=== PATIENT | female | born 1945 | race Caucasian/White ===

== ENCOUNTER → 2018-03-15 05:05 | Outpatient (REF) | payer MEDICARE, BC, SELFPAY ==
[2018-03-18 14:26] LABS: International Normalized Ratio 2.9; Prothrombin Time (Protime)PT. 30.5 SECONDS (11.7-14.9)
[2018-03-18 14:27] LABS: Cholesterol 104 mg/dL (200); High Density Lipoprotein 42 mg/dL; Thyroid Stim Hormone (TSH) 1.61 uIU/mL (0.358-3.74); Triglycerides 94 mg/dL; Very Low Density Lipoprotein 19 mg/dL (5-40)
== END ==
LOC: OLS.AVEB 05:05
PROVIDERS: Visit Provider Family Medicine
DX: Z86.73 Personal history of transient ischemic attack (TIA), and cerebral infarction without residual deficits (principal); Z79.01 Long term (current) use of anticoagulants; Z79.899 Other long term (current) drug therapy
CPT/HCPCS: 36415; 80061; 82306; 84443; 85610

== ENCOUNTER → 2018-03-19 06:10 | Outpatient (REF) | payer MEDICARE, MEDICAID, SELFPAY ==
[2018-03-19 09:45] LABS: International Normalized Ratio 3.3; Prothrombin Time (Protime)PT. 33.5 SECONDS (11.7-14.9)
== END ==
LOC: OLS.AVEB 06:10
PROVIDERS: Visit Provider Family Medicine
DX: R69 Illness, unspecified (principal)
CPT/HCPCS: 36415; 85610

== ENCOUNTER → 2018-03-22 05:00 | Outpatient (REF) | payer MEDICARE, BC, SELFPAY ==
[2018-03-22 09:49] LABS: International Normalized Ratio 3.2; Prothrombin Time (Protime)PT. 33.1 SECONDS (11.7-14.9)
== END ==
LOC: OLS.AVEB 05:00
PROVIDERS: Visit Provider Family Medicine
DX: Z79.899 Other long term (current) drug therapy (principal)
CPT/HCPCS: 36415; 82306; 85610

== ENCOUNTER → 2018-03-29 05:00 | Outpatient (REF) | payer MEDICARE, BC, SELFPAY ==
[2018-03-29 09:46] LABS: Prothrombin Time Fingerstick 46.2 SEC (11.9-14.4)
[2018-03-29 10:49] LABS: International Normalized Ratio 3.2; Prothrombin Time (Protime)PT. 33.3 SECONDS (11.7-14.9)
== END ==
LOC: OLS.AVEB 05:00
PROVIDERS: Visit Provider Family Medicine
DX: Z79.01 Long term (current) use of anticoagulants (principal)
CPT/HCPCS: 36416; 85610

== ENCOUNTER → 2018-04-01 05:00 | Outpatient (REF) | payer MEDICARE, BC, SELFPAY ==
[2018-04-01 07:41] LABS: Prothrombin Time Fingerstick 31.7 SEC (11.9-14.4)
== END ==
LOC: OLS.AVEB 05:00
PROVIDERS: Visit Provider Family Medicine
DX: Z79.01 Long term (current) use of anticoagulants (principal)
CPT/HCPCS: 36416; 85610

== ENCOUNTER → 2018-04-05 04:00 | Outpatient (REF) | payer MEDICARE, BC, SELFPAY ==
[2018-04-05 07:30] LABS: Prothrombin Time Fingerstick 28.9 SEC (11.9-14.4)
== END ==
LOC: OLS.AVEB 04:00
PROVIDERS: Visit Provider Family Medicine
DX: Z79.01 Long term (current) use of anticoagulants (principal)
CPT/HCPCS: 36416; 85610

== ENCOUNTER → 2018-04-12 05:00 | Outpatient (REF) | payer MEDICARE, BC, SELFPAY ==
[2018-04-12 08:42] LABS: Absolute Neutrophil Count 2.9 X10^3/uL (2.0-7.7); Basophil# 0.03 X10^3/uL; Basophil% 0.5 % (0-1); Eosinophil# 0.31 X10^3/uL; Eosinophils% 5.3 % (0-5); Hemoglobin 11.2 g/dl (12.0-15.0); Lymphocyte % 35.8 % (19-41); Mean Corp Hgb Conc 30.3 g/gl (32-36); Mean Corpuscular Hgb 27.3 pg (27.0-32.0); Mean Platelet Vol. 10.6 fl (6.2-12.0); Monocyte# 0.54 X10^3/uL; Monocyte% 9.2 % (0-10); Neutrophil # 2.88 X10^3/uL (2.7-7.7); Platelet Count 350 K/mm3 (150-450); RBC Distribution Width CV 14.4 % (11.6-14.6); RBC Distribution Width SD 47.3 fl (35.1-43.9); Red Blood Count 4.11 M/mm3 (4.2-5.4); White Blood Count 5.9 K/mm3 (4.4-11.0)
[2018-04-12 08:46] LABS: POSITIVE COUNT NO; POSITIVE DIFFERENTIAL NO; POSITIVE MORPHOLOGY NO
[2018-04-12 08:55] LABS: International Normalized Ratio 2.8; Prothrombin Time (Protime)PT. 29.3 SECONDS (11.7-14.9)
[2018-04-12 09:03] LABS: ALB/GLOB Ratio 0.9 RATIO (0.9-2.4); AST(SGOT) 23 U/L (15-37); Alanine Aminotransfer ALT/SGPT 25 U/L (13-56); Albumin, Serum 3.3 g/dL (3.2-5.0); Alkaline Phosphatase 153 U/L (45-117); Anion Gap 6 (5-15); BUN 21 mg/dL (7-18); BUN/Creat Ratio 28.2 RATIO (10-20); Calcium,Total 8.7 mg/dL (8.5-10.1); Chloride 108 mmol/L (98-107); Creatinine, Serum 0.74 mg/dL (0.55-1.02); EST Glomerular Filtration Rate 82 mL/min (>60); Est Glom Filt Rate - Afr Amer 99 mL/min (>60); Globulin 3.6 g/dL (2.2-4.2); Glucose 66 mg/dL (74-106); Potassium 4.1 mmol/L (3.5-5.1); Protein, Total 6.9 g/dL (6.4-8.2); Sodium Level 142 mmol/L (136-145)
== END ==
LOC: OLS.AVEB 05:00
PROVIDERS: Visit Provider Family Medicine
DX: R53.83 Other fatigue (principal)
CPT/HCPCS: 36415; 80053; 85025; 85610

== ENCOUNTER → 2018-04-19 04:00 | Outpatient (REF) | payer MEDICARE, BC, SELFPAY ==
[2018-04-19 08:59] LABS: International Normalized Ratio 2.2; Prothrombin Time (Protime)PT. 24.4 SECONDS (11.7-14.9)
== END ==
LOC: OLS.AVEB 04:00
PROVIDERS: Visit Provider Family Medicine
DX: Z79.01 Long term (current) use of anticoagulants (principal)
CPT/HCPCS: 36415; 85610

== ENCOUNTER → 2018-04-26 06:30 | Outpatient (REF) | payer MEDICARE, BC, SELFPAY ==
[2018-04-26 10:22] LABS: International Normalized Ratio 2.4; Prothrombin Time (Protime)PT. 26.3 SECONDS (11.7-14.9)
== END ==
LOC: OLS.AVEB 06:30
PROVIDERS: Visit Provider Family Medicine
DX: Z79.01 Long term (current) use of anticoagulants (principal)
CPT/HCPCS: 36415; 85610

== ENCOUNTER → 2018-05-13 05:30 | Outpatient (REF) | payer MEDICARE, BC, SELFPAY ==
[2018-05-14 10:14] LABS: Vitamin D,25 Hydroxy 51.3 ng/mL (29.95-100.01)
== END ==
LOC: OLS.AVEB 05:30
PROVIDERS: Visit Provider Family Medicine
DX: D64.9 Anemia, unspecified (principal); E55.9 Vitamin D deficiency, unspecified
CPT/HCPCS: 36415; 82306

== ENCOUNTER → 2018-05-17 05:00 | Outpatient (REF) | payer MEDICARE, BC, SELFPAY ==
[2018-05-17 11:20] LABS: International Normalized Ratio 2.5; Prothrombin Time (Protime)PT. 27.1 SECONDS (11.7-14.9)
[2018-05-17 11:22] LABS: Hematocrit 35.2 % (37-47); Hemoglobin 10.9 g/dl (12.0-15.0); Mean Corpuscular Hgb 28.2 pg (27.0-32.0); Mean Platelet Vol. 10.8 fl (6.2-12.0); Platelet Count 302 K/mm3 (150-450); RBC Distribution Width CV 13.8 % (11.6-14.6); RBC Distribution Width SD 45.4 fl (35.1-43.9); Red Blood Count 3.87 M/mm3 (4.2-5.4); Scan Indicated on CBC? Y/N NO; White Blood Count 6.2 K/mm3 (4.4-11.0)
[2018-05-17 11:39] LABS: ALB/GLOB Ratio 0.9 RATIO (0.9-2.4); AST(SGOT) 22 U/L (15-37); Alanine Aminotransfer ALT/SGPT 26 U/L (13-56); Alkaline Phosphatase 152 U/L (45-117); Anion Gap 9 (5-15); BUN 29 mg/dL (7-18); BUN/Creat Ratio 28.4 RATIO (10-20); Calcium,Total 8.6 mg/dL (8.5-10.1); Chloride 108 mmol/L (98-107); Creatinine, Serum 1.02 mg/dL (0.55-1.02); EST Glomerular Filtration Rate 57 mL/min (>60); Est Glom Filt Rate - Afr Amer 69 mL/min (>60); Globulin 3.2 g/dL (2.2-4.2); Glucose 74 mg/dL (74-106); Protein, Total 6.2 g/dL (6.4-8.2); Sodium Level 145 mmol/L (136-145); Thyroid Stim Hormone (TSH) 1.19 uIU/mL (0.358-3.74)
== END ==
LOC: OLS.AVEB 05:00
PROVIDERS: Visit Provider Family Medicine
DX: D64.9 Anemia, unspecified (principal); E78.5 Hyperlipidemia, unspecified; Z79.01 Long term (current) use of anticoagulants
CPT/HCPCS: 36415; 80053; 84443; 85027; 85610

== ENCOUNTER → 2018-06-15 04:00 | Outpatient (REF) | payer MEDICARE, BC, SELFPAY ==
[2018-06-15 09:18] LABS: International Normalized Ratio 2.8; Prothrombin Time (Protime)PT. 29.9 SECONDS (11.7-14.9)
== END ==
LOC: OLS.AVEB 04:00
PROVIDERS: Visit Provider Family Medicine
DX: Z79.01 Long term (current) use of anticoagulants (principal)
CPT/HCPCS: 36415; 85610

== ENCOUNTER → 2018-06-21 11:30 | Outpatient (REF) | payer MEDICARE, BC, SELFPAY ==
[2018-06-21 12:20] LABS: Prothrombin Time Fingerstick 35.9 SEC (11.9-14.4)
== END ==
LOC: OLS.AVEB 11:30
PROVIDERS: Visit Provider Family Medicine
DX: Z79.01 Long term (current) use of anticoagulants (principal)
CPT/HCPCS: 36416; 85610

== ENCOUNTER → 2018-07-06 04:00 | Outpatient (REF) | payer MEDICARE, BC, SELFPAY ==
[2018-07-06 09:18] LABS: International Normalized Ratio 2.9; Prothrombin Time (Protime)PT. 30.2 SECONDS (11.7-14.9)
[2018-07-06 09:30] LABS: Prothrombin Time Fingerstick 41.8 SEC (11.9-14.4)
== END ==
LOC: OLS.AVEB 04:00
PROVIDERS: Visit Provider Family Medicine
DX: Z79.01 Long term (current) use of anticoagulants (principal)
CPT/HCPCS: 36416; 85610

== ENCOUNTER → 2018-07-08 05:00 | Outpatient (REF) | payer MEDICARE, BC, SELFPAY ==
[2018-07-08 09:11] LABS: Prothrombin Time Fingerstick 28.4 SEC (11.9-14.4)
== END ==
LOC: OLS.AVEB 05:00
PROVIDERS: Visit Provider Family Medicine
DX: Z79.01 Long term (current) use of anticoagulants (principal)
CPT/HCPCS: 36416; 85610

== ENCOUNTER → 2018-07-19 04:00 | Outpatient (REF) | payer MEDICARE, BC, SELFPAY ==
[2018-07-19 06:34] LABS: Anion Gap 8 (5-15); BUN 25 mg/dL (7-18); BUN/Creat Ratio 25.1 RATIO (10-20); Calcium,Total 8.8 mg/dL (8.5-10.1); Chloride 108 mmol/L (98-107); EST Glomerular Filtration Rate 58 mL/min (>60); Est Glom Filt Rate - Afr Amer 71 mL/min (>60); Glucose 78 mg/dL (74-106); Potassium 3.9 mmol/L (3.5-5.1); Sodium Level 145 mmol/L (136-145)
== END ==
LOC: OLS.AVEB 04:00
PROVIDERS: Visit Provider Family Medicine
DX: R53.83 Other fatigue (principal)
CPT/HCPCS: 36415; 80048

== ENCOUNTER → 2018-07-21 05:00 | Outpatient (REF) | payer MEDICARE, BC, SELFPAY ==
[2018-07-21 08:55] LABS: Prothrombin Time Fingerstick 30.8 SEC (11.9-14.4)
== END ==
LOC: OLS.AVEB 05:00
PROVIDERS: Visit Provider Family Medicine
DX: Z79.01 Long term (current) use of anticoagulants (principal)
CPT/HCPCS: 36416; 85610

== ENCOUNTER → 2018-08-04 05:00 | Outpatient (REF) | payer MEDICARE, BC, SELFPAY ==
[2018-08-04 08:46] LABS: Prothrombin Time Fingerstick 34.5 SEC (11.9-14.4)
== END ==
LOC: OLS.AVEB 05:00
PROVIDERS: Visit Provider Family Medicine
DX: Z79.01 Long term (current) use of anticoagulants (principal)
CPT/HCPCS: 36416; 85610

== ENCOUNTER → 2018-08-16 17:50 | Outpatient (REF) | payer MEDICARE, BC, SELFPAY ==
[2018-08-16 17:29] LABS: International Normalized Ratio 2.4; Prothrombin Time (Protime)PT. 26.1 SECONDS (11.7-14.9)
== END ==
LOC: OLS.AVEB 17:50
PROVIDERS: Visit Provider Family Medicine
DX: Z79.01 Long term (current) use of anticoagulants (principal)
CPT/HCPCS: 36415; 85610

== ENCOUNTER → 2018-08-31 07:10 | Outpatient (REF) | payer MEDICARE, BC, SELFPAY ==
[2018-08-31 09:00] LABS: International Normalized Ratio 2.5; Prothrombin Time (Protime)PT. 26.7 SECONDS (11.7-14.9)
== END ==
LOC: OLS.AVEB 07:10
PROVIDERS: Visit Provider Family Medicine
DX: Z79.01 Long term (current) use of anticoagulants (principal)
CPT/HCPCS: 36415; 85610

== ENCOUNTER → 2018-09-28 05:00 | Outpatient (REF) | payer MEDICARE, BC, SELFPAY ==
[2018-09-28 07:51] LABS: Prothrombin Time Fingerstick 36.1 SEC (11.9-14.4)
--- OUTSIDE RECORDS SUMMARY | 2018-12-30 11:05 | XMS RPT_ITS ---
:1945 Author Organization OHIP Support Name Relationship Address Phone Berlin Deneth Unavailable [address] + [place] [address] R Unavailable Unavailable Unavailable Saadia Wilbert Unavailable [address] + [place] [address] R Unavailable Unavailable Unavailable SaadiaBerlinWilbert Unavailable [address] + [place] [address] R Unavailable Unavailable Unavailable SaadiaBerlinWilbert Unavailable [address] + [place] [address] R Unavailable Unavailable Unavailable Saadia Wilbert Unavailable [address] + [place] [address] R Unavailable Unavailable Unavailable Saadia, Wilbert Unavailable [address] + [place] [address] R Unavailable Unavailable Unavailable Saadia, Wilbert Unavailable [address] + [place] [address] R Unavailable Unavailable Unavailable Saadia, Wilbert Unavailable [address] + [place] [address] R Unavailable Unavailable Unavailable Saadia Wilbert Unavailable [address] + [place] [address] R Unavailable Unavailable Unavailable DAHLIA DE Unavailable SON + BERLIN DENETH Unavailable [address] Unavailable [place], [place] [id number] NOT GIVEN Unavailable Unavailable Unavailable Saadia Wilbert Unavailable [address] + [place] [address] R Unavailable Unavailable Unavailable SaadiaBerlinWilbert Unavailable [address] + [place] [address] R Unavailable Unavailable Unavailable Saadia, Wilbert Unavailable [address] + [place] [address] R Unavailable Unavailable Unavailable Saadia, Wilbert Unavailable [address] + [place] [address] R Unavailable Unavailable Unavailable Saadia, Wilbert Unavailable [address] + [place] [address] R Unavailable Unavailable Unavailable Saadia, Wilbert Unavailable [address] + [place] [address] R Unavailable Unavailable Unavailable Saadia, Wilbert Unavailable [address] + [place] [address] R Unavailable Unavailable Unavailable Saadia, Wilbert Unavailable [address] + [place] [address] R Unavailable Unavailable Unavailable Saadia, Wilbert Unavailable [address] + [place] [address] R Unavailable Unavailable Unavailable Saadia, Wilbert Unavailable [address] + [place] [address] R Unavailable Unavailable Unavailable Saadia, Wilbert Unavailable [address] + [place] [address] R Unavailable Unavailable Unavailable Saadia, Wilbert Unavailable [address] + [place] [address] R Unavailable Unavailable Unavailable Saadia, Wilbert Unavailable [address] + [place] [address] R Unavailable Unavailable Unavailable Saadia, Wilbert Unavailable [address] + [place] [address] R Unavailable Unavailable Unavailable Saadia, Wilbert Unavailable [address] + [place] [address] R Unavailable Unavailable Unavailable Saadia, Wilbert Unavailable [address] + [place] [address] R Unavailable Unavailable Unavailable Saadia, Wilbert Unavailable [address] + [place] [address] R Unavailable Unavailable Unavailable Saadia, Wilbert Unavailable [address] + [place] [address] R Unavailable Unavailable Unavailable Saadia, Wilbert Unavailable [address] + [place] [address] R Unavailable Unavailable Unavailable Saadia, Wilbert Unavailable [address] + [place] [address] R Unavailable Unavailable Unavailable Saadia, Wilbert Unavailable [address] + [place] [address] R Unavailable Unavailable Unavailable Saadia, Wilbert Unavailable [address] + [place] [address] R Unavailable Unavailable Unavailable Saadia, Wiblert Unavailable [address] + [place] [address] R Unavailable Unavailable Unavailable Saadia, Wilbert Unavailable [address] + [place] [address] R Unavailable Unavailable Unavailable Saadia, Wilbert Unavailable [address] + [place] [address] R Unavailable Unavailable Unavailable SAADIA DAHLIA Unavailable SON + SAADIA, WILBERT Unavailable [address] Unavailable [place], [place] [id number] NOT GIVEN Unavailable Unavailable Unavailable SAADIA DAHLIA Unavailable SON + SAADIA, WILBERT Unavailable [address] Unavailable [place], [place] [id number] NOT GIVEN Unavailable Unavailable Unavailable Saadia, Wilbert Unavailable [address] + [place] [address] R Unavailable Unavailable Unavailable SAADIA, WILBERT Unavailable [address] + [place] [address] R Unavailable Unavailable Unavailable SAADIA DAHLIA Unavailable SON + SAADIA, WILBERT Unavailable [address] Unavailable [place], [place] [id number] NOT GIVEN Unavailable Unavailable Unavailable SAADIA DAHLIA Unavailable SON + SAADIA, WILBERT Unavailable [address] Unavailable [place], [place] [id number] NOT GIVEN Unavailable Unavailable Unavailable SAADIA, DAHLIA Unavailable SON + JORDI DEH Unavailable [address] Unavailable [place], [place] [id number] NOT GIVEN Unavailable Unavailable Unavailable DAHLIA DE Unavailable SON + BERLIN DENETH Unavailable [address] Unavailable [place], [place] [id number] NOT GIVEN Unavailable Unavailable Unavailable Care Team Providers Name Role Phone DR MARCOS MORRIS Admitting Unavailable DR MARCOS MORRIS Attending Unavailable MALYS, NESS D.O Referring Unavailable DR MARCOS MORRIS Primary Care Unavailable MALYS, NESS D.O Consulting Unavailable PROVIDER, UNKNOWN Consulting Unavailable GEORGE WADE DO Admitting Unavailable GEORGE WADE DO Attending Unavailable GEORGE WADE DO Primary Care Unavailable MALYS, NESS D.O Consulting Unavailable MALYS, NESS D.O Referring Unavailable PROVIDER, UNKNOWN Consulting Unavailable LEESA GUILLERMO MD Admitting Unavailable LEESA GUILLERMO MD Attending Unavailable LEESA GUILLERMO MD Primary Care Unavailable MALYS, NESS D.O Consulting Unavailable PROVIDER, UNKNOWN Consulting Unavailable MALMADHU NESS D.O Referring Unavailable LEESA GUILLERMO MD Admitting Unavailable LEESA GUILLERMO MD Attending Unavailable LEESA GUILLERMO MD Primary Care Unavailable MALYS NESS D.O Consulting Unavailable PROVIDER, UNKNOWN Consulting Unavailable LEESA GUILLERMO MD Admitting Unavailable LEESA GUILLERMO MD Attending Unavailable LEESA GUILLERMO MD Primary Care Unavailable MALYS NESS D.O Consulting Unavailable PROVIDER, UNKNOWN Consulting Unavailable YANCI ZARATE MD Admitting Unavailable YANCI ZARATE MD Attending Unavailable YANCI ZARATE MD Primary Care Unavailable MALYS NESS D.O Consulting Unavailable PROVIDER, UNKNOWN Consulting Unavailable LEESA GUILLERMO MD Admitting Unavailable LEESA GUILLERMO MD Attending Unavailable LEESA GUILLERMO MD Primary Care Unavailable LEESA GUILLERMO MD Consulting Unavailable PROVIDER, UNKNOWN Consulting Unavailable PROVIDER, UNKNOWN Consulting Unavailable PROVIDER, UNKNOWN Consulting Unavailable Shamar, Kelvin Attending Unavailable Pritesh Blank Attending Unavailable Shamar, Kelvin Primary Care Unavailable Shamar, Kelvin Attending Unavailable Ibanez, Kelvin Attending Unavailable Ibanez, Kelvin Attending Unavailable Ibanez, Kelvin Attending Unavailable Kyra Rutherford Attending Unavailable Ibanez, Kelvin Attending Unavailable Ibanez, Kelvin Attending Unavailable Ibanez, Kelvin Attending Unavailable Ibanez, Kelvin Attending Unavailable Ibanez, Kelvin Attending Unavailable Ibanez, Kelvin Attending Unavailable Ibanez, Kelvin Attending Unavailable Roof, Mahesh Cochran Attending Unavailable Malys, Ness Referring Unavailable Malys, Ness Primary Care Unavailable Ibanez, Kelvin Attending Unavailable Ibanez, Kelvin Attending Unavailable Ibanez, Kelvin Attending Unavailable Ibanez, Kelvin Attending Unavailable Ibanez, Kelvin Attending Unavailable Ibanez, Kelvin Attending Unavailable Ibanez, Kelvin Attending Unavailable Ibanez, Kelvin Attending Unavailable Ibanez, Kelvin Attending Unavailable Ibanez, Kelvin Attending Unavailable Ibanez, Kelvin Attending Unavailable Ibanez, Kelvin Attending Unavailable Ibanez, Kelvin Attending Unavailable Ibanez, Kelvin Attending Unavailable Ibanez, Kelvin Attending Unavailable Davide, Milladore Attending Unavailable Ibanez, Kelvin Attending Unavailable Ibanez, Kelvin Attending Unavailable Ibanez, Kelvin Attending Unavailable Ibanez, Kelvin Attending Unavailable Ibanez, Kelvin Attending Unavailable PROBLEMS PROBLEMS DATE TYPE CONDITION / CODE ATTENDING STATUS SOURCE 11/03/2018 Unknown 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9 - Anemia, Ibanez Kelvin Active [place] unspecified / Community D64.9(ICD-10) Hospital Repository 07/09/2018 Unknown E78.5 - Ibnaez Kelvin Active [place] Hyperlipidemia, Community unspecified / Hospital E78.5(ICD-10) Repository 07/08/2018 Unknown E55.9 - Vitamin D IbanezKelvin Active [place] deficiency, Community unspecified / Hospital E55.9(ICD-10) Repository 06/02/2018 Unknown Z79.899 - Other long Kelvin Ibanez Active [place] term (current) drug Community therapy / Hospital Z79.899(ICD-10) Repository 10/28/2018 Unknown R69 - Illness, Ibanez, Kelvin Active [place] unspecified / Community R69(ICD-10) Hospital Repository 06/09/2018 Unknown I67.9 - Kelvin Ibanez Active [place] Cerebrovascular Community disease, unspecified Hospital / I67.9(ICD-10) Repository 01/19/2018 Admitting Syncope and collapse LATOUF, BUTROS Active [place] [facility] Diagnosis / R55(ICD-10) [facility] Repository 01/19/2018 Principle Syncope and collapse LATOUF, BUTROS Active [place] [facility] Diagnosis / R55(ICD-10) [facility] Repository 03/22/2018 Unknown Q21.1 - Atrial Roof, Mahesh Cochran Active [place] septal defect / Community Q21.1(ICD-10) Hospital Repository 03/22/2018 Unknown I63.9 - Cerebral Roof, 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, Community unspecified / Hospital I63.9(ICD-10) Repository 10/12/2017 Admitting Acute embolism and LATOUF, BUTRUMA Active [facility] [facility] Diagnosis thrombosis of [facility] unspecified deep Hospital veins of left lower Repository extremity / S79857(ICD-10) 10/12/2017 Principle [facility] (current) LATOUF, BUTROS Active [place] [facility] Diagnosis use of [facility] anticoagulants / Hospital Z7901(ICD-10) Repository 10/12/2017 Secondary Hypothyroidism, LATOUF, BUTROS Active [place] [facility] Diagnosis unspecified / [facility] E039(ICD-10) Hospital Repository 10/12/2017 Secondary Anemia, unspecified LATOUF, BUTROS Active [facility] Diagnosis / D649(ICD-10) [facility] Repository 10/12/2017 Secondary Essential (primary) LATOUF, LEESA Active [facility] [facility] Diagnosis hypertension / [facility] I10(ICD-10) Hospital Repository 10/12/2017 Secondary Acute upper LATOUF, LEESA Active [facility] [facility] Diagnosis respiratory [facility] infection, Hospital unspecified / Repository J069(ICD-10) PROCEDURES PROCEDURES No Procedure Records FoundRESULTS RESULTS PROTIME W/INR Collected: 11/02/2018 Status: F Source: SHEREE FINGERSTICK 6:55 AM [facility] REPOSITORY TYPE CODE TESTS RESULT OUT OF REFERENCE UNITS RANGE LAB L9200.1001 11.9-14.4 SEC High PROTIME ISTAT 33.6 Result Comment: Reference Range 11.9 - 14.4 LAB L9200.2000 Normal INR ISTAT 2.90 Result Comment: Critical Value > 3.5 Performed By: #### L9200.0000 #### [facility] Point of Care [address] [place] [address] PROTIME W/INR Collected: 10/26/2018 Status: F Source: SHEREE FINGERSTICK 12:20 PM [facility] REPOSITORY TYPE CODE TESTS RESULT OUT OF REFERENCE UNITS RANGE LAB L9200.1001 11.9-14.4 SEC High PROTIME ISTAT 23.1 Result Comment: Reference Range 11.9 - 14.4 LAB L9200.2000 Normal INR ISTAT 2.00 Result Comment: Critical Value > 3.5 Performed By: #### L9200.0000 #### [facility] Point of Care [address] [place] [address] VITAMIN D,25 HYDROXY Collected: 10/25/2018 Status: F Source: SHEREE 5:00 AM [facility] REPOSITORY TYPE CODE TESTS RESULT OUT OF RANGE REFERENCE UNITS LAB L506.1000 29.95-100.01 ng/mL Normal Vitamin D 30.2 25-OH Result Comment: Vitamin D 25(OH) Status Range Deficiency <20 ng/mL (50nmol/L) Insuffciency 20 - 30 ng/mL (50 - 75 nmol/L) Sufficiency 30 - 100 ng/mL (75 - 250 nmol/L) Toxicity >100 ng/mL (>250 nmol/L) Performed By: #### L506.1000 #### [facility] [place], [address] PROTIME W/INR Collected: 10/20/2018 Status: F Source: SHEREE FINGERSTICK 5:27 AM [facility] REPOSITORY TYPE CODE TESTS RESULT OUT OF REFERENCE UNITS RANGE LAB L9200.1001 11.9-14.4 SEC High PROTIME ISTAT 32.1 Result Comment: Reference Range 11.9 - 14.4 LAB L9200.2000 Normal INR ISTAT 2.80 Result Comment: Critical Value > 3.5 Performed By: #### L9200.0000 #### [facility] Point of Care [address] [place] [address] PROTHROMBIN TIME W/INR Collected: 10/19/2018 Status: F Source: SHEREE 6:25 AM [facility] REPOSITORY Order Comment: ROOM 107 TYPE CODE TESTS RESULT OUT OF RANGE REFERENCE UNITS LAB L300.4150 11.7-14.9 SECONDS High PROTIME 32.5 LAB L300.4200 Normal INR 3.1 Performed By: #### L300.3900 #### [facility] [address] [place], [address] PROTHROMBIN TIME W/INR Collected: 10/18/2018 Status: F Source: SHEREE 4:25 AM [facility] REPOSITORY Order Comment: Result obtained is for confirmation testing of Fingerstick PT/INR Specimen # [id number] . 10/18/18 0720 RHICKS THIS CONFIRMATION SPECIMEN RESULT IS FROM VENOUS BLOOD. TYPE CODE TESTS RESULT OUT OF REFERENCE UNITS RANGE LAB L300.4150 11.7-14.9 SECONDS High PROTIME 40.6 LAB L300.4200 High alert INR 4.2 Result Comment: CRITICAL VALUE VERIFIED. CALLED TO [facility] 10/18/18 0801 Petar Monroe. RESULTS READ BACK BY SAME. Performed By: #### L300.3900 #### [facility] [address] [place], [address] PROTIME W/INR Collected: 10/18/2018 Status: F Source: SHEREE FINGERSTICK 4:20 AM [facility] REPOSITORY TYPE CODE TESTS RESULT OUT OF REFERENCE UNITS RANGE LAB L9200.1001 11.9-14.4 SEC High PROTIME ISTAT 64.3 Result Comment: Reference Range 11.9 - 14.4 LAB L9200.2000 High alert INR ISTAT 5.80 Result Comment: Critical Value > 3.5 Performed By: #### L9200.0000 #### [facility] Point of Care [address] [place], [place] [address] PROTHROMBIN TIME W/INR Collected: 10/17/2018 Status: F Source: SHEREE 7:50 AM [facility] REPOSITORY TYPE CODE TESTS RESULT OUT OF RANGE REFERENCE UNITS LAB L300.4150 11.7-14.9 SECONDS High PROTIME 32.4 LAB L300.4200 Normal INR 3.1 Performed By: #### L300.3900 #### [facility] [address] [place], [address] PROTHROMBIN TIME W/INR Collected: 10/16/2018 Status: F Source: SHEREE 7:25 AM [facility] REPOSITORY TYPE CODE TESTS RESULT OUT OF RANGE REFERENCE UNITS LAB L300.4150 11.7-14.9 SECONDS High PROTIME 32.3 LAB L300.4200 Normal INR 3.1 Performed By: #### L300.3900 #### [facility] [address] [place], [address] PROTIME W/INR Collected: 10/15/2018 Status: F Source: SHEREE FINGERSTICK 6:40 AM [facility] REPOSITORY TYPE CODE TESTS RESULT OUT OF REFERENCE UNITS RANGE LAB L9200.1001 11.9-14.4 SEC High PROTIME ISTAT 38.4 Result Comment: Reference Range 11.9 - 14.4 LAB L9200.2000 Normal INR ISTAT 3.40 Result Comment: Critical Value > 3.5 Performed By: #### L9200.0000 #### [facility] Point of Care [address] [place], [place] [address] URINALYSIS, COMPLETE Collected: 10/07/2018 Status: F Source: SHEREE 4:30 PM [facility] REPOSITORY Order Comment: How was Urine Obtained? CATHETER SPECIMEN TYPE CODE TESTS RESULT OUT OF RANGE REFERENCE UNITS LAB L400.3000 Yellow COLOR Normal Yellow LAB L400.3050 Clear Normal CLARITY Sl. Cloudy LAB L400.3200 Normal mg/dl Normal GLUCOSE, UR Normal LAB L400.3300 Negative mg/dL Normal BILIRUBIN URINE Negative LAB L400.3400 Negative mg/dl Normal KETONE UR Negative LAB L400.3465 1.002-1.030 Normal SP.GR. DIPSTX 1.020 LAB L400.3550 5.0 - 8.0 pH UR Normal 5.0 LAB L400.3600 Negative mg/dl High PROT 30 DIPSTX LAB L400.3700 Normal mg/dl Normal UROBILI Normal LAB L400.3750 Negative High NITRITE UR Positive LAB L400.3780 Negative /ul High 25 OCCULT BLOOD-UR LAB L400.3800 Negative /ul High LEUK ESTERASE 500 LAB L400.4050 0-5 /hpf WBC Normal 25-50 SEEN LAB L400.4100 0-5 /hpf Normal RBC-UA 0-5 SEEN LAB L400.4150 5-10 /hpf SQUAM 0 Normal EPI SEEN LAB L400.4300 None Seen /hpf 2+ Normal BACTERIA LAB L400.4350 <or=2+ /hpf 0 Normal MUCUS, URINE SEEN Performed By: #### L400.0001 #### [facility] [address] [facility] [place], [place], [address] Observed: 10/07/2018 Status: F Source: CHENEY CULTURE, URINE 4:30 PM [facility] REPOSITORY Urine Culture ORGANISM 1: Escherichia coli [place] Count >100,000 Escherichia coli: REACTION Amoxacillin/Clavulanic Acid $ <=2 S Ampicillin $ <=2 S Ampicillin/Sulbactam $ <=2 S Cefazolin $ <=4 S Cefepime $ <=1 S Ceftriaxone $ <=1 S Ciprofloxacin $ <=0.25 S ESBL - Ertapenim $$$ <=0.5 S Gentamicin $ <=1 S Imipenem *NF <=0.25 S Levofloxacin $ <=0.12 S Nitrofurantoin $ <=16 S Piperacillin/Tazobactam $$ <=4 S Tobramycin $ <=1 S Trimethoprim/Sulfametho $ <=20 S (NF) indicates non-formulary drug at [facility]. Approval by Infectious Disease Specialist required before non-formulary drugs may be ordered and/or dispensed. Performed By: #### M100.0650 #### [facility] [address] [facility] [place], [place], [address] PROTIME W/INR Collected: 10/06/2018 Status: F Source: CHENEY FINGERSTICK 5:04 AM [facility] REPOSITORY TYPE CODE TESTS RESULT OUT OF REFERENCE UNITS RANGE LAB L9200.1001 11.9-14.4 SEC High PROTIME ISTAT 29.9 Result Comment: Reference Range 11.9 - 14.4 LAB L9200.2000 Normal INR ISTAT 2.60 Result Comment: Critical Value > 3.5 Performed By: #### L9200.0000 #### [facility] Point of Care [address] [place] [address] DISCHARGE INSTRUCTION Observed: 10/06/2018 Status: F Source: SHEREE 12:01 AM [facility] REPOSITORY [facility] Medical Records Department [address] [place] [address] Discharge Instruction 10/05/18 2333 MR#: [id number] Acct: [id number] Name: Trina De Rep #: [id number] : 1945 73 From: Pritesh Blank MD PCP: Kelvin Ibanez MD Status: REG ER ED Disposition - Plan for ED Patient: Disposition: Home or Assisted Living Chief Complaint: Fall Instructions: ED Head Injury Closed, ED Contusion Lower Ext Referrals: Leesa Guillermo [NON-STAFF] - As Needed Additional Instructions: Ice all sore areas. Ice to the left forehead to decrease swelling. She will developed swelling around her left eye more than likely. Tylenol for pain. Hold her next Coumadin dose just for 1 day. Return if severe headache, vomiting or not acting normally. X-rays today show no broken bones. CAT scan of the brain showed no bleeding in the brain. What to do if you have Problems For any increased pain, shortness of breath, bleeding, nausea or vomiting, chest pain, or any unexpected problems, contact your Primary Care Provider. Call [facility] ([phone]) or report to the closest Emergency Room. Call 911 if necessary. 10/06/18 0001 <Electronically signed by Pritesh Blank MD> Date Pritesh Blank MD Cosigner Signature (If Indicated): Date CC: Kelvin Ibanez MD EMERGENCY DEPARTMENT Observed: 10/06/2018 Status: F Source: SHEREE SUMMARY 12:01 AM [facility] REPOSITORY [facility] Medical Records Department [address] [place] [address] Emergency Department Summary 10/05/182125 MR#: [id number] Acct: [id number] Name: Trina De Rep #: [id number] : 1945 73 From: Pritesh Blank MD PCP: Kelvin Ibanez MD Status: REG ER - ER Visit Summary Date of Service: 10/05/18 Chief Complaint: Fall with head injury History of Present Illness: 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 Also history of COPD and on Coumadin. [facility] She fell out of a wheelchair and struck the left side of her head. Unsure any LOC. She is on Coumadin. Has a hematoma on her left forehead. Also complaining primarily of left hip and knee pain. Physical Examination: Older female no acute distress. Vital signs stable initial blood pressure 168/118. She is afebrile. She does not look septic or toxic. HEENT exam she is a moderate-sized hematoma to her left forehead. Pupils round reactive light. C-spine nontender. Trachea midline. Lungs clear to auscultation bilaterally. Heart regular rhythm no murmur. Chest wall nontender. Abdomen soft nontender. Normal bowel sounds no peritoneal signs. Pelvic girdle is intact. There is no shortening or rotation to either hip. He states her left hip is mildly uncomfortable but not reproducible to pain. There is no bruising left hip. Left knee has a contusion in the lateral aspect. She is paralyzed on the left side with left upper and left lower extremity. Right upper right lower extremity are unremarkable. Back is nontender. Neurologically she is awake and alert. She has paralysis of her left upper and lower extremity from a prior stroke. Test Results: CT of her brain she has chronic changes from a prior large right frontal stroke. No acute bleed. No fracture. Read both by me and the radiologist. Left shoulder x-ray two-view shows no acute fracture read by myself. Left hip x-ray and pelvis 2 view shows no acute fracture read by myself. Left knee x-ray 3 views read by myself shows no acute fracture. There is prior left knee prosthesis hardware is in good position. Emergency Department Course and Treatment: Patient given 1 [place] for pain. 2320. Awaiting formal CT read by the radiologist. I discussed all radiographic studies with the patient family. Are comfortable with discharge as well as the CAT scan is read as negative also. Treatment Plan: Head injury instructions. Hold Coumadin next 24 hours. Ice to forehead. Tylenol for pain. Disposition: Discharge Impression: Acute fall from a wheelchair Closed head injury left forehead hematoma anticoagulated on Coumadin Left hip contusion. Left knee contusion This note was generated with [employer] ([employer]ation software. It may contain incorrect words, spelling, and punctuation that were not noted in review of the chart prior to signing ED Disposition - Plan for ED Patient: Chief Complaint: Fall Referrals: Leesa Guillermo [NON-STAFF] - What to do if you have Problems For any increased pain, shortness of breath, bleeding, nausea or vomiting, chest pain, or any unexpected problems, contact your Primary Care Provider. Call [facility] ([phone]) or report to the closest Emergency Room. Call 911 if necessary. 10/06/18 0001 <Electronically signed by Pritesh Blank MD> Date Pritesh Blank MD Cosigner Signature (If Indicated): Date CC: Kelvin Ibanez MD HIP, UNI W/ PELVIS Observed: 10/05/2018 Status: F Source: SHEREE 2-3 VIEWS 9:26 PM [facility] REPOSITORY [facility] Imaging Services [address] [place] [address] HIP, UNI W/ Pelvis 2-3 Views MR#: [id number] Acct: [id number] Name: Trina De Rep #: [id number] : 1945 F 73 From: Ken Waters MD PCP: Kelvin Ibanez MD Status: REG ER Study: HIP, UNI W/ Pelvis 2-3 Views Date of Exam: 10/05/18 Exam# [id number] Ordering Dr: Pritesh Blank MD STUDY: X-RAY - PELVIS AND LEFT HIP REASON FOR EXAM: Female, 73 years old. Pain. Fall TECHNIQUE: 3 views of the pelvis and hip. COMPARISON: None. FINDINGS: There is a normal bowel gas pattern. Normal visualized soft tissue structures. There is diffuse demineralization of the osseous structures. Normal bilateral iliac wings, sacroiliac joints and visualized sacrum. Normal bilateral superior and inferior pubic rami. Normal pubic symphysis. Normal bilateral ischial tuberosities. Normal visualized femoral head. Normal acetabulum. There is mild articular joint space narrowing of the hip. No acute fracture RAD/HIP, UNI W/ Pelvis 2-3 Views IMPRESSION: No acute fracture seen. Electronically Signed: Ken Waters MD at 23:29 EST , Service support , CC: Pritesh Blank MD; Kelvin Ibanez MD Form Tamping Machine Operator: Signed KNEE 3 VIEWS Observed: 10/05/2018 Status: F Source: [place]Y 9:26 PM [facility] REPOSITORY [facility] Imaging Services [address] [place] [address] Knee 3 Views MR#: [id number] Acct: [id number] Name: Trina De Rep #: [id number] : 1945 F 73 From: Ken Waters MD PCP: Kelvin Ibanez MD Status: REG ER Study: Knee 3 Views Date of Exam: 10/05/18 Exam# [id number] Ordering Dr: Pritesh Blank MD STUDY: X-RAY - LEFT KNEE REASON FOR EXAM: Female, 73 years old. Pain. Fall TECHNIQUE: 3 view(s) of the knee. COMPARISON: None. FINDINGS: Normal visualized distal femur. Normal visualized proximal tibia and fibula. Normal proximal tibiofibular articulation. There is no demonstrated fracture. Left knee replacement . Alignment is near-anatomic. The soft tissue structures are unremarkable. RAD/Knee 3 Views IMPRESSION: Left knee replacement. Electronically Signed: Ken Waters MD at 23:32 EST , Service support , CC: Pritesh Blank MD; Kelvin Ibanez MD Form Tamping Machine Operator: Signed BRAIN/HEAD WITHOUT Observed: 10/05/2018 Status: F Source: CH[place]Y CONTRAST 9:26 PM [facility] REPOSITORY [facility] Imaging Services [address] [place] [address] Brain/Head without Contrast MR#: [id number] Acct: [id number] Name: Trina De Rep #: [id number] : 1945 F 73 From: Ken Waters MD PCP: Kelvin Ibanez MD Status: REG ER Study: Brain/Head without Contrast Date of Exam: 10/05/18 Exam# [id number] Ordering Dr: Pritesh Blank MD STUDY: CT BRAIN WITHOUT CONTRAST REASON FOR EXAM: Female, 73 years old. Fall. Hematoma. RADIATION DOSAGE (If Supplied By Facility): CTDIvol = ( 44.99 ) mGy, DLP = ( 745.49 ) mGycm TECHNIQUE: Transaxial CT imaging of the brain was performed without administration of intravenous contrast material. Individualized dose optimization techniques were used for this CT. COMPARISON: February 26, 2017 FINDINGS: Left frontal soft tissue swelling. Normal calvarium. There is mild cerebral atrophy with widening of the extra- axial spaces and ventricular dilatation. There are areas of decreased attenuation within the white matter tracts of the supratentorial brain, consistent with microvascular disease changes. There is right frontal and temporal volume loss and encephalomalacia. Normal basal ganglia and thalami. Normal brainstem. There is mild cerebellar atrophy. There is no intracranial hemorrhage. There are no findings of an acute ischemic infarction. Normal visualized paranasal sinuses. CT/Brain/Head without Contrast IMPRESSION: Chronic involutional changes of the brain. Evolution of right-sided infarct. Soft tissue swelling. No hemorrhage. Electronically Signed: Ken Waters MD at 22:57 EST , Service support , CC: Pritesh Blank MD; Kelvin Ibanez MD Form Tamping Machine Operator: Signed SHOULDER MIN 2 VIEWS Observed: 10/05/2018 Status: F Source: [place]Y 9:26 PM [facility] REPOSITORY [facility] Imaging Services [address] [place] [id number] Shoulder min 2 Views MR#: [id number] Acct: [id number] Name: Trina De Rep #: [id number] : 1945 F 73 From: Ken Waters MD PCP: Kelvin Ibanez MD Status: REG ER Study: Shoulder min 2 Views Date of Exam: 10/05/18 Exam# [id number] Ordering Dr: Pritesh Blank MD STUDY: X-RAY - LEFT SHOULDER REASON FOR EXAM: Female, 73 years old. Pain. Fall TECHNIQUE: 2 view(s) of the shoulder. COMPARISON: None. FINDINGS: Normal glenohumeral articulation. There is hypertrophic osteoarthrosis of the acromioclavicular joint with inferior osseous spur formation. Normal acromion. There is demineralization of the humerus and visualized osseous structures. The soft tissue structures are unremarkable. There is no demonstrated fracture. Normal visualized pulmonary apex. RAD/Shoulder min 2 Views IMPRESSION: No fracture seen. Electronically Signed: Ken Waters MD at 23:34 EST , Service support , CC: Pritesh Blank MD; Kelvin Ibanez MD Form Tamping Machine Operator: Signed PROTIME W/INR Collected: 09/28/2018 Status: F Source: SHEREE FINGERSTICK 5:21 AM [facility] REPOSITORY TYPE CODE TESTS RESULT OUT OF REFERENCE UNITS RANGE LAB L9200.1001 11.9-14.4 SEC High PROTIME ISTAT 36.1 Result Comment: Reference Range 11.9 - 14.4 LAB L9200.2000 Normal INR ISTAT 3.20 Result Comment: Critical Value > 3.5 Performed By: #### L9200.0000 #### [facility] Point of Care [address] [place] [address] [id number] PROTHROMBIN TIME W/INR Collected: 2018 Status: F Source: SHEREE 7:10 AM [facility] REPOSITORY TYPE CODE TESTS RESULT OUT OF RANGE REFERENCE UNITS LAB L300.4150 11.7-14.9 SECONDS High PROTIME 26.7 LAB L300.4200 Normal INR 2.5 Performed By: #### L300.3900 #### [facility] [place], [address] PROTHROMBIN TIME W/INR Collected: 08/16/2018 Status: F Source: SHEREE 5:50 PM [facility] REPOSITORY TYPE CODE TESTS RESULT OUT OF RANGE REFERENCE UNITS LAB L300.4150 11.7-14.9 SECONDS High PROTIME 26.1 LAB L300.4200 Normal INR 2.4 Performed By: #### L300.3900 #### [facility] [place], [address] PROTIME W/INR Collected: 08/04/2018 Status: F Source: [place] FINGERSTICK 7:14 AM [facility] REPOSITORY TYPE CODE TESTS RESULT OUT OF REFERENCE UNITS RANGE LAB L9200.1001 11.9-14.4 SEC High PROTIME ISTAT 34.5 Result Comment: Reference Range 11.9 - 14.4 LAB L9200.2000 Normal INR ISTAT 3.00 Result Comment: Critical Value > 3.5 Performed By: #### L9200.0000 #### [facility] Point of Care [address] [place] [address] PROTIME W/INR Collected: 07/21/2018 Status: F Source: [place] FINGERSTICK 5:52 AM [facility] REPOSITORY TYPE CODE TESTS RESULT OUT OF REFERENCE UNITS RANGE LAB L9200.1001 11.9-14.4 SEC High PROTIME ISTAT 30.8 Result Comment: Reference Range 11.9 - 14.4 LAB L9200.1999 Normal INR ISTAT 2.70 Result Comment: Critical Value > 3.5 Performed By: #### L9200.0000 #### [facility] Point of Care [address] [place] [address] BASIC METABOLIC Collected: 07/19/2018 Status: F Source: SHEREE PROFILE (BMP) 4:20 AM [facility] REPOSITORY Order Comment: ROOM 107 TYPE CODE TESTS RESULT OUT OF RANGE REFERENCE UNITS LAB L501.0100 74-106 mg/dL Normal GLU 78 Result Comment: Please note revised GLUCOSE reference range effective 2017. LAB L501.1000 7-18 mg/dL High BUN 25 LAB L501.1100 0.55-1.02 mg/dL Normal CREAT,SERUM 1.00 Result Comment: The validity of the calculated GFR AND GFRAA in patients over 70 years has not been determined. Clinical correlation is essential. LAB L501.1110 >60 mL/min Low EST GFR 58 Result Comment: Non- GFR Calc LAB L501.1115 >60 mL/min Normal EST GFR - AA 71 Result Comment: GFR Calc LAB L501.1300 10-20 RATIO High BUN/CRE 25.1 LAB L501.2200 8.5-10.1 mg/dL CA Normal 8.8 LAB L501.5300 136-145 mmol/L NA Normal 145 LAB L501.5600 3.5-5.1 mmol/L K Normal 3.9 LAB L501.5900 98-107 mmol/L High CL 108 LAB L501.6100 21.0-32.0 mmol/L Normal CO2 29.0 LAB L501.6200 5-15 Normal GAP 8 Performed By: #### L500.2500 #### [facility] [address] PROTIME W/INR Collected: 07/08/2018 Status: F Source: [place] FINGERSTICK 5:34 AM [facility] REPOSITORY TYPE CODE TESTS RESULT OUT OF REFERENCE UNITS RANGE LAB L9200.1001 11.9-14.4 SEC High PROTIME ISTAT 28.4 Result Comment: Reference Range 11.9 - 14.4 LAB L9200.2000 Normal INR ISTAT 2.50 Result Comment: Critical Value > 3.5 Performed By: #### L9200.0000 #### [facility] Point of Care [address] [facility] [place] [address] PROTIME W/INR Collected: 07/06/2018 Status: F Source: [place] FINGERSTICK 5:40 AM [facility] REPOSITORY TYPE CODE TESTS RESULT OUT OF REFERENCE UNITS RANGE LAB L9200.1001 11.9-14.4 SEC High PROTIME ISTAT 41.8 Result Comment: Reference Range 11.9 - 14.4 LAB L9200.2000 High alert INR ISTAT 3.70 Result Comment: Critical Value > 3.5 Performed By: #### L9200.0000 #### [facility] Point of Care [address] [facility] [place] [address] PROTHROMBIN TIME W/INR Collected: 07/06/2018 Status: F Source: SHEREE 5:25 AM [facility] REPOSITORY TYPE CODE TESTS RESULT OUT OF RANGE REFERENCE UNITS LAB L300.4150 11.7-14.9 SECONDS High PROTIME 30.2 LAB L300.4200 Normal INR 2.9 Performed By: #### L300.3900 #### [facility] [address] [place] [address], [address] PROTIME W/INR Collected: 06/21/2018 Status: F Source: [place] FINGERSTICK 11:54 AM [facility] REPOSITORY TYPE CODE TESTS RESULT OUT OF REFERENCE UNITS RANGE LAB L9200.1001 11.9-14.4 SEC High PROTIME ISTAT 35.9 Result Comment: Reference Range 11.9 - 14.4 LAB L9200.2000 Normal INR ISTAT 3.20 Result Comment: Critical Value > 3.5 Performed By: #### L9200.0000 #### [facility] Point of Care [address] [place], [place] [address] PROTHROMBIN TIME W/INR Collected: 06/15/2018 Status: F Source: SHEREE 7:20 AM [facility] REPOSITORY Order Comment: ROOM 107 TYPE CODE TESTS RESULT OUT OF RANGE REFERENCE UNITS LAB L300.4150 11.7-14.9 SECONDS High PROTIME 29.9 LAB L300.4200 Normal INR 2.8 Performed By: #### L300.3900 #### [facility] [address] [place] [address]. [place], [address] PROTHROMBIN TIME W/INR Collected: 05/17/2018 Status: F Source: SHEREE 7:35 AM [facility] REPOSITORY Order Comment: ROOM 107 TYPE CODE TESTS RESULT OUT OF RANGE REFERENCE UNITS LAB L300.4150 11.7-14.9 SECONDS High PROTIME 27.1 LAB L300.4200 Normal INR 2.5 Performed By: #### L300.3900 #### [facility] [address] [place] [address], [address] CBC-COMPLETE BLOOD CNT Collected: 05/17/2018 Status: F Source: SHEREE NO DIFF 7:35 AM [facility] REPOSITORY Order Comment: ROOM 107 TYPE CODE TESTS RESULT OUT OF RANGE REFERENCE UNITS LAB L100.1000 4.4-11.0 K/mm3 Normal WBC 6.2 LAB L100.1200 4.2-5.4 M/mm3 Low RBC 3.87 LAB L100.1300 12.0-15.0 g/dl Low HGB 10.9 LAB L100.1400 37-47 % Low HCT 35.2 LAB L100.1500 81-99 fL Normal MCV 91.0 LAB L100.1600 27.0-32.0 pg Normal MCH 28.2 LAB L100.1700 32-36 g/gl Low MCHC 31.0 LAB L100.1810 11.6-14.6 % Normal RDW CV 13.8 LAB L100.1820 35.1-43.9 fl High RDW SD 45.4 LAB L100.1900 150-450 K/mm3 Normal PLT 302 LAB L100.2000 6.2-12.0 fl Normal MPV 10.8 Performed By: #### L100.0500 #### [facility] [place], [address] COMPREHENSIVE METABOLIC Collected: 05/17/2018 Status: F Source: SHEREE GRAJEDA 7:35 AM [facility] REPOSITORY Order Comment: ROOM 107 TYPE CODE TESTS RESULT OUT OF RANGE REFERENCE UNITS LAB L501.0100 74-106 mg/dL Normal GLU 74 Result Comment: Please note revised GLUCOSE reference range effective 2017. LAB L501.1000 7-18 mg/dL High BUN 29 LAB L501.1100 0.55-1.02 mg/dL Normal CREAT,SERUM 1.02 Result Comment: The validity of the calculated GFR AND GFRAA in patients over 70 years has not been determined. Clinical correlation is essential. LAB L501.1110 >60 mL/min Low EST GFR 57 Result Comment: Non- GFR Calc LAB L501.1115 >60 mL/min Normal EST GFR - AA 69 Result Comment: GFR Calc LAB L501.1300 10-20 RATIO High BUN/CRE 28.4 LAB L501.1500 6.4-8.2 g/dL Low T PROT 6.2 LAB L501.1800 3.2-5.0 g/dL Low ALB 3.0 LAB L501.1950 2.2-4.2 g/dL Normal GLOB 3.2 LAB L501.2000 0.9-2.4 RATIO Normal A/G 0.9 LAB L501.2200 8.5-10.1 mg/dL CA Normal 8.6 LAB L501.4100 15-37 U/L Normal AST 22 LAB L501.4305 45-117 U/L High ALK P 152 LAB L501.4405 13-56 U/L Normal ALT 26 LAB L501.4600 0.20-1.00 mg/dL T Normal BILI 0.30 LAB L501.5300 136-145 mmol/L NA Normal 145 LAB L501.5600 3.5-5.1 mmol/L K Normal 4.0 LAB L501.5900 98-107 mmol/L High CL 108 LAB L501.6100 21.0-32.0 mmol/L Normal CO2 28.0 LAB L501.6200 5-15 Normal GAP 9 Performed By: #### L500.4050, L501.9520 #### [facility] [address] [place], [address] THYROID STIM HORMONE Collected: 05/17/2018 Status: F Source: SHEREE (TSH) 7:35 AM [facility] REPOSITORY Order Comment: ROOM 107 TYPE CODE TESTS RESULT OUT OF RANGE REFERENCE UNITS LAB L501.9520 0.358-3.74 uIU/mL Normal TSH 1.19 Performed By: #### L500.4050, L501.9520 #### [facility] [address] [place], [address] VITAMIN D,25 HYDROXY Collected: 05/13/2018 Status: F Source: SHEREE 5:45 AM [facility] REPOSITORY Order Comment: ROOM 107 TYPE CODE TESTS RESULT OUT OF RANGE REFERENCE UNITS LAB L506.1000 29.95-100.01 ng/mL Normal Vitamin D 51.3 25-OH Result Comment: Vitamin D 25(OH) Status Range Deficiency <20 ng/mL (50nmol/L) Insuffciency 20 - 30 ng/mL (50 - 75 nmol/L) Sufficiency 30 - 100 ng/mL (75 - 250 nmol/L) Toxicity >100 ng/mL (>250 nmol/L) Performed By: #### L506.1000 #### [facility] [address] [place], [address] PROTHROMBIN TIME W/INR Collected: 04/26/2018 Status: F Source: SHEREE 6:30 AM [facility] REPOSITORY TYPE CODE TESTS RESULT OUT OF RANGE REFERENCE UNITS LAB L300.4150 11.7-14.9 SECONDS High PROTIME 26.3 LAB L300.4200 Normal INR 2.4 Performed By: #### L300.3900 #### [facility] [address] [place], [address] PROTHROMBIN TIME W/INR Collected: 04/19/2018 Status: F Source: SHEREE 6:56 AM [facility] REPOSITORY TYPE CODE TESTS RESULT OUT OF RANGE REFERENCE UNITS LAB L300.4150 11.7-14.9 SECONDS High PROTIME 24.4 LAB L300.4200 Normal INR 2.2 Performed By: #### L300.3900 #### [facility] [address] [place], [address] CBC W/DIFF, AUTOMATED Collected: 04/12/2018 Status: F Source: SHEREE 5:45 AM [facility] REPOSITORY Order Comment: 107B TYPE CODE TESTS RESULT OUT OF RANGE REFERENCE UNITS LAB L100.1000 4.4-11.0 K/mm3 Normal WBC 5.9 LAB L100.1200 4.2-5.4 M/mm3 Low RBC 4.11 LAB L100.1300 12.0-15.0 g/dl Low HGB 11.2 LAB L100.1400 37-47 % Normal HCT 37.0 LAB L100.1500 81-99 fL Normal MCV 90.0 LAB L100.1600 27.0-32.0 pg Normal MCH 27.3 LAB L100.1700 32-36 g/gl Low MCHC 30.3 LAB L100.1810 11.6-14.6 % Normal RDW CV 14.4 LAB L100.1820 35.1-43.9 fl High RDW SD 47.3 LAB L100.1900 150-450 K/mm3 Normal PLT 350 LAB L100.2000 6.2-12.0 fl Normal MPV 10.6 LAB L100.2100 47-70 % Normal NEUT% 49.0 LAB L100.2200 19-41 % Normal LY% 35.8 LAB L100.2300 0-10 % Normal MONO% 9.2 LAB L100.2400 0-5 % High EO% 5.3 LAB L100.2500 0-1 % Normal BASO% 0.5 LAB L100.2550 0.0-0.9 % Normal IM GRAN % 0.200 Result Comment: IG% - Immature Granulocytes (promyelocytes, myelocytes and metamyelocytes) > 1% indicates that a LEFT SHIFT is Present. LAB L100.2620 2.0-7.7 X10 3/uL Normal Absolute Neut 2.9 LAB L100.2720 0.83-4.51 X10 3/ul Normal Absolute Lymph 2.10 Performed By: #### L100.0100 #### [facility] [address] [place], [address] PROTHROMBIN TIME W/INR Collected: 04/12/2018 Status: F Source: [place] 5:45 AM [facility] REPOSITORY TYPE CODE TESTS RESULT OUT OF RANGE REFERENCE UNITS LAB L300.4150 11.7-14.9 SECONDS High PROTIME 29.3 LAB L300.4200 Normal INR 2.8 Performed By: #### L300.3900 #### [facility] [address] [facility] [place], [address] COMPREHENSIVE METABOLIC Collected: 04/12/2018 Status: F Source: [facility] 5:45 AM [facility] REPOSITORY Order Comment: 107B TYPE CODE TESTS RESULT OUT OF RANGE REFERENCE UNITS LAB L501.0100 74-106 mg/dL Low GLU 66 Result Comment: Please note revised GLUCOSE reference range effective 2017. LAB L501.1000 7-18 mg/dL High BUN 21 LAB L501.1100 0.55-1.02 mg/dL Normal CREAT,SERUM 0.74 Result Comment: The validity of the calculated GFR AND GFRAA in patients over 70 years has not been determined. Clinical correlation is essential. LAB L501.1110 >60 mL/min Normal EST GFR 82 Result Comment: Non- GFR Calc LAB L501.1115 >60 mL/min Normal EST GFR - AA 99 Result Comment: GFR Calc LAB L501.1300 10-20 RATIO High BUN/CRE 28.2 LAB L501.1500 6.4-8.2 g/dL T Normal PROT 6.9 LAB L501.1800 3.2-5.0 g/dL Normal ALB 3.3 LAB L501.1950 2.2-4.2 g/dL Normal GLOB 3.6 LAB L501.2000 0.9-2.4 RATIO Normal A/G 0.9 LAB L501.2200 8.5-10.1 mg/dL CA Normal 8.7 LAB L501.4100 15-37 U/L Normal AST 23 LAB L501.4305 45-117 U/L High ALK P 153 LAB L501.4405 13-56 U/L Normal ALT 25 LAB L501.4600 0.20-1.00 mg/dL T Normal BILI 0.40 LAB L501.5300 136-145 mmol/L NA Normal 142 LAB L501.5600 3.5-5.1 mmol/L K Normal 4.1 LAB L501.5900 98-107 mmol/L High CL 108 LAB L501.6100 21.0-32.0 mmol/L Normal CO2 28.0 LAB L501.6200 5-15 Normal GAP 6 Performed By: #### L500.4050 #### [facility] [address] [place], [address] EMERGENCY REPORT Observed: 04/08/2018 Status: F Source: [facility] 7:03 AM [facility] EMERGENCY ROOM REPORT NAME ACCOUNT SEX AGE ADMIT DISCHARGE PT MED. RECORD# NUMBER DATE DATE TYPE [facility]INA DE [id number] F 72 01/19/18 2 F [id number] ROOM: 301MO DATE OF : 1945 DICTATING PHYSICIAN: Rashida Manley CHIEF COMPLAINT: Unresponsiveness, altered mental status. HISTORY OF PRESENT ILLNESS: This is a pleasant 72-year-old female with an extensive past medical history presenting with an episode of unresponsiveness while at her nursing facility. Per EMS report, the patient had an episode where she was not responding and her blood pressure was low. By the time EMS arrived, the patient was alert and oriented and sluggishly responding to questions. Her blood pressure was 90/44 upon arrival. The patient states that she is not feeling well, but she denies any specific complaints. She comments that she had an episode of pneumonia a week ago and she has continued to have a cough since then. The patient has not had a reported fever and had a normal chest x-ray approximately one week ago. The patient denies any other complaints at this time. 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 PAST SURGICAL HISTORY: Abdominal hysterectomy, [place] fundoplication, arthroscopy of the knee, PEG tube placement IVC filter placement. ALLERGIES: Penicillin, Ambien, Seroquel, Benadryl. SOCIAL HISTORY: The patient is and is currently living at a intermediate facility. She denies tobacco, alcohol or drug use. REVIEW OF SYSTEMS: Ten point review of systems performed. General: The patient admits to generalized fatigue and weakness. Cardiac: Denies any chest pain, palpitations. Respiratory: Denies any shortness of breath, difficulty breathing, has had a cough over the last week that is productive of sputum. GI: Denies any vomiting, abdominal pain or diarrhea. : Denies any urinary symptoms. Neurologic: Denies any new paresthesias weakness. She has chronic weakness of her left-sided extremities. Eyes: No vision changes. She does have drooping of her right eyelid which she states is chronic. Skin: No wounds or rashes. Psychiatric: No depression or anxiety. PHYSICAL EXAMINATION: General: Temperature 36.8 C, pulse 56, respires 16, blood Page 1 of 3 [facility] Emergency Room Report pressure 90/44, O2 saturation 98%. BMI 25. General: Awake, mildly somnolent, but is arousable to verbal stimuli and answers questions appropriately. She is alert and oriented x3. No acute distress. HEENT: She has dry mucosal membranes. Head is normocephalic and atraumatic. Pupils are equal, round and reactive to light. EOMI. Neck is supple with no JVD. Lungs: The patient has rhonchi and end-expiratory wheezing. No crackles appreciated. Cardiac: Regular rate and rhythm with no murmur. Equal pulses in her extremities. Abdomen is soft and nontender. Normal bowel sounds. Skin: Warm and dry. No rash. Neurologic: The patient has weakness in her left extremity which is chronic from a prior stroke. Extremities: No peripheral edema appreciated. DIAGNOSTIC DATA: EKG: Sinus bradycardia at a rate of 55, WY interval 158. QRS 78, QT/QTc 414/394. Normal axis, normal ST segments. CBC: WBC 10.9, hemoglobin 9.4, hematocrit 28, platelets 515,000. INR 2.1. Troponin negative x2, lactate 13.2. BMP: Sodium 135, potassium 4.7, chloride 106, CO2 20.3, BUN 27, creatinine 0.9, calcium 8.7, glucose 100, anion gap 13. Urine: 500 leukocytes with 16-25 WBCs, 2+ bacteria, a few epithelial cells. Urine culture is pending. EMERGENCY DEPARTMENT COURSE AND TREATMENT: The patient is alert and responsive, but still slightly somnolent. She is mildly hypotensive and her blood pressure does drop while in the emergency room, as low as 70 systolic. IV access is an issue and it does take time to get adequate fluid resuscitation. The patient is eventually given 2 liters of normal saline while in the emergency room and has significant improvement of her mentation. I suspect her symptoms are secondary to dehydration. She does not meet criteria for sepsis as she does not have any of the SIRS criteria. The family does note that she has had decreased fluid intake over the past week as she has had a flu-like illness, so this could just be simple dehydration and she will be treated for UTI with Rocephin and a urine culture is sent. Workup is otherwise unremarkable. The patient will be admitted to medicine service for further monitoring and evaluation. She agreeable with this plan. She is stable in the emergency room and stable for the General Medical floor at the time of disposition. After fluid resuscitation, the patient has significant improvement in her blood pressure and is now 131/55. DIAGNOSES: 1. Hypotension. 2. Dehydration. 3. Urinary tract infection. PLAN/DISPOSITION: Admitted to Dr. Guillermo's service General Medical floor. Dictated By: Rashida Manley DO TD: 01/20/18 05:40 Page 2 of 3 [facility] Emergency Room Report JOB #: [id number] Transcribed by: danette Electronically signed by: Katie Manley D.O. 04/08/18 07:02 Page 3 of 3 [facility] Emergency Room Report PROTIME W/INR Collected: 04/05/2018 Status: F Source: [place]EREE FINGERSTICK 5:00 AM [facility] REPOSITORY TYPE CODE TESTS RESULT OUT OF REFERENCE UNITS RANGE LAB L9200.1001 11.9-14.4 SEC High PROTIME ISTAT 28.9 Result Comment: Reference Range 11.9 - 14.4 LAB L9200.2000 Normal INR ISTAT 2.50 Result Comment: Critical Value > 3.5 Performed By: #### L9200.0000 #### [facility] Point of Care [address] [place] [address] PROTIME W/INR Collected: 04/01/2018 Status: F Source: SHEREE FINGERSTICK 7:12 AM [facility] REPOSITORY TYPE CODE TESTS RESULT OUT OF REFERENCE UNITS RANGE LAB L9200.1001 11.9-14.4 SEC High PROTIME ISTAT 31.7 Result Comment: Reference Range 11.9 - 14.4 LAB L9200.2000 Normal INR ISTAT 2.80 Result Comment: Critical Value > 3.5 Performed By: #### [id number] #### [facility] Point of Care [address] [place] [address] PROTHROMBIN TIME W/INR Collected: 03/29/2018 Status: F Source: SHEREE 5:55 AM [facility] REPOSITORY Order Comment: Result obtained is for confirmation testing of Fingerstick PT/INR Specimen # [id number] . 03/29/18 0951 [id number] THIS CONFIRMATION SPECIMEN RESULT IS FROM VENOUS BLOOD. TYPE CODE TESTS RESULT OUT OF RANGE REFERENCE UNITS LAB L300.4150 11.7-14.9 SECONDS High PROTIME 33.3 LAB L300.4200 Normal INR 3.2 Performed By: #### L300.3900 #### [facility] [address] [place], [address] PROTIME W/INR Collected: 03/29/2018 Status: F Source: SHEREE FINGERSTICK 5:51 AM [facility] REPOSITORY TYPE CODE TESTS RESULT OUT OF REFERENCE UNITS RANGE LAB L9200.1001 11.9-14.4 SEC High PROTIME ISTAT 46.2 Result Comment: Reference Range 11.9 - 14.4 LAB L9200.2000 High alert INR ISTAT 4.10 Result Comment: Critical Value > 3.5 Performed By: #### L9200.0000 #### [facility] Point of Care [address] [place] [address] PROTHROMBIN TIME W/INR Collected: 03/22/2018 Status: F Source: SHEREE 8:50 AM [facility] REPOSITORY TYPE CODE TESTS RESULT OUT OF RANGE REFERENCE UNITS LAB L300.4150 11.7-14.9 SECONDS High PROTIME 33.1 LAB L300.4200 Normal INR 3.2 Performed By: #### L300.3900 #### [facility] [address] [place], [address] VITAMIN D,25 HYDROXY Collected: 03/22/2018 Status: F Source: CHENEY 8:50 AM [facility] REPOSITORY TYPE CODE TESTS RESULT OUT OF REFERENCE UNITS RANGE LAB L506.1000 29.95-100.01 ng/mL Low Vitamin D 18.0 25-OH Result Comment: Vitamin D 25(OH) Status Range Deficiency <20 ng/mL (50nmol/L) Insuffciency 20 - 30 ng/mL (50 - 75 nmol/L) Sufficiency 30 - 100 ng/mL (75 - 250 nmol/L) Toxicity >100 ng/mL (>250 nmol/L) Performed By: #### L506.1000 #### [facility] [address] [place], [address] PROTHROMBIN TIME W/INR Collected: 03/19/2018 Status: F Source: CHENEY 6:10 AM [facility] REPOSITORY TYPE CODE TESTS RESULT OUT OF RANGE REFERENCE UNITS LAB L300.4150 11.7-14.9 SECONDS High PROTIME 33.5 LAB L300.4200 Normal INR 3.3 Performed By: #### L300.3900 #### [facility] [address] [place], [address] LIPID PROFILE Collected: 03/15/2018 Status: F Source: SHEREE 5:05 AM [facility] REPOSITORY Order Comment: RESULT(S) PREVIOUSLY REPORTED ON MANUAL REQUISITION DURING DOWNTIME. TYPE CODE TESTS RESULT OUT OF RANGE REFERENCE UNITS LAB L501.4900 200 mg/dL Normal CHOL 104 Result Comment: <200 mg/dL Desirable 200-240 mg/dL Borderline >240 mg/dL High Risk LAB L501.5000 mg/dL Normal TRIG 94 Result Comment: The drugs N-Acetylcysteine and Metamizole may falsely depress this assay. Serum Triglycerides Reference Interval Normal <150 mg/dL Borderline high 150 - 199 mg/dL High 200 - 499 mg/dL Very High > or = 500 mg/dL LAB L501.6400 mg/dL Normal HDL 42 Result Comment: The drugs N-Acetylcysteine and Metamizole may falsely depress this assay. Reference Range HDL <40 mg/dL Low HDL Cholesterol HDL >or= 60 mg/dL High HDL Cholesterol LAB L501.6500 0-130 mg/dL Normal LDL 43 LAB L501.6600 5-40 mg/dL Normal VLDL 19 Performed By: #### L500.4100, L501.9520 #### [facility] [address] [place], [address] THYROID STIM HORMONE Collected: 03/15/2018 Status: F Source: CHENEY (TSH) 5:05 AM [facility] REPOSITORY Order Comment: RESULT(S) PREVIOUSLY REPORTED ON MANUAL REQUISITION DURING DOWNTIME. TYPE CODE TESTS RESULT OUT OF RANGE REFERENCE UNITS LAB L501.9520 0.358-3.74 uIU/mL Normal TSH 1.61 Performed By: #### L500.4100, L501.9520 #### [facility] [address] [place], [address] PROTHROMBIN TIME W/INR Collected: 03/15/2018 Status: F Source: CHENEY 5:05 AM [facility] REPOSITORY Order Comment: RESULT(S) PREVIOUSLY REPORTED ON MANUAL REQUISITION DURING DOWNTIME. TYPE CODE TESTS RESULT OUT OF RANGE REFERENCE UNITS LAB L300.4150 11.7-14.9 SECONDS High PROTIME 30.5 LAB L300.4200 Normal INR 2.9 Performed By: #### L300.3900 #### [facility] [address] [place], [address] VITAMIN D,25 HYDROXY Collected: 03/15/2018 Status: F Source: CHENEY 5:05 AM [facility] REPOSITORY Order Comment: RESULT(S) PREVIOUSLY REPORTED ON MANUAL REQUISITION DURING DOWNTIME. TYPE CODE TESTS RESULT OUT OF REFERENCE UNITS RANGE LAB L506.1000 29.95-100.01 ng/mL Low Vitamin D 11.0 25-OH Result Comment: Vitamin D 25(OH) Status Range Deficiency <20 ng/mL (50nmol/L) Insuffciency 20 - 30 ng/mL (50 - 75 nmol/L) Sufficiency 30 - 100 ng/mL (75 - 250 nmol/L) Toxicity >100 ng/mL (>250 nmol/L) Performed By: #### L506.1000 #### [facility] [address] [place], [address] PROTHROMBIN TIME AND Collected: 02/04/2018 Status: F [facility] AM [facility] REPOSITORY TYPE CODE TESTS RESULT OUT OF REFERENCE UNITS RANGE LAB PROTHROMBIN TIME AND INR(LOINC) PROTHROMBIN TIME AND INR Result Comment: PROTHROMBIN TIME AND INR LAB PT-COUMADIN(LOINC) sec PT-COUMADIN 33.6 LAB INR(LOINC) 0.8 - 1.2 INR High 3.1 Result Comment: THE HEMOSIL THROMBOPLASTIN REAGENT USED IN THE PROTHROMBIN TIME TEST INTERACTS WITH THE DRUG CUBICIN (DAPTOMYCIN) AND WILL RESULT IN FALSELY ELEVATED PT / INR RESULTS INR INTERPRETATION INR INDICATION PREVENTION AND TREATMENT OF THROMBOEMBOLISM ASSOCIATED WITH: 2.0 - 3.0 ATRIAL FIBRILLATION, BIOPROSTHETIC HEART VALVES, PULMONARY EMBOLISM, VENOUS THROMBOSIS, SYSTEMIC EMBOLISM POST MYOCARDIAL INFARCTION 2.5 - 3.5 MECHANICAL HEART VALVES Performed By: #### [id number] #### [facility],[address] [facility] [address] PROTHROMBIN TIME AND Collected: 02/01/2018 Status: F Source: [facility]OWLES INR 5:15 AM [facility] REPOSITORY TYPE CODE TESTS RESULT OUT OF REFERENCE UNITS RANGE LAB PROTHROMBIN TIME AND INR(LOINC) PROTHROMBIN TIME AND INR Result Comment: PROTHROMBIN TIME AND INR LAB PT-COUMADIN(LOINC) sec PT-COUMADIN 32.2 LAB INR(LOINC) 0.8 - 1.2 INR High 2.9 Result Comment: THE HEMOSIL THROMBOPLASTIN REAGENT USED IN THE PROTHROMBIN TIME TEST INTERACTS WITH THE DRUG CUBICIN (DAPTOMYCIN) AND WILL RESULT IN FALSELY ELEVATED PT / INR RESULTS INR INTERPRETATION INR INDICATION PREVENTION AND TREATMENT OF THROMBOEMBOLISM ASSOCIATED WITH: 2.0 - 3.0 ATRIAL FIBRILLATION, BIOPROSTHETIC HEART VALVES, PULMONARY EMBOLISM, VENOUS THROMBOSIS, SYSTEMIC EMBOLISM POST MYOCARDIAL INFARCTION 2.5 - 3.5 MECHANICAL HEART VALVES Performed By: #### [id number] #### [address] [address] PROTHROMBIN TIME AND Collected: 01/29/2018 Status: F Source: [facility]OW[facility] INR 3:40 AM [facility] REPOSITORY TYPE CODE TESTS RESULT OUT OF REFERENCE UNITS RANGE LAB PROTHROMBIN TIME AND INR(LOINC) PROTHROMBIN TIME AND INR Result Comment: PROTHROMBIN TIME AND INR LAB PT-COUMADIN(LOINC) sec PT-COUMADIN 35.2 LAB INR(LOINC) 0.8 - 1.2 INR High 3.2 Result Comment: THE HEMOSIL THROMBOPLASTIN REAGENT USED IN THE PROTHROMBIN TIME TEST INTERACTS WITH THE DRUG CUBICIN (DAPTOMYCIN) AND WILL RESULT IN FALSELY ELEVATED PT / INR RESULTS INR INTERPRETATION INR INDICATION PREVENTION AND TREATMENT OF THROMBOEMBOLISM ASSOCIATED WITH: 2.0 - 3.0 ATRIAL FIBRILLATION, BIOPROSTHETIC HEART VALVES, PULMONARY EMBOLISM, VENOUS THROMBOSIS, SYSTEMIC EMBOLISM POST MYOCARDIAL INFARCTION 2.5 - 3.5 MECHANICAL HEART VALVES Performed By: #### [id number] #### [address] [address] MODIFIED BARIUM Observed: 01/28/2018 Status: F Source: [facility] SWALLOW 1:59 PM [facility] REPOSITORY [place] [address] Patient: TRNIA DE Phone#: : 1945 Age: 72 Gender: F Pt. Type: Out Account: [id number] Location: [facility] Ordering: LEESA GUILLERMO Exam Date: 01/28/2018/13:48 Family Phys: Charge Code: [id number] Physician: Reeves Order #: [id number] DLP Dose#: PROCEDURE: CINERADIOGRAPHY MODIFIED BARIUM SWALLOW COMPARISON: None. INDICATIONS: Aspiration TECHNIQUE: A swallowing evaluation was performed with fluoroscopy and speech therapy in the usual manner. TOTAL DOSE: mGy FINDINGS: ORAL PHASE: Normal deglutition. PHARYNGEAL PHASE: Some premature spillage of liquids, otherwise unremarkable. ASPIRATION: None. STRUCTURE: Normal. No visible obstruction, stricture, or dilatation. OTHER: Negative. CONCLUSION: 1. No aspiration. See speech pathology notes for the recommendations and details. Dictated by: Kelechi Perez MD on 01/28/2018 at 14:10 Approved by: Kelechi Perez MD on 01/28/2018 at 14:10 BMP WITH EGFR Collected: 01/25/2018 Status: F Source: [place] [facility] 3:50 AM [facility] REPOSITORY TYPE CODE TESTS RESULT OUT OF RANGE REFERENCE UNITS LAB BMP with eGFR(LOINC) BMP with eGFR Result Comment: BASIC METABOLIC PANEL LAB SODIUM(LOINC) 136 - 145 mmol/l SODIUM 140 LAB POTASSIUM(LOINC) 3.5 - 5.1 mmol/L POTASSIUM 4.4 LAB CHLORIDE(LOINC) 98 - 107 mmol/L CHLORIDE 107 LAB CO2(LOINC) 21.0 - mmol/L 31.0 CO2 29.3 LAB GLUCOSE(LOINC) 74 - 106 mg/dl GLUCOSE 88 LAB BUN(LOINC) 6 - 20 mg/dl BUN 17 LAB CREATININE(LOINC) 0.6 - 1.2 mg/dl CREATININE 0.8 LAB CALCIUM(LOINC) 8.6 - mg/dl 10.2 CALCIUM 9.1 LAB ANION GAP(LOINC) 10 - 20 mmol/L ANION Low GAP 8 LAB AGE(LOINC) years AGE 72 LAB eGFR(LOINC) 60 - 999 ML/MINUTE eGFR >60 LAB eGFR(AA)(LOINC) 60 - 999 ML/MINUTE eGFR(AA) >60 Result Comment: ACCORDING TO THE NATIONAL KIDNEY DISEASE EDUCATION PROGRAM(NKDE), A NORMAL eGFR IS A VALUE GREATER THAN OR EQUAL TO 60 ML/MIN/1.73 SQ METERS. CHRONIC KIDNEY DISEASE: <60mL/MIN/1.73 SQ METERS KIDNEY FAILURE: <15mL/MIN/1.73 SQ METERS THIS TEST SHOULD ONLY BE USED FOR PATIENTS 18 YEARS OF AGE AND OLDER. Performed By: #### [id number] #### [facility],[address] [place] [address] PROTHROMBIN TIME AND Collected: 01/22/2018 Status: F Source: [facility]OW[facility] INR 4:20 AM [facility] REPOSITORY TYPE CODE TESTS RESULT OUT OF REFERENCE UNITS RANGE LAB PROTHROMBIN TIME AND INR(LOINC) PROTHROMBIN TIME AND INR Result Comment: PROTHROMBIN TIME AND INR LAB PT-COUMADIN(LOINC) sec PT-COUMADIN 28.1 LAB INR(LOINC) 0.8 - 1.2 INR High 2.5 Result Comment: THE HEMOSIL THROMBOPLASTIN REAGENT USED IN THE PROTHROMBIN TIME TEST INTERACTS WITH THE DRUG CUBICIN (DAPTOMYCIN) AND WILL RESULT IN FALSELY ELEVATED PT / INR RESULTS INR INTERPRETATION INR INDICATION PREVENTION AND TREATMENT OF THROMBOEMBOLISM ASSOCIATED WITH: 2.0 - 3.0 ATRIAL FIBRILLATION, BIOPROSTHETIC HEART VALVES, PULMONARY EMBOLISM, VENOUS THROMBOSIS, SYSTEMIC EMBOLISM POST MYOCARDIAL INFARCTION 2.5 - 3.5 MECHANICAL HEART VALVES Performed By: #### [id number] #### [facility],[address] [place], [place] [id number] HISTORY AND PHYSICAL Observed: 01/21/2018 Status: F Source: [facility] 1:20 AM [facility] HISTORY & PHYSICAL NAME ACCOUNT SEX AGE ADMIT DISCHARGE PT MED. RECORD# NUMBER DATE DATE TYPE TRINA DE [id number] F 72 01/19/18 2 [id number] ROOM: [facility] DATE OF : 49 DICTATING PHYSICIAN: Leesa Guillermo HISTORY & PHYSICAL/DISCHARGE SUMMARY CHIEF COMPLAINT: Syncopal episode. HISTORY OF PRESENT ILLNESS: This is a 72-year-old female who [facility] with multiple complex medical problems, including previous stroke, PFO, hypertension, bipolar disorder, history of DVT with Kirti filter and anticoagulation with Coumadin. According to the Emergency Room records, she was unresponsive at the prison. She was brought to the ER via squad. Blood pressure was low at 90/44 upon arrival, and she denied any complaints. She was apparently getting into bed. The staff helps her by lifting her, and she had a syncopal episode. No chest pain. She had no dizziness prior that she was aware of. She was started on IV fluids. She had mild dehydration, and she was admitted for further management. Upon evaluation this morning, she denied any acute complaints. She was not dizzy. No syncopal episodes. 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 (2) Hypertension. (3) Hypothyroidism. (4) Bipolar disorder. (5) COPD. (6) Anemia. (7) History of DVT, status post Kirti filter and on anticoagulation. (8) GERD. (9) PFO. The patient had recent evaluation by a Cardiology nurse practitioner on January 12, 2018, with her last CARIDAD from January of 2017 with an ejection fraction of 65%. (10) Insomnia. (11) Seasonal allergies. (12) Chronic pain. PAST SURGICAL HISTORY: (1) Abdominal hysterectomy. (2) Keyana fundoplication. (3) Arthroscopy of the knee. (4) PEG tube placement. (5) Inferior vena cava placement on January 28, 2017. MEDICATIONS: Current medications at the prison: (1) Acetaminophen 650 mg p.r.n. (2) Artificial Tears ophthalmic solution of the left eye three times daily. (3) Atorvastatin 40 mg q.p.m. (4) Breo Ellipta one inhalation daily. (5) Senokot-S one tablet daily. (6) Famotidine 20 mg twice daily. (7) Ferrous sulfate 325 mg twice daily. (8) Gabapentin 400 mg four times daily. (9) DuoNeb treatments four times daily p.r.n. (10) Levothyroxine 125 mcg daily. (11) Lisinopril 2.5 mg twice daily. (12) Melatonin 3 mg q.p.m. (13) Metoprolol tartrate 12.5 mg twice daily. (14) Montelukast 10 mg daily. (15) Remeron 15 mg q.p.m. (16) Seroquel 25 mg twice daily. (17) Sertraline 150 mg daily. (18) Warfarin 4.5 mg daily. (19) Xanax 0.25 mg three times daily p.r.n. (20) Tizanidine 4 mg three times daily. Page 1 of 4 TRINA DE History & Physical ALLERGIES: Penicillin, Ambien, generic Seroquel, and Benadryl. FAMILY HISTORY: Father in his 80s with CVA. Mother at age 69 with cerebrovascular disease. SOCIAL HISTORY: The patient is . She resides at the prison for long-term care. She does not smoke nor drink alcohol. REVIEW OF SYSTEMS: This is essentially negative. She had a syncopal episode as above, but she denies any other complaints whatsoever. PHYSICAL EXAMINATION GENERAL APPEARANCE: The patient was sitting up, in no acute distress. She is an alert, pleasant, cooperative, well-nourished, well-developed female who is a limited historian. VITAL SIGNS: Blood pressure is 109/58. Previous to that, it was 134/67, heart rate 75, respirations 18, temperature 98, oxygen saturation 97% on room air, weight 159 pounds, and BMI 31.23. HEENT: Left facial droop, otherwise unremarkable. NECK: Supple. No nodes. No masses. No JVD. No bruit. LUNGS: Normal respiratory effort. Equal lung expansion with diminished breath sounds bilaterally. HEART: Regular rate and rhythm with no murmurs or gallops appreciated. ABDOMEN: Positive bowel sounds, soft and nontender. EXTREMITIES: No edema. NEUROLOGIC: She is alert and oriented to person only, not recent events. DIAGNOSTIC DATA: White count is 10.9, hemoglobin 9.4, hematocrit 28, and platelets 515,000. INR is 2.1. Troponin is negative. Sodium is 135, potassium 4.7, BUN 27, and creatinine 0.9. Urinalysis shows negative nitrites and 16- 25 WBCs. Chest x-ray, AP, completed on admission with no acute disease or significant changes. Echocardiogram with Doppler study was evaluated and read by the geology faculty member with ejection fraction of 70%, normal diastolic function, normal valvular function, and normal right ventricular and pulmonary artery systolic pressure of 35-40. She has a history of previous PFO; however, it was not visualized on the echocardiogram. Page 2 of 4 TRINA DE History & Physical IMPRESSIONS/PLAN: 1. Syncopal episode, likely secondary to hypovolemia with hypotension and prerenal azotemia. She was admitted for observation status and IV fluids. Blood pressure medication was placed on hold. She is stable at discharge. We will discontinue her JON inhibitor and continue metoprolol tartrate 12.5. mg twice daily; hold if heart rate is below 60 or systolic blood pressure is below 100. Echocardiogram was completed. We will discharge her back to the prison and follow up with carotid Doppler studies as an outpatient. She is on a statin and anticoagulated with Coumadin. 2. History of previous cerebrovascular accident with no recurrence. She does have a history of PFO. She is on anticoagulation with Coumadin. 3. Hypotension. We will hold the JON inhibitor. Continue beta jarocho with hold parameters. 4. Bipolar disorder. No significant recent changes. 5. Multiple chronic medical problems are noted. The above was discussed with the patient. All of her questions were answered. DISCHARGE INSTRUCTIONS/PLAN: She will be discharged back to the prison. Continue on her previous diet. Discontinue JON inhibitor. Hold parameters on her beta jarocho. We will recheck an INR and BMP on Thursday, and she will have a carotid Doppler study as an outpatient. Encourage oral fluids. Dictated by miriam Martin for Dr. Guillermo. I personally evaluated and examined the patient and agree with above note that reflects my visit to the patient and my decision making. Leesa Guillermo MD TD: 01/20/18 13:23 JOB #: [id number] Transcribed by: good Electronically signed by: Katie Guillermo M.D. 01/20/18 15:38 Update to H&P: [ ] No changes: I have examined the patient and reviewed the H&P and there are no changes. [ ] As previously dictated with the following changes: Page 3 of 4 SAADIA, TRINA F History & Physical PHYSICIAN SIGNATURE: TIME: DATE: Page 4 of 4 TRINA DE History & Physical CV ECHO COMPLETE Observed: 01/20/2018 Status: F Source: [facility] 10:47 AM [place] [address] Patient: TRINA DE Phone#: : 1945 Age: 72 Gender: F Pt. Type: ER Account: [id number] Location: 052 Ordering: LEESA GUILLERMO Exam Date: 01/20/2018/10:07 Family Phys: NESS REIS Charge Code: [id number] Physician: Reeves Order #: [id number] DLP Dose#: PROCEDURE: ECHOCARDIOGRAM WITH DOPPLER AND COLOR FLOW HISTORY: Hypertension, COPD, PFO. INDICATIONS: Syncope TECHNIQUE: A 2-D ultrasound, color spectral Doppler and M-mode evaluation of the heart and great vessels. PATIENT MEASUREMENTS: Height (in.): 60 BSA: 1.7 Weight (lbs.): 160 BP: 134/67 Paperhanger Pipe: ELDA M MODE 2D MEASUREMENTS AND CALCULATIONS: LVIDd: 3.70 cm LVIDs: 2.32 cm IVSd: 1.35 cm LVPWd: 1.51 cm FS: 37.35 % Ao Root diam: 2.90 cm LA diam: 3.83 cm RA A4 Area: RVDd: 2.62 cm TAPSE: DOPPLER MEASUREMENTS AND CALCULATIONS MITRAL MV E MAX rere: 95.01 cm/s MV A MAX rere: 86.92 cm/s MV E-A ratio: 1.09 Septal Peak E' RERE Continued Report - Page 2 of 3 Patient: TRINA DE Phone#: : 1945 Age: 72 Gender: F Pt. Type: ER Account: [id number] Location: 052 Ordering: LEESA GUILLERMO Exam Date: 01/20/2018/10:07 Family Phys: NESS REIS Charge Code: [id number] Physician: Reeves Order #: [id number] DLP Dose#: AORTIC Ao V2 max: 141.08 cm/s Ao max P.96 mm[Hg] LV V1 Max 136.86 cm/s LV V1 Max PG 7.49 mm[Hg] PULMONIC PA V2 Max 116.35 cm/s PA Max PG 5.41 mm[Hg] TRICUSPID TR Max Rere 256.26 cm/s TR max PG 26.41 mm[Hg] RVSP 2D/M-MODE AND COLOR FLOW LEFT VENTRICLE: Left ventricle is normal in size with normal systolic function. Left ventricular ejection fraction is greater than 70%. There is normal wall motion and wall thickening. Normal diastolic function. WALL MOTION: 1 - Basal anterior: Normal. 7 - Mid anterior: Normal. 13 - Apical anterior: Normal. 2 - Basal anteroseptal: Normal. 8 - Mid anteroseptal: Normal. 14 - Apical septal: Normal. 3 - Basal inferoseptal: Normal. 9 - Mid inferoseptal: Normal. 15 - Apical inferior: Normal. 4 - Basal inferior: Normal. 10-Mid inferior: Normal. 16 - Apical lateral: Normal. 5 - Basal inferolateral: Normal. 11-Mid inferolateral: Normal. 6 - Basal anterolateral: Normal. 12-Mid anterolateral: Normal. RIGHT VENTRICLE: Normal LEFT ATRIUM: Normal size. RIGHT ATRIUM: Normal size. ATRIAL SEPTUM: Poorly visualized but appears intact. MITRAL VALVE: Structurally normal. No significant mitral regurgitation. TRICUSPID VALVE: Structurally normal. Trivial tricuspid regurgitation. Right ventricular and pulmonary artery systolic pressures are estimated at 35-40 mm mercury. AORTIC VALVE: Normal trileaflet valve. PULMONIC VALVE: Structurally normal. No stenosis. AORTIC ROOT: Structurally normal. IVC/SVC: Mildly dilated. PULMONARY VEINS: Normal. PERICARDIUM: No pericardial effusion. CONCLUSION: 1. Left ventricle is normal in size with normal systolic function and ejection fraction of greater than 70%. Normal diastolic function. 2. Normal valvular function. Continued Report - Page 3 of 3 Patient: TRINA DE Phone#: : 1945 Age: 72 Gender: F Pt. Type: ER Account: [id number] Location: [facility] Ordering: LEESA GUILLERMO Exam Date: 01/20/2018/10:07 Family Phys: NESS REIS Charge Code: [id number] Physician: Reeves Order #: [id number] DLP Dose#: 3. Normal right ventricular and pulmonary artery systolic pressure estimated at 35-40 mm mercury. 4. Although patient has history of PFO, this was not visualized on the current study. Dictated by: Ham Garces MD on 01/20/2018 at 11:17 Approved by: Ham Garces MD on 01/20/2018 at 11:17 TROPONIN Collected: 01/20/2018 Status: F Source: [facility] 10:11 AM [facility] REPOSITORY TYPE CODE TESTS RESULT OUT OF REFERENCE UNITS RANGE LAB TROPONIN 0.00 - 0.05 ng/ml I(LOINC) TROPONIN I <0.01 Result Comment: Elevated troponin (above the 99th percentile) usually indicates myocardial ischemia. Results must be interpreted within the clinical setting. 1.Non-ischemic pathology can also cause elevated troponin levels (e.g., acute pulmonary embolism, myocarditis, pericarditis, heart failure, intracranial injury, rhabdomyolisis, sepsis, shock and renal insufficiency). 2.Approximately 1% of healthy adults have elevated troponin levels. 3.Analytical false positive results rarely occur(due to multiple interferences such as heterophile antibodies). Performed By: #### [id number] #### [facility],[address] [place] [address] PROTHROMBIN TIME AND Collected: 01/20/2018 Status: F Source: [facility] INR 4:30 AM [facility] REPOSITORY TYPE CODE TESTS RESULT OUT OF REFERENCE UNITS RANGE LAB PROTHROMBIN TIME AND INR(LOINC) PROTHROMBIN TIME AND INR Result Comment: PROTHROMBIN TIME AND INR LAB PT-COUMADIN(LOINC) sec PT-COUMADIN 25.8 LAB INR(LOINC) 0.8 - 1.2 INR High 2.3 Result Comment: THE HEMOSIL THROMBOPLASTIN REAGENT USED IN THE PROTHROMBIN TIME TEST INTERACTS WITH THE DRUG CUBICIN (DAPTOMYCIN) AND WILL RESULT IN FALSELY ELEVATED PT / INR RESULTS INR INTERPRETATION INR INDICATION PREVENTION AND TREATMENT OF THROMBOEMBOLISM ASSOCIATED WITH: 2.0 - 3.0 ATRIAL FIBRILLATION, BIOPROSTHETIC HEART VALVES, PULMONARY EMBOLISM, VENOUS THROMBOSIS, SYSTEMIC EMBOLISM POST MYOCARDIAL INFARCTION 2.5 - 3.5 MECHANICAL HEART VALVES Performed By: #### [id number] #### [place] [address] TROPONIN Collected: 01/20/2018 Status: F Source: [facility] 4:30 [facility] REPOSITORY TYPE CODE TESTS RESULT OUT OF REFERENCE UNITS RANGE LAB TROPONIN 0.00 - 0.05 ng/ml I(LOINC) TROPONIN I <0.01 Result Comment: Elevated troponin (above the 99th percentile) usually indicates myocardial ischemia. Results must be interpreted within the clinical setting. 1.Non-ischemic pathology can also cause elevated troponin levels (e.g., acute pulmonary embolism, myocarditis, pericarditis, heart failure, intracranial injury, rhabdomyolisis, sepsis, shock and renal insufficiency). 2.Approximately 1% of healthy adults have elevated troponin levels. 3.Analytical false positive results rarely occur(due to multiple interferences such as heterophile antibodies). Performed By: #### [id number] #### [place] [address] TSH Collected: 01/20/2018 Status: F Source: [facility] 4:30 [facility] REPOSITORY TYPE CODE TESTS RESULT OUT OF RANGE REFERENCE UNITS LAB TSH(LOINC) 0.34 - 5.60 uIU/ml TSH 1.07 Performed By: #### [id number] #### [place] [address] LACTATE Collected: 01/20/2018 Status: F Source: [facility] 12:35 [facility] REPOSITORY TYPE CODE TESTS RESULT OUT OF REFERENCE UNITS RANGE LAB LACTATE(LEANDRA 4.5 - 18.0 mg/dL MO) LACTATE 13.2 Performed By: #### [id number] #### [place] [address] TROPONIN Collected: 01/20/2018 Status: F Source: [facility] 12:35 [facility] REPOSITORY TYPE CODE TESTS RESULT OUT OF REFERENCE UNITS RANGE LAB TROPONIN 0.00 - 0.05 ng/ml I(LOINC) TROPONIN I <0.01 Result Comment: Elevated troponin (above the 99th percentile) usually indicates myocardial ischemia. Results must be interpreted within the clinical setting. 1.Non-ischemic pathology can also cause elevated troponin levels (e.g., acute pulmonary embolism, myocarditis, pericarditis, heart failure, intracranial injury, rhabdomyolisis, sepsis, shock and renal insufficiency). 2.Approximately 1% of healthy adults have elevated troponin levels. 3.Analytical false positive results rarely occur(due to multiple interferences such as heterophile antibodies). Performed By: #### [id number] #### [place] [address] URINALYSIS Collected: 01/19/2018 Status: F Source: [facility] 11:36 PM [facility] REPOSITORY TYPE CODE TESTS RESULT OUT OF REFERENCE UNITS RANGE LAB URINALYSIS (LOINC) URINALYSIS Result Comment: URINALYSIS LAB Specimen Type(LOINC) Specimen Type Void LAB Color(LOINC) NORMAL: YELLOW Color yellow LAB Clarity(LOINC) NORMAL: CLEAR Clarity Abnormal SL. CLOUDY LAB ph(LOINC) NORMAL: 5.0-8.0 ph 5 LAB Protein(LOINC) NORMAL: NEGATIVE Protein NEG LAB Glucose(LOINC) NORMAL: NORMAL Glucose NORM LAB Ketone(LOINC) NORMAL: NEGATIVE Ketone NEG LAB Bilirubin(LOINC) NORMAL: NEGATIVE Bilirubin NEG LAB Blood(LOINC) NORMAL: NEGATIVE Blood NEG LAB Urobilinog(LOINC) NORMAL: NORMAL Urobilinog NORM LAB Sp Mcpherson(LOINC) NORMAL: 1.010-1.030 Sp Mcpherson 1.010 LAB Nitrite(LOINC) NORMAL: NEGATIVE Nitrite NEG LAB Leukocytes(LOINC) NORMAL: NEGATIVE Leukocytes Abnormal 500 LAB Microscopic(LOINC ) Microscopic SEE BELOW Result Comment: MICROSCOPIC LAB Wbc(LOINC) 0-5/hpf Wbc 16-25 LAB Rbc(LOINC) 0-3/hpf Rbc 0-5 LAB Casts(LOINC) Casts NONE LAB Hyaline(LOINC) NORMAL: NONE Hyaline 1-5 LAB Crystals(LOINC) Crystals NONE LAB Amorphous(LOINC) Amorphous 1+ LAB Bacteria(LOINC) Bacteria 2+ LAB Epi Cells(LOINC) Epi Cells FEW LAB Mucous(LOINC) Mucous TRACE LAB Yeast(LOINC) Yeast NONE Performed By: #### [id number] #### [facility],[address] [place], [place] [id number] Observed: 01/19/2018 Status: F Source: [facility] CULTURE URINE 11:36 PM [facility] REPOSITORY CULTURE URINE _URINE CULTURE_ M I C R O B I O L O G Y R E P O R T FINAL Antimicrobial Susceptibility and Organism Identification Report Specimen Number : [id number] Requested : 01/19/18 Specimen Source : URINE Collected : 01/19/18 23:36 [place] [facility] : Emergency Room Received : 01/19/18 23:36 Requesting Physician : AMBERLY Patient/Specimen Tests and Comments Specimen Comments FINAL REPORT: URINE COLONY COUNT: [id number] CFU/CC GRAM NEGATIVE RODS CONTAMINATED WITH: GRAM POSITIVE COCCI Organisms Identified -------- * 01 Escherichia coli 01/22/18 Comments 10-50,000 cfu Tech : Source : URINE ID # : [id number] FINAL Report Date : / / : Collected : 01/19/18 23:36 Continued on Next Page M I C R O B I O L O G Y R E P O R T FINAL Antimicrobial Susceptibility and Organism Identification Report Isolate 01 Escherichia coli Escherichia coli DRUG SHERINE Sys. Urine --- ----- ----- Ampicillin <=8 S S Aztreonam <=8 S S Ceftriaxone <=8 S S Ceftazidime <=1 S S Cephalothin <=8 S Ciprofloxacin <=1 S S Cefuroxime <=4 S S Ertapenem <=1 S S Nitrofurantoin <=32 S Gentamicin <=4 S S Imipenem <=1 S S Levofloxacin <=2 S S Meropenem <=1 S S Pip/Tazo <=16 S S Piperacillin <=16 S S Trimeth/Sulfa <=2/38 S S Tetracycline <=4 S S Tobramycin <=4 S S +, ++, +++, or S = Susceptible N/R = Not Reported Luke = Beta Lactamase Positive I = Intermediate CC = Cost Code TFG = Thymidine-dependent Strain R = Resistant SHERINE = mcg/ml (mg/L) Blank = Data not available, or drug not advisable or tested For Blood and CSF Isolates, a Beta-Lactamase test is recommended for Enterococus species. IB appears in place of S, I (S), +, ++, or +++ with species known to possess inducible B-lactamases; potentially they may become resistant to all B-lactam drugs. Monitoring of patients during/after therapy is recommended. Avoid other/combined B-lactam drugs. (a) Use maximum doses of drug with an aminoglycoside for P. aeruginosa in patients with granulocytopenia or serious infections. (b) Breakpoints based on parenteral dose. For cefuroxime Axetil (PO) use <8=S, 8-16=I, >16=R. (c) For non-enterococcal streptococci, Micrococcus species, and Listeria species, refer to the Ampicillin interpretation. * Interpretations based on approx. adult attainable systemic/urine levels, except drugs with <3 dilutions, which print NCCLS. Doses are guidelines; consider weight and renal/hepatic function. Urine interpretation for lower UTI only. Interpretations based on NCCLS M7-A2. Ticar/K Clav'ate for gram positives based on global head advert[employer]'s breakpoints. Tech : Source : URINE ID # : [id number] FINAL Report Date : / / : Collected : 01/19/18 23:36 01/22/18.1001.JLN. 01/21/18.1146.JLN. 01/22/18.1001.JLN.COMPLETE Performed By: #### [id number] #### [facility],[address] [place] [address] CHEST 1 VIEW Observed: 01/19/2018 Status: F Source: [facility] 11:00 PM [facility] REPOSITORY [place] [address] Patient: TRINA DE Phone#: : 1945 Age: 72 Gender: F Pt. Type: ER Account: [id number] Location: [facility] Ordering: RASHIDA MANLEY Exam Date: 01/19/2018/22:53 Family Phys: NESS REIS Charge Code: 259143 Physician: Reeves Order #: [id number] DLP Dose#: PROCEDURE: X-RAY CHEST 1 VIEW COMPARISON: [facility], XR, CHEST AP, 11/15/2017, 21:49. INDICATIONS: Unresponsive FINDINGS: LUNGS: Normal. No significant pulmonary parenchymal abnormalities. VASCULATURE: Normal. Unremarkable pulmonary vasculature. CARDIAC: Normal. No cardiac silhouette abnormality or cardiomegaly. MEDIASTINUM: Mild aortic arch calcifications. PLEURA: Normal. No effusion or pleural thickening. BONES: Normal. No fracture or visible bony lesion. OTHER: Surgical clips in right upper quadrant. IVC filter below the diaphragm. Monitoring leads project across the thorax CONCLUSION: No acute disease. No significant change has occurred. Dictated by: Angelique Reynaga MD on 01/20/2018 at 8:30 Approved by: Angelique Reynaga MD on 01/20/2018 at 8:30 CBC Collected: 01/19/2018 Status: F Source: [facility] 10:20 PM [facility] REPOSITORY TYPE CODE TESTS RESULT OUT OF RANGE REFERENCE UNITS LAB CBC(LOINC) CBC Result Comment: CBC-COMPLETE BLOOD COUNT LAB WBC(LOINC) 4.5 - 10.8 x 10EE3/UL WBC High 10.9 LAB RBC(LOINC) 4.10 - x 10EE6/UL 5.30 RBC Low 3.22 LAB HEMOGLOBIN(LOINC 12.0 - g/dl ) 16.0 Low HEMOGLOBIN 9.4 LAB HEMATOCRIT(LOINC 34.0 - % ) 46.0 Low HEMATOCRIT 28.0 LAB MCV(LOINC) 80 - 99 fl MCV 87 LAB MCH(LOINC) 27 - 33 pg MCH 29 LAB MCHC(LOINC) 32 - 36 X10 3 MCHC 34 LAB RDW/CV(LOINC) 12.0 - % 15.6 RDW/CV 13.5 LAB PLATELET(LOINC) 150 - 450 x10EE3/UL PLATELET High 515 LAB MPV(LOINC) 6.6 - 10.5 fl MPV 8.0 Result Comment: AUTOMATED DIFFERENTIAL LAB NEUT %(LOINC) 46.0 - 76.0 % NEUT % 58.8 LAB LYMPH %(LOINC) 20.0 - 45.0 % LYMPH % 28.0 LAB MONOS %(LOINC) 0.0 - 10.0 % MONOS % 8.5 LAB EO %(LOINC) 0.0 - 7.0 % EO % 2.6 LAB BASO %(LOINC) 0.0 - 2.0 % BASO % High 2.1 LAB Lymph #(LOINC) 0.80 - 2.80 x10EE3/U L Lymph # High 3.10 LAB Neut #(LOINC) 1.50 - 7.10 x10EE3/U L Neut # 6.40 LAB [place] #(LOINC) 0.20 - 1.00 x10EE3/U L [place] # 0.90 LAB EO #(LOINC) 0.00 - 0.50 x10EE3/U L EO # 0.30 LAB Baso #(LOINC) 0.00 - 0.10 x10EE3/U L Baso # High 0.20 LAB MANUAL DIFF(LOINC) MANUAL DIFF N/A LAB MORPHOLOGY(LOINC ) MORPHOLOGY N/A Result Comment: {CD] Performed By: #### [id number] #### [facility],[address] [place] [address] BMP WITH EGFR Collected: 01/19/2018 Status: F Source: [facility] 10:20 PM [facility] REPOSITORY TYPE CODE TESTS RESULT OUT OF RANGE REFERENCE UNITS LAB BMP with eGFR(LOINC) BMP with eGFR Result Comment: BASIC METABOLIC PANEL LAB SODIUM(LOINC) 136 - 145 mmol/l SODIUM Low 135 LAB POTASSIUM(LOINC) 3.5 - 5.1 mmol/L POTASSIUM 4.7 LAB CHLORIDE(LOINC) 98 - 107 mmol/L CHLORIDE 106 LAB CO2(LOINC) 21.0 - mmol/L 31.0 CO2 Low 20.3 LAB GLUCOSE(LOINC) 74 - 106 mg/dl GLUCOSE 100 LAB BUN(LOINC) 6 - 20 mg/dl BUN High 27 LAB CREATININE(LOINC) 0.6 - 1.2 mg/dl CREATININE 0.9 LAB CALCIUM(LOINC) 8.6 - mg/dl 10.2 CALCIUM Low 8.3 LAB ANION GAP(LOINC) 10 - 20 mmol/L ANION GAP 13 LAB AGE(LOINC) years AGE 72 LAB eGFR(LOINC) 60 - 999 ML/MINUTE eGFR >60 LAB eGFR(AA)(LOINC) 60 - 999 ML/MINUTE eGFR(AA) >60 Result Comment: ACCORDING TO THE NATIONAL KIDNEY DISEASE EDUCATION PROGRAM(NKDE), A NORMAL eGFR IS A VALUE GREATER THAN OR EQUAL TO 60 ML/MIN/1.73 SQ METERS. CHRONIC KIDNEY DISEASE: <60mL/MIN/1.73 SQ METERS KIDNEY FAILURE: <15mL/MIN/1.73 SQ METERS THIS TEST SHOULD ONLY BE USED FOR PATIENTS 18 YEARS OF AGE AND OLDER. Performed By: #### [id number] #### [facility],[address] [place], [place] [id number] TROPONIN Collected: 01/19/2018 Status: F Source: [facility] 10:20 PM [facility] REPOSITORY TYPE CODE TESTS RESULT OUT OF REFERENCE UNITS RANGE LAB TROPONIN 0.00 - 0.05 ng/ml I(LOINC) TROPONIN I <0.01 Result Comment: Elevated troponin (above the 99th percentile) usually indicates myocardial ischemia. Results must be interpreted within the clinical setting. 1.Non-ischemic pathology can also cause elevated troponin levels (e.g., acute pulmonary embolism, myocarditis, pericarditis, heart failure, intracranial injury, rhabdomyolisis, sepsis, shock and renal insufficiency). 2.Approximately 1% of healthy adults have elevated troponin levels. 3.Analytical false positive results rarely occur(due to multiple interferences such as heterophile antibodies). Performed By: #### [id number] #### [place] [address] PROTHROMBIN TIME AND Collected: 01/19/2018 Status: F Source: [facility] IN[facility] 10:20 PM [facility] REPOSITORY TYPE CODE TESTS RESULT OUT OF REFERENCE UNITS RANGE LAB PROTHROMBIN TIME AND INR(LOINC) PROTHROMBIN TIME AND INR Result Comment: PROTHROMBIN TIME AND INR LAB PT-COUMADIN(LOINC) sec PT-COUMADIN 23.8 LAB INR(LOINC) 0.8 - 1.2 INR High 2.1 Result Comment: THE HEMOSIL THROMBOPLASTIN REAGENT USED IN THE PROTHROMBIN TIME TEST INTERACTS WITH THE DRUG CUBICIN (DAPTOMYCIN) AND WILL RESULT IN FALSELY ELEVATED PT / INR RESULTS INR INTERPRETATION INR INDICATION PREVENTION AND TREATMENT OF THROMBOEMBOLISM ASSOCIATED WITH: 2.0 - 3.0 ATRIAL FIBRILLATION, BIOPROSTHETIC HEART VALVES, PULMONARY EMBOLISM, VENOUS THROMBOSIS, SYSTEMIC EMBOLISM POST MYOCARDIAL INFARCTION 2.5 - 3.5 MECHANICAL HEART VALVES Performed By: #### [id number] #### [place] [address] PROTHROMBIN TIME AND Collected: 01/18/2018 Status: F Source: [facility] INR 4:30 AM [facility] REPOSITORY TYPE CODE TESTS RESULT OUT OF REFERENCE UNITS RANGE LAB PROTHROMBIN TIME AND INR(LOINC) PROTHROMBIN TIME AND INR Result Comment: PROTHROMBIN TIME AND INR LAB PT-COUMADIN(LOINC) sec PT-COUMADIN 21.6 LAB INR(LOINC) 0.8 - 1.2 INR High 1.9 Result Comment: THE HEMOSIL THROMBOPLASTIN REAGENT USED IN THE PROTHROMBIN TIME TEST INTERACTS WITH THE DRUG CUBICIN (DAPTOMYCIN) AND WILL RESULT IN FALSELY ELEVATED PT / INR RESULTS INR INTERPRETATION INR INDICATION PREVENTION AND TREATMENT OF THROMBOEMBOLISM ASSOCIATED WITH: 2.0 - 3.0 ATRIAL FIBRILLATION, BIOPROSTHETIC HEART VALVES, PULMONARY EMBOLISM, VENOUS THROMBOSIS, SYSTEMIC EMBOLISM POST MYOCARDIAL INFARCTION 2.5 - 3.5 MECHANICAL HEART VALVES Performed By: #### [id number] #### [place] [id number] PROTHROMBIN TIME AND Collected: 01/14/2018 Status: F Source: [facility] INR 3:23 AM [facility] REPOSITORY TYPE CODE TESTS RESULT OUT OF REFERENCE UNITS RANGE LAB PROTHROMBIN TIME AND INR(LOINC) PROTHROMBIN TIME AND INR Result Comment: PROTHROMBIN TIME AND INR LAB PT-COUMADIN(LOINC) sec PT-COUMADIN 26.4 LAB INR(LOINC) 0.8 - 1.2 INR High 2.4 Result Comment: THE HEMOSIL THROMBOPLASTIN REAGENT USED IN THE PROTHROMBIN TIME TEST INTERACTS WITH THE DRUG CUBICIN (DAPTOMYCIN) AND WILL RESULT IN FALSELY ELEVATED PT / INR RESULTS INR INTERPRETATION INR INDICATION PREVENTION AND TREATMENT OF THROMBOEMBOLISM ASSOCIATED WITH: 2.0 - 3.0 ATRIAL FIBRILLATION, BIOPROSTHETIC HEART VALVES, PULMONARY EMBOLISM, VENOUS THROMBOSIS, SYSTEMIC EMBOLISM POST MYOCARDIAL INFARCTION 2.5 - 3.5 MECHANICAL HEART VALVES Performed By: #### [id number] #### [facility],[address] [facility] [address] CARDIOLOGY VISIT Observed: 01/13/2018 Status: F Source: [facility] RE[facility] 7:27 AM [facility] REPOSITORY [facility] [address] [place] [address] OFFICE VISIT Date of Service: 01/12/18 MR#: [id number] Acct: [id number] Name: TRINA DE Rep #: [id number] : 1945 Provider: CARITO Novoa Age/Sex: 72/F Location: [facility] [place] Status: Signed HPI HPI Details: TRINA DE, is a 72 F who presents to the office today for a cardiovascular outpatient follow-up. 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 Pt. denies chest, arm, jaw, or neck discomfort. Her exercise tolerance is stable, though she is wheelchair bound post CVA. Pt. denies symptoms of palpitations, dizziness, lightheadedness, near syncope, or syncopal episodes. Pt. denies edema or claudication issues. Pt. denies orthopnea, PND, fever, chills, blood in urine, blood in stool, or myalgia. She states rare episodes of brief chest pain that last for seconds. This is relieved on its own. She denies any worsening SOB. She states recovering from a upper respiratory cold. She states since PT has been stopped she has noticed a decrease in energy. 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 Accompanied by: Caregiver Is patient in pain?: Yes (sharp neck discomfort) Pain scale (1-10): 7 Allergies Penicillins Allergy (Verified 01/24/17 14:19) Rash zolpidem tartrate [From Ambien] Adverse Reaction (Verified 01/24/17 17:46) CONFUSION Medications Fluticasone/Salmeterol [Advair 100/50 Diskus] 1 puff INHALATION BID 07/30/15 [History Confirmed 01/11/18] Dextran 70/He-Cell [Tears Naturale, Artificial Tears] 1 drp LEFT EYE TID bottle 02/25/17 [Rx] alprazolam 0.25 mg tablet 0.25 mg PO QDAY tab 01/11/18 [History Confirmed 01/11/18] atorvastatin 40 mg tablet 40 mg PO QDAY 01/11/18 [History Confirmed 01/11/18] hydrocodone 5 mg-acetaminophen 325 mg tablet 1 tab PO Q6H 01/11/18 [History Confirmed 01/11/18] mirtazapine 15 mg tablet 15 mg PO QDAY tab 01/11/18 [History Confirmed 01/11/18] sennosides 8.6 mg-docusate sodium 50 mg tablet 1 tab PO BID PRN 01/11/18 [History Confirmed 01/11/18] sertraline 100 mg tablet 100 mg PO QDAY 01/11/18 [History Confirmed 01/11/18] acetaminophen 325 mg tablet 650 mg PO Q6H PRN tab 01/12/18 [History Confirmed 01/12/18] famotidine 20 mg tablet 20 mg PO DAILY tab 01/12/18 [History] ferrous sulfate 325 mg (65 mg iron) tablet 325 mg PO BID tab 01/12/18 [History Confirmed 01/12/18] gabapentin 400 mg capsule 400 mg PO Q6H cap 01/12/18 [History Confirmed 01/12/18] levothyroxine 125 mcg tablet 125 mcg PO DAILY@0600 tab 01/12/18 [History Confirmed 01/12/18] lisinopril 2.5 mg tablet 2.5 mg PO BID tab 01/12/18 [History Confirmed 01/12/18] metoprolol tartrate 25 mg tablet 12.5 mg PO BID tab 01/12/18 [History Confirmed 01/12/18] sertraline 50 mg tablet 50 mg PO QDAY 01/12/18 [History Confirmed 01/12/18] tizanidine 4 mg capsule 4 mg PO Q8H 01/12/18 [History Confirmed 01/12/18] warfarin 1 mg tablet 1 mg PO QDAY 01/12/18 [History Confirmed 01/12/18] warfarin 4 mg tablet 4 mg PO QDAY 01/12/18 [History Confirmed 01/12/18] PFSH Medical History Chronic insomnia (Chronic) 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) Difficulty in walking (Chronic) Sepsis (Chronic) Patent foramen ovale (Chronic) DVT, lower extremity, distal (Acute) Anemia (Chronic) Dysphagia as late effect of cerebrovascular accident (CVA) (Acute) Hypothyroid (Chronic) COPD (chronic obstructive pulmonary disease) (Chronic) HTN (hypertension) (Chronic) GERD (gastroesophageal reflux disease) (Chronic) Suspected cerebrovascular accident (CVA) (Acute) Depression (Chronic) Stroke (Chronic) Vasogenic cerebral edema (Acute) Anemia (Acute) Chest wall pain (Acute) Chronic insomnia (Acute) Depression (Acute) Dysphagia (Acute) Malaise and fatigue (Acute) Narcotic abuse (Acute) Obesity (Acute) Surgical History 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) History of hysterectomy (Resolved) Family History Mother CAD (coronary artery disease) CVA (cerebral vascular accident) Father Heart disease CVA (cerebral vascular accident) Sister Heart disease Brother Hypertension Social History Smoking Status: Never smoker alcohol intake: never substance use type: does not use what type of physical activity do you participate in: none do you feel safe at home: Yes ROS Const Const: Positive for fatigue; negative for weakness, body ache, fever(s) or chills ENT ENT: Negative for dizziness Cardio Chest Pain: Yes (rarely and brief) Palpitations: No Edema: None Muscle aches with walking: None Resp Respiratory: Negative for SOB with activity, SOB at rest, SOB orthopnea\SOB lying down or paroxysmal nocturnal dyspnea GI GI: Negative nausea, black,tarry stools, bright, red blood in stools or vomiting blood/hematemesis : Negative for hematuria or frequent nighttime urination/ nocturia Musc Musc: Negative for muscle aches/ myalgia Neuro Neuro: Negative for lightheadedness, near syncope, syncope, orthostatic symptoms, weakness or dizziness Endo Endo: Positive for fatigue Cardiology Exam Const Appearance: cooperative, healthy appearing, comfortable and no acute distress Orientation: alert, awake and oriented x3 Head Head: normal to inspection Mouth: oral mucosae normal Neck Neck: no JVD and normal visual inspection Carotids: normal carotid upstroke Chest Chest inspection: normal inspection of the chest and normal respiratory effort Auscultation: Bilateral: Clear to Auscultation Cardio Rate: regular rate Rhythm: regular rhythm Heart sounds: S1 normal and S2 normal; negative rub or gallop GI GI: normal to inspection Neuro General: alert, awake, oriented x3 and CN's II-XI intact bilaterally Skin Skin: no rashes or lesions noted Extremities Pulses: Normal: Right Posterior Tibial Pulse, Left Posterior Tibial Pulse, Right Radial Pulse, Left Radial Pulse Lower Extremity Edema: None: Bilateral Psych Psychological: normal affect Supplemental Info CARIDAD from January 2017 showed an ejection fraction of 65%, no thrombus detected in left atrial appendage, trivial mitral valve insufficiency, trivial tricuspid valve insufficiency, trivial pulmonic valve insufficiency, positive color flow and positive agitation saline contrast study for bidirectional interatrial shunt predominantly left to right compatible with a PFO. MRI of the neck in January 2017 showed normal bilateral cervical carotid and vertebral arteries. Assessment AND Plan 1. Patent foramen ovale Q21.1 Plan - DESMOND Albarado CARIDAD from January 2017 showed ejection fraction of 65%. This does not appear to be causing any hemodynamic instability. We will continue to monitor this through history, exam, and repeat echocardiogram. We will continue to monitor this. 2. Cerebrovascular accident (CVA), unspecified mechanism I63.9 Plan - DESMOND Albarado Patient will continue to follow-up with primary care physician for this. She will continue with current medications which include Coumadin. She does not exhibit any physical signs of DVT. 3. 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 Her most recent INR was supratherapeutic at 4.1 but 3 out of her 4 previous INRs have been below 2. She was reminded of the importance of maintaining INR goal. Plan Detail Other Medications Changed: Discontinued: polyethylene glycol 3350 Discontinued Reason: Pt no l17 GM GT DAILY onger taking Additional Comments - DESMOND Albarado Discussed the above patient with Dr. Augustine, he agrees with the plan of care. Thank you for allowing us to participate in the patients plan of care, if you have any questions please do not hesitate to call. This note was generated using a voice recognition system and there may be incorrect words, spelling or punctuation that were not noted when reviewing the office note prior to saving. Coding Level of Care Code Off vis,est,level 3 Diagnoses Patent foramen ovale Q21.1 Cerebrovascular accident (CVA), unspecified mechanism I63.9 CVA mechanism: unspecified [facility] (current) use of anticoagulants Z79.01 Coding Level of Care Code Off vis,est,level 3 Diagnoses Patent foramen ovale Q21.1 Cerebrovascular accident (CVA), unspecified mechanism I63.9 CVA mechanism: unspecified continuous churn buttermaker (current) use of anticoagulants Z79.01 01/12/18 1714 <Electronically signed by Mahesh ROYALC> Date Mahesh ROYALC 01/13/18 0727<Electronically signed by Luis Augustine MD> Cosigner Signature: Date (if applicable) Luis Augustine MD CC: Leesa Guillermo PROTHROMBIN TIME AND Collected: 01/12/2018 Status: F Source: [facility] IN[facility] 6:04 AM [facility] REPOSITORY TYPE CODE TESTS RESULT OUT OF REFERENCE UNITS RANGE LAB PROTHROMBIN TIME AND INR(LOINC) PROTHROMBIN TIME AND INR Result Comment: PROTHROMBIN TIME AND INR LAB PT-COUMADIN(LOINC) sec PT-COUMADIN 50.1 LAB INR(LOINC) 0.8 - 1.2 INR High Alert 4.6 Result Comment: { CALLED TO UVALDO@0738 / WKK { READ BACK BY UVALDO / @0722 { TEST REPEATED THE HEMOSIL THROMBOPLASTIN REAGENT USED IN THE PROTHROMBIN TIME TEST INTERACTS WITH THE DRUG CUBICIN (DAPTOMYCIN) AND WILL RESULT IN FALSELY ELEVATED PT / INR RESULTS INR INTERPRETATION INR INDICATION PREVENTION AND TREATMENT OF THROMBOEMBOLISM ASSOCIATED WITH: 2.0 - 3.0 ATRIAL FIBRILLATION, BIOPROSTHETIC HEART VALVES, PULMONARY EMBOLISM, VENOUS THROMBOSIS, SYSTEMIC EMBOLISM POST MYOCARDIAL INFARCTION 2.5 - 3.5 MECHANICAL HEART VALVES Performed By: #### [id number] #### [facility],[address] [place] [address] BMP WITH EGFR Collected: 01/11/2018 Status: F Source: [facility] 4:35 AM [facility] REPOSITORY TYPE CODE TESTS RESULT OUT OF RANGE REFERENCE UNITS LAB BMP with eGFR(LOINC) BMP with eGFR Result Comment: BASIC METABOLIC PANEL LAB SODIUM(LOINC) 136 - 145 mmol/l SODIUM 141 LAB POTASSIUM(LOINC) 3.5 - 5.1 mmol/L POTASSIUM 4.7 LAB CHLORIDE(LOINC) 98 - 107 mmol/L CHLORIDE 104 LAB CO2(LOINC) 21.0 - mmol/L 31.0 CO2 28.0 LAB GLUCOSE(LOINC) 74 - 106 mg/dl GLUCOSE 98 LAB BUN(LOINC) 6 - 20 mg/dl BUN High 24 LAB CREATININE(LOINC) 0.6 - 1.2 mg/dl CREATININE 0.8 LAB CALCIUM(LOINC) 8.6 - mg/dl 10.2 CALCIUM 9.0 LAB ANION GAP(LOINC) 10 - 20 mmol/L ANION GAP 14 LAB AGE(LOINC) years AGE 72 LAB eGFR(LOINC) 60 - 999 ML/MINUTE eGFR >60 LAB eGFR(AA)(LOINC) 60 - 999 ML/MINUTE eGFR(AA) >60 Result Comment: ACCORDING TO THE NATIONAL KIDNEY DISEASE EDUCATION PROGRAM(NKDE), A NORMAL eGFR IS A VALUE GREATER THAN OR EQUAL TO 60 ML/MIN/1.73 SQ METERS. CHRONIC KIDNEY DISEASE: <60mL/MIN/1.73 SQ METERS KIDNEY FAILURE: <15mL/MIN/1.73 SQ METERS THIS TEST SHOULD ONLY BE USED FOR PATIENTS 18 YEARS OF AGE AND OLDER. Performed By: #### [id number] #### [place] [address] PROTHROMBIN TIME AND Collected: 01/05/2018 Status: F [facility] REPOSITORY TYPE CODE TESTS RESULT OUT OF REFERENCE UNITS RANGE LAB PROTHROMBIN TIME AND INR(LOINC) PROTHROMBIN TIME AND INR Result Comment: PROTHROMBIN TIME AND INR LAB PT-COUMADIN(LOINC) sec PT-COUMADIN 35.5 LAB INR(LOINC) 0.8 - 1.2 INR High 3.2 Result Comment: THE HEMOSIL THROMBOPLASTIN REAGENT USED IN THE PROTHROMBIN TIME TEST INTERACTS WITH THE DRUG CUBICIN (DAPTOMYCIN) AND WILL RESULT IN FALSELY ELEVATED PT / INR RESULTS INR INTERPRETATION INR INDICATION PREVENTION AND TREATMENT OF THROMBOEMBOLISM ASSOCIATED WITH: 2.0 - 3.0 ATRIAL FIBRILLATION, BIOPROSTHETIC HEART VALVES, PULMONARY EMBOLISM, VENOUS THROMBOSIS, SYSTEMIC EMBOLISM POST MYOCARDIAL INFARCTION 2.5 - 3.5 MECHANICAL HEART VALVES Performed By: #### [id number] #### [place] [address] PROTHROMBIN TIME AND Collected: 01/02/2018 Status: F Source: [facility] INR 5:47 AM [facility] REPOSITORY TYPE CODE TESTS RESULT OUT OF REFERENCE UNITS RANGE LAB PROTHROMBIN TIME AND INR(LOINC) PROTHROMBIN TIME AND INR Result Comment: PROTHROMBIN TIME AND INR LAB PT-COUMADIN(LOINC) sec PT-COUMADIN 24.7 LAB INR(LOINC) 0.8 - 1.2 INR High 2.2 Result Comment: THE HEMOSIL THROMBOPLASTIN REAGENT USED IN THE PROTHROMBIN TIME TEST INTERACTS WITH THE DRUG CUBICIN (DAPTOMYCIN) AND WILL RESULT IN FALSELY ELEVATED PT / INR RESULTS INR INTERPRETATION INR INDICATION PREVENTION AND TREATMENT OF THROMBOEMBOLISM ASSOCIATED WITH: 2.0 - 3.0 ATRIAL FIBRILLATION, BIOPROSTHETIC HEART VALVES, PULMONARY EMBOLISM, VENOUS THROMBOSIS, SYSTEMIC EMBOLISM POST MYOCARDIAL INFARCTION 2.5 - 3.5 MECHANICAL HEART VALVES Performed By: #### [id number] #### [place] [address] CBC (NO DIFF) Collected: 12/30/2017 Status: F Source: [facility] 3:50 AM [facility] REPOSITORY TYPE CODE TESTS RESULT OUT OF RANGE REFERENCE UNITS LAB CBC (NO DIFF)(LOINC ) CBC (NO DIFF) Result Comment: CBC(WITHOUT DIFFERENTIAL) LAB WBC(LOINC) 4.5 - 10.8 x 10EE3/UL WBC 6.4 LAB RBC(LOINC) 4.10 - x 10EE6/UL 5.30 RBC Low 3.28 LAB HEMOGLOBIN(LOINC) 12.0 - g/dl 16.0 Low HEMOGLOBIN 9.8 LAB HEMATOCRIT(LOINC) 34.0 - % 46.0 Low HEMATOCRIT 28.9 LAB MCV(LOINC) 80 - 99 fl MCV 88 LAB MCH(LOINC) 27 - 33 pg MCH 30 LAB MCHC(LOINC) 32 - 36 X10 3 MCHC 34 LAB RDW/CV(LOINC) 12.0 - % 15.6 RDW/CV 13.4 LAB PLATELET(LOINC) 150 - 450 x10EE3/UL PLATELET 265 LAB MPV(LOINC) 6.6 - 10.5 fl MPV 9.1 Result Comment: {CB] Performed By: #### [id number] #### [facility],[address] [place], [place] [id number] CMP WITH EGFR Collected: 12/30/2017 Status: F Source: [facility] 3:50 AM [facility] REPOSITORY TYPE CODE TESTS RESULT OUT OF RANGE REFERENCE UNITS LAB CMP with eGFR(LOINC) CMP with eGFR Result Comment: COMPREHENSIVE METABOLIC PANEL LAB SODIUM(LOINC) 136 - 145 mmol/l SODIUM 139 LAB POTASSIUM(LOINC) 3.5 - 5.1 mmol/L POTASSIUM 4.3 LAB CHLORIDE(LOINC) 98 - 107 mmol/L CHLORIDE 105 LAB CO2(LOINC) 21.0 - mmol/L 31.0 CO2 25.1 LAB GLUCOSE(LOINC) 74 - 106 mg/dl GLUCOSE 86 LAB BUN(LOINC) 6 - 20 mg/dl BUN High 31 LAB CREATININE(LOINC) 0.6 - 1.2 mg/dl CREATININE 1.0 LAB AST/SGOT(LOINC) 13 - 39 U/L AST/SGOT 18 LAB ALK PHOS(LOINC) 38 - 126 U/L ALK PHOS 89 LAB CALCIUM(LOINC) 8.6 - mg/dl 10.2 CALCIUM 8.7 LAB TOTAL 6.4 - 8.3 g/dl PROTEIN(LOINC) TOTAL Low PROTEIN 5.7 LAB ALBUMIN(LOINC) 3.4 - 4.8 g/dL ALBUMIN 3.5 LAB GLOBULIN(LOINC) 1.5 - 3.8 G/DL GLOBULIN 2.2 LAB A/G RATIO(LOINC) 0.9 - 1.6 A/G RATIO 1.6 LAB TOTAL BILI(LOINC) 0.0 - 1.5 mg/dl TOTAL BILI 0.4 LAB B/C RATIO(LOINC) 0 - 30 ratio B/C High RATIO 31 LAB ALT/SGPT(LOINC) 8 - 35 U/L ALT/SGPT 19 LAB ANION GAP(LOINC) 10 - 20 mmol/L ANION GAP 13 LAB AGE(LOINC) years AGE 72 LAB eGFR(LOINC) 60 - 999 ML/MINUTE eGFR Low 55 LAB eGFR(AA)(LOINC) 60 - 999 ML/MINUTE eGFR(AA) >60 Result Comment: ACCORDING TO THE NATIONAL KIDNEY DISEASE EDUCATION PROGRAM(NKDE), A NORMAL eGFR IS A VALUE GREATER THAN OR EQUAL TO 60 ML/MIN/1.73 SQ METERS. CHRONIC KIDNEY DISEASE: <60mL/MIN/1.73 SQ METERS KIDNEY FAILURE: <15mL/MIN/1.73 SQ METERS THIS TEST SHOULD ONLY BE USED FOR PATIENTS 18 YEARS OF AGE AND OLDER. Performed By: #### [id number] #### [facility],[address] [place] [address] PROTHROMBIN TIME AND Collected: 12/29/2017 Status: F Source: [facility] INR 4:07 AM [facility] REPOSITORY TYPE CODE TESTS RESULT OUT OF REFERENCE UNITS RANGE LAB PROTHROMBIN TIME AND INR(LOINC) PROTHROMBIN TIME AND INR Result Comment: PROTHROMBIN TIME AND INR LAB PT-COUMADIN(LOINC) sec PT-COUMADIN 21.5 LAB INR(LOINC) 0.8 - 1.2 INR High 1.9 Result Comment: THE HEMOSIL THROMBOPLASTIN REAGENT USED IN THE PROTHROMBIN TIME TEST INTERACTS WITH THE DRUG CUBICIN (DAPTOMYCIN) AND WILL RESULT IN FALSELY ELEVATED PT / INR RESULTS INR INTERPRETATION INR INDICATION PREVENTION AND TREATMENT OF THROMBOEMBOLISM ASSOCIATED WITH: 2.0 - 3.0 ATRIAL FIBRILLATION, BIOPROSTHETIC HEART VALVES, PULMONARY EMBOLISM, VENOUS THROMBOSIS, SYSTEMIC EMBOLISM POST MYOCARDIAL INFARCTION 2.5 - 3.5 MECHANICAL HEART VALVES Performed By: #### [id number] #### [place] [address] PROTHROMBIN TIME AND Collected: 12/28/2017 Status: F Source: [facility] INR 3:50 [facility] REPOSITORY TYPE CODE TESTS RESULT OUT OF REFERENCE UNITS RANGE LAB PROTHROMBIN TIME AND INR(LOINC) PROTHROMBIN TIME AND INR Result Comment: PROTHROMBIN TIME AND INR LAB PT-COUMADIN(LOINC) sec PT-COUMADIN 22.6 LAB INR(LOINC) 0.8 - 1.2 INR High 2.0 Result Comment: THE HEMOSIL THROMBOPLASTIN REAGENT USED IN THE PROTHROMBIN TIME TEST INTERACTS WITH THE DRUG CUBICIN (DAPTOMYCIN) AND WILL RESULT IN FALSELY ELEVATED PT / INR RESULTS INR INTERPRETATION INR INDICATION PREVENTION AND TREATMENT OF THROMBOEMBOLISM ASSOCIATED WITH: 2.0 - 3.0 ATRIAL FIBRILLATION, BIOPROSTHETIC HEART VALVES, PULMONARY EMBOLISM, VENOUS THROMBOSIS, SYSTEMIC EMBOLISM POST MYOCARDIAL INFARCTION 2.5 - 3.5 MECHANICAL HEART VALVES Performed By: #### [id number] #### [place] [address] PROTHROMBIN TIME AND Collected: 12/24/2017 Status: F Source: [facility] INR 3:50 [facility] REPOSITORY TYPE CODE TESTS RESULT OUT OF REFERENCE UNITS RANGE LAB PROTHROMBIN TIME AND INR(LOINC) PROTHROMBIN TIME AND INR Result Comment: PROTHROMBIN TIME AND INR LAB PT-COUMADIN(LOINC) sec PT-COUMADIN 16.1 LAB INR(LOINC) 0.8 - 1.2 INR High 1.4 Result Comment: THE HEMOSIL THROMBOPLASTIN REAGENT USED IN THE PROTHROMBIN TIME TEST INTERACTS WITH THE DRUG CUBICIN (DAPTOMYCIN) AND WILL RESULT IN FALSELY ELEVATED PT / INR RESULTS INR INTERPRETATION INR INDICATION PREVENTION AND TREATMENT OF THROMBOEMBOLISM ASSOCIATED WITH: 2.0 - 3.0 ATRIAL FIBRILLATION, BIOPROSTHETIC HEART VALVES, PULMONARY EMBOLISM, VENOUS THROMBOSIS, SYSTEMIC EMBOLISM POST MYOCARDIAL INFARCTION 2.5 - 3.5 MECHANICAL HEART VALVES Performed By: #### [id number] #### [place] [id number] PROTHROMBIN TIME AND Collected: 12/21/2017 Status: F Source: [facility] INR 4:25 AM [facility] REPOSITORY TYPE CODE TESTS RESULT OUT OF REFERENCE UNITS RANGE LAB PROTHROMBIN TIME AND INR(LOINC) PROTHROMBIN TIME AND INR Result Comment: PROTHROMBIN TIME AND INR LAB PT-COUMADIN(LOINC) sec PT-COUMADIN 18.9 LAB INR(LOINC) 0.8 - 1.2 INR High 1.7 Result Comment: THE HEMOSIL THROMBOPLASTIN REAGENT USED IN THE PROTHROMBIN TIME TEST INTERACTS WITH THE DRUG CUBICIN (DAPTOMYCIN) AND WILL RESULT IN FALSELY ELEVATED PT / INR RESULTS INR INTERPRETATION INR INDICATION PREVENTION AND TREATMENT OF THROMBOEMBOLISM ASSOCIATED WITH: 2.0 - 3.0 ATRIAL FIBRILLATION, BIOPROSTHETIC HEART VALVES, PULMONARY EMBOLISM, VENOUS THROMBOSIS, SYSTEMIC EMBOLISM POST MYOCARDIAL INFARCTION 2.5 - 3.5 MECHANICAL HEART VALVES Performed By: #### [id number] #### [place] [address] PROTHROMBIN TIME AND Collected: 12/17/2017 Status: F Source: [facility] INR 4:20 AM [facility] REPOSITORY TYPE CODE TESTS RESULT OUT OF REFERENCE UNITS RANGE LAB PROTHROMBIN TIME AND INR(LOINC) PROTHROMBIN TIME AND INR Result Comment: PROTHROMBIN TIME AND INR LAB PT-COUMADIN(LOINC) sec PT-COUMADIN 21.1 LAB INR(LOINC) 0.8 - 1.2 INR High 1.9 Result Comment: THE HEMOSIL THROMBOPLASTIN REAGENT USED IN THE PROTHROMBIN TIME TEST INTERACTS WITH THE DRUG CUBICIN (DAPTOMYCIN) AND WILL RESULT IN FALSELY ELEVATED PT / INR RESULTS INR INTERPRETATION INR INDICATION PREVENTION AND TREATMENT OF THROMBOEMBOLISM ASSOCIATED WITH: 2.0 - 3.0 ATRIAL FIBRILLATION, BIOPROSTHETIC HEART VALVES, PULMONARY EMBOLISM, VENOUS THROMBOSIS, SYSTEMIC EMBOLISM POST MYOCARDIAL INFARCTION 2.5 - 3.5 MECHANICAL HEART VALVES Performed By: #### [id number] #### [place] [address] CBC (NO DIFF) Collected: 12/16/2017 Status: F Source: [facility] 4:10 AM [facility] REPOSITORY TYPE CODE TESTS RESULT OUT OF RANGE REFERENCE UNITS LAB CBC (NO DIFF)(LOINC ) CBC (NO DIFF) Result Comment: CBC(WITHOUT DIFFERENTIAL) LAB WBC(LOINC) 4.5 - 10.8 x 10EE3/UL WBC 6.9 LAB RBC(LOINC) 4.10 - x 10EE6/UL 5.30 RBC Low 3.61 LAB HEMOGLOBIN(LOINC) 12.0 - g/dl 16.0 Low HEMOGLOBIN 10.6 LAB HEMATOCRIT(LOINC) 34.0 - % 46.0 Low HEMATOCRIT 32.0 LAB MCV(LOINC) 80 - 99 fl MCV 89 LAB MCH(LOINC) 27 - 33 pg MCH 29 LAB MCHC(LOINC) 32 - 36 X10 3 MCHC 33 LAB RDW/CV(LOINC) 12.0 - % 15.6 RDW/CV 13.7 LAB PLATELET(LOINC) 150 - 450 x10EE3/UL PLATELET 345 LAB MPV(LOINC) 6.6 - 10.5 fl MPV 9.1 Result Comment: {CB] Performed By: #### [id number] #### [place] [address] IRON AND UIBC Collected: 12/16/2017 Status: F Source: [facility] 4:10 AM [facility] REPOSITORY TYPE CODE TESTS RESULT OUT OF RANGE REFERENCE UNITS LAB IRON(LOINC) 50 - 170 ug/dl IRON 67 LAB UIBC(LOINC) 155 - 355 ug/dL UIBC 212 LAB TIBC(LOINC) 250 - 450 ug/dl TIBC 279 LAB Sat%(LOINC) 20 - 50 % Sat% 24 Performed By: #### [id number] #### [place] [id number] FERRITIN Collected: 12/16/2017 Status: F Source: [facility] 4:10 AM [facility] REPOSITORY TYPE CODE TESTS RESULT OUT OF REFERENCE UNITS RANGE LAB FERRITIN(LO 10 - 291 ng/mL INC) High FERRITIN 294 Performed By: #### [id number] #### [place] [id number] FOLATES Collected: 12/16/2017 Status: F Source: [facility] 4:10 AM [facility] REPOSITORY TYPE CODE TESTS RESULT OUT OF REFERENCE UNITS RANGE LAB FOLATES(LEANDRA 3.5 - 20.0 ng/ml MO) FOLATES 9.6 Performed By: #### [id number] #### [place] [address] VITAMIN B-12 Collected: 12/16/2017 Status: F Source: [facility] 4:10 AM [facility] TYPE CODE TESTS RESULT OUT OF REFERENCE UNITS RANGE LAB N(LOINC) 180 - 914 pg/mL VITAMIN B12 290 Performed By: #### [id number] #### [place] [id number] RETICULOCYTE COUNT Collected: 12/16/2017 Status: F Source: [facility] 4:10 AM [facility] TYPE CODE TESTS RESULT OUT OF REFERENCE UNITS RANGE LAB RETIC 0.0 - 2.3 % COUNT(LOINC) RETIC 1.0 COUNT LAB IRF(LOINC) 0.20 - 0.46 IRF IRF 0.45 Performed By: #### [id number] #### [place] [id number] PROTHROMBIN TIME AND Collected: 12/09/2017 Status: F [facility] AM [facility] TYPE CODE TESTS RESULT OUT OF REFERENCE UNITS RANGE LAB PROTHROMBIN TIME AND INR(LOINC) PROTHROMBIN TIME AND INR Result Comment: PROTHROMBIN TIME AND INR LAB PT-COUMADIN(LOINC) sec PT-COUMADIN 20.7 LAB INR(LOINC) 0.8 - 1.2 INR High 1.9 Result Comment: THE HEMOSIL THROMBOPLASTIN REAGENT USED IN THE PROTHROMBIN TIME TEST INTERACTS WITH THE DRUG CUBICIN (DAPTOMYCIN) AND WILL RESULT IN FALSELY ELEVATED PT / INR RESULTS INR INTERPRETATION INR INDICATION PREVENTION AND TREATMENT OF THROMBOEMBOLISM ASSOCIATED WITH: 2.0 - 3.0 ATRIAL FIBRILLATION, BIOPROSTHETIC HEART VALVES, PULMONARY EMBOLISM, VENOUS THROMBOSIS, SYSTEMIC EMBOLISM POST MYOCARDIAL INFARCTION 2.5 - 3.5 MECHANICAL HEART VALVES Performed By: #### [id number] #### [place] [id number] EMERGENCY REPORT Observed: 12/04/2017 Status: F Source: [facility] 8:04 AM [facility] EMERGENCY DEPARTMENT REPORT NAME NUMBER SEX AGE ADMIT DISC TYPE MED.RECORD# SAADIA Berry [id number] F 72 11/15/17 11/16/17 EstivenRM[place]apha [id number] ROOM:ER- DATE OF :1945 PHYSICIAN NO.:[id number] PHYSICIAN NAME:E-Sign: Dr. George Wade D.O. PHYSICIAN:SMILEY FLORES [facility] PHYSICIAN: SMILEY FLORES HISTORY OF PRESENT ILLNESS: This is a 80-year-old white female who was sent here from the prison for an apparent unresponsive episode at the prison The prison staff said that she became barrera and would not respond to them. It is unclear as to how long the episode lasted. The patient has complained of a headache off and on. When she presented here in the emergency department, she was alert and oriented. She made eye contact and was very talkative. The patient does still complain of a mild headache to me. REVIEW OF SYSTEMS: Otherwise, her review of systems is negative. She denies any chest pain, shortness of breath, abdominal pain, nausea, vomiting, diarrhea, cough, wheezing. She denies any blurred or double vision. She does admit to a headache, but denies any motor weakness above and beyond her normal left arm and left leg weakness from her previous stroke. PHYSICAL EXAMINATION: The patient is alert and oriented x3. She appears in no acute distress. Her speech is clear. HEENT: Her pupils are equal and react to light. Red reflex intact bilaterally. No conjunctival injection. Ears: TMs intact bilaterally. No erythema noted. Mouth: Mucous membranes are moist. No pharyngeal erythema. Uvula is midline and elevates. Neck is supple. Trachea is midline. No JVD or lymphadenopathy. No posterior cervical tenderness. Lungs are clear to auscultation in all lung cerda. No adventitious sounds are noted. CVS: Heart has regular rate and rhythm without murmur. Abdomen is soft and nontender with normoactive bowel sounds x4 quadrants. No guarding or rigidity. Extremities: No edema or cyanosis. The patient does exhibit some left-sided weakness due to her previous stroke, and her left hand actually exhibits some contractures. She does move her right arm and right leg well. She is alert and oriented x 3. She knows her name. She knows that she is in [facility] and she knows why she is here. She is a little disoriented to the time, but she does know that it is evening. Skin is warm and dry. No diaphoresis or rash. DIAGNOSTIC DATA: CAT scan of the brain was obtained which showed no acute intracranial hemorrhage. No acute territorial infarct. There was a large area of low attenuation within the right frontal temporal region, related to a prior ischemia. EKG showed a sinus bradycardia at a rate of 57 beats per minute. No acute ST segment changes were noted. Alba is approximately 30 degrees. Troponin was 0.01. PTT is 32.3. Second troponin was also less than 0.01. Sodium 138, potassium 4.4. Chloride 104. CO2 26.8, glucose 100. BUN 29, creatinine 1.0. Liver functions were all within normal limits. PT was 18.4. INR 1.6. White count was 9.4 with a hemoglobin of 10.3 and hematocrit of 30.8. Platelet count is 361,000. DIAGNOSIS: Altered mental status - resolved. PLAN/DISPOSITION: The patient has remained clinically very stable here. She has remained alert and oriented. I do have a urinalysis pending. If that looks like a urinary tract infection, we will treat that, but otherwise, I felt that the patient could be safely discharged back to the prison. D: George Wade DO TD: 07:10 JOB #: [id number] Electronically signed by: E-Sign: Dr. George Wade D.O. 12/04/17 08:04 Transcribed by: danette 11/16/2017 18:49 EMERGENCY ROOM REPORT SAADIA Berry 1 CBC (NO DIFF) Collected: 12/02/2017 Status: F Source: [facility] 3:30 AM [facility] REPOSITORY TYPE CODE TESTS RESULT OUT OF RANGE REFERENCE UNITS LAB CBC (NO DIFF)(LOINC ) CBC (NO DIFF) Result Comment: CBC(WITHOUT DIFFERENTIAL) LAB WBC(LOINC) 4.5 - 10.8 x 10EE3/UL WBC 7.6 LAB RBC(LOINC) 4.10 - x 10EE6/UL 5.30 RBC Low 3.23 LAB HEMOGLOBIN(LOINC) 12.0 - g/dl 16.0 Low HEMOGLOBIN 9.6 LAB HEMATOCRIT(LOINC) 34.0 - % 46.0 Low HEMATOCRIT 28.2 LAB MCV(LOINC) 80 - 99 fl MCV 87 LAB MCH(LOINC) 27 - 33 pg MCH 30 LAB MCHC(LOINC) 32 - 36 X10 3 MCHC 34 LAB RDW/CV(LOINC) 12.0 - % 15.6 RDW/CV 13.5 LAB PLATELET(LOINC) 150 - 450 x10EE3/UL PLATELET 309 LAB MPV(LOINC) 6.6 - 10.5 fl MPV 9.4 Result Comment: {CB] Performed By: #### [id number] #### [place] [address] PROTHROMBIN TIME AND Collected: 12/02/2017 Status: F Source: [facility] INR 3:30 AM [facility] REPOSITORY TYPE CODE TESTS RESULT OUT OF REFERENCE UNITS RANGE LAB PROTHROMBIN TIME AND INR(LOINC) PROTHROMBIN TIME AND INR Result Comment: PROTHROMBIN TIME AND INR LAB PT-COUMADIN(LOINC) sec PT-COUMADIN 21.7 LAB INR(LOINC) 0.8 - 1.2 INR High 1.9 Result Comment: THE HEMOSIL THROMBOPLASTIN REAGENT USED IN THE PROTHROMBIN TIME TEST INTERACTS WITH THE DRUG CUBICIN (DAPTOMYCIN) AND WILL RESULT IN FALSELY ELEVATED PT / INR RESULTS INR INTERPRETATION INR INDICATION PREVENTION AND TREATMENT OF THROMBOEMBOLISM ASSOCIATED WITH: 2.0 - 3.0 ATRIAL FIBRILLATION, BIOPROSTHETIC HEART VALVES, PULMONARY EMBOLISM, VENOUS THROMBOSIS, SYSTEMIC EMBOLISM POST MYOCARDIAL INFARCTION 2.5 - 3.5 MECHANICAL HEART VALVES Performed By: #### [id number] #### [place] [address] CMP WITH EGFR Collected: 12/02/2017 Status: F Source: [facility]30 AM [facility] REPOSITORY TYPE CODE TESTS RESULT OUT OF RANGE REFERENCE UNITS LAB CMP with eGFR(LOINC) CMP with eGFR Result Comment: COMPREHENSIVE METABOLIC PANEL LAB SODIUM(LOINC) 136 - 145 mmol/l SODIUM 139 LAB POTASSIUM(LOINC) 3.5 - 5.1 mmol/L POTASSIUM 4.7 LAB CHLORIDE(LOINC) 98 - 107 mmol/L CHLORIDE 106 LAB CO2(LOINC) 21.0 - mmol/L 31.0 CO2 26.7 LAB GLUCOSE(LOINC) 74 - 106 mg/dl GLUCOSE 82 LAB BUN(LOINC) 6 - 20 mg/dl BUN High 29 LAB CREATININE(LOINC) 0.6 - 1.2 mg/dl CREATININE 0.9 LAB AST/SGOT(LOINC) 13 - 39 U/L AST/SGOT 19 LAB ALK PHOS(LOINC) 38 - 126 U/L ALK PHOS 89 LAB CALCIUM(LOINC) 8.6 - mg/dl 10.2 CALCIUM 8.7 LAB TOTAL 6.4 - 8.3 g/dl PROTEIN(LOINC) TOTAL Low PROTEIN 5.6 LAB ALBUMIN(LOINC) 3.4 - 4.8 g/dL ALBUMIN 3.5 LAB GLOBULIN(LOINC) 1.5 - 3.8 G/DL GLOBULIN 2.1 LAB A/G RATIO(LOINC) 0.9 - 1.6 A/G High RATIO 1.7 LAB TOTAL BILI(LOINC) 0.0 - 1.5 mg/dl TOTAL BILI 0.4 LAB B/C RATIO(LOINC) 0 - 30 ratio B/C High RATIO 32 LAB ALT/SGPT(LOINC) 8 - 35 U/L ALT/SGPT 23 LAB ANION GAP(LOINC) 10 - 20 mmol/L ANION GAP 11 LAB AGE(LOINC) years AGE 72 LAB eGFR(LOINC) 60 - 999 ML/MINUTE eGFR >60 LAB eGFR(AA)(LOINC) 60 - 999 ML/MINUTE eGFR(AA) >60 Result Comment: ACCORDING TO THE NATIONAL KIDNEY DISEASE EDUCATION PROGRAM(NKDE), A NORMAL eGFR IS A VALUE GREATER THAN OR EQUAL TO 60 ML/MIN/1.73 SQ METERS. CHRONIC KIDNEY DISEASE: <60mL/MIN/1.73 SQ METERS KIDNEY FAILURE: <15mL/MIN/1.73 SQ METERS THIS TEST SHOULD ONLY BE USED FOR PATIENTS 18 YEARS OF AGE AND OLDER. Performed By: #### [id number] #### [facility],[address] [place] [address] TSH Collected: 12/02/2017 Status: F Source: [facility] 3:30 AM [facility] REPOSITORY TYPE CODE TESTS RESULT OUT OF RANGE REFERENCE UNITS LAB TSH(LOINC) 0.34 - 5.60 uIU/ml TSH 0.63 Performed By: #### [id number] #### [facility],[address] [place] [address] EMERGENCY DEPARTMENT Observed: 11/23/2017 Status: F Source: [facility] SUMMARY 7:15 AM [facility] EMERGENCY DEPARTMENT SUMMARY NAME NUMBER SEX AGE ADMIT DISC TYPE MED.RECORD# SAADIA Berry [id number] F 72 11/11/17 11/11/17 [place] [id number] ROOM:ER DATE OF :1945 PHYSICIAN NO.:[id number] PHYSICIAN NAME:JAY Morris M.D. PHYSICIAN:SMILEY Trinidad CHIEF COMPLAINT: Fell and bumped head. HISTORY OF PRESENT ILLNESS: The patient is a resident of a prison. She has had a previous CVA and has significant left-sided weakness and since is not ambulatory and can only stand with significant assistance. Apparently she tried to get up when the people were not by her side today and promptly fell over onto her left side, bumping the left side of her head. She has a small abrasion and some swelling there. She is not complaining of pain elsewhere except slightly to her knees. She was helped back up and into bed and then brought here by squad. She states that she did not have any loss of consciousness. She is not having any numbness or tingling to her extremities that had not been there previously. She otherwise has no other complaints. PAST MEDICAL HISTORY: As mentioned above; previous CVA, asthma, COPD and depression. MEDICATIONS: Per medication reconciliation list. ALLERGIES: As noted on the allergy list. SOCIAL HISTORY: The patient is a resident of a prison. She is and accompanied here with her . She does not smoke or drink alcohol. REVIEW OF SYSTEMS: As mentioned above, she is not complaining of any chest pain or shortness of breath. No abdominal pain, nausea or vomiting. No neck pain or back pain. PHYSICAL EXAMINATION: This is a 72-year-old pleasant female who is very awake, alert and appropriate. She does not appear toxic or in any acute distress. She has a superficial abrasion and some soft tissue swelling to the left religious area. Head is otherwise atraumatic and nontender. HEENT examination shows no acute abnormalities of the eyes, ears, nose, mouth or throat. No tenderness to her neck. Full range of motion of her head and neck. She has no chest wall tenderness. No back tenderness. Lungs are clear. Cardiac exam is normal. She has very minimal redness to her knees but no soft tissue swelling or tenderness. Otherwise, no evidence of any injury or trauma to the extremities. Vital signs: Temperature 97.3, pulse 69, respirations 16, and blood pressure 97/76. Her oxygen saturation is 95%. DIAGNOSTIC DATA: I did get a head CT, which did not show any acute abnormalities. It did show what appears to be a sinus infection, otherwise old changes. EMERGENCY DEPARTMENT COURSE AND TREATMENT: I gave her a prescription for Ceftin to take but did not feel that any further testing or imaging would be needed. She is to follow up with her family doctor. DIAGNOSES: 1. Fall with head contusion. 2. Sinus infection. D: Marcos Morris MD TD: 16:55 JOB #: [id number] Electronically signed by: JAY Morris M.D. 11/23/17 07:11 Transcribed by: good 11/12/2017 14:55 PROTHROMBIN TIME AND Collected: 11/22/2017 Status: F [facility]20 AM [facility] REPOSITORY TYPE CODE TESTS RESULT OUT OF REFERENCE UNITS RANGE LAB PROTHROMBIN TIME AND INR(LOINC) PROTHROMBIN TIME AND INR Result Comment: PROTHROMBIN TIME AND INR LAB PT-COUMADIN(LOINC) sec PT-COUMADIN 28.5 LAB INR(LOINC) 0.8 - 1.2 INR High 2.6 Result Comment: THE HEMOSIL THROMBOPLASTIN REAGENT USED IN THE PROTHROMBIN TIME TEST INTERACTS WITH THE DRUG CUBICIN (DAPTOMYCIN) AND WILL RESULT IN FALSELY ELEVATED PT / INR RESULTS INR INTERPRETATION INR INDICATION PREVENTION AND TREATMENT OF THROMBOEMBOLISM ASSOCIATED WITH: 2.0 - 3.0 ATRIAL FIBRILLATION, BIOPROSTHETIC HEART VALVES, PULMONARY EMBOLISM, VENOUS THROMBOSIS, SYSTEMIC EMBOLISM POST MYOCARDIAL INFARCTION 2.5 - 3.5 MECHANICAL HEART VALVES Performed By: #### [id number] #### [facility],[address] [place] [address] MAMM DIGITAL BILAT Observed: 11/20/2017 Status: F Source: [facility] SCREEN 11:50 AM [facility] REPOSITORY [place] [id number] Patient: TRINA DE Phone#: : [phone] Age: 72 Gender: F Pt. Type: Out Account: [id number] Location: [id number] Ordering: LEESA GUILLERMO Exam Date: 11/20/2017/11:03 Family Phys: Charge Code: [id number] Physician: Reeves Order #: [id number] DLP Dose#: PROCEDURE: MAMM BILAT DIGITAL SCREENING WITH CAD COMPARISON: July 25, 2009. INDICATIONS: Screening mammogram BREAST COMPOSITION: Almost entirely fat (<25% glandular). FINDINGS: DIAGNOSTIC CATEGORY 1--NEGATIVE ASSESSMENT. RIGHT BREAST: No significant suspicious finding. No significant change has occurred. LEFT BREAST: No significant suspicious finding. Small intramammary lymph node is noted in the lateral breast. No significant change has occurred. RECOMMENDATIONS: ROUTINE MAMMOGRAM AND CLINICAL EVALUATION. PLEASE NOTE: A NORMAL MAMMOGRAM DOES NOT EXCLUDE THE POSSIBILITY OF BREAST CANCER. A CLINICALLY SUSPICIOUS PALPABLE LUMP SHOULD BE BIOPSIED. THIS FACILITY UTILIZES A REMINDER SYSTEM TO ENSURE THAT ALL PATIENTS RECEIVE REMINDER LETTERS FOR APPOINTMENTS. THIS INCLUDES REMINDERS FOR ROUTINE MAMMOGRAMS, DIAGNOSITC MAMMOGRAMS, OR OTHER BREAST IMAGING INTERVENTIONS WHEN APPROPRIATE. THIS PATIENT WILL BE PLACED IN THE APPROPRIATE REMINDER SYSTEM. Dictated by: Angelique Reynaag MD on 11/20/2017 at 11:53 Approved by: Angelique Reynaga MD on 11/20/2017 at 11:53 PROTHROMBIN TIME AND Collected: 11/19/2017 Status: F Source: [facility] INR 4:10 AM [facility] REPOSITORY TYPE CODE TESTS RESULT OUT OF REFERENCE UNITS RANGE LAB PROTHROMBIN TIME AND INR(LOINC) PROTHROMBIN TIME AND INR Result Comment: PROTHROMBIN TIME AND INR LAB PT-COUMADIN(LOINC) sec PT-COUMADIN 24.5 LAB INR(LOINC) 0.8 - 1.2 INR High 2.2 Result Comment: THE HEMOSIL THROMBOPLASTIN REAGENT USED IN THE PROTHROMBIN TIME TEST INTERACTS WITH THE DRUG CUBICIN (DAPTOMYCIN) AND WILL RESULT IN FALSELY ELEVATED PT / INR RESULTS INR INTERPRETATION INR INDICATION PREVENTION AND TREATMENT OF THROMBOEMBOLISM ASSOCIATED WITH: 2.0 - 3.0 ATRIAL FIBRILLATION, BIOPROSTHETIC HEART VALVES, PULMONARY EMBOLISM, VENOUS THROMBOSIS, SYSTEMIC EMBOLISM POST MYOCARDIAL INFARCTION 2.5 - 3.5 MECHANICAL HEART VALVES Performed By: #### [id number] #### [facility],[address] [place], [place] [id number] URINALYSIS Collected: 11/16/2017 Status: F Source: [facility] 1:00 [facility] REPOSITORY TYPE CODE TESTS RESULT OUT OF REFERENCE UNITS RANGE LAB URINALYSIS (LOINC) URINALYSIS Result Comment: URINALYSIS LAB Specimen Type(LOINC) Specimen Type Void LAB Color(LOINC) NORMAL: YELLOW Color YELLOW LAB Clarity(LOINC) NORMAL: CLEAR Clarity clear LAB ph(LOINC) NORMAL: 5.0-8.0 ph 5 LAB Protein(LOINC) NORMAL: NEGATIVE Protein NEG LAB Glucose(LOINC) NORMAL: NORMAL Glucose NORM LAB Ketone(LOINC) NORMAL: NEGATIVE Ketone NEG LAB Bilirubin(LOINC) NORMAL: NEGATIVE Bilirubin NEG LAB Blood(LOINC) NORMAL: NEGATIVE Blood NEG LAB Urobilinog(LOINC) NORMAL: NORMAL Urobilinog NORM LAB Sp Mcpherson(LOINC) NORMAL: 1.010-1.030 Sp Mcpherson 1.010 LAB Nitrite(LOINC) NORMAL: NEGATIVE Nitrite NEG LAB Leukocytes(LOINC) NORMAL: NEGATIVE Leukocytes Abnormal 25 LAB Microscopic(LOINC ) Microscopic SEE BELOW Result Comment: MICROSCOPIC LAB Wbc(LOINC) 0-5/hpf Wbc 11-15 LAB Rbc(LOINC) 0-3/hpf Rbc NONE LAB Casts(LOINC) Casts NONE LAB Crystals(LOINC) Crystals NONE LAB Amorphous(LOINC) Amorphous 1+ LAB Bacteria(LOINC) Bacteria TRACE LAB Epi Cells(LOINC) Epi Cells FEW LAB Mucous(LOINC) Mucous TRACE LAB Yeast(LOINC) Yeast NONE Performed By: #### [id number] #### [facility],[address] [place], [place] [address] TROPONIN Collected: 11/16/2017 Status: F Source: [facility] 12:05 [facility] REPOSITORY TYPE CODE TESTS RESULT OUT OF REFERENCE UNITS RANGE LAB TROPONIN 0.00 - 0.05 ng/ml I(LOINC) TROPONIN I 0.01 Result Comment: Elevated troponin (above the 99th percentile) usually indicates myocardial ischemia. Results must be interpreted within the clinical setting. 1.Non-ischemic pathology can also cause elevated troponin levels (e.g., acute pulmonary embolism, myocarditis, pericarditis, heart failure, intracranial injury, rhabdomyolisis, sepsis, shock and renal insufficiency). 2.Approximately 1% of healthy adults have elevated troponin levels. 3.Analytical false positive results rarely occur(due to multiple interferences such as heterophile antibodies). Performed By: #### [id number] #### [facility],[address] [place] [address] CT BRAIN W/O CONTRAST Observed: 11/15/2017 Status: F Source: [facility] 10:33 PM [facility] REPOSITORY [place] [address] Patient: TRINA DE Phone#: : 1945 Age: 72 Gender: F Pt. Type: ER Account: [id number] Location: [facility] Ordering: GEORGE WADE Exam Date: 11/15/2017/22:22 Family Phys: NESS HORACEMADHU Charge Code: [id number] Physician: Reeves Order #: [id number] DLP Dose#: [id number] PROCEDURE: CT BRAIN WITHOUT CONTRAST COMPARISON: [facility], CT, BRAIN W/O CON, 11/11/2017, 14:32. INDICATIONS: Altered mental status TECHNIQUE: CT images were obtained without contrast material. All CT scans at this facility use dose modulation, iterative reconstruction, and/or weight based dosing when appropriate to reduce radiation dose to as low as reasonably achievable. IV CONTRAST: No IV contrast used,0ml TOTAL DOSE: 52.30 CTDIvol(mGy) FINDINGS: CEREBRUM: Larger area of encephalomalacia is present in the right frontal temporal and parietal lobes. There is no evidence of acute interval change. Atrophic changes are present. Findings consistent with deep white matter small vessel disease are present. CEREBELLUM: No edema, hemorrhage, mass, acute infarction, or inappropriate atrophy. BRAINSTEM: No edema, hemorrhage, mass, acute infarction, or inappropriate atrophy. CSF SPACES: Ventricles, cisterns, and sulci are appropriate for age. No hydrocephalus, subarachnoid hemorrhage, or mass. SKULL: No mass or other significant visible lesion. SINUSES: There is mild mucosal thickening in the right ethmoid, bilateral sphenoid and left maxillary sinus. There is less mucosal thickening in the left sphenoid is compared to prior exam. ORBITS: Limited views are unremarkable. OTHER: Negative. CONCLUSION: Continued Report - Page 2 of 2 Patient: TRINA DE Phone#: : 1945 Age: 72 Gender: F Pt. Type: ER Account: [id number] Location: 052 Ordering: GEORGE WADE Exam Date: 11/15/2017/22:22 Family Phys: NESS REIS Charge Code: [id number] Physician: Reeves Order #: [id number] DLP Dose#: [id number] 1. Paranasal sinusitis. Mucosal thickening in the left sphenoid sinus is less than on prior exam. 2. There is no evidence of acute intracranial abnormality. 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 Dictated by: Angie Underwood MD on 11/16/2017 at 9:20 Approved by: Angie Underwood MD on 11/16/2017 at 9:20 CHEST AP Observed: 11/15/2017 Status: F Source: [facility] 10:02 PM [place] [address] Patient: TRINA DE Phone#: : 1945 Age: 72 Gender: F Pt. Type: ER Account: [id number] Location: 052 Ordering: GEORGE WADE Exam Date: 11/15/2017/21:49 Family Phys: NESS REIS Charge Code: [id number] Physician: Reeves Order #: [id number] DLP Dose#: PROCEDURE: X-RAY CHEST AP 1 VIEW COMPARISON: [facility], XR, CHEST AP, 05/10/2017, 15:00. INDICATIONS: Cough FINDINGS: LUNGS: Normal. No significant pulmonary parenchymal abnormalities. VASCULATURE: Normal. Unremarkable pulmonary vasculature. CARDIAC: Normal. No cardiac silhouette abnormality or cardiomegaly. MEDIASTINUM: Normal. No visible mass or adenopathy. PLEURA: Normal. No effusion or pleural thickening. BONES: Normal. No fracture or visible bony lesion. OTHER: Negative. CONCLUSION: No acute disease. No significant change has occurred. Dictated by: Angie Underwood MD on 11/16/2017 at 8:31 Approved by: Angie Underwood MD on 11/16/2017 at 8:31 CBC Collected: 11/15/2017 Status: F Source: [facility] 9:35 PM [facility] REPOSITORY TYPE CODE TESTS RESULT OUT OF RANGE REFERENCE UNITS LAB CBC(LOINC) CBC Result Comment: CBC-COMPLETE BLOOD COUNT LAB WBC(LOINC) 4.5 - 10.8 x 10EE3/UL WBC 9.4 LAB RBC(LOINC) 4.10 - x 10EE6/UL 5.30 RBC Low 3.56 LAB HEMOGLOBIN(LOINC) 12.0 - g/dl 16.0 Low HEMOGLOBIN 10.3 LAB HEMATOCRIT(LOINC) 34.0 - % 46.0 Low HEMATOCRIT 30.8 LAB MCV(LOINC) 80 - 99 fl MCV 87 LAB MCH(LOINC) 27 - 33 pg MCH 29 LAB MCHC(LOINC) 32 - 36 X10 3 MCHC 33 LAB RDW/CV(LOINC) 12.0 - % 15.6 RDW/CV 12.9 LAB PLATELET(LOINC) 150 - 450 x10EE3/UL PLATELET 361 LAB MPV(LOINC) 6.6 - 10.5 fl MPV 8.9 Result Comment: AUTOMATED DIFFERENTIAL LAB NEUT %(LOINC) 46.0 - 76.0 % NEUT % 56.6 LAB LYMPH %(LOINC) 20.0 - 45.0 % LYMPH % 30.4 LAB MONOS %(LOINC) 0.0 - 10.0 % MONOS % 7.4 LAB EO %(LOINC) 0.0 - 7.0 % EO % 4.4 LAB BASO %(LOINC) 0.0 - 2.0 % BASO % 1.2 LAB Lymph #(LOINC) 0.80 - 2.80 x10EE3/U L Lymph # 2.80 LAB Neut #(LOINC) 1.50 - 7.10 x10EE3/U L Neut # 5.30 LAB [place] #(LOINC) 0.20 - 1.00 x10EE3/U L [place] # 0.70 LAB EO #(LOINC) 0.00 - 0.50 x10EE3/U L EO # 0.40 LAB Baso #(LOINC) 0.00 - 0.10 x10EE3/U L Baso # 0.10 LAB MANUAL DIFF(LOINC) MANUAL DIFF N/A LAB MORPHOLOGY([facility] ) MORPHOLOGY N/A Result Comment: {CD] Performed By: #### [id number] #### [place] [address] PROTHROMBIN TIME AND Collected: 11/15/2017 Status: F Source: [facility] INR 9:35 PM [facility] REPOSITORY TYPE CODE TESTS RESULT OUT OF REFERENCE UNITS RANGE LAB PROTHROMBIN TIME AND INR(LOINC) PROTHROMBIN TIME AND INR Result Comment: PROTHROMBIN TIME AND INR LAB PT-COUMADIN(LOINC) sec PT-COUMADIN 18.4 LAB INR(INC) 0.8 - 1.2 INR High 1.6 Result Comment: THE HEMOSIL THROMBOPLASTIN REAGENT USED IN THE PROTHROMBIN TIME TEST INTERACTS WITH THE DRUG CUBICIN (DAPTOMYCIN) AND WILL RESULT IN FALSELY ELEVATED PT / INR RESULTS INR INTERPRETATION INR INDICATION PREVENTION AND TREATMENT OF THROMBOEMBOLISM ASSOCIATED WITH: 2.0 - 3.0 ATRIAL FIBRILLATION, BIOPROSTHETIC HEART VALVES, PULMONARY EMBOLISM, VENOUS THROMBOSIS, SYSTEMIC EMBOLISM POST MYOCARDIAL INFARCTION 2.5 - 3.5 MECHANICAL HEART VALVES Performed By: #### [id number] #### [place] [address] CMP WITH EGFR Collected: 11/15/2017 Status: F Source: [facility] 9:35 PM [facility] REPOSITORY TYPE CODE TESTS RESULT OUT OF RANGE REFERENCE UNITS LAB CMP with eGFR(LOINC) CMP with eGFR Result Comment: COMPREHENSIVE METABOLIC PANEL LAB SODIUM(LOINC) 136 - 145 mmol/l SODIUM 138 LAB POTASSIUM(LOINC) 3.5 - 5.1 mmol/L POTASSIUM 4.4 LAB CHLORIDE(LOINC) 98 - 107 mmol/L CHLORIDE 104 LAB CO2(LOINC) 21.0 - mmol/L 31.0 CO2 26.8 LAB GLUCOSE(LOINC) 74 - 106 mg/dl GLUCOSE 100 LAB BUN(LOINC) 6 - 20 mg/dl BUN High 29 LAB CREATININE(LOINC) 0.6 - 1.2 mg/dl CREATININE 1.0 LAB AST/SGOT(LOINC) 13 - 39 U/L AST/SGOT 21 LAB ALK PHOS(LOINC) 38 - 126 U/L ALK PHOS 101 LAB CALCIUM(LOINC) 8.6 - mg/dl 10.2 CALCIUM 8.9 LAB TOTAL 6.4 - 8.3 g/dl PROTEIN(LOINC) TOTAL Low PROTEIN 6.1 LAB ALBUMIN(LOINC) 3.4 - 4.8 g/dL ALBUMIN 3.7 LAB GLOBULIN(LOINC) 1.5 - 3.8 G/DL GLOBULIN 2.4 LAB A/G RATIO(LOINC) 0.9 - 1.6 A/G RATIO 1.5 LAB TOTAL BILI(LOINC) 0.0 - 1.5 mg/dl TOTAL BILI 0.3 LAB B/C RATIO(LOINC) 0 - 30 ratio B/C RATIO 29 LAB ALT/SGPT(LOINC) 8 - 35 U/L ALT/SGPT 22 LAB ANION GAP(LOINC) 10 - 20 mmol/L ANION GAP 12 LAB AGE(LOINC) years AGE 72 LAB eGFR(LOINC) 60 - 999 ML/MINUTE eGFR Low 55 LAB eGFR(AA)(LOINC) 60 - 999 ML/MINUTE eGFR(AA) >60 Result Comment: ACCORDING TO THE NATIONAL KIDNEY DISEASE EDUCATION PROGRAM(NKDE), A NORMAL eGFR IS A VALUE GREATER THAN OR EQUAL TO 60 ML/MIN/1.73 SQ METERS. CHRONIC KIDNEY DISEASE: <60mL/MIN/1.73 SQ METERS KIDNEY FAILURE: <15mL/MIN/1.73 SQ METERS THIS TEST SHOULD ONLY BE USED FOR PATIENTS 18 YEARS OF AGE AND OLDER. Performed By: #### [id number] #### [facility],[address] [place] [address] TROPONIN Collected: 11/15/2017 Status: F Source: [facility] 9:35 PM [facility] REPOSITORY TYPE CODE TESTS RESULT OUT OF REFERENCE UNITS RANGE LAB TROPONIN 0.00 - 0.05 ng/ml I(LOINC) TROPONIN I <0.01 Result Comment: Elevated troponin (above the 99th percentile) usually indicates myocardial ischemia. Results must be interpreted within the clinical setting. 1.Non-ischemic pathology can also cause elevated troponin levels (e.g., acute pulmonary embolism, myocarditis, pericarditis, heart failure, intracranial injury, rhabdomyolisis, sepsis, shock and renal insufficiency). 2.Approximately 1% of healthy adults have elevated troponin levels. 3.Analytical false positive results rarely occur(due to multiple interferences such as heterophile antibodies). Performed By: #### [id number] #### [facility],[address] [place] [id number] APTT Collected: 11/15/2017 Status: F Source: [facility] 9:35 PM [facility] REPOSITORY TYPE CODE TESTS RESULT OUT OF RANGE REFERENCE UNITS LAB PTT(LOINC) 21.6 - 35.4 sec PTT 32.3 Performed By: #### [id number] #### [facility],[address] [place] [address] BRAIN W/O CONTRAST Observed: 11/11/2017 Status: F Source: [facility] 2:45 PM [facility] REPOSITORY [place] [address] Patient: TRINA DE Phone#: : 1945 Age: 72 Gender: F Pt. Type: ER Account: [id number] Location: [facility] Ordering: MARCOS MORRIS Exam Date: 11/11/2017/14:32 Family Phys: NESS REIS Charge Code: [id number] Physician: Reeves Order #: [id number] DLP Dose#: PROCEDURE: CT BRAIN WITHOUT CONTRAST COMPARISON: [facility], CT, BRAIN W/O CON, 05/21/2017, 12:03. INDICATIONS: Fall TECHNIQUE: CT images were obtained without contrast material. All CT scans at this facility use dose modulation, iterative reconstruction, and/or weight based dosing when appropriate to reduce radiation dose to as low as reasonably achievable. IV CONTRAST: No IV contrast used,0ml TOTAL DOSE: 57.50 CTDIvol(mGy) FINDINGS: CEREBRUM: There is enlargement of the holding right temporal, frontal and parietal lobes consistent with remote infarct unchanged from prior exam. CEREBELLUM: No edema, hemorrhage, mass, acute infarction, or inappropriate atrophy. BRAINSTEM: No edema, hemorrhage, mass, acute infarction, or inappropriate atrophy. CSF SPACES: Ventricles, cisterns, and sulci are appropriate for age. No hydrocephalus, subarachnoid hemorrhage, or mass. SKULL: There is mild left supraorbital soft tissue swelling. There is no evidence of acute bone abnormality. SINUSES: There is mucosal thickening in the left maxillary sinus similar to prior exam. Mucosal thickening in the left sphenoid with fluid is present and has developed since prior exam consistent with acute on chronic sinusitis. There is deformity of the left maxillary sinus and may be related to remote trauma or surgery. ORBITS: Limited views are unremarkable. OTHER: Negative. CONCLUSION: Continued Report - Page 2 of 2 Patient: TRINA DE Phone#: : 1945 Age: 72 Gender: F Pt. Type: ER Account: [id number] Location: 052 Ordering: MARCOS MORRIS Exam Date: 11/11/2017/14:32 Family Phys: NESS REIS Charge Code: [id number] Physician: Reeves Order #: [id number] DLP Dose#: 1. There is no evidence of acute intracranial abnormality. Large area of right encephalomalacia is present. 2. Mucosal thickening is present in the left maxillary and sphenoid sinus. Fluid level is present in the sphenoid sinus. Dictated by: Angie Underwood MD on 11/11/2017 at 15:11 Approved by: Angie Underwood MD on 11/11/2017 at 15:11 PROTHROMBIN TIME AND Collected: 10/22/2017 Status: F Source: [facility] INR 3:40 AM [facility] REPOSITORY TYPE CODE TESTS RESULT OUT OF REFERENCE UNITS RANGE LAB PROTHROMBIN TIME AND INR(LOINC) PROTHROMBIN TIME AND INR Result Comment: PROTHROMBIN TIME AND INR LAB PT-COUMADIN(LOINC) sec PT-COUMADIN 27.3 LAB INR(LOINC) 0.8 - 1.2 INR High 2.5 Result Comment: THE HEMOSIL THROMBOPLASTIN REAGENT USED IN THE PROTHROMBIN TIME TEST INTERACTS WITH THE DRUG CUBICIN (DAPTOMYCIN) AND WILL RESULT IN FALSELY ELEVATED PT / INR RESULTS INR INTERPRETATION INR INDICATION PREVENTION AND TREATMENT OF THROMBOEMBOLISM ASSOCIATED WITH: 2.0 - 3.0 ATRIAL FIBRILLATION, BIOPROSTHETIC HEART VALVES, PULMONARY EMBOLISM, VENOUS THROMBOSIS, SYSTEMIC EMBOLISM POST MYOCARDIAL INFARCTION 2.5 - 3.5 MECHANICAL HEART VALVES Performed By: #### [id number] #### [facility],[address] [place], [place] [address] ALLERGIES ALLERGIES DATE TYPE / CODE NAME / CODE REACTION SEVERITY SOURCE 10/05/2018 Drug zolpidem CONFUSION Unknown [place] [facility] Allergy/416 tartrate/Q72576 Hospital 631956(SNOM 4147(RXNORM) Repository ED CT) 10/05/2018 Drug Penicillins/F00 Rash Unknown [place] [facility] Allergy/620 5989713(RXNORM) Hospital 388263(SNOM Repository ED CT) Drug PCN Moderate [place] Allergy/416 (penicillin)/00 ([facility] 355556(SNOM 180924(RXNORM) Modifier) Repository ED CT) (Qualifier Value) Drug AMBIEN/55626113 Moderate [place] Allergy/416 (RXNORM) ([facility] 684795(SNOM Modifier) Repository ED CT) (Qualifier Value) Drug BENADRYL Moderate [place] Allergy/416 ALLERGY/7012719 ([facility] 027656(SNOM 6(RXNORM) Modifier) Repository ED CT) (Qualifier Value) Drug GENERIC Moderate [place] Allergy/416 SEROQUEL/236501 ([facility] 298342(SNOM 11(RXNORM) Modifier) Repository ED CT) (Qualifier Value) ENCOUNTERS ENCOUNTERS ADMIT/DISCHARGE ACCOUNT ADMITTING ENCOUNTER LOCATION SOURCE NUMBER CLASS 11/02/2018 [id number] Ambulatory [place] 1 [facility] ing:OLS.AVEB Repository 10/26/2018 [id number] Ambulatory [place] 0 [facility] ing:OLS.AVEB Repository 10/25/2018 [id number] Ambulatory [place] 2 [facility] ing:OLS.AVEB Repository 10/20/2018 [id number] Ambulatory [place] 7 [facility] ing:OLS.AVEB Repository 10/19/2018 [id number] Ambulatory [place] 1 [facility] ing:OLS.AVEB Repository 10/18/2018 [id number] Ambulatory [place] 2 [facility] ing:OLS.AVEB Repository 10/17/2018 [id number] Ambulatory [place] 3 [facility] ing:OLS.AVEB Repository 10/16/2018 [id number] Ambulatory [place] 1 [facility] Repository 10/15/2018 [id number] Ambulatory [place] 5 [facility] ing:OLS.AVEB Repository 10/12/2018/ [id number] YANCI ZARATE Ambulatory [place] Vy 9 [facility] Repository 10/07/2018 [id number] Amb[facility] [place] 3 [facility] Repository 10/06/2018 [id number] Ambulatory [place] 8 [facility] Repository 10/05/2018/ [id number] Emergency [place] 8 2 [facility] ing:ED Repository 09/28/2018 [id number] Ambulatory [place] 5 [facility] ing[facility]S.AVEB Repository 2018 [id number] Ambulatory [place] 4 [facility]:OLS.AVEB Repository 08/17/2018 [id number] Ambulatory BMSBuilding:B [place] 4 [facility] Repository 08/16/2018 [id number] Ambulatory [place] 4 [facility] ing:OLS.AVEB Repository 08/04/2018 [id number] Ambulatory [place] 1 [facility] ing:OLS.AVEB Repository 07/21/2018 [id number] Ambulatory [place] 5 [facility] ing:[facility]S.[facility] Repository 07/19/2018 [id number] Ambulatory [place] 0 [facility] ing:[facility]S.AVEB Repository 07/08/2018 [id number] Ambulatory [place] 3 [facility] ing:[facility]S.AVEB Repository 07/06/2018 [id number] Ambulatory [place] 2 [facility] ing:[facility]S.AVEB Repository 06/21/2018 [id number] Ambulatory [place] 6 [facility] ing:[facility]S.AVEB Repository 06/15/2018 [id number] Ambulatory [place] 3 [facility] ing:OLS.AVEB Repository 05/17/2018 [id number] Ambulatory [place] 4 [facility] ing:OLS.AVEB Repository 05/13/2018 [id number] Ambulatory [place] 2 [facility] ing:OLS.AVEB Repository 04/26/2018 [id number] Ambulatory [place] 5 [facility] ing:OLS.AVEB Repository 04/19/2018 [id number] Ambulatory [place] 6 [facility] ing:OLS.AVEB Repository 04/12/2018 [id number] Ambulatory [place] 1 [facility] ing:OLS.AVEB Repository 04/05/2018 [id number] Ambulatory [place] 6 [facility] ing:OLS.AVEB Repository 04/01/2018 [id number] Ambulatory [place] 6 [facility] ing:OLS.AVEB Repository 03/29/2018 [id number] Ambulatory [place] 3 [facility] ing:OLS.AVEB Repository 03/22/2018 [id number] Ambulatory [place] 4 [facility] ing:OLS.AVEB Repository 03/19/2018 [id number] Ambulatory [place] 3 [facility] ing:OLS.AVEB Repository 03/15/2018 [id number] Ambulatory [place] 7 [facility] ing:OLS.AVEB Repository 01/28/2018/ [id number] [facility] LEESA COOK [facility] Repository 01/19/2018/ [id number] [facility], Ambulatory BuildinR Des[place] Bowles 8 LEESA COOK oom: [address] [place] [address] Repository 01/12/2018/ [id number] Ambulatory BMSBuilding:B [place] 8 0 [facility] Repository 01/12/2018 [id number] Ambulatory BMSBuilding:B [place] 7 [facility] Repository 11/20/2017/ [id number] [facility] LANDERS MD [facility] Repository 11/15/2017/ [id number] GEORGE WADE Emergency Build[facility] [place] [address] 8 DO oom: ERBed: G [facility] Repository 11/11/2017/ [id number] DR MARCOS MORRIS Emergency Buildin[address] [place] [address] 8 C oom: ERBed: F [facility] Repository 10/12/2017/ [id number] ERIC, [facility] 8 LEESA [facility] Repository PAYERS PAYERS ENCOUNTER GUARANTOR PAYER SUBSCRIBER SOURCE 11/02/2018 TRINA Berry Primary Insurance:SELF NOT GIVENUNK [place] [id number] STATE PAY INSURANCEPolicy Community [address] Number: Effective Hospital [place] Date:2018-11-02 [place] [id number]: () 10/26/2018 TRINA F Primary Insurance:SELF NOT GIVENUNK [place] [id number] STATE PAY INSURANCEPolicy Community [address]OU[address] Number: Effective Hospital [address] [place] [address], [place] Date:2018-10-26 Repository 36815Ubg: () 10/25/2018 TRINA F Primary Insurance:SELF NOT GIVENUNK [place] [id number] STATE PAY INSURANCEPolicy Community [address]OU[address] Number: Effective Hospital [address] [place] [address] Date:2018-10-25 Repository 78911Bmg: () 10/20/2018 TRINA F Primary TRINA Kristi [place] [id number] STATE Insurance:[facility] CRISSDOB: Community [address] *IN NETWORKPolicy [id number] Hospital [place] Number: Repository [place] [id number]: 330) Date:[id number] [phone] () [address] [place] [phone]: 10/20/2018 Secondary WILBERT L [place] Insurance:[employer]HE[employer] CRISSDOB: Community Number: [id number] Hospital [id number] Repository Date:[id number] [address], [place] [address]UI: 10/20/2018 Tertiary NOT GIVENUNK [place] Insurance:SELF PAY [facility] Number: Effective Repository Date:2018-10-20 10/19/2018 TRINA Berry Primary TRINA Berry [place] [id number] STATE Insurance:[facility] CRISSDOB: Community [address] *IN [facility] [id number] Hospital [place] Number: leandro Torre [id number]: (330) Date:[id number] [phone] ([address] [phone]: 10/19/2018 Secondary WILBERT L [place] Insurance:ANTHEMPolicy CRISSDOB: Community Number: [id number] Hospital [id number] Repository Date:9094-80-52ET [address] [place] [address] 60867PM: 10/19/2018 Tertiary NOT GIVENUNK Sheree Insurance:SELF PAY [facility] Number: Effective Repository Date:2018-10-19 10/18/2018 TRINA Berry Primary TRINA Berry Sheree [id number] STATE [facility] CRISSDOB: Community [address]/O *IN [facility] 9186-03-69LNP Hospital [place] Number: leandro Torre [id number] 63642Auj: (330) Date:2138-91-93GD [phone] () [address] [place] [address]-85[address]KV: 10/18/2018 Secondary WILBERT L [place] Insurance:ANTHEMPolicy CRISSDOB: Community Number: [id number] Hospital [id number] Repository Date:7159-51-71ZQ [address] [place] [address] 71237ZE: 10/18/2018 Tertiary NOT GIVENUNK Sheree Insurance:SELF PAY [facility] Number: Effective Repository Date:2018-10-18 10/17/2018 TRINA Berry Primary TRINA Berry Sheree [id number] STATE Insurance:MYCARE [employer] CRISSDOB: Community [address]/O *IN [facility] 1320-44-76LYN Hospital [place] Number: Repository leandro [place] [id number] 50308Dog: (330) Date:1098-64-69ZN [phone] () [address] [place] [address]-54[address]IK: 10/17/2018 Secondary WILBERT L [place] Insurance:ANTHEMPolicy CRISSDOB: Community Number: [id number] Hospital [id number] Repository Date:2588-80-50CT [address] [place] [address] 91309ND: 10/17/2018 Tertiary NOT GIVENUNK Sheree Insurance:SELF PAY [facility] Number: Effective Repository Date:2018-10-17 10/16/2018 TRINA F Primary TRINA F [place] [id number] STATE Insurance:[facility] CRISSDOB: Community [address]/O *IN [facility] [id number] Hospital [place] Number: Repository leandro [place] [id number] 23751Aod: (330) Date:7391-20-82WC [phone] () [address] [place] [address]13-06[address]DY: 10/16/2018 Secondary WILBERT L Sheree Insurance:ANTHEMPolicy CRISSDOB: Community Number: [id number] Hospital [id number] Repository Date:2760-91-98LX [address] [place] [address] 96307AO: 10/16/2018 Tertiary NOT GIVENUNK [place] Insurance:SELF PAY [facility] Number: Effective Repository Date:2018-10-16 10/15/2018 TRINA F Primary TRINA F [place] [id number] STATE Insurance:[facility] CRISSDOB: Community [address]/O *IN [address]11-20[facility] [place] Number: Repository leandro [place] [id number] 13387Sbj: (330) Date:9041-69-23WI [phone] () [address] [place] [address]344[address]17[address]BS: 10/15/2018 Secondary WILBERT L Sheree Insurance:ANTHEMPolicy CRISSDOB: Community Number: [id number] Hospital [id number] Repository Date:2352-20-59UF [address] [place] [address] 88039KI: 10/15/2018 Tertiary NOT GIVENUNK Sheree Insurance:SELF PAY [facility] Number: Effective Repository Date:2018-10-15 10/12/2018 TRINA F Primary TRINA CRISSDOB: Desmond Pomerene CRISSDOB: Insurance:MEDICARE [id number] [facility] RECURRING / REFERENCE [address] [place] [address] Number: [place] Repository 754[place] [id number] [facility] Date:Plan Name: [id number]: () 10/12/2018 Secondary WILBERT Bowles Insurance:ANTHEM BLUE CRISSDOB: [facility] [id number] [place] [address] Repository Number: [place] [id number] Date: 10/07/2018 TRINA F Primary TRINA F Sheree [id number] STATE Insurance:[facility] CRISSDOB: Community [address]/O *IN [facility] [id number] [facility] [place] Number: Repository [facility] [id number] 524[address]Wsf: (330) Date:6595-17-92MF [phone] () [address] [place] [address]45[address]YO: 10/07/2018 Secondary WILBERT L [place] Insurance:ANTHEMPolicy CRISSDOB: Community Number: [id number] Hospital [id number] Repository Date:5841-41-52XY [address] [place] [address] 39849HR: 10/07/2018 Tertiary NOT GIVENUNK Sheree Insurance:SELF PAY [facility] Number: Effective Repository Date:2018-10-07 10/06/2018 TRINA F Primary TRINA F Sheree [id number] STATE Insurance:[facility] CRISSDOB: Community [address]/O *IN [facility] 9667-03-47RQC Hospital [place] Number: Repository leandro [place] [id number] 23751Enq: (330) Date:0496-48-40WE [phone] ([address] [address]YP: 10/06/2018 Secondary WILBERT L Sheree Insurance:ANTHEMPolicy CRISSDOB: Community Number: [id number] Hospital [id number] Repository Date:8717-53-78ME [address] [address]UB: 10/06/2018 Tertiary NOT GIVENUNK [place] Insurance:SELF PAY [facility] Number: Effective Repository Date:2018-10-06 10/05/2018 TRINA F Primary TRINA F [place] [id number] STATE Insurance:[facility] CRISSDOB: Community [address]/O *IN [facility] [id number] Hospital [place] Number: Repository leandro [place] [id number] 85355Cmh: (330) Date:8110-71-66VQ [phone] ([address] [address]RY: 10/05/2018 Secondary WILBERT L Sheree Insurance:ANTHEMPolicy CRISSDOB: Community Number: [id number] Hospital [id number] Repository Date:6953-72-87RY [address]WGZKSOS [place] [address]JS: 10/05/2018 Tertiary NOT GIVENUNK Sheree Insurance:SELF PAY [facility] Number: Effective Repository Date:2018-10-05 09/28/2018 TRINA F Primary TRINA F [place] [id number] STATE Insurance:[employer]CARE [employer] CRISSDOB: Community [address]/O *IN [facility] 9216-79-23KWL Hospital [place] Number: Repository leandro [place] [id number] 49937Xut: (330) Date:1703-14-20OU [phone] () [address] [place] [address]75[address]IG: 09/28/2018 Secondary WILBERT L [place] Insurance:ANTHEMPolicy CRISSDOB: Community Number: [id number] Hospital [id number] Repository Date:2829-74-11CE [address] [place] [address] 69202JR: 09/28/2018 Tertiary NOT GIVENUNK Sheree Insurance:SELF PAY [facility] Number: Effective Repository Date:2018-09-28 2018 TRINA F Primary TRINA F Sheree [id number] STATE Insurance:[facility] CRISSDOB: Community [address]/O *IN [facility] 6543-60-81JHP Hospital [place] Number: Repository [place]IV[place] [id number] 15478Jaf: (330) Date:9184-74-23QD [phone] () [address] [place] [address]EY: 2018 Secondary WILBERT L [place] Insurance:ANTHEMPolicy CRISSDOB: Community Number: [id number] Hospital [id number] Repository Date:3624-66-73MN [address] [place] [address] 50735YY: 2018 Tertiary NOT GIVENUNK Sheree Insurance:SELF PAY [facility] Number: Effective Repository Date:2018 08/17/2018 TRINA F Primary TRINA F Sheree [id number] STATE Insurance:MEDICARE CRISSDOB: Community ROUTE PART A BPolicy Number: [id number] Hospital [place], [place] [id number] Repository [address]Yez: (330) Date:2018-01-12 [phone] () 08/17/2018 Secondary TRINA F Sheree Insurance:MEDICAIDPoli CRISSDOB: Community cy Number: [id number] Hospital [id number] Repository Date:2018-01-12 08/17/2018 Tertiary NOT GIVENUNK [place] Insurance:SELF PAY [facility] Number: Effective Repository Date:2018-06-21 08/16/2018 TRINA F Primary TRINA F Sheree [id number] STATE Insurance:[facility] CRISSDOB: Community [address]/O *IN [facility] 5079-12-00IIL Hospital [place] Number: Repository [place] [id number] 74464Nnj: (330) Date:3898-99-82BS [phone] () [address] [place] [address]LS: 08/16/2018 Secondary TRINA F Sheree Insurance:ANTHEMPolicy CRISSDOB: Community Number: [id number] Hospital [id number] Repository Date:4409-29-59KU [address]NGRBIGV, [place] [address]TR: 08/16/2018 Tertiary NOT GIVENUNK [place] Insurance:SELF PAY [facility] Number: Effective Repository Date:2018-08-16 08/04/2018 TRINA F Primary TRINA F [place] [id number] STATE Insurance:[facility] CRISSDOB: Community [address]/O *IN [facility] 0094-90-74HZD Hospital [place] Number: Repository [place] [id number] 94880Qgz: (330) Date:5894-77-12DF [phone] () [address] [place] [address]EC: 08/04/2018 Secondary WILBERT L [place] Insurance:ANTHEMPolicy CRISSDOB: Community Number: [id number] Hospital [id number] Repository Date:5569-71-07DF [address]KYLPFXO [place] [address]NV: 08/04/2018 Tertiary NOT GIVENUNK [place] Insurance:SELF PAY [facility] Number: Effective Repository Date:2018-08-04 07/21/2018 TRINA Berry Primary TRINA Berry [place] [id number] STATE Insurance:[facility] CRISSDOB: Community [address]/O *IN [address]11-20[facility] [place] Number: leandro Torre [id number] 56216Qsd: (330) Date:8161-86-64XA [phone] ([address] [address]KV: 07/21/2018 Secondary WILBERT L Sheree Insurance:ANTHEMPolicy CRISSDOB: Community Number: [id number] Hospital [id number] Repository Date:3068-30-58IZ [address] [place] [address] 31177BY: 07/21/2018 Tertiary NOT GIVENUNK [place] Insurance:SELF PAY [facility] Number: Effective Repository Date:2018-07-21 07/19/2018 TRINA Berry Primary TRINA Berry [place] [id number] STATE Insurance:[facility] CRISSDOB: Community [address]/O *IN [address]11-20[facility] [place] Number: leandro Torre [id number] 63269Qyg: (330) Date:8969-35-40NK [phone] () [address] [place] [address]FZ: 07/19/2018 Secondary WILBERT L Sheree Insurance:ANTHEMPolicy CRISSDOB: Community Number: [id number] Hospital [id number] Repository Date:9938-61-01JJ [address] [place] [address] 74109RW: 07/19/2018 Tertiary NOT GIVENUNK Sheree Insurance:SELF PAY [facility] Number: Effective Repository Date:2018-07-19 07/08/2018 TRINA Kristi Primary TRINA Kristi Sheree [id number] STATE Insurance:[facility] CRISSDOB: Community [address]/O *IN [facility] 1411-15-44HXV Hospital [place] Number: Repository leandro [place] [id number] 04610Cfa: (330) Date:0760-87-66AS [phone] () [address] [place] [address]BA: 07/08/2018 Secondary WILBERT L [place] Insurance:ANTHEMPolicy CRISSDOB: Community Number: [id number] Hospital [id number] Repository Date:7444-05-16GA [address] [place] [address] 46037RE: 07/08/2018 Tertiary NOT GIVENUNK Sheree Insurance:SELF PAY [facility] Number: Effective Repository Date:2018-07-08 07/06/2018 TRINA F Primary TRINA F Sheree [id number] STATE Insurance:[facility] CRISSDOB: Community [address]/O *IN [address]11-20[facility] [place] Number: Repository leandro [place] [id number] 85838Opm: (330) Date:3122-69-58CP [phone] () [address] [place] [address]GP: 07/06/2018 Secondary WILBERT L [place] Insurance:ANTHEMPolicy CRISSDOB: Community Number: [id number] Hospital [id number] Repository Date:3060-59-56QS [address] [place] [address] 34968SL: 07/06/2018 Tertiary NOT GIVENUNK [place] Insurance:SELF PAY [facility] Number: Effective Repository Date:2018-07-06 06/21/2018 TRINA F Primary TRINA F [place] [id number] STATE Insurance:[facility] CRISSDOB: Community [address]/O *IN [address]11-20[facility] [place] Number: Repository leandro [place] [id number] 39632Zhg: (330) Date:4982-67-89VT [phone] () [address] [place] [address]58[address]LA: 06/21/2018 Secondary WILBERT L Sheree Insurance:ANTHEMPolicy CRISSDOB: Community Number: [id number] Hospital [id number] Repository Date:8062-75-74MC [address]SATZHAF [place] [address]SS: 06/21/2018 Tertiary NOT GIVENUNK Sheree Insurance:SELF PAY [facility] Number: Effective Repository Date:2018-06-21 06/15/2018 TRINA F Primary TRINA F [place] [id number] STATE Insurance:[facility] CRISSDOB: Community [address]/O *IN [facility] [id number] Hospital [place] Number: Repository [facility] [place] [id number] [address]Two: 330) Date:5035-07-37RQ [phone] () [address] [place] [address]59[address]GB: 06/15/2018 Secondary WILBERT L [place] Insurance:ANTHEMPolicy CRISSDOB: Community Number: [id number] Hospital [id number] Repository Date:4942-34-34AC [address]NKLWGRO, [place] [address]CL: 06/15/2018 Tertiary NOT GIVENUNK [place] Insurance:SELF PAY [facility] Number: Effective Repository Date:2018-06-15 05/17/2018 Trina F Primary Trina F Sheree [id number] STATE Insurance:MEDICARE CrissDOB: Community ROUTE PART A BPolicy Number: [id number] Hospital [place] [id number] Repository [address]Nmo: (330) Date:2018-05-17 [phone] () 05/17/2018 Secondary Wilbert L Sheree Insurance:ANTHEMPolicy CrissDOB: Community Number: [id number] Hospital [id number] Repository Date:9115-91-02XP [address]BZIMP, [place] [address]SI: 05/17/2018 Tertiary NOT GIVENUNK Sheree Insurance:SELF PAY [facility] Number: Effective Repository Date:2018-05-17 05/13/2018 Trina Berry Primary Trina Berry Sheree [id number] STATE Insurance:MEDICARE CrissDOB: Community ROUTE PART A BPolicy Number: [id number] [id number] Repository [address]Ako: (328) Date:2018-05-13 [phone] () 05/13/2018 Secondary Wilbert L [place] Insurance:ANTHEMPolicy CrissDOB: Community Number: [id number] Hospital [id number] Repository Date:4973-36-27MA [address] [place] [address] 40427QP: 05/13/2018 Tertiary NOT GIVENUNK Sheree Insurance:SELF PAY [facility] Number: Effective Repository Date:2018-05-13 04/26/2018 Trina Berry Primary Trina Berry [place] [id number] STATE Insurance:MEDICARE CrissDOB: Community ROUTE PART A BPolicy Number: [id number] [id number] Repository [address]Mtg: 330) Date:2018-04-26 [phone] () 04/26/2018 Secondary Wilbert L [place] Insurance:ANTHEMPolicy CrissDOB: Community Number: [id number] Hospital [id number] Repository Date:9037-86-24QE [address] [place] [address] 05616VM: 04/26/2018 Tertiary NOT GIVENUNK Sheree Insurance:SELF PAY [facility] Number: Effective Repository Date:2018-04-26 04/19/2018 Trina Berry Primary Trina Berry Sheree [id number] STATE Insurance:MEDICARE CrissDOB: Community ROUTE PART A BPolicy Number: [id number] [id number] Repository [address]Civ: (330) Date:2018-04-19 [phone] () 04/19/2018 Secondary Wilbert L Sheree Insurance:ANTHEMPolicy CrissDOB: Community Number: [id number] Hospital [id number] Repository Date:7419-52-93NV [address]ZAOEYAY, [place] [address]HP: 04/19/2018 Tertiary NOT GIVENUNK [place] Insurance:SELF PAY [facility] Number: Effective Repository Date:2018-04-19 04/12/2018 Trina Berry Primary Trina Berry [place] [id number] STATE Insurance:MEDICARE CrissDOB: Community ROUTE PART A BPolicy Number: [id number] [id number] Repository [address]Ojz: 330) Date:2018-04-12 [phone] () 04/12/2018 Secondary Trina F [place] Insurance:ANTHEMPolicy CrissDOB: Community Number: [id number] Hospital [id number] Repository Date:3526-19-86MO [address]NQVLFAR, [place] [address]PZ: 04/12/2018 Tertiary NOT GIVENUNK Sheree Insurance:SELF PAY [facility] Number: Effective Repository Date:2018-04-12 04/05/2018 Trina Berry Primary Trina Berry [place] [id number] SR Insurance:MEDICARE CrissDOB: Community [address] [place] [address] PART A BPolicy Number: [id number] Hospital 905[address]Lja: 330 [id number] Repository [phone] () Date:2018-04-05 04/05/2018 Secondary Wilbert L Sheree Insurance:ANTHEMPolicy CrissDOB: Community Number: [id number] Hospital [id number] Repository Date:2942-29-47MO [address]OSAYIJU, [place] [address]NQ: 04/05/2018 Tertiary NOT GIVENUNK Sheree Insurance:SELF PAY [facility] Number: Effective Repository Date:2018-04-05 04/01/2018 Trina Berry Primary Trina F Sheree [id number] STATE Insurance:MEDICARE CrissDOB: Community ROUTE PART A BPolicy Number: [id number] [id number] Repository [address]Xtv: 330) Date:2018-04-01 [phone] () 04/01/2018 Secondary Trina F Sheree Insurance:ANTHEMPolicy CrissDOB: Community Number: [id number] Hospital [id number] Repository Date:0311-81-63RR [address] [place] [address] 20371XJ: 04/01/2018 Tertiary NOT GIVENUNK Sheree Insurance:SELF PAY [facility] Number: Effective Repository Date:2018-04-01 03/29/2018 Trina Berry Primary Trina Berry Sheree [id number] SR Insurance:MEDICARE CrissDOB: Community [address] [place] [address] PART A BPolicy Number: [id number] Hospital 97818Uuc: 330 [id number] Repository [phone] () Date:2018-03-29 03/29/2018 Secondary Wilbert Morales Sheree Insurance:ANTHEMPolicy CrissDOB: Community Number: [id number] Hospital [id number] Repository Date:6428-21-33OK [address]PSCYOPJ, [place] [address]OI: 03/29/2018 Tertiary NOT GIVENUNK [place] Insurance:SELF PAY [facility] Number: Effective Repository Date:2018-03-29 03/22/2018 Trina Berry Primary Trina Kristi Sheree [id number] SR Insurance:MEDICARE CrissDOB: Community [address] [place] [address] PART A BPolicy Number: [id number] Hospital 25194Moq: 330 [id number] Repository [phone] () Date:2018-03-22 03/22/2018 Secondary Trina F [place] Insurance:ANTHEMPolicy CrissDOB: Community Number: [id number] Hospital [id number] Repository Date:1869-52-60IQ [address] [place] [address] 960[address]ZY: 03/22/2018 Tertiary NOT GIVENUNK Sheree Insurance:SELF PAY Community [facility] Number: Effective Repository Date:2018-03-22 03/19/2018 TRINA F Primary TRINA F [place] [id number] STATE Insurance:MEDICARE CRISSDOB: Community [address]C/O PART A BPolicy Number: [id number] [facility] [id number] Repository [place] Date:2018-03-19 10873Uix: () 03/19/2018 Secondary TRINA F Sheree Insurance:MEDICAIDPoli CRISSDOB: Community cy Number: [id number] Hospital [id number] Repository Date:2018-03-19 03/19/2018 Tertiary NOT GIVENUNK Sheree Insurance:SELF PAY [facility] Number: Effective Repository Date:2018-03-19 03/15/2018 Wilbert L Primary Wilbert Morales [place] [id number] SR Insurance:ANTHEMPolicy CrissDOB: Community [place] Number: [id number] Hospital 65369Dod: (017) [id number] Repository [phone] () Date:6525-96-30KQ [address] [place] [address] 828[address]DZ: 03/15/2018 Secondary Trina F Sheree Insurance:MEDICARE CrissDOB: Community PART A BPolicy Number: [id number] Hospital [id number] Repository Date:2018-03-15 03/15/2018 Tertiary NOT GIVENUNK Sheree Insurance:SELF PAY [facility] Number: Effective Repository Date:2018-03-15 01/28/2018 TRINA F Primary Insurance:500 TRINA F Desmond Bowles CRISSDOB: MEDICARE CRISSDOB: [facility] [id number] [facility] RT Number: [address] Repository 754%[place] [id number] [address] [place] [address] Date:Plan Name: [id number]: () 01/28/2018 Secondary WILBERT Bowles Insurance:BLUE CROSS CRISSDOB: [address] [id number] [facility] [address] Repository Number: 754SHRERENAN Ri [id number] Date:Plan Name: 01/28/2018 Tertiary TRINA Bowles Insurance:MEDICAID CRISSDOB: [facility] [id number] Hospital Number: [address] Repository [id number] 754%[place] Date:Plan Name: AMOR Ri [id number] 01/19/2018 TRINA Berry Primary Insurance:500 TRINA [place] CRISSDOB: MEDICARE CRISSDOB: [facility] [id number] [place] [address] [id number] [facility] RT Number: [address] Repository 754%[place] [id number] [place] Date:Plan Name: [id number]: () 01/19/2018 Secondary WILBERT Bowles Insurance:BLUE CROSS CRISSDOB: [address] [id number] [facility] [address] Repository Number: 754SHRERENAN Ri [id number] Date: 01/12/2018 TRINA F Primary TRINA F Sheree [id number] SR Insurance:MEDICARE CRISSDOB: [facility] [place] PART A BPolicy Number: [id number] [facility] 437[address]Nkx: [id number] Repository [phone] Date:2017-09-24 0-4 () 01/12/2018 Secondary TRINA F Sheree Insurance:MEDICAIDPoli CRISSDOB: Community cy Number: [id number] [facility] [id number] Repository Date:2017-09-24 01/12/2018 Tertiary NOT GIVENUNK [place] Insurance:SELF PAY Community [facility] Number: Effective Repository Date:2017-09-24 01/12/2018 Trina Kristi Primary Trinaboubacar Bent[address] [id number] Sr Insurance:MEDICARE CrissDOB: Community [place] PART A BPolicy Number: [id number] Hospital 339[address]Oif: (447) [id number] Repository [phone] () Date:2018-01-12 01/12/2018 Secondary Wilbert L Sheree Insurance:ANTHEMPolicy CrissDOB: Community Number: [id number] Hospital [id number] Repository Date:6784-52-55OA[address] [address]ZT: 01/12/2018 Tertiary NOT GIVENUNK [place] Insurance:SELF PAY [facility] Number: Effective Repository Date:2018-01-12 11/20/2017 TRINA Berry Primary Insurance:500 TRINA [address] Desmond Pomerene CRISSDOB: MEDICARE CRISSDOB: [facility] [id number] Number: [address] Repository [address] [id number] [address] [id number]: Date:Plan Name: [id number] () 11/20/2017 Secondary WILBERT Morales Desmond Pomerene Insurance:BLUE CROSS CRISSDOB: [facility] [address] [id number] [facility] OUTPATIENTPolicy [address] Repository Number: [place] [id number] Date:Plan Name: 11/15/2017 TRINA Kristi Primary Insurance:500 TRINA Kristi Desmond [place] CRISSDOB: MEDICARE CRISSDOB: [facility] [id number] [facility] [address] RT Number: [address] Repository [address], [place] [id number] [address], [place] [id number]: Date:Plan Name: [id number] (HP) 11/15/2017 Secondary WILBERT Myerserene Insurance:BLUE CROSS CRISSDOB: [address] [id number] [facility] RT Rep[facility] Number: [place] [id number] Date:Plan Name:B2 11/11/2017 TRINA Berry Primary Insurance:500 TRINA Kristi [place] CRISSDOB: MEDICARE CRISSDOB: [facility] OUTPATIENTPolicy [id number] RT Number: 7 RT Repository [address] [id number] [address], [place] [id number]: Date:Plan Name: [id number] (HP) 11/11/2017 Secondary WILBERT L Desmond Pome[place] Insurance:BLUE CROSS CRISSDOB: [address] [id number] Hospital OUTPATIENTPol[address] RT Repository Number: [place] [id number] Date:Plan Name: 10/12/2017 TRINA Kristi Primary TRINA CRISSDOB: Desmond Blackburnne CRISSDOB: Insurance:MEDICARE [id number] [facility] RECURRING / REFERENCE [address] [place] [address] RT LABPolicy Number: [address] Repository [address] [id number] [place] Date:Plan Name: [id number]: (HP) 10/12/2017 Secondary WILBERTJENNA Logan [place] Insurance:[employer] BLUE CRISSDOB: [facility] [id number] Hospital RECURRINGPolic[address] Repository [place]: [place] [id number] Date:
== END ==
LOC: OLS.AVEB 05:00
PROVIDERS: Visit Provider Family Medicine
DX: Z79.01 Long term (current) use of anticoagulants (principal)
CPT/HCPCS: 36416; 85610

== ENCOUNTER 2018-10-05 21:00 | Emergency (ER) | payer MEDICARE, BC, SELFPAY ==
[2018-10-05 21:02] VITALS: BP 168/118; PULSE 90; RESP 18; TEMP 36.3; O2SAT 97; BMI 31.7
[2018-10-05 21:14] VITALS: BP 153/82; PULSE 82; RESP 21; O2SAT 97
--- NOTE | 2018-10-05 21:24 | CT_ITS ---
STUDY: CT BRAIN WITHOUT CONTRAST REASON FOR EXAM: Female, 73 years old. Fall. Hematoma. RADIATION DOSAGE (If Supplied By Facility): CTDIvol = ( 44.99 ) mGy, DLP = ( 745.49 ) mGycm TECHNIQUE: Transaxial CT imaging of the brain was performed without administration of intravenous contrast material. Individualized dose optimization techniques were used for this CT. COMPARISON: February 26, 2017 FINDINGS: Left frontal soft tissue swelling. Normal calvarium. There is mild cerebral atrophy with widening of the extra-axial spaces and ventricular dilatation. There are areas of decreased attenuation within the white matter tracts of the supratentorial brain, consistent with microvascular disease changes. There is right frontal and temporal volume loss and encephalomalacia. Normal basal ganglia and thalami. Normal brainstem. There is mild cerebellar atrophy. There is no intracranial hemorrhage. There are no findings of an acute ischemic infarction. Normal visualized paranasal sinuses. CT/Brain/Head without Contrast IMPRESSION: Chronic involutional changes of the brain. Evolution of right-sided infarct. Soft tissue swelling. No hemorrhage. Electronically Signed: Ken Waters MD at 22:57 EST , Service support ,
--- NOTE | 2018-10-05 21:26 | ED.VISSUMM ---
- ER Visit Summary Date of Service: 10/05/18 Chief Complaint: Fall with head injury History of Present Illness: 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 Also history of COPD and on Coumadin. Patient was at the correction. She fell out of a wheelchair and struck the left side of her head. Unsure any LOC. She is on Coumadin. Has a hematoma on her left forehead. Also complaining primarily of left hip and knee pain. Physical Examination: Older female no acute distress. Vital signs stable initial blood pressure 168/118. She is afebrile. She does not look septic or toxic. HEENT exam she is a moderate-sized hematoma to her left forehead. Pupils round reactive light. C-spine nontender. Trachea midline. Lungs clear to auscultation bilaterally. Heart regular rhythm no murmur. Chest wall nontender. Abdomen soft nontender. Normal bowel sounds no peritoneal signs. Pelvic girdle is intact. There is no shortening or rotation to either hip. He states her left hip is mildly uncomfortable but not reproducible to pain. There is no bruising left hip. Left knee has a contusion in the lateral aspect. She is paralyzed on the left side with left upper and left lower extremity. Right upper right lower extremity are unremarkable. Back is nontender. Neurologically she is awake and alert. She has paralysis of her left upper and lower extremity from a prior stroke. Test Results: CT of her brain she has chronic changes from a prior large right frontal stroke. No acute bleed. No fracture. Read both by me and the radiologist. Left shoulder x-ray two-view shows no acute fracture read by myself. Left hip x-ray and pelvis 2 view shows no acute fracture read by myself. Left knee x-ray 3 views read by myself shows no acute fracture. There is prior left knee prosthesis hardware is in good position. Emergency Department Course and Treatment: Patient given 1 [place] for pain. 2320. Awaiting formal CT read by the radiologist. I discussed all radiographic studies with the patient family. Are comfortable with discharge as well as the CAT scan is read as negative also. Treatment Plan: Head injury instructions. Hold Coumadin next 24 hours. Ice to forehead. Tylenol for pain. Disposition: Discharge Impression: Acute fall from a wheelchair Closed head injury left forehead hematoma anticoagulated on Coumadin Left hip contusion. Left knee contusion This note was generated with [employer] dictation software. It may contain incorrect words, spelling, and punctuation that were not noted in review of the chart prior to signing ED Disposition - Plan for ED Patient: Chief Complaint: Fall Referrals: Surya Guillermo [NON-STAFF] -
[2018-10-05] MEDS: HYDROcodone Bitartrate/Apap 5/325 Tablet PO (21:57)
--- NOTE | 2018-10-05 22:45 | RAD_ITS ---
STUDY: X-RAY - PELVIS AND LEFT HIP REASON FOR EXAM: Female, 73 years old. Pain. Fall TECHNIQUE: 3 views of the pelvis and hip. COMPARISON: None. FINDINGS: There is a normal bowel gas pattern. Normal visualized soft tissue structures. There is diffuse demineralization of the osseous structures. Normal bilateral iliac wings, sacroiliac joints and visualized sacrum. Normal bilateral superior and inferior pubic rami. Normal pubic symphysis. Normal bilateral ischial tuberosities. Normal visualized femoral head. Normal acetabulum. There is mild articular joint space narrowing of the hip. No acute fracture RAD/HIP, UNI W/ Pelvis 2-3 Views IMPRESSION: No acute fracture seen. Electronically Signed: Ken Waters MD at 23:29 EST , Service support ,
--- NOTE | 2018-10-05 22:55 | RAD_ITS ---
STUDY: X-RAY - LEFT KNEE REASON FOR EXAM: Female, 73 years old. Pain. Fall TECHNIQUE: 3 view(s) of the knee. COMPARISON: None. FINDINGS: Normal visualized distal femur. Normal visualized proximal tibia and fibula. Normal proximal tibiofibular articulation. There is no demonstrated fracture. Left knee replacement . Alignment is near-anatomic. The soft tissue structures are unremarkable. RAD/Knee 3 Views IMPRESSION: Left knee replacement. Electronically Signed: Ken Waters MD at 23:32 EST , Service support ,
--- NOTE | 2018-10-05 23:02 | RAD_ITS ---
STUDY: X-RAY - LEFT SHOULDER REASON FOR EXAM: Female, 73 years old. Pain. Fall TECHNIQUE: 2 view(s) of the shoulder. COMPARISON: None. FINDINGS: Normal glenohumeral articulation. There is hypertrophic osteoarthrosis of the acromioclavicular joint with inferior osseous spur formation. Normal acromion. There is demineralization of the humerus and visualized osseous structures. The soft tissue structures are unremarkable. There is no demonstrated fracture. Normal visualized pulmonary apex. RAD/Shoulder min 2 Views IMPRESSION: No fracture seen. Electronically Signed: Ken Waters MD at 23:34 EST , Service support ,
--- NOTE | 2018-10-05 23:33 | ED.DEP ---
ED Disposition - Plan for ED Patient: Disposition: Home or Assisted Living Chief Complaint: Fall Instructions: ED Head Injury Closed, ED Contusion Lower Ext Referrals: Surya Guillermo [NON-STAFF] - As Needed Additional Instructions: Ice all sore areas. Ice to the left forehead to decrease swelling. She will developed swelling around her left eye more than likely. Tylenol for pain. Hold her next Coumadin dose just for 1 day. Return if severe headache, vomiting or not acting normally. X-rays today show no broken bones. CAT scan of the brain showed no bleeding in the brain.
--- NOTE | 2018-10-05 23:53 | ED.RN ---
CALLED [facility] TO GIVE REPORT. [facility] ON THEIR WAY TO APPLICATIONS SUPPORT SPECIALIST PT.
[2018-10-05 23:58] VITALS: BP 139/72; PULSE 85; RESP 18; TEMP 34.4; O2SAT 94
--- NOTE | 2018-10-06 00:21 | ED.RN ---
[facility]BAL REPORT GIVEN TO [facility].
== END 2018-10-06 00:22 | disposition skilled nursing facility (03) ==
PROVIDERS: Emergency Provider Emergency Medicine; Family Provider Family Medicine; PCP Family Medicine
DX: S00.83XA Contusion of other part of head, initial encounter (principal); S70.02XA Contusion of left hip, initial encounter; S80.02XA Contusion of left knee, initial encounter; I69.354 Hemiplegia and hemiparesis following cerebral infarction affecting left non-dominant side; J44.9 Chronic obstructive pulmonary disease, unspecified; Z79.01 Long term (current) use of anticoagulants; Z96.652 Presence of left artificial knee joint; W05.0XXA Fall from non-moving wheelchair, initial encounter; Y93.9 Activity, unspecified; Y92.10 Unspecified residential institution as the place of occurrence of the external cause; Y99.9 Unspecified external cause status
CPT/HCPCS: 70450; 73030; 73502; 73562; 99284

== ENCOUNTER → 2018-10-06 04:30 | Outpatient (REF) | payer MEDICARE, BC, SELFPAY ==
[2018-10-05 21:02] VITALS: BMI 31.7
[2018-10-06 06:45] LABS: Prothrombin Time Fingerstick 29.9 SEC (11.9-14.4)
== END ==
LOC: OLS.AVEB 04:30
PROVIDERS: Visit Provider Family Medicine
DX: Z79.01 Long term (current) use of anticoagulants (principal)
CPT/HCPCS: 36416; 85610

== ENCOUNTER → 2018-10-07 16:30 | Outpatient (REF) | payer MEDICARE, BC, SELFPAY ==
[2018-10-05 21:02] VITALS: BMI 31.7
[2018-10-08 08:41] LABS: Mucous, Urine 0 SEEN /hpf (<or=2+); Squamous Epithelial Cells - UA 0 SEEN /hpf (5-10)
[2018-10-08 08:51] LABS: Color, Urine Yellow (Yellow); Glucose, Dipstick Normal (Normal); Ketone-Dipstick Negative (Negative); Leukocyte Esterase-Dipstick 500 /ul (Negative); Nitrite-Dipstick Positive (Negative); Occult Blood-Urine 25 /ul (Negative); Protein-Dipstick 30 mg/dl (Negative); Urine Bilirubin Dipstick Negative (Negative); Urine Clarity Sl. Cloudy (Clear); Urine Urobilinogen Normal (Normal)
[2018-10-08 08:57] LABS: Bacteria 2+ /hpf (None Seen); Red Blood Cells-Urine 0-5 SEEN /hpf (0-5); White Blood Cells 25-50 SEEN /hpf (0-5)
== END ==
LOC: OLS.AVEB 16:30
PROVIDERS: Visit Provider Family Medicine
DX: N39.0 Urinary tract infection, site not specified (principal)
CPT/HCPCS: 81001; 87077; 87086; 87088; 87186

== ENCOUNTER → 2018-10-15 05:00 | Outpatient (REF) | payer MEDICARE, BC, SELFPAY ==
[2018-10-05 21:02] VITALS: BMI 31.7
[2018-10-15 07:01] LABS: Prothrombin Time Fingerstick 38.4 SEC (11.9-14.4)
== END ==
LOC: OLS.AVEB 05:00
PROVIDERS: Visit Provider Family Medicine
DX: Z79.01 Long term (current) use of anticoagulants (principal)
CPT/HCPCS: 36416; 85610

== ENCOUNTER → 2018-10-16 07:25 | Outpatient (REF) | payer MEDICARE, BC, SELFPAY ==
[2018-10-05 21:02] VITALS: BMI 31.7
[2018-10-16 09:51] LABS: International Normalized Ratio 3.1; Prothrombin Time (Protime)PT. 32.3 SECONDS (11.7-14.9)
== END ==
LOC: OLS.AVEB 07:25
PROVIDERS: Visit Provider Family Medicine
DX: Z79.01 Long term (current) use of anticoagulants (principal); Z79.2 Long term (current) use of antibiotics
CPT/HCPCS: 36415; 85610

== ENCOUNTER → 2018-10-17 07:50 | Outpatient (REF) | payer MEDICARE, BC, SELFPAY ==
[2018-10-05 21:02] VITALS: BMI 31.7
[2018-10-17 09:01] LABS: International Normalized Ratio 3.1; Prothrombin Time (Protime)PT. 32.4 SECONDS (11.7-14.9)
== END ==
LOC: OLS.AVEB 07:50
PROVIDERS: Visit Provider Family Medicine
DX: Z79.01 Long term (current) use of anticoagulants (principal)
CPT/HCPCS: 36415; 85610

== ENCOUNTER → 2018-10-18 04:00 | Outpatient (REF) | payer MEDICARE, BC, SELFPAY ==
[2018-10-05 21:02] VITALS: BMI 31.7
[2018-10-18 07:10] LABS: Prothrombin Time Fingerstick 64.3 SEC (11.9-14.4)
[2018-10-18 07:44] LABS: Prothrombin Time (Protime)PT. 40.6 SECONDS (11.7-14.9)
[2018-10-18 08:04] LABS: International Normalized Ratio 4.2
== END ==
LOC: OLS.AVEB 04:00
PROVIDERS: Visit Provider Family Medicine
DX: Z79.01 Long term (current) use of anticoagulants (principal)
CPT/HCPCS: 36416; 85610

== ENCOUNTER → 2018-10-19 05:00 | Outpatient (REF) | payer MEDICARE, BC, SELFPAY ==
[2018-10-05 21:02] VITALS: BMI 31.7
[2018-10-19 08:31] LABS: International Normalized Ratio 3.1; Prothrombin Time (Protime)PT. 32.5 SECONDS (11.7-14.9)
== END ==
LOC: OLS.AVEB 05:00
PROVIDERS: Visit Provider Family Medicine
DX: Z79.01 Long term (current) use of anticoagulants (principal)
CPT/HCPCS: 36415; 85610

== ENCOUNTER → 2018-10-20 | Outpatient (REF) | payer MEDICARE, BC, SELFPAY ==
[2018-10-05 21:02] VITALS: BMI 31.7
[2018-10-20 09:31] LABS: Prothrombin Time Fingerstick 32.1 SEC (11.9-14.4)
== END | disposition home or self-care (01) ==
LOC: OLS.AVEB 05:00
PROVIDERS: Visit Provider Family Medicine
DX: Z79.01 Long term (current) use of anticoagulants (principal)
CPT/HCPCS: 36416; 85610

== ENCOUNTER → 2018-10-25 05:00 | Outpatient (REF) | payer MEDICARE, BC, SELFPAY ==
[2018-10-05 21:02] VITALS: BMI 31.7
[2018-10-25 08:46] LABS: Vitamin D,25 Hydroxy 30.2 ng/mL (29.95-100.01)
== END ==
LOC: OLS.AVEB 05:00
PROVIDERS: Visit Provider Family Medicine
DX: E55.9 Vitamin D deficiency, unspecified (principal)
CPT/HCPCS: 36415; 82306

== ENCOUNTER → 2018-10-26 12:00 | Outpatient (REF) | payer MEDICARE, BC, SELFPAY ==
[2018-10-05 21:02] VITALS: BMI 31.7
[2018-10-26 12:45] LABS: Prothrombin Time Fingerstick 23.1 SEC (11.9-14.4)
== END ==
LOC: OLS.AVEB 12:00
PROVIDERS: Visit Provider Family Medicine
DX: Z79.01 Long term (current) use of anticoagulants (principal)
CPT/HCPCS: 36416; 85610

== ENCOUNTER → 2018-11-02 05:00 | Outpatient (REF) | payer MEDICARE, BC, SELFPAY ==
[2018-10-05 21:02] VITALS: BMI 31.7
[2018-11-02 08:01] LABS: Prothrombin Time Fingerstick 33.6 SEC (11.9-14.4)
--- OUTSIDE RECORDS SUMMARY | 2019-01-04 06:31 | XMS RPT_ITS ---
:1945 Author Organization OHIP Support Name Relationship Address Phone Berlin Deneth Unavailable [address] + [place] [address] R Unavailable Unavailable Unavailable Saadia Wilbert Unavailable [address] + [place] [address] R Unavailable Unavailable Unavailable Saadia Wilbert Unavailable [address] + [place] [address] R Unavailable Unavailable Unavailable SaadiaBerlinWilbert Unavailable [address] + [place] [address] R Unavailable Unavailable Unavailable Saadia Wilbert Unavailable [address] + [place] [address] R Unavailable Unavailable Unavailable Saadia, Wilbert Unavailable [address] + [place] [address] R Unavailable Unavailable Unavailable Saadia, Wilbert Unavailable [address] + [place] [address] R Unavailable Unavailable Unavailable Saadia, Wilbert Unavailable [address] + [place] [address] R Unavailable Unavailable Unavailable Saadia Wilbert Unavailable [address] + [place] [address] R Unavailable Unavailable Unavailable DAHLIA DE Unavailable SON + BERLIN DENETH Unavailable [address] Unavailable [place], [place] [id number] NOT GIVEN Unavailable Unavailable Unavailable Saadia Wilbert Unavailable [address] + [place] [address] R Unavailable Unavailable Unavailable SaadiaBerlinWilbert Unavailable [address] + [place] [address] R Unavailable Unavailable Unavailable Saadia, Wilbert Unavailable [address] + [place] [address] R Unavailable Unavailable Unavailable Saadia, Wilbert Unavailable [address] + [place] [address] R Unavailable Unavailable Unavailable Saadia, Wilbert Unavailable [address] + [place] [address] R Unavailable Unavailable Unavailable Saadia, Wilbert Unavailable [address] + [place] [address] R Unavailable Unavailable Unavailable Saadia, Wilbert Unavailable [address] + [place] [address] R Unavailable Unavailable Unavailable Saadia, Wilbert Unavailable [address] + [place] [address] R Unavailable Unavailable Unavailable Saadia, Wilbert Unavailable [address] + [place] [address] R Unavailable Unavailable Unavailable Saadia, Wilbert Unavailable [address] + [place] [address] R Unavailable Unavailable Unavailable Saadia, Wilbert Unavailable [address] + [place] [address] R Unavailable Unavailable Unavailable Saadia, Wilbert Unavailable [address] + [place] [address] R Unavailable Unavailable Unavailable Saadia, Wilbert Unavailable [address] + [place] [address] R Unavailable Unavailable Unavailable Saadia, Wilbert Unavailable [address] + [place] [address] R Unavailable Unavailable Unavailable Saadia, Wilbert Unavailable [address] + [place] [address] R Unavailable Unavailable Unavailable Saadia, Wilbert Unavailable [address] + [place] [address] R Unavailable Unavailable Unavailable Saadia, Wilbert Unavailable [address] + [place] [address] R Unavailable Unavailable Unavailable Saadia, Wilbert Unavailable [address] + [place] [address] R Unavailable Unavailable Unavailable Saadia, Wilbert Unavailable [address] + [place] [address] R Unavailable Unavailable Unavailable Saadia, Wilbert Unavailable [address] + [place] [address] R Unavailable Unavailable Unavailable Saadia, Wilbert Unavailable [address] + [place] [address] R Unavailable Unavailable Unavailable Saadia, Wilbert Unavailable [address] + [place] [address] R Unavailable Unavailable Unavailable Saadia, Wilbert Unavailable [address] + [place] [address] R Unavailable Unavailable Unavailable Saadia, Wilbert Unavailable [address] + [place] [address] R Unavailable Unavailable Unavailable Saadia, Wilbert Unavailable [address] + [place] [address] R Unavailable Unavailable Unavailable SAADIA DAHLIA Unavailable SON + SAADIA, WILBERT Unavailable [address] Unavailable [place], [place] [id number] NOT GIVEN Unavailable Unavailable Unavailable SAADIA DAHLIA Unavailable SON + SAADIA, WILBERT Unavailable [address] Unavailable [place], [place] [id number] NOT GIVEN Unavailable Unavailable Unavailable Sadaia, Wilbert Unavailable [address] + [place] [address] R Unavailable Unavailable Unavailable SAADIA, WILBERT Unavailable [address] + [place] [address] R Unavailable Unavailable Unavailable SAADIA DAHLIA Unavailable SON + SAADIA, WILBERT Unavailable [address] Unavailable [place], [place] [id number] NOT GIVEN Unavailable Unavailable Unavailable SAADIA DAHLIA Unavailable SON + SAADIA, WILBERT Unavailable [address] Unavailable [place], [place] [id number] NOT GIVEN Unavailable Unavailable Unavailable SAADIA, DAHLIA Unavailable SON + JORDI DEH Unavailable [address] Unavailable [place], [place] [id number] NOT GIVEN Unavailable Unavailable Unavailable DAHLIA DE Unavailable SON + BERLIN DENETH Unavailable [address] Unavailable [place], [place] [id number] NOT GIVEN Unavailable Unavailable Unavailable Care Team Providers Name Role Phone DR MARCOS MORRIS Admitting Unavailable DR MARCOS MORRIS Attending Unavailable MALYS, NESS D.O Referring Unavailable DR MARCOS MORRIS Primary Care Unavailable MALYS, NESS D.O Consulting Unavailable PROVIDER, UNKNOWN Consulting Unavailable GEORGE WADE DO Admitting Unavailable GEORGE WADE DO Attending Unavailable GEORGE WADE DO Primary Care Unavailable MALYS, NESS D.O Consulting Unavailable MALYS NESS D.O Referring Unavailable PROVIDER, UNKNOWN Consulting Unavailable LEESA GUILLERMO MD Admitting Unavailable LEESA GUILLERMO MD Attending Unavailable LEESA GUILLERMO MD Primary Care Unavailable MALYS, NESS D.O Consulting Unavailable PROVIDER, UNKNOWN Consulting Unavailable MALMADHU NESS D.O Referring Unavailable LEESA GUILLERMO MD Admitting Unavailable LEESA GUILLERMO MD Attending Unavailable LEESA GUILLERMO MD Primary Care Unavailable MALYS NESS D.O Consulting Unavailable PROVIDER, UNKNOWN Consulting Unavailable ELESA GUILLERMO MD Admitting Unavailable LEESA GUILLERMO MD Attending Unavailable LEESA GUILLERMO MD Primary Care Unavailable MALYS NESS D.O Consulting Unavailable PROVIDER, UNKNOWN Consulting Unavailable YANCI ZARATE MD Admitting Unavailable YANCI ZARATE MD Attending Unavailable YANCI ZARATE MD Primary Care Unavailable MALYS NESS D.O Consulting Unavailable PROVIDER, UNKNOWN Consulting Unavailable LEESA GUILLERMO MD Admitting Unavailable LEESA UGILLERMO MD Attending Unavailable LEESA GUILLERMO MD Primary Care Unavailable LEESA GUILLERMO MD Consulting Unavailable PROVIDER, UNKNOWN Consulting Unavailable PROVIDER, UNKNOWN Consulting Unavailable PROVIDER, UNKNOWN Consulting Unavailable Pritesh Blank Attending Unavailable Ibanez, Kelvin Primary Care Unavailable Ibanez, Kelvin Attending Unavailable Ibanez, Kelvin Attending Unavailable Ibanez, Kelvin Attending Unavailable Ibanez, Kelvin Attending Unavailable Ibaenz, Kelvin Attending Unavailable Ibanez, Kelvin Attending Unavailable Ibanez, Kelvin Attending Unavailable Ibanez, Kelvin Attending Unavailable Ibanez, Kelvin Attending Unavailable Ibanez, Kelvin Attending Unavailable Ibanez, Kelvin Attending Unavailable Ibanez, Kelvin Attending Unavailable Ibanez, Kelvin Attending Unavailable Ibanez, Kelvin Attending Unavailable Ibanez, Kelvin Attending Unavailable Ibanez, Kelvin Attending Unavailable Roof, Mahesh H Attending Unavailable Malys, Ness Referring Unavailable Malys, Ness Primary Care Unavailable Ibanez, Kelvin Attending Unavailable Ibanez, Kelvin Attending Unavailable Ibanez, Kelvin Attending Unavailable Wey, Kyra Attending Unavailable Ibanez, Kelvin Attending Unavailable Ibanez, Kelvin Attending Unavailable Ibanez, Kelvin Attending Unavailable Ibanez, Kelvin Attending Unavailable Davide, Luis Attending Unavailable Ibanez, Kelvin Attending Unavailable Ibanez, Kelvin Attending Unavailable Ibanez, Kelvin Attending Unavailable Ibanez, Kelvin Attending Unavailable Ibanez, Kelvin Attending Unavailable Ibanez, Kelvin Attending Unavailable Ibanez, Kelvin Attending Unavailable Ibanez, Kelvin Attending Unavailable Ibanez, Kelvin Attending Unavailable PROBLEMS PROBLEMS DATE TYPE CONDITION / CODE ATTENDING STATUS SOURCE 11/03/2018 Unknown 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 [place]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) use of Community anticoagulants / Hospital Z79.01(ICD-10) Repository 10/28/2018 Unknown N39.0 - Urinary Ibanez Kelvin Active [place] tract infection, Community site not specified / Hospital N39.0(ICD-10) Repository 10/28/2018 Unknown S00.83XA - Contusion Blank, Active [place] of other part of [facility] head, initial Hospital encounter / Repository S00.83XA(ICD-10) 10/28/2018 Unknown R53.83 - Other Kelvin Ibanez Active [place] fatigue / Community R53.83(ICD-10) Hospital Repository 07/09/2018 Unknown D64.9 - Anemia, IbanezKelvin prather Active [place] unspecified / Community D64.9(ICD-10) Hospital Repository 07/09/2018 Unknown E78.5 - IbanezKelvin prather Active [place] Hyperlipidemia, Community unspecified / Hospital E78.5(ICD-10) Repository 07/08/2018 Unknown E55.9 - Vitamin D IbanezKelvin prather Active [place] deficiency, Community unspecified / Hospital E55.9(ICD-10) Repository 06/02/2018 Unknown Z79.899 - Other long Ibanez Kelvin Active [place] term (current) drug Community therapy / Hospital Z79.899(ICD-10) Repository 10/28/2018 Unknown R69 - Illness, Ibanez, Kelvin Active [place] unspecified / Community R69(ICD-10) Hospital Repository 06/09/2018 Unknown I67.9 - Kelvin Ibanez Active [place] Cerebrovascular Community disease, unspecified Hospital / I67.9(ICD-10) Repository 01/19/2018 Admitting Syncope and collapse LATOUF, BUTROS Active [facility] [facility] Diagnosis / R55(ICD-10) [facility] Repository 01/19/2018 Principle Syncope and collapse LATOUF, BUTROS Active [facility] / R55(ICD-10) 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, Community unspecified / Hospital I63.9(ICD-10) Repository 10/12/2017 Admitting Acute embolism and LATOUF, BUTRUMA Active [facility] Diagnosis thrombosis of [facility] unspecified deep Hospital veins of left lower Repository extremity / E18797(ICD-10) 10/12/2017 Principle senior care (current) LATOUF, BUTROS Active [facility] Diagnosis use of [facility] anticoagulants / Hospital Z7901(ICD-10) Repository 10/12/2017 Secondary Hypothyroidism, LATOUF, BUTROS Active [facility] Diagnosis unspecified / [facility] E039(ICD-10) Hospital Repository 10/12/2017 Secondary Anemia, unspecified LATOUF, BUTROS Active [facility] / D649(ICD-10) [facility] Repository 10/12/2017 Secondary Essential (primary) LATOUF, LEESA Active [facility] Diagnosis hypertension / [facility] I10(ICD-10) Hospital Repository 10/12/2017 Secondary Acute upper LATOUF, LEESA Active [facility] Diagnosis respiratory [facility] infection, Hospital unspecified / Repository J069(ICD-10) PROCEDURES PROCEDURES No Procedure Records FoundRESULTS RESULTS PROTIME W/INR Collected: 11/02/2018 Status: F Source: [place] FINGERSTICK 6:55 AM [facility] REPOSITORY TYPE CODE TESTS RESULT OUT OF REFERENCE UNITS RANGE LAB L9200.1001 11.9-14.4 SEC High PROTIME ISTAT 33.6 Result Comment: Reference Range 11.9 - 14.4 LAB L9200.2000 Normal INR ISTAT 2.90 Result Comment: Critical Value > 3.5 Performed By: #### L9200.0000 #### [facility] Point of Care [address] [place] [address] PROTIME W/INR Collected: 10/26/2018 Status: F Source: [place] FINGERSTICK 12:20 PM [facility] REPOSITORY TYPE CODE TESTS RESULT OUT OF REFERENCE UNITS RANGE LAB L9200.1001 11.9-14.4 SEC High PROTIME ISTAT 23.1 Result Comment: Reference Range 11.9 - 14.4 LAB L9200.2000 Normal INR ISTAT 2.00 Result Comment: Critical Value > 3.5 Performed By: #### L9200.0000 #### [facility] Point of Care [address] [place] [address] VITAMIN D,25 HYDROXY Collected: 10/25/2018 Status: F Source: [place] 5:00 AM [facility] REPOSITORY TYPE CODE TESTS RESULT OUT OF RANGE REFERENCE UNITS LAB L506.1000 29.95-100.01 ng/mL Normal Vitamin D 30.2 25-OH Result Comment: Vitamin D 25(OH) Status Range Deficiency <20 ng/mL (50nmol/L) Insuffciency 20 - 30 ng/mL (50 - 75 nmol/L) Sufficiency 30 - 100 ng/mL (75 - 250 nmol/L) Toxicity >100 ng/mL (>250 nmol/L) Performed By: #### L506.1000 #### [facility] [address] [place], [address] PROTIME W/INR Collected: 10/20/2018 Status: F Source: [place] FINGERSTICK 5:27 AM [facility] REPOSITORY TYPE CODE TESTS RESULT OUT OF REFERENCE UNITS RANGE LAB L9200.1001 11.9-14.4 SEC High PROTIME ISTAT 32.1 Result Comment: Reference Range 11.9 - 14.4 LAB L9200.2000 Normal INR ISTAT 2.80 Result Comment: Critical Value > 3.5 Performed By: #### L9200.0000 #### [facility] Point of Care [address] [place] [address] PROTHROMBIN TIME W/INR Collected: 10/19/2018 Status: F Source: [place] 6:25 AM [facility] REPOSITORY Order Comment: ROOM 107 TYPE CODE TESTS RESULT OUT OF RANGE REFERENCE UNITS LAB L300.4150 11.7-14.9 SECONDS High PROTIME 32.5 LAB L300.4200 Normal INR 3.1 Performed By: #### L300.3900 #### [facility] [address] [place], [address] PROTHROMBIN TIME W/INR Collected: 10/18/2018 Status: F Source: [place] 4:25 AM [facility] REPOSITORY Order Comment: Result obtained is for confirmation testing of Fingerstick PT/INR Specimen # [id number] . 10/18/18 0720 RHICKS THIS CONFIRMATION SPECIMEN RESULT IS FROM VENOUS BLOOD. TYPE CODE TESTS RESULT OUT OF REFERENCE UNITS RANGE LAB L300.4150 11.7-14.9 SECONDS High PROTIME 40.6 LAB L300.4200 High alert INR 4.2 Result Comment: CRITICAL VALUE VERIFIED. CALLED TO [facility] 10/18/18 0801 Petar Monroe. RESULTS READ BACK BY SAME. Performed By: #### L300.3900 #### [facility] [address] [place] [place], [address] PROTIME W/INR Collected: 10/18/2018 Status: F Source: [place] FINGERSTICK 4:20 AM [facility] REPOSITORY TYPE CODE TESTS RESULT OUT OF REFERENCE UNITS RANGE LAB L9200.1001 11.9-14.4 SEC High PROTIME ISTAT 64.3 Result Comment: Reference Range 11.9 - 14.4 LAB L9200.2000 High alert INR ISTAT 5.80 Result Comment: Critical Value > 3.5 Performed By: #### L9200.0000 #### [facility] Point of Care [address] [place], [place] [address] PROTHROMBIN TIME W/INR Collected: 10/17/2018 Status: F Source: [place] 7:50 AM [facility] REPOSITORY TYPE CODE TESTS RESULT OUT OF RANGE REFERENCE UNITS LAB L300.4150 11.7-14.9 SECONDS High PROTIME 32.4 LAB L300.4200 Normal INR 3.1 Performed By: #### L300.3900 #### [facility] [address] [place], [address] PROTHROMBIN TIME W/INR Collected: 10/16/2018 Status: F Source: [place] 7:25 AM [facility] REPOSITORY TYPE CODE TESTS RESULT OUT OF RANGE REFERENCE UNITS LAB L300.4150 11.7-14.9 SECONDS High PROTIME 32.3 LAB L300.4200 Normal INR 3.1 Performed By: #### L300.3900 #### [facility] [address] [place], [address] PROTIME W/INR Collected: 10/15/2018 Status: F Source: [place] FINGERSTICK 6:40 AM [facility] REPOSITORY TYPE CODE TESTS RESULT OUT OF REFERENCE UNITS RANGE LAB L9200.1001 11.9-14.4 SEC High PROTIME ISTAT 38.4 Result Comment: Reference Range 11.9 - 14.4 LAB L9200.2000 Normal INR ISTAT 3.40 Result Comment: Critical Value > 3.5 Performed By: #### L9200.0000 #### [facility] Point of Care [address] [place], [place] [address] URINALYSIS, COMPLETE Collected: 10/07/2018 Status: F Source: SHER[place] 4:30 PM [facility] REPOSITORY Order Comment: How was Urine Obtained? [...] URINE SEEN Performed By: #### L400.0001 #### [facility] [address] [facility] [place], [place], [address] Observed: 10/07/2018 Status: F Source: [place] CULTURE, URINE 4:30 PM [facility] REPOSITORY Urine Culture ORGANISM 1: Escherichia coli [place] Count >100,000 Escherichia coli: REACTION Amoxacillin/Clavulanic Acid [...] <=20 S (NF) indicates non-formulary drug at [facility]. Approval by Infectious Disease Specialist required before non-formulary drugs may be ordered and/or dispensed. Performed By: #### M100.0650 #### [facility] [address] [facility] [place], [place], [address] PROTIME W/INR Collected: 10/06/2018 Status: F Source: [place] FINGERSTICK 5:04 AM [facility] REPOSITORY TYPE CODE TESTS RESULT OUT OF REFERENCE UNITS RANGE LAB L9200.1001 11.9-14.4 SEC High PROTIME ISTAT 29.9 Result Comment: Reference Range 11.9 - 14.4 LAB L9200.2000 Normal INR ISTAT 2.60 Result Comment: Critical Value > 3.5 Performed By: #### L9200.0000 #### [facility] Point of Care [address] [place] [address] DISCHARGE INSTRUCTION Observed: 10/06/2018 Status: F Source: [place] 12:01 AM [facility] REPOSITORY [facility] Medical Records Department [address] [place] [address] Discharge Instruction 10/05/18 2333 MR#: [id number] Acct: [id number] Name: Trina De Rep #: [id number] : 1945 73 From: Pritesh Blank MD PCP: Kelvin Ibanez MD Status: REG ER ED Disposition - Plan for ED Patient: Disposition: Home or Assisted Living Chief Complaint: Fall Instructions: ED Head Injury Closed, ED Contusion Lower Ext Referrals: eLesa Guillermo [NON-STAFF] - As Needed Additional Instructions: [...] your Primary Care Provider. Call [facility] ([phone]) or report to the closest Emergency Room. Call 911 if necessary. 10/06/18 0001 <Electronically signed by Pritesh Blank MD> Date Pritesh Blank MD Cosigner Signature (If Indicated): Date CC: Kelvin Ibanez MD EMERGENCY DEPARTMENT Observed: 10/06/2018 Status: F Source: [place] SUMMARY 12:01 AM [facility] REPOSITORY [facility] Medical Records Department [address] [place] [address] Emergency Department Summary 10/05/182125 MR#: [id number] Acct: [id number] Name: Trina De Rep #: [id number] : 1945 73 From: Pritesh Blank MD [...] Department Course and Treatment: Patient given 1 [place] for pain. 2320. Awaiting formal CT read [...] knee contusion This note was generated with [employer] software. It may contain incorrect words, spelling, [...] problems, contact your Primary Care Provider. Call [facility] ([phone]) or report to the closest Emergency Room. Call 911 if necessary. 10/06/18 0001 <Electronically signed by Pritesh Blank MD> Date Pritesh Blank MD Cosigner Signature (If Indicated): Date CC: Kelvin Ibanez MD HIP, UNI W/ PELVIS Observed: 10/05/2018 Status: F Source: [place] 2-3 VIEWS 9:26 PM [facility] REPOSITORY [facility] Imaging Services [address] [place] [address] HIP, UNI W/ Pelvis 2-3 Views MR#: [id number] Acct: [id number] Name: Trina De Rep #: [id number] : 1945 F 73 From: Ken Waters MD PCP: Kelvin Ibanez MD Status: REG ER Study: HIP, UNI W/ Pelvis 2-3 Views Date of Exam: 10/05/18 Exam# [id number] Ordering Dr: Pritesh Blank MD STUDY: X-RAY [...] CC: Pritesh Blank MD; Kelvin Ibanez MD Die Hardener: Signed KNEE 3 VIEWS Observed: 10/05/2018 Status: F Source: [place] 9:26 PM [facility] REPOSITORY [facility] Imaging Services [address] [place] [address] Knee 3 Views MR#: [id number] Acct: [id number] Name: Trina De Rep #: [id number] : 1945 F 73 From: Ken Waters MD PCP: Kelvin Ibanez MD Status: REG ER Study: Knee 3 Views Date of Exam: 10/05/18 Exam# [id number] Ordering Dr: Pritesh Blank MD STUDY: X-RAY [...] CC: Pritesh Blank MD; Kelvin Ibanez MD Die Hardener: Signed BRAIN/HEAD WITHOUT Observed: 10/05/2018 Status: F Source: [place] CONTRAST 9:26 PM [facility] REPOSITORY [facility] Imaging Services [address] [place] [address] Brain/Head without Contrast MR#: [id number] Acct: [id number] Name: Trina De Rep #: [id number] : 1945 F 73 From: Ken Waters MD PCP: Kelvin Ibanez MD Status: REG ER Study: Brain/Head without Contrast Date of Exam: 10/05/18 Exam# [id number] Ordering Dr: Pritesh Blank MD STUDY: CT [...] support , CC: Pritesh Blank MD; Kelvin Ibanze MD Die Hardener: Signed SHOULDER MIN 2 VIEWS Observed: 10/05/2018 Status: F Source: [place] 9:26 PM [facility] REPOSITORY [facility] Imaging Services [address] [place] [address] Shoulder min 2 Views MR#: [id number] Acct: [id number] Name: Trina De Rep #: [id number] : 1945 F 73 From: Ken Waters MD PCP: Kelvin Ibanez MD Status: REG ER Study: Shoulder min 2 Views Date of Exam: 10/05/18 Exam# [id number] Ordering Dr: Pritesh Blank MD STUDY: X-RAY [...] CC: Pritesh Blank MD; Kelvin Ibanez MD Die Hardener: Signed PROTIME W/INR Collected: 09/28/2018 Status: F Source: [place] FINGERSTICK 5:21 AM [facility] REPOSITORY TYPE CODE TESTS RESULT OUT OF REFERENCE UNITS RANGE LAB L9200.1001 11.9-14.4 SEC High PROTIME ISTAT 36.1 Result Comment: Reference Range 11.9 - 14.4 LAB L9200.2000 Normal INR ISTAT 3.20 Result Comment: Critical Value > 3.5 Performed By: #### L9200.0000 #### [facility] Point of Care [address] [place] [address] PROTHROMBIN TIME W/INR Collected: 2018 Status: F Source: [place] 7:10 AM [facility] REPOSITORY TYPE CODE TESTS RESULT OUT OF RANGE REFERENCE UNITS LAB L300.4150 11.7-14.9 SECONDS High PROTIME 26.7 LAB L300.4200 Normal INR 2.5 Performed By: #### L300.3900 #### [facility] [address] [place], [address] PROTHROMBIN TIME W/INR Collected: 08/16/2018 Status: F Source: [place] 5:50 PM [facility] REPOSITORY TYPE CODE TESTS RESULT OUT OF RANGE REFERENCE UNITS LAB L300.4150 11.7-14.9 SECONDS High PROTIME 26.1 LAB L300.4200 Normal INR 2.4 Performed By: #### L300.3900 #### [facility] [address] [place], [address] PROTIME W/INR Collected: 08/04/2018 Status: F Source: [place] FINGERSTICK 7:14 AM [facility] REPOSITORY TYPE CODE TESTS RESULT OUT OF REFERENCE UNITS RANGE LAB L9200.1001 11.9-14.4 SEC High PROTIME ISTAT 34.5 Result Comment: Reference Range 11.9 - 14.4 LAB L9200.2000 Normal INR ISTAT 3.00 Result Comment: Critical Value > 3.5 Performed By: #### L9200.0000 #### [facility] Point of Care [address] [place] [address] PROTIME W/INR Collected: 07/21/2018 Status: F Source: [place] FINGERSTICK 5:52 AM [facility] REPOSITORY TYPE CODE TESTS RESULT OUT OF REFERENCE UNITS RANGE LAB L9200.1001 11.9-14.4 SEC High PROTIME ISTAT 30.8 Result Comment: Reference Range 11.9 - 14.4 LAB L9200.1999 Normal INR ISTAT 2.70 Result Comment: Critical Value > 3.5 Performed By: #### L9200.0000 #### [facility] Point of Care [address] [place] [address] BASIC METABOLIC Collected: 07/19/2018 Status: F Source: [place] PROFILE (BMP) 4:20 AM [facility] REPOSITORY Order Comment: ROOM 107 TYPE CODE [...] GAP 8 Performed By: #### L500.2500 #### [facility] [address] [facility] [address] PROTIME W/INR Collected: 07/08/2018 Status: F Source: [place] FINGERSTICK 5:34 AM [facility] REPOSITORY TYPE CODE TESTS RESULT OUT OF REFERENCE UNITS RANGE LAB L9200.1001 11.9-14.4 SEC High PROTIME ISTAT 28.4 Result Comment: Reference Range 11.9 - 14.4 LAB L9200.2000 Normal INR ISTAT 2.50 Result Comment: Critical Value > 3.5 Performed By: #### L9200.0000 #### [facility] Point of Care [address] [facility] [address] PROTIME W/INR Collected: 07/06/2018 Status: F Source: [place] FINGERSTICK 5:40 AM [facility] REPOSITORY TYPE CODE TESTS RESULT OUT OF REFERENCE UNITS RANGE LAB L9200.1001 11.9-14.4 SEC High PROTIME ISTAT 41.8 Result Comment: Reference Range 11.9 - 14.4 LAB L9200.2000 High alert INR ISTAT 3.70 Result Comment: Critical Value > 3.5 Performed By: #### L9200.0000 #### [facility] Point of Care [address] [facility] [address] PROTHROMBIN TIME W/INR Collected: 07/06/2018 Status: F Source: SHER[place] 5:25 AM [facility] REPOSITORY TYPE CODE TESTS RESULT OUT OF RANGE REFERENCE UNITS LAB L300.4150 11.7-14.9 SECONDS High PROTIME 30.2 LAB L300.4200 Normal INR 2.9 Performed By: #### L300.3900 #### [facility] [address] [place] [address], [address] PROTIME W/INR Collected: 06/21/2018 Status: F Source: SHEREE FINGERSTICK 11:54 AM [facility] REPOSITORY TYPE CODE TESTS RESULT OUT OF REFERENCE UNITS RANGE LAB L9200.1001 11.9-14.4 SEC High PROTIME ISTAT 35.9 Result Comment: Reference Range 11.9 - 14.4 LAB L9200.2000 Normal INR ISTAT 3.20 Result Comment: Critical Value > 3.5 Performed By: #### L9200.0000 #### [facility] Point of Care [address] [place], [place] [address] PROTHROMBIN TIME W/INR Collected: 06/15/2018 Status: F Source: SHEREE 7:20 AM [facility] REPOSITORY Order Comment: ROOM 107 TYPE CODE TESTS RESULT OUT OF RANGE REFERENCE UNITS LAB L300.4150 11.7-14.9 SECONDS High PROTIME 29.9 LAB L300.4200 Normal INR 2.8 Performed By: #### L300.3900 #### [facility] [address] [place] [address]. [place], [address] PROTHROMBIN TIME W/INR Collected: 05/17/2018 Status: F Source: SH[place] 7:35 AM [facility] REPOSITORY Order Comment: ROOM 107 TYPE CODE TESTS RESULT OUT OF RANGE REFERENCE UNITS LAB L300.4150 11.7-14.9 SECONDS High PROTIME 27.1 LAB L300.4200 Normal INR 2.5 Performed By: #### L300.3900 #### [facility] [address] [place] [address], [address] CBC-COMPLETE BLOOD CNT Collected: 05/17/2018 Status: F Source: SHEREE NO DIFF 7:35 AM [facility] REPOSITORY Order Comment: ROOM 107 TYPE CODE [...] MPV 10.8 Performed By: #### L100.0500 #### [facility] [place], [address] COMPREHENSIVE METABOLIC Collected: 05/17/2018 Status: F Source: SHEREE GRAJEDA 7:35 AM [facility] REPOSITORY Order Comment: ROOM 107 TYPE CODE [...] 9 Performed By: #### L500.4050, L501.9520 #### [facility] [address] [place], [address] THYROID STIM HORMONE Collected: 05/17/2018 Status: F Source: SHEREE (TSH) 7:35 AM [facility] REPOSITORY Order Comment: ROOM 107 TYPE CODE TESTS RESULT OUT OF RANGE REFERENCE UNITS LAB L501.9520 0.358-3.74 uIU/mL Normal TSH 1.19 Performed By: #### L500.4050, L501.9520 #### [facility] [address] [place], [address] VITAMIN D,25 HYDROXY Collected: 05/13/2018 Status: F Source: SHEREE 5:45 AM [facility] REPOSITORY Order Comment: ROOM 107 TYPE CODE TESTS RESULT OUT OF RANGE REFERENCE UNITS LAB L506.1000 29.95-100.01 ng/mL Normal Vitamin D 51.3 25-OH Result Comment: Vitamin D 25(OH) Status Range Deficiency <20 ng/mL (50nmol/L) Insuffciency 20 - 30 ng/mL (50 - 75 nmol/L) Sufficiency 30 - 100 ng/mL (75 - 250 nmol/L) Toxicity >100 ng/mL (>250 nmol/L) Performed By: #### L506.1000 #### [facility] [address] [place], [address] PROTHROMBIN TIME W/INR Collected: 04/26/2018 Status: F Source: SHEREE 6:30 AM [facility] REPOSITORY TYPE CODE TESTS RESULT OUT OF RANGE REFERENCE UNITS LAB L300.4150 11.7-14.9 SECONDS High PROTIME 26.3 LAB L300.4200 Normal INR 2.4 Performed By: #### L300.3900 #### [facility] [address] [place], [address] PROTHROMBIN TIME W/INR Collected: 04/19/2018 Status: F Source: SHEREE 6:56 AM [facility] REPOSITORY TYPE CODE TESTS RESULT OUT OF RANGE REFERENCE UNITS LAB L300.4150 11.7-14.9 SECONDS High PROTIME 24.4 LAB L300.4200 Normal INR 2.2 Performed By: #### L300.3900 #### [facility] [address] [place], [address] CBC W/DIFF, AUTOMATED Collected: 04/12/2018 Status: F Source: SHEREE 5:45 AM [facility] REPOSITORY Order Comment: 107B TYPE CODE TESTS [...] Lymph 2.10 Performed By: #### L100.0100 #### [facility] [address] [place], [address] PROTHROMBIN TIME W/INR Collected: 04/12/2018 Status: F Source: [place] 5:45 AM [facility] REPOSITORY TYPE CODE TESTS RESULT OUT OF RANGE REFERENCE UNITS LAB L300.4150 11.7-14.9 SECONDS High PROTIME 29.3 LAB L300.4200 Normal INR 2.8 Performed By: #### L300.3900 #### [facility] [address] [facility] [place], [address] COMPREHENSIVE METABOLIC Collected: 04/12/2018 Status: F Source: [facility] 5:45 AM [facility] REPOSITORY Order Comment: 107B TYPE CODE TESTS [...] GAP 6 Performed By: #### L500.4050 #### [facility] [address] [place], [address] EMERGENCY REPORT Observed: 04/08/2018 Status: F Source: [facility] 7:03 AM [facility] EMERGENCY ROOM REPORT NAME ACCOUNT SEX AGE ADMIT DISCHARGE PT MED. RECORD# NUMBER DATE DATE TYPE TRINA DE [id number] F 72 01/19/18 2 F [id number] ROOM: 301MO DATE OF : 1945 DICTATING [...] COPD, anemia, history of DVT, status post Aguanga filter placed on Coumadin, GERD, PFO. PAST SURGICAL HISTORY: Abdominal hysterectomy, Keyana fundoplication, arthroscopy of the knee, PEG tube placement IVC filter placement. ALLERGIES: Penicillin, Ambien, Seroquel, Benadryl. SOCIAL HISTORY: The patient is and is currently living at a fpc facility. She denies tobacco, alcohol or drug [...] Sinus bradycardia at a rate of 55, FL interval 158. QRS 78, QT/QTc 414/394. Normal [...] TRINA DE Emergency Room Report JOB #: [id number] Transcribed by: danette Electronically signed by: Katie Manley D.O. 04/08/18 07:02 Page 3 of 3 SAADIATRINA Emergency Room Report PROTIME W/INR Collected: 04/05/2018 Status: F Source: SHEREE FINGERSTICK 5:00 AM [facility] REPOSITORY TYPE CODE TESTS RESULT OUT OF REFERENCE UNITS RANGE LAB L9200.1001 11.9-14.4 SEC High PROTIME ISTAT 28.9 Result Comment: Reference Range 11.9 - 14.4 LAB L9200.2000 Normal INR ISTAT 2.50 Result Comment: Critical Value > 3.5 Performed By: #### L9200.0000 #### [facility] Point of Care [address] [place] [address] PROTIME W/INR Collected: 04/01/2018 Status: F Source: [place]EREE FINGERSTICK 7:12 AM [facility] REPOSITORY TYPE CODE TESTS RESULT OUT OF REFERENCE UNITS RANGE LAB L9200.1001 11.9-14.4 SEC High PROTIME ISTAT 31.7 Result Comment: Reference Range 11.9 - 14.4 LAB L9200.2000 Normal INR ISTAT 2.80 Result Comment: Critical Value > 3.5 Performed By: #### L9200.0000 #### [facility] Point of Care [address] [place] [address] PROTHROMBIN TIME W/INR Collected: 03/29/2018 Status: F Source: [place] 5:55 AM [facility] REPOSITORY Order Comment: Result obtained is for confirmation testing of Fingerstick PT/INR Specimen # [id number] . 03/29/18 0951 DMILLER2 THIS CONFIRMATION SPECIMEN RESULT IS FROM VENOUS BLOOD. TYPE CODE TESTS RESULT OUT OF RANGE REFERENCE UNITS LAB L300.4150 11.7-14.9 SECONDS High PROTIME 33.3 LAB L300.4200 Normal INR 3.2 Performed By: #### L300.3900 #### [facility] [address] [place], [address] PROTIME W/INR Collected: 03/29/2018 Status: F Source: [place]EREE FINGERSTICK 5:51 AM [facility] REPOSITORY TYPE CODE TESTS RESULT OUT OF REFERENCE UNITS RANGE LAB L9200.1001 11.9-14.4 SEC High PROTIME ISTAT 46.2 Result Comment: Reference Range 11.9 - 14.4 LAB L9200.2000 High alert INR ISTAT 4.10 Result Comment: Critical Value > 3.5 Performed By: #### L9200.0000 #### [facility] Point of Care [address] [place] [address] PROTHROMBIN TIME W/INR Collected: 03/22/2018 Status: F Source: [place] 8:50 AM [facility] REPOSITORY TYPE CODE TESTS RESULT OUT OF RANGE REFERENCE UNITS LAB L300.4150 11.7-14.9 SECONDS High PROTIME 33.1 LAB L300.4200 Normal INR 3.2 Performed By: #### L300.3900 #### [facility] [address] [place], [address] VITAMIN D,25 HYDROXY Collected: 03/22/2018 Status: F Source: [place] 8:50 AM [facility] REPOSITORY TYPE CODE TESTS RESULT OUT OF REFERENCE UNITS RANGE LAB L506.1000 29.95-100.01 ng/mL Low Vitamin D 18.0 25-OH Result Comment: Vitamin D 25(OH) Status Range Deficiency <20 ng/mL (50nmol/L) Insuffciency 20 - 30 ng/mL (50 - 75 nmol/L) Sufficiency 30 - 100 ng/mL (75 - 250 nmol/L) Toxicity >100 ng/mL (>250 nmol/L) Performed By: #### L506.1000 #### [facility] [address] [place], [address] PROTHROMBIN TIME W/INR Collected: 03/19/2018 Status: F Source: [place] 6:10 AM [facility] REPOSITORY TYPE CODE TESTS RESULT OUT OF RANGE REFERENCE UNITS LAB L300.4150 11.7-14.9 SECONDS High PROTIME 33.5 LAB L300.4200 Normal INR 3.3 Performed By: #### L300.3900 #### [facility] [address] [place], [address] LIPID PROFILE Collected: 03/15/2018 Status: F Source: [place] 5:05 AM [facility] REPOSITORY Order Comment: RESULT(S) PREVIOUSLY REPORTED ON [...] 19 Performed By: #### L500.4100, L501.9520 #### [facility] [address] [facility], [address] THYROID STIM HORMONE Collected: 03/15/2018 Status: F Source: [place] (TSH) 5:05 AM [facility] REPOSITORY Order Comment: RESULT(S) PREVIOUSLY REPORTED ON MANUAL REQUISITION DURING DOWNTIME. TYPE CODE TESTS RESULT OUT OF RANGE REFERENCE UNITS LAB L501.9520 0.358-3.74 uIU/mL Normal TSH 1.61 Performed By: #### L500.4100, L501.9520 #### [facility] [address] [facility] [place], [address] PROTHROMBIN TIME W/INR Collected: 03/15/2018 Status: F Source: [place] 5:05 AM [facility] REPOSITORY Order Comment: RESULT(S) PREVIOUSLY REPORTED ON MANUAL REQUISITION DURING DOWNTIME. TYPE CODE TESTS RESULT OUT OF RANGE REFERENCE UNITS LAB L300.4150 11.7-14.9 SECONDS High PROTIME 30.5 LAB L300.4200 Normal INR 2.9 Performed By: #### L300.3900 #### [facility] [address] [facility] [place], [address] VITAMIN D,25 HYDROXY Collected: 03/15/2018 Status: F Source: [place] 5:05 AM [facility] REPOSITORY Order Comment: RESULT(S) PREVIOUSLY REPORTED ON [...] (>250 nmol/L) Performed By: #### L506.1000 #### [facility] [address] [facility] [place], [address] PROTHROMBIN TIME AND Collected: 02/04/2018 Status: F [facility] AM [facility] REPOSITORY TYPE CODE TESTS RESULT OUT [...] 3.5 MECHANICAL HEART VALVES Performed By: #### [id number] #### [facility],[address] [facility] [address] PROTHROMBIN TIME AND Collected: 02/01/2018 Status: F Source: [place]ESMOND BOWLES INR 5:15 AM [facility] REPOSITORY TYPE CODE TESTS RESULT OUT [...] 3.5 MECHANICAL HEART VALVES Performed By: #### [id number] #### [address] [address] PROTHROMBIN TIME AND Collected: 01/29/2018 Status: F Source: [place]OND BOWLES INR 3:40 AM [facility] REPOSITORY TYPE CODE TESTS RESULT OUT [...] 3.5 MECHANICAL HEART VALVES Performed By: #### [id number] #### [address] [address] MODIFIED BARIUM Observed: 01/28/2018 Status: F Source: DESMOND BOWLES SWALLOW 1:59 PM [facility] REPOSITORY [place] [address] Patient: TRINA DE Phone#: : 1945 Age: 72 Gender: F Pt. Type: Out Account: [id number] Location: [facility] Ordering: LEESA GUILLERMO Exam Date: 01/28/2018/13:48 Family Phys: Charge Code: [id number] Physician: [place] Order #: [id number] DLP Dose#: PROCEDURE: CINERADIOGRAPHY MODIFIED BARIUM SWALLOW [...] Status: F Source: [place] 3:50 AM [facility] REPOSITORY TYPE CODE TESTS RESULT OUT [...] OF AGE AND OLDER. Performed By: #### [id number] #### [facility],[address] [place] [address] PROTHROMBIN TIME AND Collected: 01/22/2018 Status: F Source: [place]OW[place] INR 4:20 AM [facility] REPOSITORY TYPE CODE TESTS RESULT OUT [...] 3.5 MECHANICAL HEART VALVES Performed By: #### [id number] #### [facility],[address] [place], [place] [address] HISTORY AND PHYSICAL Observed: 01/21/2018 Status: F Source: [facility] 1:20 AM [facility] HISTORY & PHYSICAL NAME ACCOUNT SEX AGE ADMIT DISCHARGE PT MED. 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 Continue on her previous diet. Discontinue OJN inhibitor. Hold parameters on her beta jarocho. [...] Guillermo MD TD: 01/20/18 13:23 JOB #: [id number] Transcribed by: good Electronically signed by: Katie [...] Status: F Source: DESMOND BOWLES 10:47 AM [place] [address] Patient: TRINA DE Phone#: : 1945 Age: 72 Gender: F Pt. Type: ER Account: [id number] Location: 052 Ordering: LEESA GUILLERMO Exam Date: 01/20/2018/10:07 Family Phys: NESS REIS Charge Code: [id number] Physician: [place] Order #: [id number] DLP Dose#: PROCEDURE: ECHOCARDIOGRAM WITH DOPPLER AND COLOR FLOW HISTORY: Hypertension, COPD, PFO. INDICATIONS: Syncope TECHNIQUE: A 2-D ultrasound, color spectral Doppler and M-mode evaluation of the heart and great vessels. PATIENT MEASUREMENTS: Height (in.): 60 BSA: 1.7 Weight (lbs.): 160 BP: 134/67 Family Advocate: ELDA M MODE 2D MEASUREMENTS AND CALCULATIONS: [...] 72 Gender: F Pt. Type: ER Account: [id number] Location: 052 Ordering: LEESA GUILLERMO Exam Date: 01/20/2018/10:07 Family Phys: NESS REIS Charge Code: [id number] Physician: [place] Order #: [id number] DLP Dose#: AORTIC Ao V2 max: 141.08 [...] 72 Gender: F Pt. Type: ER Account: [id number] Location: [facility] Ordering: LEESA GUILLERMO Exam Date: 01/20/2018/10:07 Family Phys: NESS REIS Charge Code: [id number] Physician: [place] Order #: [id number] DLP Dose#: 3. Normal right ventricular and pulmonary artery systolic pressure estimated at 35-40 mm mercury. 4. Although patient has history of PFO, this was not visualized on the current study. Dictated by: Ham Garces MD on 01/20/2018 at 11:17 Approved by: Ham Garces MD on 01/20/2018 at 11:17 TROPONIN Collected: 01/20/2018 Status: F Source: [facility] 10:11 AM [facility] REPOSITORY TYPE CODE TESTS RESULT OUT [...] such as heterophile antibodies). Performed By: #### [id number] #### [facility],[address] [place] [address] PROTHROMBIN TIME AND Collected: 01/20/2018 Status: F Source: [facility] INR 4:30 AM [facility] REPOSITORY TYPE CODE TESTS RESULT OUT [...] 3.5 MECHANICAL HEART VALVES Performed By: #### [id number] #### [place] [address] TROPONIN Collected: 01/20/2018 Status: F Source: [facility] 4:30 [facility] REPOSITORY TYPE CODE TESTS RESULT OUT [...] such as heterophile antibodies). Performed By: #### [id number] #### [place] [address] TSH Collected: 01/20/2018 Status: F Source: [facility] 4:30 [facility] REPOSITORY TYPE CODE TESTS RESULT OUT OF RANGE REFERENCE UNITS LAB TSH(LOINC) 0.34 - 5.60 uIU/ml TSH 1.07 Performed By: #### [id number] #### [place] [address] LACTATE Collected: 01/20/2018 Status: F Source: [facility] 12:35 [facility] REPOSITORY TYPE CODE TESTS RESULT OUT OF REFERENCE UNITS RANGE LAB LACTATE(LEANDRA 4.5 - 18.0 mg/dL IA) LACTATE 13.2 Performed By: #### [id number] #### [place] [address] TROPONIN Collected: 01/20/2018 Status: F Source: [facility] 12:35 [facility] REPOSITORY TYPE CODE TESTS RESULT OUT [...] such as heterophile antibodies). Performed By: #### [id number] #### [place] [address] URINALYSIS Collected: 01/19/2018 Status: F Source: [place]OND [place] 11:36 PM [facility] REPOSITORY TYPE CODE TESTS RESULT OUT [...] Urobilinog(LOINC) NORMAL: NORMAL Urobilinog NORM LAB Sp [place](LOINC) NORMAL: 1.010-1.030 Sp [place] 1.010 LAB Nitrite(LOINC) NORMAL: NEGATIVE Nitrite NEG [...] LAB Yeast(LOINC) Yeast NONE Performed By: #### [id number] #### [facility],[address] [place], [place] [address] Observed: 01/19/2018 Status: F Source: [place] BOW[place] CULTURE URINE 11:36 PM [facility] REPOSITORY CULTURE URINE _URINE CULTURE_ M I C R O B I O L O G Y R E P O R T FINAL Antimicrobial Susceptibility and Organism Identification Report Specimen Number : [id number] Requested : 01/19/18 Specimen Source : URINE Collected : 01/19/18 23:36 [place] of Isolation : Emergency Room Received : 01/19/18 23:36 Requesting Physician : AMBERLY Patient/Specimen Tests and Comments Specimen Comments FINAL REPORT: URINE COLONY COUNT: [id number] CFU/CC GRAM NEGATIVE RODS CONTAMINATED WITH: GRAM POSITIVE COCCI Organisms Identified -------- * 01 Escherichia coli 01/22/18 Comments 10-50,000 cfu Tech : Source : URINE ID # : [id number] FINAL Report Date : / / : [...] Ticar/K Clav'ate for gram positives based on technical assoc's breakpoints. Tech : Source : URINE ID # : [id number] FINAL Report Date : / / : Collected : 01/19/18 23:36 01/22/18.1001.JLN. 01/21/18.1146.JLN. 01/22/18.1001.JLN.COMPLETE Performed By: #### [id number] #### [facility],[address] [place] [address] CHEST 1 VIEW Observed: 01/19/2018 Status: F Source: [facility] 11:00 PM [facility] REPOSITORY [place] [address] Patient: TRINA DE Phone#: : 1945 Age: 72 Gender: F Pt. Type: ER Account: [id number] Location: [facility] Ordering: RASHIDA MANLEY Exam Date: 01/19/2018/22:53 Family Phys: NESS REIS Charge Code: [id number] Physician: [place] Order #: [id number] DLP Dose#: PROCEDURE: X-RAY CHEST 1 VIEW COMPARISON: [facility], XR, CHEST AP, 11/15/2017, 21:49. INDICATIONS: [...] 8:30 CBC Collected: 01/19/2018 Status: F Source: [facility] 10:20 PM [facility] REPOSITORY TYPE CODE TESTS RESULT OUT [...] 7.10 x10EE3/U L Neut # 6.40 LAB [place] #(LOINC) 0.20 - 1.00 x10EE3/U L [place] # 0.90 LAB EO #(LOINC) 0.00 - 0.50 x10EE3/U L EO # 0.30 LAB Baso #(LOINC) 0.00 - 0.10 x10EE3/U L Baso # High 0.20 LAB MANUAL DIFF(LOINC) MANUAL DIFF N/A LAB MORPHOLOGY(LOINC ) MORPHOLOGY N/A Result Comment: {CD] Performed By: #### [id number] #### [facility],[address] [place] [address] BMP WITH EGFR Collected: 01/19/2018 Status: F Source: [facility] 10:20 PM [facility] REPOSITORY TYPE CODE TESTS RESULT OUT [...] OF AGE AND OLDER. Performed By: #### [id number] #### [facility],[address] [place], [place] [address] TROPONIN Collected: 01/19/2018 Status: F Source: [facility] 10:20 PM [facility] REPOSITORY TYPE CODE TESTS RESULT OUT [...] such as heterophile antibodies). Performed By: #### [id number] #### [place] [address] PROTHROMBIN TIME AND Collected: 01/19/2018 Status: F Source: [facility]OND [facility] INR 10:20 PM [facility] REPOSITORY TYPE CODE TESTS RESULT OUT [...] 3.5 MECHANICAL HEART VALVES Performed By: #### [id number] #### [place] [address] PROTHROMBIN TIME AND Collected: 01/18/2018 Status: F Source: [place]OND BOWLES INR 4:30 AM [facility] REPOSITORY TYPE CODE TESTS RESULT OUT [...] 3.5 MECHANICAL HEART VALVES Performed By: #### [id number] #### [place] [id number] PROTHROMBIN TIME AND Collected: 01/14/2018 Status: F Source: [facility] INR 3:23 AM [facility] REPOSITORY TYPE CODE TESTS RESULT OUT [...] 3.5 MECHANICAL HEART VALVES Performed By: #### [id number] #### [facility],[address] [facility] [address] CARDIOLOGY VISIT Observed: 01/13/2018 Status: F Source: [place] REPORT 7:27 AM [facility] REPOSITORY [facility] [address] [place] [address] OFFICE VISIT Date of Service: 01/12/18 MR#: [id number] Acct: [id number] Name: TRINA DE Rep #: [id number] : 1945 Provider: CARITO Novoa Age/Sex: 72/F [place] [facility]: Signed HPI HPI Details: TRINA DE, [...] brachial Intake Visit Reasons: 6 M FU Document Manager Required: No Accompanied by: Caregiver Is patient [...] exhibit any physical signs of DVT. 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.01 01/12/18 1714 <Electronically signed by Mahesh ROYALC> Date Mahesh ROYALC 01/13/18 0727<Electronically signed by Luis Augustine MD> Cosigner Signature: Date (if applicable) Luis Augustine MD CC: Leesa Guillermo PROTHROMBIN TIME AND Collected: 01/12/2018 Status: F Source: [facility]OND [facility] INR 6:04 AM [facility] REPOSITORY TYPE CODE TESTS RESULT OUT OF REFERENCE UNITS RANGE LAB PROTHROMBIN TIME AND INR(LOINC) PROTHROMBIN TIME AND INR Result Comment: PROTHROMBIN TIME AND INR LAB PT-COUMADIN(LOINC) sec PT-COUMADIN 50.1 LAB INR(LOINC) 0.8 - 1.2 INR High Alert 4.6 Result Comment: { CALLED TO UVALDO@0738 / WKK { READ BACK BY UVALDO / @0777 { TEST REPEATED THE HEMOSIL THROMBOPLASTIN REAGENT [...] 3.5 MECHANICAL HEART VALVES Performed By: #### [id number] #### [facility],[address] [place] [address] BMP WITH EGFR Collected: 01/11/2018 Status: F Source: [facility] 4:35 AM [facility] REPOSITORY TYPE CODE TESTS RESULT OUT [...] OF AGE AND OLDER. Performed By: #### [id number] #### [place] [address] PROTHROMBIN TIME AND Collected: 01/05/2018 Status: F [facility] AM [facility] REPOSITORY TYPE CODE TESTS RESULT OUT [...] 3.5 MECHANICAL HEART VALVES Performed By: #### [id number] #### [place] [address] PROTHROMBIN TIME AND Collected: 01/02/2018 Status: F Source: [place]OW[place] INR 5:47 AM [facility] REPOSITORY TYPE CODE TESTS RESULT OUT [...] 3.5 MECHANICAL HEART VALVES Performed By: #### [id number] #### [place] [address] CBC (NO DIFF) Collected: 12/30/2017 Status: F Source: [facility] 3:50 AM [facility] REPOSITORY TYPE CODE TESTS RESULT OUT [...] 9.1 Result Comment: {CB] Performed By: #### [id number] #### [facility],[address] [place], [place] [id number] CMP WITH EGFR Collected: 12/30/2017 Status: F Source: [facility] 3:50 AM [facility] REPOSITORY TYPE CODE TESTS RESULT OUT [...] OF AGE AND OLDER. Performed By: #### [id number] #### [facility],[address] [place] [address] PROTHROMBIN TIME AND Collected: 12/29/2017 Status: F Source: [facility] INR 4:07 AM [facility] REPOSITORY TYPE CODE TESTS RESULT OUT [...] 3.5 MECHANICAL HEART VALVES Performed By: #### [id number] #### [place] [address] PROTHROMBIN TIME AND Collected: 12/28/2017 Status: F Source: [facility] INR 3:50 [facility] REPOSITORY TYPE CODE TESTS RESULT OUT [...] 3.5 MECHANICAL HEART VALVES Performed By: #### [id number] #### [place] [address] PROTHROMBIN TIME AND Collected: 12/24/2017 Status: F Source: DESMOND AUBURN INR 3:50 [facility] REPOSITORY TYPE CODE TESTS RESULT OUT [...] 3.5 MECHANICAL HEART VALVES Performed By: #### [id number] #### [place] [id number] PROTHROMBIN TIME AND Collected: 12/21/2017 Status: F Source: DESMOND BOWLES INR 4:25 AM [facility] REPOSITORY TYPE CODE TESTS RESULT OUT [...] 3.5 MECHANICAL HEART VALVES Performed By: #### [id number] #### [place] [address] PROTHROMBIN TIME AND Collected: 12/17/2017 Status: F Source: DESMOND BLACKBURNCA INR 4:20 AM [facility] REPOSITORY TYPE CODE TESTS RESULT OUT [...] 3.5 MECHANICAL HEART VALVES Performed By: #### [id number] #### [place] [address] CBC (NO DIFF) Collected: 12/16/2017 Status: F Source: DESMOND MYERSMARIANNA 4:10 AM [facility] REPOSITORY TYPE CODE TESTS RESULT OUT [...] 9.1 Result Comment: {CB] Performed By: #### [id number] #### [place] [address] IRON AND UIBC Collected: 12/16/2017 Status: F Source: [facility] 4:10 AM [facility] REPOSITORY TYPE CODE TESTS RESULT OUT OF RANGE REFERENCE UNITS LAB IRON(LOINC) 50 - 170 ug/dl IRON 67 LAB UIBC(LOINC) 155 - 355 ug/dL UIBC 212 LAB TIBC(LOINC) 250 - 450 ug/dl TIBC 279 LAB Sat%(LOINC) 20 - 50 % Sat% 24 Performed By: #### [id number] #### [place] [id number] FERRITIN Collected: 12/16/2017 Status: F Source: [facility] 4:10 AM [facility] REPOSITORY TYPE CODE TESTS RESULT OUT OF REFERENCE UNITS RANGE LAB FERRITIN(LO 10 - 291 ng/mL INC) High FERRITIN 294 Performed By: #### [id number] #### [place] [id number] FOLATES Collected: 12/16/2017 Status: F Source: [facility] 4:10 AM [facility] REPOSITORY TYPE CODE TESTS RESULT OUT OF REFERENCE UNITS RANGE LAB FOLATES(LEANDRA 3.5 - 20.0 ng/ml IA) FOLATES 9.6 Performed By: #### [id number] #### [place] [address] VITAMIN B-12 Collected: 12/16/2017 Status: F Source: DESMONDPAZ MYERSMARIANNA 4:10 AM [facility] TYPE CODE TESTS RESULT OUT OF REFERENCE UNITS RANGE LAB N(LOINC) 180 - 914 pg/mL VITAMIN B12 290 Performed By: #### [id number] #### [place] [address]05814 RETICULOCYTE COUNT Collected: 12/16/2017 Status: F Source: [facility] 4:10 AM [facility] TYPE CODE TESTS RESULT OUT OF REFERENCE UNITS RANGE LAB RETIC 0.0 - 2.3 % COUNT(LOINC) RETIC 1.0 COUNT LAB IRF(LOINC) 0.20 - 0.46 IRF IRF 0.45 Performed By: #### [id number] #### [place] [address]05814 PROTHROMBIN TIME AND Collected: 12/09/2017 Status: F [facility] AM [facility] TYPE CODE TESTS RESULT OUT OF REFERENCE [...] 3.5 MECHANICAL HEART VALVES Performed By: #### [id number] #### [place] [id number] EMERGENCY REPORT Observed: 12/04/2017 Status: F Source: DESMOND BOWLES 8:04 AM [facility] EMERGENCY DEPARTMENT REPORT NAME NUMBER SEX AGE ADMIT DISC TYPE MED.RECORD# SAADIA Berry [id number] F 72 11/15/17 11/16/17 EstivenRMustapha [id number] ROOM:ER- DATE OF :1945 PHYSICIAN NO.:[id number] PHYSICIAN NAME:E-Sign: Dr. George Wade D.O. PHYSICIAN:SMILEY FLORES [facility] PHYSICIAN: SMILEY FLORES HISTORY OF PRESENT [...] name. She knows that she is in [facility] and she knows why she is [...] No acute ST segment changes were noted. [place] is approximately 30 degrees. Troponin was 0.01. [...] George Wade DO TD: 07:10 JOB #: [id number] Electronically signed by: E-Sign: Dr. George Wade D.O. 12/04/17 08:04 Transcribed by: danette 11/16/2017 18:49 EMERGENCY ROOM REPORT SAADIA Berry 1 CBC (NO DIFF) Collected: 12/02/2017 Status: F Source: DESMOND BOWLES 3:30 AM [facility] REPOSITORY TYPE CODE TESTS RESULT OUT [...] 9.4 Result Comment: {CB] Performed By: #### [id number] #### [place] [address] PROTHROMBIN TIME AND Collected: 12/02/2017 Status: F Source: [facility] INR 3:30 AM [facility] REPOSITORY TYPE CODE TESTS RESULT OUT [...] 3.5 MECHANICAL HEART VALVES Performed By: #### [id number] #### [place] [address] CMP WITH EGFR Collected: 12/02/2017 Status: F [facility] AM [facility] REPOSITORY TYPE CODE TESTS RESULT OUT [...] OF AGE AND OLDER. Performed By: #### [id number] #### [facility],[address] [place] [address] TSH Collected: 12/02/2017 Status: F Source: [facility] 3:30 AM [facility] REPOSITORY TYPE CODE TESTS RESULT OUT OF RANGE REFERENCE UNITS LAB TSH(LOINC) 0.34 - 5.60 uIU/ml TSH 0.63 Performed By: #### [id number] #### [facility],[address] [place] [address] EMERGENCY DEPARTMENT Observed: 11/23/2017 Status: F Source: [facility] SUMMARY 7:15 AM [facility] EMERGENCY DEPARTMENT SUMMARY NAME NUMBER SEX AGE ADMIT DISC TYPE MED.RECORD# SAADIA Berry [id number] F 72 11/11/17 11/11/17 Est[place] 14075ZE ROOM:ER DATE OF :1945 PHYSICIAN NO.:[id number] PHYSICIAN NAME:JAY Morris M.D. PHYSICIAN:SMILEY Trinidad CHIEF [...] some soft tissue swelling to the left anglican area. Head is otherwise atraumatic and nontender. [...] Marcos Morris MD TD: 16:55 JOB #: [id number] Electronically signed by: JAY Morris M.D. 11/23/17 07:11 Transcribed by: good 11/12/2017 14:55 PROTHROMBIN TIME AND Collected: 11/22/2017 Status: F [facility]20 AM [facility] REPOSITORY TYPE CODE TESTS RESULT OUT [...] 3.5 MECHANICAL HEART VALVES Performed By: #### [id number] #### [facility],[address] [place] [address] MAMM DIGITAL BILAT Observed: 11/20/2017 Status: F Source: DESMOND BOWLES SCREEN 11:50 AM [facility] REPOSITORY [place] [address] Patient: TRINA DE Phone#: : 1945 Age: 72 Gender: F Pt. Type: Out Account: [id number] Location: 052 Ordering: LEESA GUILLERMO Exam Date: 11/20/2017/11:03 Family Phys: Charge Code: [id number] Physician: [place] Order #: [id number] DLP Dose#: PROCEDURE: MAMM BILAT DIGITAL SCREENING [...] THE APPROPRIATE REMINDER SYSTEM. Dictated by: Angelique Reynaga MD on 11/20/2017 at 11:53 Approved by: Angelique Reynaga MD on 11/20/2017 at 11:53 PROTHROMBIN TIME AND Collected: 11/19/2017 Status: F Source: DESMOND BOWLES INR 4:10 AM [facility] REPOSITORY TYPE CODE TESTS RESULT OUT [...] 3.5 MECHANICAL HEART VALVES Performed By: #### [id number] #### [facility],[address] [place], [place] [id number] URINALYSIS Collected: 11/16/2017 Status: F Source: [facility] 1:00 [facility] REPOSITORY TYPE CODE TESTS RESULT OUT [...] Urobilinog(LOINC) NORMAL: NORMAL Urobilinog NORM LAB Sp [place](LOINC) NORMAL: 1.010-1.030 Sp [place] 1.010 LAB Nitrite(LOINC) NORMAL: NEGATIVE Nitrite NEG [...] LAB Yeast(LOINC) Yeast NONE Performed By: #### [id number] #### [facility],[address] [place], [place] [id number] TROPONIN Collected: 11/16/2017 Status: F Source: [facility] 12:05 [facility] REPOSITORY TYPE CODE TESTS RESULT OUT [...] such as heterophile antibodies). Performed By: #### [id number] #### [facility],[address] [place] [address] CT BRAIN W/O CONTRAST Observed: 11/15/2017 Status: F Source: [facility] 10:33 PM [facility] REPOSITORY [place] [address] Patient: TRINA DE Phone#: : 1945 Age: 72 Gender: F Pt. Type: ER Account: [id number] Location: [facility] Ordering: GEORGE WADE Exam Date: 11/15/2017/22:22 Family Phys: NESS HORACEMADHU Charge Code: [id number] Physician: [place] Order #: [id number] DLP Dose#: 52.30 PROCEDURE: CT BRAIN WITHOUT CONTRAST COMPARISON: [facility], CT, BRAIN W/O CON, 11/11/2017, 14:32. [...] 72 Gender: F Pt. Type: ER Account: [id number] Location: 052 Ordering: GEORGE WADE Exam Date: 11/15/2017/22:22 Family Phys: NESS REIS Charge Code: [id number] Physician: [place] Order #: [id number] DLP Dose#: 52.30 1. Paranasal sinusitis. Mucosal thickening in the left sphenoid sinus is less than on prior exam. 2. There is no evidence of acute intracranial abnormality. 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 Dictated by: Angie Underwood MD on 11/16/2017 at 9:20 Approved by: Angie Underwood MD on 11/16/2017 at 9:20 CHEST AP Observed: 11/15/2017 Status: F Source: [facility] 10:02 PM [place] [address] Patient: TRINA DE Phone#: : 1945 Age: 72 Gender: F Pt. Type: ER Account: [id number] Location: 052 Ordering: GEORGE WADE Exam Date: 11/15/2017/21:49 Family Phys: NESS REIS Charge Code: [id number] Physician: [place] Order #: [id number] DLP Dose#: PROCEDURE: X-RAY CHEST AP 1 VIEW COMPARISON: [facility], XR, CHEST AP, 05/10/2017, 15:00. INDICATIONS: [...] Status: F Source: DESMOND BOWLES 9:35 PM [facility] REPOSITORY TYPE CODE TESTS RESULT OUT [...] 7.10 x10EE3/U L Neut # 5.30 LAB Dimmit #(LOINC) 0.20 - 1.00 x10EE3/U L Dimmit # 0.70 LAB EO #(LOINC) 0.00 - 0.50 x10EE3/U L EO # 0.40 LAB Baso #(LOINC) 0.00 - 0.10 x10EE3/U L Baso # 0.10 LAB MANUAL DIFF(LOINC) MANUAL DIFF N/A LAB MORPHOLOGY([facility] ) MORPHOLOGY N/A Result Comment: {CD] Performed By: #### [id number] #### [place] [address] PROTHROMBIN TIME AND Collected: 11/15/2017 Status: F Source: [facility] INR 9:35 PM [facility] REPOSITORY TYPE CODE TESTS RESULT OUT [...] 3.5 MECHANICAL HEART VALVES Performed By: #### [id number] #### [place] [address] CMP WITH EGFR Collected: 11/15/2017 Status: F Source: [facility] 9:35 PM [facility] REPOSITORY TYPE CODE TESTS RESULT OUT [...] OF AGE AND OLDER. Performed By: #### [id number] #### [facility],[address] [place] [address] TROPONIN Collected: 11/15/2017 Status: F Source: [facility] 9:35 PM [facility] REPOSITORY TYPE CODE TESTS RESULT OUT [...] such as heterophile antibodies). Performed By: #### [id number] #### [facility],[address] [place] [address] APTT Collected: 11/15/2017 Status: F Source: DESMOND BOWLES 9:35 PM [facility] REPOSITORY TYPE CODE TESTS RESULT OUT OF RANGE REFERENCE UNITS LAB PTT(LOINC) 21.6 - 35.4 sec PTT 32.3 Performed By: #### [id number] #### [facility],[address] [place] [address]RAIN W/O CONTRAST Observed: 11/11/2017 Status: F Source: DESMOND BOWLES 2:45 PM [facility] REPOSITORY [place] [address] Patient: TRINA DE Phone#: : 1945 Age: 72 Gender: F Pt. Type: ER Account: [id number] Location: [facility] Ordering: MARCOS MORRIS Exam Date: 11/11/2017/14:32 Family Phys: NESS REIS Charge Code: [id number] Physician: [place] Order #: [id number] DLP Dose#: PROCEDURE: CT BRAIN WITHOUT CONTRAST COMPARISON: [facility], CT, BRAIN W/O CON, 05/21/2017, 12:03. [...] 72 Gender: F Pt. Type: ER Account: [id number] Location: 052 Ordering: MARCOS MORRIS Exam Date: 11/11/2017/14:32 Family Phys: NESS REIS Charge Code: [id number] Physician: [place] Order #: [id number] DLP Dose#: 1. There is no evidence [...] TIME AND Collected: 10/22/2017 Status: F Source: [facility] INR 3:40 AM [facility] REPOSITORY TYPE CODE TESTS RESULT OUT [...] 3.5 MECHANICAL HEART VALVES Performed By: #### [id number] #### [facility],[address] [place], [place] [address] ALLERGIES ALLERGIES DATE TYPE / CODE NAME / CODE REACTION SEVERITY SOURCE 10/05/2018 Drug zolpidem CONFUSION Unknown [place] [facility] Allergy/416 tartrate/M26635 Hospital 720716(SNOM 4147(RXNORM) Repository ED CT) 10/05/2018 Drug Penicillins/F00 Rash Unknown [place] [facility] Allergy/110 8102659(RXNORM) Hospital 662254(SNOM Repository ED CT) Drug PCN Moderate [place] Pomerene Allergy/416 (penicillin)/00 ([facility] 093463(SNOM 156861(RXNORM) Modifier) Repository ED CT) (Qualifier Value) Drug AMBIEN/55202585 Moderate Des[place] Pomerene Allergy/416 (RXNORM) ([facility] 222921(SNOM Modifier) Repository ED CT) (Qualifier Value) Drug BENADRYL Moderate [place] Pomerene Allergy/416 ALLERGY/1445582 ([facility] 860175(SNOM 6(RXNORM) Modifier) Repository ED CT) (Qualifier Value) Drug GENERIC Moderate Des[place] Pomerene Allergy/416 SEROQUEL/038345 ([facility] 230928(SNOM 11(RXNORM) Modifier) Repository ED CT) (Qualifier Value) ENCOUNTERS ENCOUNTERS ADMIT/DISCHARGE ACCOUNT ADMITTING ENCOUNTER LOCATION SOURCE NUMBER CLASS 11/02/2018 [id number] [place] 1 [facility] ing:OLS.AVEB Repository 10/26/2018 [id number] Ambulatory [place] 0 [facility] ing:OLS.AVEB Repository 10/25/2018 [id number] Ambulatory [place] 2 [facility] ing:OLS.AVEB Repository 10/20/2018 [id number] Ambulatory [place] 7 [facility] ing:OLS.AVEB Repository 10/19/2018 [id number] Ambulatory [place] 1 [facility] ing:OLS.AVEB Repository 10/18/2018 [id number] Ambulatory [place] 2 [facility] ing:OLS.AVEB Repository 10/17/2018 [id number] Ambulatory [place] 3 [facility] ing:OLS.AVEB Repository 10/16/2018 [id number] Ambulatory [place] 1 [facility] ing:OLS.AVEB Repository 10/15/2018 [id number] Ambulatory [place] 5 [facility] ing:OLS.AVEB Repository 10/12/2018/ [id number] YANIC ZARATE Ambulatory Desmond Vy 9 [facility] Repository 10/07/2018 [id number] [place] 3 [facility] ing:OLS.AVEB Repository 10/06/2018 [id number] Ambulatory [place] 8 [facility] ing:OLS.AVEB Repository 10/05/2018/ [id number] Emergency [place] 8 2 [facility] ing:ED Repository 09/28/2018 [id number] Ambulatory [place] 5 [facility] ing:OLS.AVEB Repository 2018 [id number] Ambulatory [place] 4 [facility] ing:OLS.AVEB Repository 08/17/2018 [id number] Ambulatory BMSBuilding:B [place] 4 [facility] Repository 08/16/2018 [id number] [place] 4 [facility] ing:OLS.AVEB Repository 08/04/2018 [id number] Ambulatory [place] 1 [facility] ing:OLS.AVEB Repository 07/21/2018 [id number] Ambulatory [place] 5 [facility] ing:OLS.AVEB Repository 07/19/2018 [id number] Ambulatory [place] 0 [facility] ing:OLS.AVEB Repository 07/08/2018 [id number] Ambulatory [place] 3 [facility] ing:OLS.AVEB Repository 07/06/2018 [id number] [place] 2 [facility] ing:OLS.AVEB Repository 06/21/2018 [id number] Ambulatory [place] 6 [facility] ing:OLS.AVEB Repository 06/15/2018 [id number] Ambulatory [place] 3 [facility] ing:OLS.AVEB Repository 05/17/2018 [id number] Ambulatory [place] She[place] 4 [facility] ing:OLS.AVEB Repository 05/13/2018 [id number] Ambulatory [place] 2 [facility] ing:OLS.AVEB Repository 04/26/2018 [id number] [place] 5 [facility] ing:OLS.AVEB Repository 04/19/2018 [id number] Ambulatory [place] 6 [facility] ing:OLS.AVEB Repository 04/12/2018 [id number] Ambulatory [place] She[place] 1 [facility] ing:OLS.AVEB Repository 04/05/2018 [id number] Ambulatory [place] 6 [facility] ing:OLS.AVEB Repository 04/01/2018 [id number] Ambulatory [place] 6 [facility] ing:OLS.AVEB Repository 03/29/2018 [id number] Ambulatory [place] 3 [facility] ing:OLS.AVEB Repository 03/22/2018 [id number] [place] 4 [facility] ing:OLS.AVEB Repository 03/19/2018 [id number] Ambulatory [place] 3 [facility] ing:OLS.AVEB Repository 03/15/2018 [id number] Ambulatory [place] 7 [facility] ing:OLS.AVEB Repository 01/28/2018/ [id number] [facility] LEESA [facility] Repository 01/19/2018/ [id number] [facility], Ambulatory BuildinR Desmond Bowles 8 LEESA COOK oom: [address] [place] [address] Repository 01/12/2018/ [id number] Ambulatory BMSBuilding:B [place] 8 0 [facility] Repository 01/12/2018 [id number] Ambulatory BMSBuilding:B [place] 7 [facility] Repository 11/20/2017/ [id number] [facility] LANDERS [facility] Repository 11/15/2017/ [id number] GEORGE WADE Emergency Buildin[address] [place] [address] 8 DO oom: ERBed: G [facility] Repository 11/11/2017/ [id number] DR MARCOS MORRIS Emergency Buildin[address] [place] [address] 8 C oom: ERBed: F [facility] Repository 10/12/2017/ [id number] ERIC, [facility] [address] [facility] Repository PAYERS PAYERS ENCOUNTER GUARANTOR PAYER SUBSCRIBER SOURCE 11/02/2018 TRINA Berry Primary Insurance:SELF NOT GIVENUNK [place] [id number] STATE PAY INSURANCEPolicy Community [address] Number: Effective Hospital [place] Date:2018-11-02 [place] [address]Xmo: () 10/26/2018 TRINA F Primary Insurance:SELF NOT GIVENUNK [place] [id number] STATE PAY INSURANCEPolicy Community ROUTE Number: Effective Hospital [address] [place] [address], [place] Date:2018-10-26 Repository [address]57[address]Ojx: () 10/25/2018 TRINA F Primary Insurance:SELF NOT GIVENUNK [place] [id number] STATE PAY INSURANCEPolicy Community ROUTE Number: Effective Hospital [address] [place] [address] Date:2018-10-25 Repository [address]16[address]Ish: () 10/20/2018 TRINA F Primary TRINA Kristi [place] [id number] STATE Insurance:MYCARE [facility] CRISSDOB: Community [address] *IN NETWORKPolicy [id number] Hospital [place] Number: Repository [place] [id number]: 330) Date:5340-24-81UM [phone] () [address] [place] [phone]: 10/20/2018 Secondary WILBERT L [place] Insurance:ANTHEMPolicy CRISSDOB: Community Number: [id number] Hospital [id number] Repository Date:1051-41-65[address], [place] [address]YM: 10/20/2018 Tertiary NOT GIVENUNK [place] Insurance:SELF PAY [facility] Number: Effective Repository Date:2018-10-20 10/19/2018 TRINA Berry Primary TRINA Berry [place] [id number] STATE Insurance:[facility] CRISSDOB: Community [address]/O *IN [facility] [id number] Hospital [place] Number: leandro Torre [id number]: (330) Date:1011-13-36[phone] ([address] [address]TH: 10/19/2018 Secondary WILBERT L [place] Insurance:ANTHEMPolicy CRISSDOB: Community Number: [id number] Hospital [id number] Repository Date:2688-72-10ZE [address] [place] [address] 425[address]NK: 10/19/2018 Tertiary NOT GIVENUNK [place] Insurance:SELF PAY [facility] Number: Effective Repository Date:2018-10-19 10/18/2018 TRINA Berry Primary TRINA Berry [place] [id number] STATE Insurance[facility] CRISSDOB: Community [address]/O *IN [facility] [id number] Hospital [place] Number: leandro Torre [id number]: (330) Date:0788-09-05HK [phone] () [address] [place] [address]JU: 10/18/2018 Secondary WILBERT L [place] Insurance:ANTHEMPolicy CRISSDOB: Community Number: [id number] Hospital [id number] Repository Date:0454-86-18IF [address] [place] [address] 10823RZ: 10/18/2018 Tertiary NOT GIVENUNK [place] Insurance:SELF PAY [facility] Number: Effective Repository Date:2018-10-18 10/17/2018 TRINA Berry Primary TRINA Berry [place] [id number] STATE Insurance:MYCARE [employer] CRISSDOB: Community [address]/O *IN [facility] [id number] Hospital [place] Number: Repository leandro [place] [id number]: (330) Date:0088-91-92HZ [phone] () [address] [place] [address]XW: 10/17/2018 Secondary WILBERT L [place] Insurance:ANTHEMPolicy CRISSDOB: Community Number: [id number] Hospital [id number] Repository Date:7380-68-42JE [address] [place] [address] 329[address]YY: 10/17/2018 Tertiary NOT GIVENUNK [place] Insurance:SELF PAY [facility] Number: Effective Repository Date:2018-10-17 10/16/2018 TRINA F Primary TRINA F [place] [id number] STATE Insurance:[facility] CRISSDOB: Community [address]/O *IN [facility] [id number] Hospital [place] Number: Repository leandro [place] [id number]: (330) Date:0959-19-66JA [phone] () [address] [place] [phone]: 10/16/2018 Secondary WILBERT L [place] Insurance:ANTHEMPolicy CRISSDOB: Community Number: [id number] Hospital [id number] Repository Date:5930-01-12QB [address] [place] [address] 979[address]KP: 10/16/2018 Tertiary NOT GIVENUNK [place] Insurance:SELF PAY [facility] Number: Effective Repository Date:2018-10-16 10/15/2018 TRINA F Primary TRINA F [place] [id number] STATE Insurance:[facility] CRISSDOB: Community [address]/O *IN [address]11-20[facility] [place] Number: Repository leandro [place] [id number]: (330) Date:3243-24-59LX [phone] () [address] [place] [address]YV: 10/15/2018 Secondary WILBERT L [place] Insurance:ANTHEMPolicy CRISSDOB: Community Number: [id number] Hospital [id number] Repository Date:5374-24-46LX [address] [place] [address] 34660DA: 10/15/2018 Tertiary NOT GIVENUNK [place] Insurance:SELF PAY [facility] Number: Effective Repository Date:2018-10-15 10/12/2018 TRINA F Primary TRINA CRISSDOB: Desmond Pomerene CRISSDOB: Insurance:MEDICARE [id number] [facility] RECURRING / REFERENCE [address] [place] [address] Number: [place] Repository 754%[place] [id number] [facility] [place] Date:Plan Name: [id number]: () 10/12/2018 Secondary WILBERT Bowles Insurance:ANTHEM BLUE CRISSDOB: [facility] [id number] [place] [address] Repository Number: [place] [id number] Date: 10/07/2018 TRINA F Primary TRINA F [place] [id number] STATE Insurance:[facility] CRISSDOB: Community [address]/O *IN [facility] [id number] [facility] [place] Number: Repository [facility] [place] [id number] [id number]: (330) Date:9650-18-97HN [phone] () [address] [place] [address]HP: 10/07/2018 Secondary WILBERT L [place] Insurance:ANTHEMPolicy CRISSDOB: Community Number: [id number] Hospital [id number] Repository Date:2023-49-36QT [address] [place] [address] 30389OJ: 10/07/2018 Tertiary NOT GIVENUNK [place] Insurance:SELF PAY [facility] Number: Effective Repository Date:2018-10-07 10/06/2018 TRINA F Primary TRINA F [place] [id number] STATE Insurance[facility] CRISSDOB: Community [address]O *IN [facility] [id number] Hospital [place] Number: Repository leandro [place] [id number] [phone]: (330) Date:9349-70-17TD [phone] ([address] [address]QW: 10/06/2018 Secondary WILBERT L [place] Insurance:ANTHEMPolicy CRISSDOB: Community Number: [id number] Hospital [id number] Repository Date:5229-02-71DK [address]VUQXTAM [place] [address]VW: 10/06/2018 Tertiary NOT GIVENUNK [place] Insurance:SELF PAY [facility] Number: Effective Repository Date:2018-10-06 10/05/2018 TRINA F Primary TRINA F [place] [id number] STATE Insurance:[facility] CRISSDOB: Community [address]/O *IN [facility] [id number] Hospital [place] Number: Repository leandro [place] [id number] [phone]: (330) Date:7561-84-37XI [phone] ([address] [address]RM: 10/05/2018 Secondary WILBERT L [place] Insurance:ANTHEMPolicy CRISSDOB: Community Number: [id number] Hospital [id number] Repository Date:7977-65-17ZZ [address]EUKYLQC [place] [address]CV: 10/05/2018 Tertiary NOT GIVENUNK [place] Insurance:SELF PAY [facility] Number: Effective Repository Date:2018-10-05 09/28/2018 TRINA F Primary TRINA F [place] [id number] STATE Insurance:MYCARE [employer] CRISSDOB: Community [address]O *IN [facility] [id number] Hospital [place] Number: Repository leandro [place] [id number] [phone]: (330) Date:3071-08-67RX [phone] () [address] [place] [address]XJ: 09/28/2018 Secondary WILBERT L [place] Insurance:ANTHEMPolicy CRISSDOB: Community Number: [id number] Hospital [id number] Repository Date:4416-19-97RX [address] [place] [address] 91928LG: 09/28/2018 Tertiary NOT GIVENUNK [place] Insurance:SELF PAY [facility] Number: Effective Repository Date:2018-09-28 2018 TRINA F Primary TRINA F [place] [id number] STATE Insurance[facility] CRISSDOB: Community [address]/O *IN [facility] [id number] Hospital [place] Number: Repository [place]IV[place]EN[place] [id number] [address]Kil: (330) Date:6079-83-16ZQ [phone] () [address] [place] [address]ZV: 2018 Secondary WILBERT L [place] Insurance:ANTHEMPolicy CRISSDOB: Community Number: [id number] Hospital [id number] Repository Date:6067-06-83QK [address] [place] [address] 78914HO: 2018 Tertiary NOT GIVENUNK [place] Insurance:SELF PAY [facility] Number: Effective Repository Date:2018 08/17/2018 TRINA F Primary TRINA F [place] [id number] STATE Insurance:MEDICARE CRISSDOB: Community ROU[address] PART A BPolicy Number: [id number] Hospital [address], [place] [id number] Repository [address]Foh: (330) Date:2018-01-12 [phone] () 08/17/2018 Secondary TRINA F [place] Insurance:MEDICAIDPoli CRISSDOB: Community cy Number: [id number] Hospital [id number] Repository Date:2018-01-12 08/17/2018 Tertiary NOT GIVENUNK [place] Insurance:SELF PAY [facility] Number: Effective Repository Date:2018-06-21 08/16/2018 TRINA F Primary TRINA F [place] [id number] STATE Insurance:MYCARE [facility] CRISSDOB: Community [address]/O *IN [facility] [id number] Hospital [place] Number: Repository [place] [id number] [phone]: (330) Date:0090-09-46RM [phone] () [address] [place] [address]LJ: 08/16/2018 Secondary TRINA F [place] Insurance:ANTHEMPolicy CRISSDOB: Community Number: [id number] Hospital [id number] Repository Date:0307-31-16ZX [address]CNUNWJP, [place] [address]VM: 08/16/2018 Tertiary NOT GIVENUNK [place] Insurance:SELF PAY [facility] Number: Effective Repository Date:2018-08-16 08/04/2018 TRINA F Primary TRINA F [place] [id number] STATE Insurance:[facility] CRISSDOB: Community [address]/O *IN [facility] [id number] Hospital [place] Number: Repository [place] [id number] 44[address]Row: (330) Date:3096-46-25JZ [phone] () [address] [place] [address]NB: 08/04/2018 Secondary WILBERT L [place] Insurance:ANTHEMPolicy CRISSDOB: Community Number: [id number] Hospital [id number] Repository Date:0766-30-30UU [address]82YCECLQT [place] [address]AL: 08/04/2018 Tertiary NOT GIVENUNK [place] Insurance:SELF PAY [facility] Number: Effective Repository Date:2018-08-04 07/21/2018 TRINA Berry Primary TRINA Berry [place] [id number] STATE Insurance:MYCARE [facility] CRISSDOB: Community [address]/O *IN [address]11-20[facility] [place] Number: leandro Torre [id number] [address]36[address]Bcx: (330) Date:8030-76-29WY [phone] ([address] [address]LZ: 07/21/2018 Secondary WILBERT L [place] Insurance:ANTHEMPolicy CRISSDOB: Community Number: [id number] Hospital [id number] Repository Date:4788-82-83NV [address] [place] [address] 12865DA: 07/21/2018 Tertiary NOT GIVENUNK [place] Insurance:SELF PAY [facility] Number: Effective Repository Date:2018-07-21 07/19/2018 TRINA Berry Primary TRINA Berry [place] [id number] STATE Insurance:[facility] CRISSDOB: Community [address]/O *IN [address]11-20[facility] [place] Number: leandro Torre [id number] [phone]: (330) Date:8996-42-80KK [phone] () [address] [place] [address]GE: 07/19/2018 Secondary WILBERT L [place] Insurance:ANTHEMPolicy CRISSDOB: Community Number: [id number] Hospital [id number] Repository Date:8204-19-40NO [address] [place] [address] 08281VP: 07/19/2018 Tertiary NOT GIVENUNK [place] Insurance:SELF PAY [facility] Number: Effective Repository Date:2018-07-19 07/08/2018 TRINA Kristi Primary TRINA Kristi [place] [id number] STATE Insurance:MYCARE [facility] CRISSDOB: Community [address]/O *IN [facility] [id number] Hospital [place] Number: Repository leandro [place] [id number] 10337Vmf: (330) Date:8964-02-20PX [phone] () [address] [place] [address]ML: 07/08/2018 Secondary WILBERT L [place] Insurance:ANTHEMPolicy CRISSDOB: Community Number: [id number] Hospital [id number] Repository Date:9272-80-55TE [address] [place] [address] 67687TA: 07/08/2018 Tertiary NOT GIVENUNK [place] Insurance:SELF PAY [facility] Number: Effective Repository Date:2018-07-08 07/06/2018 TRINA F Primary TRINA F [place] [id number] STATE Insurance[facility] CRISSDOB: Community [address]/O *IN [address]11-20[facility] [place] Number: Repository leandro [place] [id number] 99[address]Czj: (330) Date:4257-25-39JK [phone] () [address] [place] [address]AS: 07/06/2018 Secondary WILBERT L [place] Insurance:ANTHEMPolicy CRISSDOB: Community Number: [id number] Hospital [id number] Repository Date:3597-62-43SM [address] [place] [address] 539[address]EA: 07/06/2018 Tertiary NOT GIVENUNK [place] Insurance:SELF PAY [facility] Number: Effective Repository Date:2018-07-06 06/21/2018 TRINA F Primary TRINA F [place] [id number] STATE Insurance:[facility] CRISSDOB: Community [address]/O *IN [address]11-20[facility] [place] Number: Repository leandro [place] [id number] 095[address]Nnt: (330) Date:7147-34-79OU [phone] () [address] [place] [address]RB: 06/21/2018 Secondary WILBERT L [place] Insurance:ANTHEMPolicy CRISSDOB: Community Number: [id number] Hospital [id number] Repository Date:6084-23-00EX [address]QQIKLWD [place] [address]KB: 06/21/2018 Tertiary NOT GIVENUNK [place] Insurance:SELF PAY [facility] Number: Effective Repository Date:2018-06-21 06/15/2018 TRINA F Primary TRINA F [place] [id number] STATE Insurance:MYCARE [facility] CRISSDOB: Community [address]/O *IN [facility] [id number] Hospital [place] Number: Repository [facility] [place] [id number] [address]Voh: 330) Date:7685-91-36AB [phone] () [address] [place] [address]LM: 06/15/2018 Secondary WILBERT L [place] Insurance:ANTHEMPolicy CRISSDOB: Community Number: [id number] Hospital [id number] Repository Date:9714-76-79EN [address]CGEAWCZ, [place] [address]AN: 06/15/2018 Tertiary NOT GIVENUNK [place] Insurance:SELF PAY [facility] Number: Effective Repository Date:2018-06-15 05/17/2018 Trina F Primary Trina F [place] [id number] STATE Insurance:MEDICARE CrissDOB: Community ROUTE PART A BPolicy Number: [id number] Hospital [place], [place] [id number] Repository 18[address]Djc: (330) Date:2018-05-17 [phone] () 05/17/2018 Secondary Wilbert L [place] Insurance:ANTHEMPolicy CrissDOB: Community Number: [id number] Hospital [id number] Repository Date:6546-87-70WW [address]VEWNVLN, [place] [address]VK: 05/17/2018 Tertiary NOT GIVENUNK [place] Insurance:SELF PAY [facility] Number: Effective Repository Date:2018-05-17 05/13/2018 Trina Berry Primary Trina Berry [place] [id number] STATE Insurance:MEDICARE CrissDOB: Community ROUTE PART A BPolicy Number: [id number] [id number] Repository [address]Mfp: (495) Date:2018-05-13 [phone] () 05/13/2018 Secondary Wilbert L [place] Insurance:ANTHEMPolicy CrissDOB: Community Number: [id number] Hospital [id number] Repository Date:4948-02-25YM [address] [place] [address] 35016QJ: 05/13/2018 Tertiary NOT GIVENUNK [place] Insurance:SELF PAY [facility] Number: Effective Repository Date:2018-05-13 04/26/2018 Trina Berry Primary Trina Berry [place] [id number] STATE Insurance:MEDICARE CrissDOB: Community ROUTE PART A BPolicy Number: [id number] [id number] Repository [address]Rtg: 330) Date:2018-04-26 [phone] () 04/26/2018 Secondary Wilbert L [place] Insurance:ANTHEMPolicy CrissDOB: Community Number: [id number] Hospital [id number] Repository Date:6954-37-45AR [address] [place] [address] 209[address]HJ: 04/26/2018 Tertiary NOT GIVENUNK [place] Insurance:SELF PAY [facility] Number: Effective Repository Date:2018-04-26 04/19/2018 Trina Berry Primary Trina Berry [place] [id number] STATE Insurance:MEDICARE CrissDOB: Community ROUTE PART A BPolicy Number: [id number] [id number] Repository [address]Zth: (330) Date:2018-04-19 [phone] () 04/19/2018 Secondary Wilbert L [place] Insurance:ANTHEMPolicy CrissDOB: Community Number: [id number] Hospital [id number] Repository Date:5387-53-88QO [address]SPMWLDB, [place] [address]JB: 04/19/2018 Tertiary NOT GIVENUNK [place] Insurance:SELF PAY [facility] Number: Effective Repository Date:2018-04-19 04/12/2018 Trina Berry Primary Trina Berry [place] [id number] STATE Insurance:MEDICARE CrissDOB: Community ROUTE PART A BPolicy Number: [id number] [id number] Repository [address]Nhh: 330) Date:2018-04-12 [phone] () 04/12/2018 Secondary Trina F [place] Insurance:ANTHEMPolicy CrissDOB: Community Number: [id number] Hospital [id number] Repository Date:5138-37-88JP [address]CDFCXPV, [place] [address]CE: 04/12/2018 Tertiary NOT GIVENUNK [place] Insurance:SELF PAY [facility] Number: Effective Repository Date:2018-04-12 04/05/2018 Trina Berry Primary Trina Berry [place] [id number] SR Insurance:MEDICARE CrissDOB: Community [address] [place] [address] PART A BPolicy Number: [id number] Hospital 45[address]Oap: 330 [id number] Repository [phone] () Date:2018-04-05 04/05/2018 Secondary Wilbert L [place] Insurance:ANTHEMPolicy CrissDOB: Community Number: [id number] Hospital [id number] Repository Date:3789-27-05YF [address]CRJNZAV, [place] [address]ZB: 04/05/2018 Tertiary NOT GIVENUNK [place] Insurance:SELF PAY [facility] Number: Effective Repository Date:2018-04-05 04/01/2018 Trina Berry Primary Trina F [place] [id number] STATE Insurance:MEDICARE CrissDOB: Community ROUTE PART A BPolicy Number: [id number] [id number] Repository [address]Swt: 330) Date:2018-04-01 [phone] () 04/01/2018 Secondary Trina F [place] Insurance:ANTHEMPolicy CrissDOB: Community Number: [id number] Hospital [id number] Repository Date:4111-46-94YR [address] [place] [address] 83614EU: 04/01/2018 Tertiary NOT GIVENUNK [place] Insurance:SELF PAY [facility] Number: Effective Repository Date:2018-04-01 03/29/2018 Trina Berry Primary Trina Berry [place] [id number] SR Insurance:MEDICARE CrissDOB: Community [address] [place] [address] PART A BPolicy Number: [id number] Hospital 66289Hlc: 330 [id number] Repository [phone] () Date:2018-03-29 03/29/2018 Secondary Wilbert Morales [place] Insurance:ANTHEMPolicy CrissDOB: Community Number: [id number] Hospital [id number] Repository Date:1049-96-76KJ [address]ELBYHYS, [place] [address]MS: 03/29/2018 Tertiary NOT GIVENUNK [place] Insurance:SELF PAY [facility] Number: Effective Repository Date:2018-03-29 03/22/2018 Trina Berry Primary Trina Kristi [place] [id number] SR Insurance:MEDICARE CrissDOB: Community [address] [place] [address] PART A BPolicy Number: [id number] Hospital 60[address]Jxl: 330 [id number] Repository [phone] () Date:2018-03-22 03/22/2018 Secondary Trina F [place] Insurance:ANTHEMPolicy CrissDOB: Community Number: [id number] Hospital [id number] Repository Date:5979-60-51ZT [address] [place] [address] 71201ZH: 03/22/2018 Tertiary NOT GIVENUNK [place] Insurance:SELF PAY Community [facility] Number: Effective Repository Date:2018-03-22 03/19/2018 TRINA F Primary TRINA F [place] [id number] STATE Insurance:MEDICARE CRISSDOB: Community [address]/O PART A BPolicy Number: [id number] [facility] [id number] Repository [place] Date:2018-03-19 67889Ryj: () 03/19/2018 Secondary TRINA F [place] Insurance:MEDICAIDPoli CRISSDOB: Community cy Number: [id number] Hospital [id number] Repository Date:2018-03-19 03/19/2018 Tertiary NOT GIVENUNK [place] Insurance:SELF PAY [facility] Number: Effective Repository Date:2018-03-19 03/15/2018 Wilbert L Primary Wilbert Morales [place] [id number] SR Insurance:ANTHEMPolicy CrissDOB: Community [place] Number: [id number] Hospital 504[address]Bjf: (954) [id number] Repository [phone] () Date:9038-05-02BC [address] [place] [address] 57955JA: 03/15/2018 Secondary Trina F [place] Insurance:MEDICARE CrissDOB: Community PART A BPolicy Number: [id number] Hospital [id number] Repository Date:2018-03-15 03/15/2018 Tertiary NOT GIVENUNK [place] Insurance:SELF PAY [facility] Number: Effective Repository Date:2018-03-15 01/28/2018 TRINA F Primary Insurance:500 TRIAN F Desmond Bowles CRISSDOB: MEDICARE CRISSDOB: [facility] OUTPATIENTPolic [id number] [facility] RT Number: [address] Repository 754%[place] [id number] [address] [place] [address] Date:Plan Name: [id number]: () 01/28/2018 Secondary WILBERT Bowles Insurance:BLUE CROSS CRISSDOB: [address] [id number] [facility] [address] Repository Number: [place]54[place] [id number] Date:Plan Name: 01/28/2018 Tertiary TRINA Bowles Insurance:MEDICAID CRISSDOB: [facility] [id number] Hospital Number: [address] Repository [id number] 754%[place] Date:Plan Name: AMOR [place] [id number] 01/19/2018 TRINA Berry Primary Insurance:500 TRINA [place] CRISSDOB: MEDICARE CRISSDOB: [facility] [id number] [place] [address] [id number] [facility] RT Number: [address] Repository 754[place] [id number] [place] Date:Plan Name: [id number]: () 01/19/2018 Secondary WILBERT Bowles Insurance:BLUE CROSS CRISSDOB: [address] [id number] [facility] [address] Repository Number: 754[place] [id number] Date: 01/12/2018 TRINA F Primary TRINA F [place]ree [id number] SR Insurance:MEDICARE CRISSDOB: [facility] [place] PART A BPolicy Number: [id number] [facility] 81477Wij: [id number] Repository [phone] Date:2017-09-24 0-4 () 01/12/2018 Secondary TRINA F [place] Insurance:MEDICAIDPoli CRISSDOB: Community cy Number: [id number] [facility] [id number] Repository Date:2017-09-24 01/12/2018 Tertiary NOT GIVENUNK [place] Insurance:SELF PAY [facility] Number: Effective Repository Date:2017-09-24 01/12/2018 Trina Kristi Primary Trinaboubacar Bentley [id number] Sr Insurance:MEDICARE CrissDOB: Community [place] PART A BPolicy Number: [id number] Hospital 15537Zet: (345) [id number] Repository [phone] () Date:2018-01-12 01/12/2018 Secondary Wilbert L [place] Insurance:ANTHEMPolicy CrissDOB: Community Number: [id number] Hospital [id number] Repository Date:4181-44-87GF[address] [address]QP: 01/12/2018 Tertiary NOT GIVENUNK [place] Insurance:SELF PAY [facility] Number: Effective Repository Date:2018-01-12 11/20/2017 TRINA Berry Primary Insurance:500 TRINA Berry Desmond Pomerene CRISSDOB: MEDICARE CRISSDOB: [facility] [id number] Number: [address] Repository [place] [id number] [place], [place] [id number]: Date:Plan Name: [id number] () 11/20/2017 Secondary WILBERT Morales Desmond [place]ome[place] Insurance:BLUE CROSS CRISSDOB: [facility] [address] [id number] [facility] OUTPATIENTPolicy [address] Repository Number: [place] [id number] Date:Plan Name: 11/15/2017 TRINA Kristi Primary Insurance:500 TRINA Kristi Desmond [place] CRISSDOB: MEDICARE CRISSDOB: [facility] [id number] RT Number: [address] Repository [place], [place] [id number] [place], [place] [id number]: Date:Plan Name: [id number] (HP) 11/15/2017 Secondary WILBERT Myerserene Insurance:BLUE CROSS CRISSDOB: [address] [id number] [facility] RT Repository Number: [place] [id number] Date:Plan Name:B2 11/11/2017 TRINA Berry Primary Insurance:500 TRINA Kristi [place] CRISSDOB: MEDICARE CRISSDOB: [facility] OUTPATIENTPolicy [id number] RT Number: 7 RT Repository [place], [place] [id number] [place], [place] [id number]: Date:Plan Name: [id number] (HP) 11/11/2017 Secondary WILBERT L Desmond [place] Insurance:BLUE CROSS CRISSDOB: [address] [id number] Hospital OUTPATIENTPol[address] RT Repository Number: [place], [place] [id number] Date:Plan Name: 10/12/2017 TRINA Kristi Primary TRINA CRISSDOB: Desmond [place]burnne CRISSDOB: Insurance:MEDICARE [id number] [facility] RECURRING / REFERENCE [address] [place] [address] RT LABPolicy Number: [place] Repository 754%[place] [id number] [place] Date:Plan Name: [id number]: (HP) 10/12/2017 Secondary WILBERTJENNA Logan [place] Insurance:ANTHEM BLUE CRISSDOB: [facility] [id number] Hospital RECURRINGPolic[address] Repository Number: [place], [place] [id number] Date:
== END ==
LOC: OLS.AVEB 05:00
PROVIDERS: Visit Provider Family Medicine
DX: Z79.01 Long term (current) use of anticoagulants (principal)
CPT/HCPCS: 36416; 85610

== ENCOUNTER → 2018-11-09 05:00 | Outpatient (REF) | payer MEDICARE, BC, SELFPAY ==
[2018-11-09 07:20] LABS: Prothrombin Time Fingerstick 31.6 SEC (11.9-14.4)
== END ==
LOC: OLS.AVEB 05:00
PROVIDERS: Visit Provider Family Medicine
DX: Z79.01 Long term (current) use of anticoagulants (principal)
CPT/HCPCS: 36416; 85610

== ENCOUNTER → 2018-11-22 05:00 | Outpatient (REF) | payer MEDICARE, BC, SELFPAY ==
[2018-11-22 09:00] LABS: Hematocrit 38.3 % (37-47); Hemoglobin 11.7 g/dl (12.0-15.0); Mean Corp Hgb Conc 30.5 g/gl (32-36); Mean Corpuscular Hgb 28.5 pg (27.0-32.0); Mean Corpuscular Volume 93.4 fL (81-99); Mean Platelet Vol. 10.7 fl (6.2-12.0); Platelet Count 317 K/mm3 (150-450); RBC Distribution Width CV 13.5 % (11.6-14.6); RBC Distribution Width SD 45.8 fl (35.1-43.9); White Blood Count 9.4 K/mm3 (4.4-11.0)
[2018-11-22 09:01] LABS: Scan Indicated on CBC? Y/N NO
[2018-11-22 09:22] LABS: AST(SGOT) 19 U/L (15-37); Alanine Aminotransfer ALT/SGPT 26 U/L (13-56); Albumin, Serum 3.2 g/dL (3.2-5.0); Alkaline Phosphatase 174 U/L (45-117); Anion Gap 5 (5-15); BUN 21 mg/dL (7-18); BUN/Creat Ratio 24.8 RATIO (10-20); Calcium,Total 8.4 mg/dL (8.5-10.1); Chloride 109 mmol/L (98-107); Creatinine, Serum 0.85 mg/dL (0.55-1.02); EST Glomerular Filtration Rate 70 mL/min (>60); Est Glom Filt Rate - Afr Amer 85 mL/min (>60); Globulin 3.3 g/dL (2.2-4.2); Glucose 78 mg/dL (74-106); Potassium 4.1 mmol/L (3.5-5.1); Protein, Total 6.5 g/dL (6.4-8.2); Sodium Level 143 mmol/L (136-145); Thyroid Stim Hormone (TSH) 3.01 uIU/mL (0.358-3.74)
== END ==
LOC: OLS.AVEB 05:00
PROVIDERS: Visit Provider Family Medicine
DX: D64.9 Anemia, unspecified (principal); J44.9 Chronic obstructive pulmonary disease, unspecified; I10 Essential (primary) hypertension; E78.5 Hyperlipidemia, unspecified; E03.9 Hypothyroidism, unspecified
CPT/HCPCS: 36415; 80053; 84443; 85027

== ENCOUNTER → 2018-11-23 04:30 | Outpatient (REF) | payer MEDICARE, BC, SELFPAY ==
[2018-11-23 07:01] LABS: Prothrombin Time Fingerstick 32.2 SEC (11.9-14.4)
== END ==
LOC: OLS.AVEB 04:30
PROVIDERS: Visit Provider Family Medicine
DX: Z79.01 Long term (current) use of anticoagulants (principal)
CPT/HCPCS: 36416; 85610

== ENCOUNTER → 2018-11-29 06:05 | Outpatient (REF) | payer MEDICARE, BC, SELFPAY ==
[2018-11-29 08:19] LABS: Cholesterol 125 mg/dL (200); High Density Lipoprotein 44 mg/dL; Triglycerides 120 mg/dL; Very Low Density Lipoprotein 24 mg/dL (5-40)
== END ==
LOC: OLS.AVEB 06:05
PROVIDERS: Visit Provider Family Medicine
DX: I10 Essential (primary) hypertension (principal); J44.9 Chronic obstructive pulmonary disease, unspecified; F03.90 Unspecified dementia, unspecified severity, without behavioral disturbance, psychotic disturbance, mood disturbance, and anxiety
CPT/HCPCS: 36415; 80061

== ENCOUNTER → 2018-12-16 07:10 | Outpatient (REF) | payer MEDICARE, BC, SELFPAY ==
[2018-12-16 09:08] LABS: International Normalized Ratio 4.4; Prothrombin Time (Protime)PT. 42.8 SECONDS (11.7-14.9)
== END ==
LOC: OLS.AVEB 07:10
PROVIDERS: Visit Provider Family Medicine
DX: Z79.01 Long term (current) use of anticoagulants (principal)
CPT/HCPCS: 36415; 85610

== ENCOUNTER → 2018-12-17 07:25 | Outpatient (REF) | payer MEDICARE, BC, SELFPAY ==
[2018-12-17 08:42] LABS: Prothrombin Time (Protime)PT. 40.2 SECONDS (11.7-14.9)
[2018-12-17 08:51] LABS: Vitamin D,25 Hydroxy 33.6 ng/mL (29.95-100.01)
[2018-12-17 09:34] LABS: International Normalized Ratio 4.1
== END ==
LOC: OLS.AVEB 07:25
PROVIDERS: Visit Provider Family Medicine
DX: E55.9 Vitamin D deficiency, unspecified (principal); R53.83 Other fatigue; Z79.01 Long term (current) use of anticoagulants
CPT/HCPCS: 36415; 82306; 85610

== ENCOUNTER → 2018-12-20 07:10 | Outpatient (REF) | payer MEDICARE, BC, SELFPAY ==
[2018-12-20 08:59] LABS: International Normalized Ratio 1.5; Prothrombin Time (Protime)PT. 18.3 SECONDS (11.7-14.9)
== END ==
LOC: OLS.AVEB 07:10
PROVIDERS: Visit Provider Family Medicine
DX: Z79.01 Long term (current) use of anticoagulants (principal)
CPT/HCPCS: 36415; 85610

== ENCOUNTER → 2018-12-24 05:00 | Outpatient (REF) | payer MEDICARE, BC, SELFPAY ==
[2018-12-24 08:12] LABS: International Normalized Ratio 1.5; Prothrombin Time (Protime)PT. 18.1 SECONDS (11.7-14.9)
== END ==
LOC: OLS.AVEB 05:00
PROVIDERS: Visit Provider Family Medicine
DX: Z79.01 Long term (current) use of anticoagulants (principal)
CPT/HCPCS: 36415; 85610

== ENCOUNTER → 2018-12-28 07:35 | Outpatient (REF) | payer MEDICARE, BC, SELFPAY ==
[2018-12-28 09:02] LABS: International Normalized Ratio 1.6; Prothrombin Time (Protime)PT. 18.7 SECONDS (11.7-14.9)
== END ==
LOC: OLS.AVEB 07:35
PROVIDERS: Visit Provider Family Medicine
DX: Z79.01 Long term (current) use of anticoagulants (principal)
CPT/HCPCS: 36415; 85610

== ENCOUNTER → 2019-01-04 07:48 | Outpatient (REF) | payer MEDICARE, BC, SELFPAY ==
[2019-01-04 08:43] LABS: International Normalized Ratio 2.6; Prothrombin Time (Protime)PT. 27.5 SECONDS (11.7-14.9)
[2019-01-09 16:44] VITALS: BMI 26.0
== END ==
LOC: OLS.AVEB 07:48
PROVIDERS: Visit Provider Family Medicine
DX: Z79.01 Long term (current) use of anticoagulants (principal)
CPT/HCPCS: 36415; 85610

== ENCOUNTER 2019-01-09 14:30 | Inpatient (IN) | payer MEDICARE, BC, SELFPAY ==
[2019-01-09] VITALS (11 sets, daily range): BP systolic 101–136; BP diastolic 64–84; PULSE 77–103; RESP 20–26; TEMP 36.9–39.2; O2SAT 91–100; BMI 29.2; BMI 26.0; BMI 26.1
--- NOTE | 2019-01-09 14:33 | EKG12_ITS ---
Test Reason : FEVER Blood Pressure : / mmHG Vent. Rate : 076 BPM Atrial Rate : 076 BPM P-R Int : 170 ms QRS Dur : 070 ms QT Int : 370 ms P-R-T Axes : 012 003 032 degrees QTc Int : 416 ms Normal sinus rhythm Normal ECG Confirmed by SEAN COOK, CONNIE ([id number]), art editor BROOKE PARKER ([id number]) on 01/14/2019 11:37:55 AM Referred By: LATONIA Confirmed By:CONNIE ESTRADA MD
--- NOTE | 2019-01-09 14:35 | ED.VIS.GEN ---
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 Context: Sudden Onset Timing: Continuous Quality: Decreased level of consciousness, fever, breathing rapidly Location: Nursing facility Current Severity: Moderate Maximum Severity: Moderate Worsened by: History of frequent urinary tract infections Relieved by: Nothing Associated Symptoms: Unable Narrative: Patient is an elderly woman who resides at a nursing facility was brought to the emergency room because of decreased level of conscious, confusion, documented temperature 103.5 by detention in 102.1 by squad. Family arrived after her arrival. They informed me and the nurse that she has history of frequent urinary tract infections. She has voiced no complaints. Presently she is unable to voice any complaints. Prior similar symptoms: Yes - Urinary tract infection - Past Medical History (1) DVT, lower extremity, distal Status: Acute (2) Dysphagia as late effect of cerebrovascular accident (CVA) Status: Acute (3) Suspected cerebrovascular accident (CVA) Status: Acute (4) COPD (chronic obstructive pulmonary disease) Status: Chronic (5) Depression Status: Chronic Comment: Suspected Bipolar depression. (6) GERD (gastroesophageal reflux disease) Status: Chronic (7) HTN (hypertension) Status: Chronic (8) Hypothyroid Status: Chronic (9) Patent foramen ovale Status: Chronic (10) Stroke Status: Chronic Past Medical History - Allergies and Home Meds Allergies/Adverse Reactions: Allergies Penicillins Allergy (Verified 10/05/18 22:33) Rash zolpidem tartrate [From Ambien] Adverse Reaction (Verified 10/05/18 22:33) CONFUSION Primary Care Physician: Kelvin Ibanez MD [Primary Care Provider] - Prior records reviewed: Yes Surgical History: arthroscopy, knee, hysterectomy, - - kristina fundoplication Lives: Jail Smoking Status: Never smoker Alcohol: None Drugs: None - Family History Maternal Family History: Family History (Last Updated 01/12/18 @ 09:43 by Kyra Rutherford) Mother CAD (coronary artery disease) CVA (cerebral vascular accident) Father Heart disease CVA (cerebral vascular accident) Sister Heart disease Brother Hypertension Family History: Reports: Stroke - age 69 Paternal Family History: Family History (Last Updated 01/12/18 @ 09:43 by Kyra Rutherford) Mother CAD (coronary artery disease) CVA (cerebral vascular accident) Father Heart disease CVA (cerebral vascular accident) Sister Heart disease Brother Hypertension Family History: Reports: Stroke - in 80's Review of Systems ROS: Unable to Obtain - Patient will open her eyes and attempts to speak when stimulated tactilely. She quickly closes her eyes and needs to be restimulated. Physical Exam General: Well nourished, Well developed, Obese, - - Somnolent Head: Normocephalic, Atraumatic Eyes: Perrl, EOMI. Negative for: Pale conjunctiva, Scleral icterus ENT: No rhinorrhea, TM's clear, Dry mucous membranes Neck: Supple, No lymphadenopathy, No JVD Cardiovascular: Regular rate, Regular rhythm, No murmurs, Normal S1, Normal S2 Respiratory: No distress, CTA bilaterally, Chest nontender, Decreased Air Movement Abdomen: Soft, Nondistended, No masses, Tender, Guarding, Rebound tenderness, Hypoactive bowel sounds. Negative for: Nontender, Hepatomegaly, Splenomegaly Back: Nontender - Unable to determine, Normal Inspection Extremities: Nontender, No edema Skin: Normal color, No rash Neurological: - - Patient moves her extremities to noxious stimuli. She will open her eyes to tactile stimulus.. Negative for: Alert, Oriented x3 Psychological: - - Unable to determine Diagnostic/Tx/Re-eval Chest X-Ray - ED: 1 View, Read by ED Physician, Normal, Heart, Lungs, Mediastinum, Bony Structures, No Acute Disease 01/09/19 15:12 Chest 1 View (Portable) [RAD] Stat Laboratory Results 01/09/19 01/09/19 01/09/19 14:56 14:56 14:56 WBC 14.0 H RBC 4.16 L Hgb 11.8 L Hct 37.2 MCV 89.4 MCH 28.4 MCHC 31.7 L RDW 14.1 RDW Differential 46.1 H Plt Count 312 MPV 10.5 Immature Gran % (Auto) 0.200 Neut % (Auto) 79.4 H Lymph % (Auto) 10.5 L Banks % (Auto) 9.7 Eos % (Auto) 0.0 Baso % (Auto) 0.2 Absolute Neuts (auto) 11.1 H Absolute Lymphs (auto) 1.46 Total Counted Not Reportable PT 27.7 H INR 2.6 APTT 58.7 H Sodium 141 Potassium 4.0 Chloride 108 H Carbon Dioxide 27.0 Anion Gap 6 BUN 29 H Creatinine 1.15 H Estim Creat Clear Calc 33.86 Est GFR (MDRD) Af Amer 60 Est GFR (MDRD) Non-Af 49 L BUN/Creatinine Ratio 25.2 H Glucose 126 H Lactic Acid Calcium 8.3 L Total Bilirubin 0.60 AST 20 ALT 21 Alkaline Phosphatase 140 H Total Protein 6.9 Albumin 3.3 Globulin 3.6 Albumin/Globulin Ratio 0.9 Urine Color Urine Clarity Urine pH Ur Specific Vivian Urine Protein Urine Glucose (UA) Urine Ketones Urine Occult Blood Urine Nitrite Urine Bilirubin Urine Urobilinogen Ur Leukocyte Esterase Urine RBC Urine WBC Ur Squamous Epith Cells Urine Bacteria Urine Mucus 01/09/19 01/09/19 14:56 15:10 WBC RBC Hgb Hct MCV MCH MCHC RDW RDW Differential Plt Count MPV Immature Gran % (Auto) Neut % (Auto) Lymph % (Auto) Banks % (Auto) Eos % (Auto) Baso % (Auto) Absolute Neuts (auto) Absolute Lymphs (auto) Total Counted PT INR APTT Sodium Potassium Chloride Carbon Dioxide Anion Gap BUN Creatinine Estim Creat Clear Calc Est GFR (MDRD) Af Amer Est GFR (MDRD) Non-Af BUN/Creatinine Ratio Glucose Lactic Acid 0.9 Calcium Total Bilirubin AST ALT Alkaline Phosphatase Total Protein Albumin Globulin Albumin/Globulin Ratio Urine Color Yellow Urine Clarity Turbid Urine pH 5.0 Ur Specific Vivian 1.015 Urine Protein 100 H Urine Glucose (UA) Normal Urine Ketones Negative Urine Occult Blood 150 H Urine Nitrite Negative Urine Bilirubin Negative Urine Urobilinogen Normal Ur Leukocyte Esterase 500 H Urine RBC 0 SEEN Urine WBC >100 SEEN Ur Squamous Epith Cells 0 SEEN Urine Bacteria 1+ Urine Mucus 0 SEEN - Rhythm Strip Rhythm Strip: Sinus Rhythm Rate: 77 - Narrow complex Ectopy: None - EKG Initial EKG Interpretation: Sinus Rhythm - Ventricular rate 76. IN interval, Q congregation, QT interval and axis are normal. - Medical Decision Making With history of frequent urinary tract infections documented fever decreased level of conscious suspect UTI since no other apparent source based on physical exam because history is limited. Will obtain chest x-ray, UA and appropriate workup for sepsis. Since she has prior history of urinary tract infection will administer 1 g of Rocephin. Patient arrived from detention with a signed DNR Com[employer] arrest form. A medical orders for life-sustaining treatment was completed by me. Case discussed with who is the POA. He states she has a living will as well. Patient is no CPR and no intubation. No defibrillation central line for pressors is acceptable. No feeding tube. Patient to be admitted for urinary tract infection/sepsis ED Disposition - Plan for ED Patient: Disposition: Acute Care Hospital [facility] Diagnosis: Sepsis secondary to UTI, Infectious encephalopathy, Anticoagulated on Coumadin, DVT, lower extremity, distal, Patent foramen ovale, History of hypothyroidism Referrals: Kelvin Ibanez MD [Primary Care Provider] -
--- NOTE | 2019-01-09 14:40 | ED.DCSUM_ITS ---
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 Context: Sudden Onset Timing: Continuous Quality: Decreased level of consciousness, fever, breathing rapidly Location: Nursing facility Current Severity: Moderate Maximum Severity: Moderate Worsened by: History of frequent urinary tract infections Relieved by: Nothing Associated Symptoms: Unable Narrative: Patient is an elderly woman who resides at a nursing facility was brought to the emergency room because of decreased level of conscious, confusion, documented temperature 103.5 by prison in 102.1 by squad. Family arrived after her arrival. They informed me and the nurse that she has history of frequent urinary tract infections. She has voiced no complaints. Presently she is unable to voice any complaints. Prior similar symptoms: Yes - Urinary tract infection - Past Medical History (1) DVT, lower extremity, distal Status: Acute (2) Dysphagia as late effect of cerebrovascular accident (CVA) Status: Acute (3) Suspected cerebrovascular accident (CVA) Status: Acute (4) COPD (chronic obstructive pulmonary disease) Status: Chronic (5) Depression Status: Chronic Comment: Suspected Bipolar depression. (6) GERD (gastroesophageal reflux disease) Status: Chronic (7) HTN (hypertension) Status: Chronic (8) Hypothyroid Status: Chronic (9) Patent foramen ovale Status: Chronic (10) Stroke Status: Chronic Past Medical History - Allergies and Home Meds Allergies/Adverse Reactions: Allergies Penicillins Allergy (Verified 10/05/18 22:33) Rash zolpidem tartrate [From Ambien] Adverse Reaction (Verified 10/05/18 22:33) CONFUSION Primary Care Physician: Kelvin Ibanez MD [Primary Care Provider] - Prior records reviewed: Yes Surgical History: arthroscopy, knee, hysterectomy, - - kristina fundoplication Lives: [facility] Smoking Status: Never smoker Alcohol: None Drugs: None - Family History Maternal Family History: Family History (Last Updated 01/12/18 @ 09:43 by Kyra Rutherford) Mother CAD (coronary artery disease) CVA (cerebral vascular accident) Father Heart disease CVA (cerebral vascular accident) Sister Heart disease Brother Hypertension Family History: Reports: Stroke - age 69 Paternal Family History: Family History (Last Updated 01/12/18 @ 09:43 by Kyra Rutherford) Mother CAD (coronary artery disease) CVA (cerebral vascular accident) Father Heart disease CVA (cerebral vascular accident) Sister Heart disease Brother Hypertension Family History: Reports: Stroke - in 80's Review of Systems ROS: Unable to Obtain - Patient will open her eyes and attempts to speak when stimulated tactilely. She quickly closes her eyes and needs to be restimulated. Physical Exam General: Well nourished, Well developed, Obese, - - Somnolent Head: Normocephalic, Atraumatic Eyes: Perrl, EOMI. Negative for: Pale conjunctiva, Scleral icterus ENT: No rhinorrhea, TM's clear, Dry mucous membranes Neck: Supple, No lymphadenopathy, No JVD Cardiovascular: Regular rate, Regular rhythm, No murmurs, Normal S1, Normal S2 Respiratory: No distress, CTA bilaterally, Chest nontender, Decreased Air Movement Abdomen: Soft, Nondistended, No masses, Tender, Guarding, Rebound tenderness, Hypoactive bowel sounds. Negative for: Nontender, Hepatomegaly, Splenomegaly Back: Nontender - Unable to determine, Normal Inspection Extremities: Nontender, No edema Skin: Normal color, No rash Neurological: - - Patient moves her extremities to noxious stimuli. She will open her eyes to tactile stimulus.. Negative for: Alert, Oriented x3 Psychological: - - Unable to determine Diagnostic/Tx/Re-eval Chest X-Ray - ED: 1 View, Read by ED Physician, Normal, Heart, Lungs, Mediastinum, Bony Structures, No Acute Disease 01/09/19 15:12 Chest 1 View (Portable) [RAD] Stat Laboratory Results 01/09/19 01/09/19 01/09/19 14:56 14:56 14:56 WBC 14.0 H RBC 4.16 L Hgb 11.8 L Hct 37.2 MCV 89.4 MCH 28.4 MCHC 31.7 L RDW 14.1 RDW Differential 46.1 H Plt Count 312 MPV 10.5 Immature Gran % (Auto) 0.200 Neut % (Auto) 79.4 H Lymph % (Auto) 10.5 L Luce % (Auto) 9.7 Eos % (Auto) 0.0 Baso % (Auto) 0.2 Absolute Neuts (auto) 11.1 H Absolute Lymphs (auto) 1.46 Total Counted Not Reportable PT 27.7 H INR 2.6 APTT 58.7 H Sodium 141 Potassium 4.0 Chloride 108 H Carbon Dioxide 27.0 Anion Gap 6 BUN 29 H Creatinine 1.15 H Estim Creat Clear Calc 33.86 Est GFR (MDRD) Af Amer 60 Est GFR (MDRD) Non-Af 49 L BUN/Creatinine Ratio 25.2 H Glucose 126 H Lactic Acid Calcium 8.3 L Total Bilirubin 0.60 AST 20 ALT 21 Alkaline Phosphatase 140 H Total Protein 6.9 Albumin 3.3 Globulin 3.6 Albumin/Globulin Ratio 0.9 Urine Color Urine Clarity Urine pH Ur Specific [place] Urine Protein Urine Glucose (UA) Urine Ketones Urine Occult Blood Urine Nitrite Urine Bilirubin Urine Urobilinogen Ur Leukocyte Esterase Urine RBC Urine WBC Ur Squamous Epith Cells Urine Bacteria Urine Mucus 01/09/19 01/09/19 14:56 15:10 WBC RBC Hgb Hct MCV MCH MCHC RDW RDW Differential Plt Count MPV Immature Gran % (Auto) Neut % (Auto) Lymph % (Auto) Luce % (Auto) Eos % (Auto) Baso % (Auto) Absolute Neuts (auto) Absolute Lymphs (auto) Total Counted PT INR APTT Sodium Potassium Chloride Carbon Dioxide Anion Gap BUN Creatinine Estim Creat Clear Calc Est GFR (MDRD) Af Amer Est GFR (MDRD) Non-Af BUN/Creatinine Ratio Glucose Lactic Acid 0.9 Calcium Total Bilirubin AST ALT Alkaline Phosphatase Total Protein Albumin Globulin Albumin/Globulin Ratio Urine Color Yellow Urine Clarity Turbid Urine pH 5.0 Ur Specific [place] 1.015 Urine Protein 100 H Urine Glucose (UA) Normal Urine Ketones Negative Urine Occult Blood 150 H Urine Nitrite Negative Urine Bilirubin Negative Urine Urobilinogen Normal Ur Leukocyte Esterase 500 H Urine RBC 0 SEEN Urine WBC >100 SEEN Ur Squamous Epith Cells 0 SEEN Urine Bacteria 1+ Urine Mucus 0 SEEN - Rhythm Strip Rhythm Strip: Sinus Rhythm Rate: 77 - Narrow complex Ectopy: None - EKG Initial EKG Interpretation: Sinus Rhythm - Ventricular rate 76. TN interval, Q mormonism, QT interval and axis are normal. - Medical Decision Making With history of frequent urinary tract infections documented fever decreased level of conscious suspect UTI since no other apparent source based on physical exam because history is limited. Will obtain chest x-ray, UA and appropriate workup for sepsis. Since she has prior history of urinary tract infection will administer 1 g of Rocephin. Patient arrived from prison with a signed DNR Com[facility] arrest form. A medical orders for life-sustaining treatment was completed by me. Case discussed with who is the POA. He states she has a living will as well. Patient is no CPR and no intubation. No defibrillation central line for pr essors is acceptable. No feeding tube. Patient to be admitted for urinary tract infection/sepsis ED Disposition - Plan for ED Patient: Disposition: Acute Care Hospital [facility] Diagnosis: Sepsis secondary to UTI, Infectious encephalopathy, Anticoagulated on Coumadin, DVT, lower extremity, distal, Patent foramen ovale, History of hypothyroidism Referrals: Kelvin Ibanez MD [Primary Care Provider] -
[2019-01-09 15:12] LABS: Absolute Lymphocyte Count 1.46 X10^3/ul (0.83-4.51); Absolute Neutrophil Count 11.1 X10^3/uL (2.0-7.7); Basophil# 0.03 X10^3/uL; Basophil% 0.2 % (0-1); Hematocrit 37.2 % (37-47); Hemoglobin 11.8 g/dl (12.0-15.0); Lymphocyte # 1.46 X10^3/ul (4.0); Lymphocyte % 10.5 % (19-41); Mean Corp Hgb Conc 31.7 g/gl (32-36); Mean Corpuscular Hgb 28.4 pg (27.0-32.0); Mean Corpuscular Volume 89.4 fL (81-99); Mean Platelet Vol. 10.5 fl (6.2-12.0); Monocyte# 1.35 X10^3/uL; Monocyte% 9.7 % (0-10); Neutrophil % 79.4 % (47-70); POSITIVE COUNT NO; POSITIVE DIFFERENTIAL NO; POSITIVE MORPHOLOGY NO; Platelet Count 312 K/mm3 (150-450); RBC Distribution Width CV 14.1 % (11.6-14.6); RBC Distribution Width SD 46.1 fl (35.1-43.9); Red Blood Count 4.16 M/mm3 (4.2-5.4)
--- NOTE | 2019-01-09 15:12 | RAD_ITS ---
STUDY: X-RAY CHEST REASON FOR EXAM: Female, 73 years old. Confusion TECHNIQUE: AP COMPARISON: 02/08/2017 FINDINGS: EKG leads project over the chest. The lungs are clear and expanded. There is no demonstrated pleural abnormality. Normal size heart. Normal mediastinum and edmundo. Normal visualized pulmonary arteries. Normal visualized aortic arch and descending thoracic aorta. Normal visualized thoracic spine. Normal visualized ribs, clavicles, and shoulders. There is no demonstrated abnormality of the visualized soft tissue structures of the upper abdomen. IVC filter projects in the right upper abdomen. RAD/Chest 1 View (Portable) IMPRESSION: Stable, nonacute portable x-ray examination of the chest. Electronically Signed: Blaise Renee MD at 15:35 EDT , Service support ,
[2019-01-09 15:16] LABS: Mucous, Urine 0 SEEN /hpf (<or=2+); Red Blood Cells-Urine 0 SEEN /hpf (0-5); Squamous Epithelial Cells - UA 0 SEEN /hpf (5-10)
[2019-01-09 15:18] LABS: International Normalized Ratio 2.6; Prothrombin Time (Protime)PT. 27.7 SECONDS (11.7-14.9)
[2019-01-09 15:19] LABS: Color, Urine Yellow (Yellow); Glucose, Dipstick Normal (Normal); Ketone-Dipstick Negative (Negative); Leukocyte Esterase-Dipstick 500 /ul (Negative); Nitrite-Dipstick Negative (Negative); Occult Blood-Urine 150 /ul (Negative); Protein-Dipstick 100 mg/dl (Negative); Specific Gravity, Urine 1.015 (1.002-1.030); Urine Bilirubin Dipstick Negative (Negative); Urine Clarity Turbid (Clear); Urine Urobilinogen Normal (Normal)
[2019-01-09 15:19] LABS: Partial Thromboplast Time 58.7 Seconds (24.1-36.2)
[2019-01-09 15:25] LABS: White Blood Cells >100 SEEN /hpf (0-5)
[2019-01-09 15:25] LABS: ALB/GLOB Ratio 0.9 RATIO (0.9-2.4); AST(SGOT) 20 U/L (15-37); Alanine Aminotransfer ALT/SGPT 21 U/L (13-56); Albumin, Serum 3.3 g/dL (3.2-5.0); Alkaline Phosphatase 140 U/L (45-117); Anion Gap 6 (5-15); BUN 29 mg/dL (7-18); BUN/Creat Ratio 25.2 RATIO (10-20); Calcium,Total 8.3 mg/dL (8.5-10.1); Chloride 108 mmol/L (98-107); Creatinine, Serum 1.15 mg/dL (0.55-1.02); EST Glomerular Filtration Rate 49 mL/min (>60); Est Glom Filt Rate - Afr Amer 60 mL/min (>60); Estimated Creatinine Clearance 33.86 ml/min; Globulin 3.6 g/dL (2.2-4.2); Glucose 126 mg/dL (74-106); Protein, Total 6.9 g/dL (6.4-8.2); Sodium Level 141 mmol/L (136-145)
[2019-01-09 15:26] LABS: Bacteria 1+ /hpf (None Seen)
[2019-01-09 15:31] LABS: Lactic Acid 0.9 mmol/L (0.4-2.0)
[2019-01-09] MEDS: 0.9% Normal Saline 1,000 ML 1000 ML IV (15:38)
--- NOTE | 2019-01-09 15:41 | NURSING ---
DR GARCIA FOR DR LINCOLN
--- NOTE | 2019-01-09 15:44 | NURSING ---
PCU STEP DOWN [place] SEPSIS, UTI, INFECTIOUS ENCEPHALOPATHY
[2019-01-09] MEDS: 0.9% Normal Saline 1,000 ML 250 ML IV (15:55)
[2019-01-09] MEDS: Ceftriaxone 1 GM/50 ML BAG IV (15:55)
--- NOTE | 2019-01-09 16:25 | HP.PCM_ITS ---
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 (5) Difficulty in walking Status: Chronic (6) Patent foramen ovale Status: Chronic (7) Dysphagia as late effect of cerebrovascular accident (CVA) Status: Acute (8) Hypothyroid Status: Chronic Qualifiers: Hypothyroidism type: unspecified Qualified Code(s): E03.9 - Hypothyroidism, unspecified (9) COPD (chronic obstructive pulmonary disease) Status: Chronic Qualifiers: COPD type: unspecified COPD Qualified Code(s): J44.9 - Chronic obstructive pulmonary disease, unspecified (10) HTN (hypertension) Status: Chronic Qualifiers: Hypertension type: essential hypertension Qualified Code(s): I10 - Essential (primary) hypertension (11) GERD (gastroesophageal reflux disease) Status: Chronic Qualifiers: Esophagitis presence: esophagitis presence not specified Qualified Code(s): K21.9 - Gastro-esophageal reflux disease without esophagitis History of Present Illness Date of Admission: 01/09/19 Chief Complaint: Fever The patient is a 73 year old F with PMH as below who presents from the assisted with a fever which began today. According to the she was at her baseline yesterday. Unfortunately during my exam no family was present so the history was obtained from chart review. She was brought in from the nursing facility for a temperature that there was 103.5, and was 102.[address] in the ambulance on the way to the ER. On exam she was found to be tachypneic and have a leukocytosis therefore meeting criteria for sepsis, and a UA was obtained demonstrating probable urinary tract infection. 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 Stroke (Chronic) Medical History: Medical History (Last Updated 01/12/18 @ 09:39 by Kyra Rutherford) Chronic insomnia (Chronic) F51.04 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) I69.811 Difficulty in walking (Chronic) R26.2 Sepsis (Chronic) A41.9 Patent foramen ovale (Chronic) Q21.1 DVT, lower extremity, distal (Acute) I82.4Z9 Anemia (Chronic) D64.9 Dysphagia as late effect of cerebrovascular accident (CVA) (Acute) I69.391 Hypothyroid (Chronic) E03.9 COPD (chronic obstructive pulmonary disease) (Chronic) J44.9 HTN (hypertension) (Chronic) I10 GERD (gastroesophageal reflux disease) (Chronic) K21.9 Suspected cerebrovascular accident (CVA) (Acute) I63.9 Depression (Chronic) F32.9 Suspected Bipolar depression. Stroke (Chronic) I63.9 Vasogenic cerebral edema (Acute) G93.6 Anemia D64.9 Chest wall pain R07.89 Chronic insomnia F51.04 Depression F32.9 Dysphagia R13.10 Malaise and fatigue R53.81, R53.83 Narcotic abuse F11.10 Obesity E66.9 History of hysterectomy Z90.710 Allergies Penicillins Allergy (Verified 10/05/18 22:33) Rash zolpidem tartrate [From Ambien] Adverse Reaction (Verified 10/05/18 22:33) CONFUSION Home Medications: Ambulatory Orders Medication Instructions Recorded Dextran 70/He-Cell [Tears 1 drop LEFT EYE TID bottle 02/25/17 Naturale, Artificial Tears] alprazolam 0.25 mg tablet 0.25 mg PO 4X/DAY tab 01/11/18 atorvastatin 40 mg tablet 40 mg PO QDAY 01/11/18 hydrocodone 5 mg-acetaminophen 325 1 tab PO Q6H PRN 01/11/18 mg tablet mirtazapine 15 mg tablet 15 mg PO QDAY tab 01/11/18 sennosides 8.6 mg-docusate sodium 1 tab PO BID 01/11/18 50 mg tablet sertraline 100 mg tablet 1.5 tab PO QDAY 01/11/18 acetaminophen 325 mg tablet 650 mg PO Q6H PRN tab 01/12/18 famotidine 20 mg tablet 20 mg PO DAILY tab 01/12/18 ferrous sulfate 325 mg (65 mg 325 mg PO BID tab 01/12/18 iron) tablet gabapentin 400 mg capsule 400 mg PO Q6H cap 01/12/18 levothyroxine 125 mcg tablet 125 mcg PO DAILY@0600 tab 01/12/18 metoprolol tartrate 25 mg tablet 12.5 mg PO BID tab 01/12/18 tizanidine 4 mg capsule 4 mg PO TID 01/12/18 warfarin 4 mg tablet 4 mg PO QDAY 01/12/18 Cholecalciferol (Vitamin D3) 2,000 unit PO DAILY 10/05/18 [Vitamin D3] Quetiapine Fumarate [Seroquel] 25 mg PO BID 10/05/18 traMADol [Ultram] 50 mg PO QHS 10/05/18 Surgical History: Surgical History (Last Updated 01/12/18 @ 09:41 by Kyra Rutherford) 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) Z95.828 placement 01/2017 Surgical History: arthroscopy, knee, hysterectomy, - - kristina fundoplication Lives: Residential Smoking Status: Never smoker Alcohol: None Drugs: None - *Family History Maternal Family History: Family History (Last Updated 01/12/18 @ 09:43 by Kyra Rutherford) Mother CAD (coronary artery disease) CVA (cerebral vascular accident) Father Heart disease CVA (cerebral vascular accident) Sister Heart disease Brother Hypertension History Items: Stroke - age 69 Paternal Family History: Family History (Last Updated 01/12/18 @ 09:43 by Kyra Rutherford) Mother CAD (coronary artery disease) CVA (cerebral vascular accident) Father Heart disease CVA (cerebral vascular accident) Sister Heart disease Brother Hypertension History Items: Stroke - in 80's Review of Systems Unable to obtain accurate/complete ROS d/t: Altered mental status VTE Information - Inpt Only VTE Present on Admission: No Patient Problems: Active and Suspected Problems (Last Updated 01/12/18 @ 09:39 by Kyra Rutherford) Sepsis secondary to UTI (Acute) Infectious encephalopathy (Acute) Anticoagulated on Coumadin (Acute) History of hypothyroidism (Acute) DVT, lower extremity, distal (Acute) - Physical Exam General: No apparent distress, Confused, Disoriented HEENT: Atraumatic, PERRLA, Normocephalic Oral: Dry Mucosa Neck: Supple, No JVD, Trachea Midline Lungs: Clear to auscultation, Normal air movement, No rhonchi, No wheeze, No rales Cardiovascular: Regular rate, Regular Rhythm, Normal S1, Normal S2, No murmurs Abdomen: Soft, Non Tender, Non-Distended, No Hepato-splenomegaly Extremities: No edema, Capillary Refill Less than 3 Seconds Skin: No rashes, No breakdown Neurological: - - She has chronic left-sided deficits and is unable to move her left upper extremity or left lower extremity from her previous CVA Psych/Mental Status: Normal Affect, Appropriate Vital Signs Temp Pulse Resp BP Pulse Ox 102.6 F H 88 26 H 134/74 H 100 01/09/19 16:00 01/09/19 16:00 01/09/19 16:00 01/09/19 16:00 01/09/19 16:00 Oxygen Flow Rate (L/min) 2 Oxygen Delivery Method Nasal Cannula Weight: 155 lb Body Mass Index (BMI) 29.2 Finger Stick Blood Glucose 79 Laboratory Tests Past 24 Hrs 01/09/19 01/09/19 01/09/19 14:56 14:56 14:56 WBC 14.0 H RBC 4.16 L Hgb 11.8 L Hct 37.2 MCV 89.4 MCH 28.4 MCHC 31.7 L RDW 14.1 RDW Differential 46.1 H Plt Count 312 MPV 10.5 Immature Gran % (Auto) 0.200 Neut % (Auto) 79.4 H Lymph % (Auto) 10.5 L Stanley % (Auto) 9.7 Eos % (Auto) 0.0 Baso % (Auto) 0.2 Absolute Neuts (auto) 11.1 H Absolute Lymphs (auto) 1.46 Total Counted Not Reportable PT 27.7 H INR 2.6 APTT 58.7 H Sodium 141 Potassium 4.0 Chloride 108 H Carbon Dioxide 27.0 Anion Gap 6 BUN 29 H Creatinine 1.15 H Estim Creat Clear Calc 33.86 Est GFR (MDRD) Af Amer 60 Est GFR (MDRD) Non-Af 49 L BUN/Creatinine Ratio 25.2 H Glucose 126 H Lactic Acid Calcium 8.3 L Total Bilirubin 0.60 AST 20 ALT 21 Alkaline Phosphatase 140 H Total Protein 6.9 Albumin 3.3 Globulin 3.6 Albumin/Globulin Ratio 0.9 Urine Color Urine Clarity Urine pH Ur Specific [place] Urine Protein Urine Glucose (UA) Urine Ketones Urine Occult Blood Urine Nitrite Urine Bilirubin Urine Urobilinogen Ur Leukocyte Esterase Urine RBC Urine WBC Ur Squamous Epith Cells Urine Bacteria Urine Mucus 01/09/19 01/09/19 14:56 15:10 WBC RBC Hgb Hct MCV MCH MCHC RDW RDW Differential Plt Count MPV Immature Gran % (Auto) Neut % (Auto) Lymph % (Auto) Stanley % (Auto) Eos % (Auto) Baso % (Auto) Absolute Neuts (auto) Absolute Lymphs (auto) Total Counted PT INR APTT Sodium Potassium Chloride Carbon Dioxide Anion Gap BUN Creatinine Estim Creat Clear Calc Est GFR (MDRD) Af Amer Est GFR (MDRD) Non-Af BUN/Creatinine Ratio Glucose Lactic Acid 0.9 Calcium Total Bilirubin AST ALT Alkaline Phosphatase Total Protein Albumin Globulin Albumin/Globulin Ratio Urine Color Yellow Urine Clarity Turbid Urine pH 5.0 Ur Specific [place] 1.015 Urine Protein 100 H Urine Glucose (UA) Normal Urine Ketones Negative Urine Occult Blood 150 H Urine Nitrite Negative Urine Bilirubin Negative Urine Urobilinogen Normal Ur Leukocyte Esterase 500 H Urine RBC 0 SEEN Urine WBC >100 SEEN Ur Squamous Epith Cells 0 SEEN Urine Bacteria 1+ Urine Mucus 0 SEEN Assessment/Plan All Active Problems (Last Updated 01/12/18 @ 09:39 by Kyra Rutherford) Sepsis secondary to UTI (Acute) Infectious encephalopathy (Acute) Anticoagulated on Coumadin (Acute) History of hypothyroidism (Acute) DVT, lower extremity, distal (Acute) Dysphagia as late effect of cerebrovascular accident (CVA) (Acute) Suspected cerebrovascular accident (CVA) (Acute) Vasogenic cerebral edema (Acute) Stroke determined by clinical assessment (Ruled-out) 1. Sepsis secondary to UTI/metabolic encephalopathy -Received a dose of Rocephin in the ER, transitioned to Ancef -Tachypneic and leukocytosis where the 2+ Sirs criteria that were met -Continue with IVF at 100 cc/h 2. History of CVA with left-sided deficits and dysphasia/HTN/HLD -Unchanged in her baseline deficits -Continue with her home Lipitor, metoprolol 3. Anxiety/depression/chronic pain -Possible bipolar diagnosis though unconfirmed -We will continue with her Xanax, Zoloft, Remeron, Seroquel -She is on home narcotic regimen, will call to continue with her gabapentin, tramadol, and tizanidine 4. Hypothyroidism -Stable -Continue with Synthroid 5. History of a DVT -We will continue with her Coumadin -INR on admission is 2.6 6. GERD -Stable -Continue with Pepcid DVT: Warfarin Code Visit Inpatient E&M: 52657 Init Hosp L3
[2019-01-09] MEDS: Lactated Ringers 1,000 ML 125 ML IV ×2 (17:08→22:55)
[2019-01-09] MEDS: Acetaminophen 325 MG Tablet 650 MG PO (17:57)
[2019-01-09] MEDS: ALPRAZolam 0.25 MG Tablet PO ×2 (17:58→22:55)
[2019-01-09] MEDS: Gabapentin 400 MG Capsule PO ×2 (17:58→22:52)
[2019-01-09] MEDS: Metoprolol Tartrate 25 MG Tablet 12.5 MG PO (22:49)
[2019-01-09] MEDS: Atorvastatin Calcium 40 MG Tablet PO (22:49)
[2019-01-09] MEDS: MELATONIN 3 MG TABLET PO (22:50)
[2019-01-09] MEDS: Mirtazapine 15 MG Tablet PO (22:51)
[2019-01-09] MEDS: tiZANidine HCl 2 MG Tablet 4 MG PO (22:51)
[2019-01-09] MEDS: QUEtiapine 25 MG Tablet PO (22:51)
[2019-01-09] MEDS: Senna/Docusate Sodium 1 Tablet PO (22:51)
[2019-01-09] MEDS: traMADol 50 MG Tablet PO (22:55)
[2019-01-09] MEDS: Cefazolin 2 GM in 0.9% Normal Saline 100 ML IV (22:57)
[2019-01-10] VITALS (17 sets, daily range): BP systolic 102–141; BP diastolic 51–64; PULSE 64–103; RESP 18–20; TEMP 37.2–38.6; O2SAT 91–100
[2019-01-10] MEDS: Cefazolin 2 GM in 0.9% Normal Saline 100 ML IV ×3 (05:10→21:11)
[2019-01-10] MEDS: Acetaminophen 325 MG Tablet 650 MG PO ×2 (05:10→21:12)
[2019-01-10] MEDS: tiZANidine HCl 2 MG Tablet 4 MG PO ×3 (05:11→21:04)
[2019-01-10] MEDS: Gabapentin 400 MG Capsule PO ×3 (05:12→17:13)
[2019-01-10] MEDS: Levothyroxine 125 MCG Tablet PO (05:16)
[2019-01-10 06:00] LABS: Absolute Lymphocyte Count 1.57 X10^3/ul (0.83-4.51); Anion Gap 6 (5-15); BUN 21 mg/dL (7-18); BUN/Creat Ratio 22.8 RATIO (10-20); Basophil# 0.03 X10^3/uL; Basophil% 0.2 % (0-1); Calcium,Total 7.9 mg/dL (8.5-10.1); Chloride 111 mmol/L (98-107); Creatinine, Serum 0.92 mg/dL (0.55-1.02); EST Glomerular Filtration Rate 64 mL/min (>60); Est Glom Filt Rate - Afr Amer 77 mL/min (>60); Estimated Creatinine Clearance 48.43 ml/min; Glucose 116 mg/dL (74-106); Hematocrit 32.3 % (37-47); Hemoglobin 9.9 g/dl (12.0-15.0); Lymphocyte # 1.57 X10^3/ul (4.0); Lymphocyte % 11.2 % (19-41); Mean Corp Hgb Conc 30.7 g/gl (32-36); Mean Corpuscular Hgb 27.6 pg (27.0-32.0); Mean Platelet Vol. 10.8 fl (6.2-12.0); Monocyte% 9.3 % (0-10); Neutrophil # 11.04 X10^3/uL (2.7-7.7); Neutrophil % 79.1 % (47-70); Platelet Count 262 K/mm3 (150-450); Potassium 3.7 mmol/L (3.5-5.1); RBC Distribution Width CV 13.9 % (11.6-14.6); RBC Distribution Width SD 44.4 fl (35.1-43.9); Red Blood Count 3.59 M/mm3 (4.2-5.4); Sodium Level 144 mmol/L (136-145)
[2019-01-10 06:17] LABS: POSITIVE COUNT NO; POSITIVE DIFFERENTIAL NO; POSITIVE MORPHOLOGY NO
[2019-01-10] MEDS: Albuterol 2.5 MG/3 ML VIAL.NEB. INHALATION ×2 (06:43→13:08)
[2019-01-10] MEDS: Budesonide Respules 0.5 MG/2 ML AMPUL.NEB. INHALATION ×2 (06:43→20:00)
--- NOTE | 2019-01-10 08:28 | PCM.PN.HOSP ---
Patient Problems: Active and Suspected Problems (Last Updated 01/12/18 @ 09:39 by Kyra Rutherford) Sepsis secondary to UTI (Acute) Infectious encephalopathy (Acute) Anticoagulated on Coumadin (Acute) History of hypothyroidism (Acute) DVT, lower extremity, distal (Acute) Subjective: Still very confused, says that it is [place] Vitals/I&O's: Vital Signs Temp Pulse Resp BP Pulse Ox 101.4 F H 80 18 106/51 L 94 01/10/19 04:30 01/10/19 07:07 01/10/19 06:43 01/10/19 04:30 01/10/19 06:43 Oxygen Flow Rate (L/min) 1 Oxygen Delivery Method Nasal Cannula Weight: 151 lb 14.376 oz Body Mass Index (BMI) 26.0 Finger Stick Blood Glucose 79 Intake and Output for Last 24 Hours 01/08/19 01/09/19 01/10/19 23:59 23:59 23:59 Intake Total 1295 / 1295 590 / 590 Output Total 450 / 450 200 / 200 Balance 845 / 845 390 / 390 General: No apparent distress, Confused, Disoriented HEENT: Atraumatic, PERRLA, Normocephalic Oral: Dry Mucosa Neck: Supple, No JVD, Trachea Midline Lungs: Clear to auscultation, Normal air movement, No rhonchi, No wheeze, No rales Cardiovascular: Regular rate, Regular Rhythm, Normal S1, Normal S2, No murmurs Abdomen: Soft, Non Tender, Non-Distended, No Hepato-splenomegaly Extremities: No edema, Capillary Refill Less than 3 Seconds Skin: No rashes, No breakdown Neurological: - - She has chronic left-sided deficits and is unable to move her left upper extremity or left lower extremity from her previous CVA Psych/Mental Status: Normal Affect, Appropriate Laboratory Results 01/09/19 14:56: WBC 14.0 H, RBC 4.16 L, Hgb 11.8 L, Hct 37.2, MCV 89.4, MCH 28.4, MCHC 31.7 L, RDW 14.1, RDW Differential 46.1 H, Plt Count 312, MPV 10.5, Immature Gran % (Auto) 0.200, Neut % (Auto) 79.4 H, Lymph % (Auto) 10.5 L, [place] % (Auto) 9.7, Eos % (Auto) 0.0, Baso % (Auto) 0.2, Absolute Neuts (auto) 11.1 H, Absolute Lymphs (auto) 1.46, Total Counted Not Reportable 01/09/19 14:56: PT 27.7 H, INR 2.6, APTT 58.7 H 01/09/19 14:56: Sodium 141, Potassium 4.0, Chloride 108 H, Carbon Dioxide 27.0, Anion Gap 6, BUN 29 H, Creatinine 1.15 H, Estim Creat Clear Calc 33.86, Est GFR (MDRD) Af Amer 60, Est GFR (MDRD) Non-Af 49 L, BUN/Creatinine Ratio 25.2 H, Glucose 126 H, Calcium 8.3 L, Total Bilirubin 0.60, AST 20, ALT 21, Alkaline Phosphatase 140 H, Total Protein 6.9, Albumin 3.3, Globulin 3.6, Albumin/Globulin Ratio 0.9 01/09/19 14:56: Lactic Acid 0.9 01/09/19 15:10: Urine Color Yellow, Urine Clarity Turbid, Urine pH 5.0, Ur Specific [place] 1.015, Urine Protein 100 H, Urine Glucose (UA) Normal, Urine Ketones Negative, Urine Occult Blood 150 H, Urine Nitrite Negative, Urine Bilirubin Negative, Urine Urobilinogen Normal, Ur Leukocyte Esterase 500 H, Urine RBC 0 SEEN, Urine WBC >100 SEEN, Ur Squamous Epith Cells 0 SEEN, Urine Bacteria 1+, Urine Mucus 0 SEEN 01/10/19 04:56: WBC 14.0 H, RBC 3.59 L, Hgb 9.9 L, Hct 32.3 L, MCV 90.0, MCH 27.6, MCHC 30.7 L, RDW 13.9, RDW Differential 44.4 H, Plt Count 262, MPV 10.8, Immature Gran % (Auto) 0.200, Neut % (Auto) 79.1 H, Lymph % (Auto) 11.2 L, [place] % (Auto) 9.3, Eos % (Auto) 0.0, Baso % (Auto) 0.2, Absolute Neuts (auto) 11.0 H, Absolute Lymphs (auto) 1.57, Total Counted Not Reportable 01/10/19 04:56: Sodium 144, Potassium 3.7, Chloride 111 H, Carbon Dioxide 27.0, Anion Gap 6, BUN 21 H, Creatinine 0.92, Estim Creat Clear Calc 48.43, Est GFR (MDRD) Af Amer 77, Est GFR (MDRD) Non-Af 64, BUN/Creatinine Ratio 22.8 H, Glucose 116 H, Calcium 7.9 L Current Medications Acetaminophen (Tylenol) 650 mg PO Q6H PRN PRN Reason: FEVER Last Admin: 01/10/19 05:10 Dose: 650 mg Albuterol Sulfate (Ventolin Aerosols) 2.5 mg INHALATION Q4H PRN PRN PRN Reason: SOB &/OR WHEEZING Albuterol Sulfate (Ventolin Aerosols) 2.5 mg INHALATION Q6HWA.RT [facility] Last Admin: 01/10/19 06:43 Dose: 2.5 mg Alprazolam (Xanax) 0.25 mg PO 4X/DAY [facility] Last Admin: 01/09/19 22:55 Dose: 0.25 mg Atorvastatin Calcium (Lipitor) 40 mg PO QHS [facility] Last Admin: 01/09/19 22:49 Dose: 40 mg Budesonide (Pulmicort Aerosol) 0.5 mg INHALATION Q12H.RT [facility] Last Admin: 01/10/19 06:43 Dose: 0.5 mg Famotidine (Pepcid) 20 mg PO DAILY [facility] Ferrous Sulfate (Ferrous Sulfate) 325 mg PO BID@1200,1700 [facility] Gabapentin (Neurontin) 400 mg PO Q6H [facility] Last Admin: 01/10/19 05:12 Dose: 400 mg Guaifenesin (Mucinex) 600 mg PO BID PRN PRN Reason: COUGH Cefazolin Sodium 2 gm/ Sodium (Chloride) 110 mls @ 150 mls/hr IV Q8 [facility] Last Admin: 01/10/19 05:10 Dose: 150 mls/hr Lactated Ringer's () 1,000 mls @ 125 mls/hr IV .Q8H [facility] Last Admin: 01/09/19 22:55 Dose: 125 mls/hr Levothyroxine Sodium (Synthroid) 125 mcg PO DAILY@0600 [facility] Last Admin: 01/10/19 05:16 Dose: 125 mcg Magnesium Hydroxide (Milk Of Magnesia) 30 ml PO DAILY PRN PRN Reason: Constipation Melatonin (Melatonin) 3 mg PO QHS [facility] Last Admin: 01/09/19 22:50 Dose: 3 mg Metoprolol Tartrate (Lopressor (Beta Angel)) 12.5 mg PO BID [facility] Last Admin: 01/09/19 22:49 Dose: 12.5 mg Mirtazapine (Remeron) 15 mg PO QHS [facility] Last Admin: 01/09/19 22:51 Dose: 15 mg Quetiapine Fumarate (Seroquel) 25 mg PO BID [facility] Last Admin: 01/09/19 22:51 Dose: 25 mg Senna/Docusate Sodium (Senokot-S, Carey-Colace) 1 tablet PO BID [facility] Last Admin: 01/09/19 22:51 Dose: 1 tablet Sertraline HCl (Zoloft) 150 mg PO DAILY [facility] Sodium Chloride () 5 - 15 ml IV UD PRN PRN Reason: SALINE FLUSH Tizanidine HCl (Zanaflex) 4 mg PO TID [facility] Last Admin: 01/10/19 05:11 Dose: 4 mg Tramadol HCl (Ultram) 50 mg PO QHS [facility] Last Admin: 01/09/19 22:55 Dose: 50 mg Warfarin Sodium (Coumadin (Pbkc)) 4 mg PO DAILY@1700 [facility] Medical Necessity - Tobacco Use Smoking Status: Never smoker Assessment/Plan All Active Problems (Last Updated 01/12/18 @ 09:39 by Kyra Rutherford) Sepsis secondary to UTI (Acute) Infectious encephalopathy (Acute) Anticoagulated on Coumadin (Acute) History of hypothyroidism (Acute) DVT, lower extremity, distal (Acute) Dysphagia as late effect of cerebrovascular accident (CVA) (Acute) Suspected cerebrovascular accident (CVA) (Acute) Vasogenic cerebral edema (Acute) Stroke determined by clinical assessment (Ruled-out) 1. Sepsis secondary to UTI/metabolic encephalopathy -Received a dose of Rocephin in the ER, transitioned to Ancef -Tachypneic and leukocytosis where the 2+ Sirs criteria that were met -Continue with IVF at 125 cc/h -Blood and urine cultures are pending 2. History of CVA with left-sided deficits and dysphasia/HTN/HLD -Unchanged in her baseline deficits -Continue with her home Lipitor, metoprolol 3. Anxiety/depression/chronic pain -Possible bipolar diagnosis though unconfirmed -We will continue with her Xanax, Zoloft, Remeron, Seroquel -She is on home narcotic regimen, will call to continue with her gabapentin, tramadol, and tizanidine 4. Hypothyroidism -Stable -Continue with Synthroid 5. History of a DVT -We will continue with her Coumadin -INR on admission is 2.6 6. GERD -Stable -Continue with Pepcid DVT: Warfarin Code Visit Inpatient E&M: 29002 Subs Hosp L2
--- NOTE | 2019-01-10 08:31 | PN_ITS ---
Patient Problems: Active and Suspected Problems (Last Updated 01/12/18 @ 09:39 by Kyra Rutherford) Sepsis secondary to UTI (Acute) Infectious encephalopathy (Acute) Anticoagulated on Coumadin (Acute) History of hypothyroidism (Acute) DVT, lower extremity, distal (Acute) Subjective: Still very confused, says that it is [place] Vitals/I&O's: Vital Signs Temp Pulse Resp BP Pulse Ox 101.4 F H 80 18 106/51 L 94 01/10/19 04:30 01/10/19 07:07 01/10/19 06:43 01/10/19 04:30 01/10/19 06:43 Oxygen Flow Rate (L/min) 1 Oxygen Delivery Method Nasal Cannula Weight: 151 lb 14.376 oz Body Mass Index (BMI) 26.0 Finger Stick Blood Glucose 79 Intake and Output for Last 24 Hours 01/08/19 01/09/19 01/10/19 23:59 23:59 23:59 Intake Total 1295 / 1295 590 / 590 Output Total 450 / 450 200 / 200 Balance 845 / 845 390 / 390 General: No apparent distress, Confused, Disoriented HEENT: Atraumatic, PERRLA, Normocephalic Oral: Dry Mucosa Neck: Supple, No JVD, Trachea Midline Lungs: Clear to auscultation, Normal air movement, No rhonchi, No wheeze, No rales Cardiovascular: Regular rate, Regular Rhythm, Normal S1, Normal S2, No murmurs Abdomen: Soft, Non Tender, Non-Distended, No Hepato-splenomegaly Extremities: No edema, Capillary Refill Less than 3 Seconds Skin: No rashes, No breakdown Neurological: - - She has chronic left-sided deficits and is unable to move her left upper extremity or left lower extremity from her previous CVA Psych/Mental Status: Normal Affect, Appropriate Laboratory Results 01/09/19 14:56: WBC 14.0 H, RBC 4.16 L, Hgb 11.8 L, Hct 37.2, MCV 89.4, MCH 28.4, MCHC 31.7 L, RDW 14.1, RDW Differential 46.1 H, Plt Count 312, MPV 10.5, Immature Gran % (Auto) 0.200, Neut % (Auto) 79.4 H, Lymph % (Auto) 10.5 L, [place] % (Auto) 9.7, Eos % (Auto) 0.0, Baso % (Auto) 0.2, Absolute Neuts (auto) 11.1 H, Absolute Lymphs (auto) 1.46, Total Counted Not Reportable 01/09/19 14:56: PT 27.7 H, INR 2.6, APTT 58.7 H 01/09/19 14:56: Sodium 141, Potassium 4.0, Chloride 108 H, Carbon Dioxide 27.0, Anion Gap 6, BUN 29 H, Creatinine 1.15 H, Estim Creat Clear Calc 33.86, Est GFR (MDRD) Af Amer 60, Est GFR (MDRD) Non-Af 49 L, BUN/Creatinine Ratio 25.2 H, Glucose 126 H, Calcium 8.3 L, Total Bilirubin 0.60, AST 20, ALT 21, Alkaline Phosphatase 140 H, Total Protein 6.9, Albumin 3.3, Globulin 3.6, Albumin/Globulin Ratio 0.9 01/09/19 14:56: Lactic Acid 0.9 01/09/19 15:10: Urine Color Yellow, Urine Clarity Turbid, Urine pH 5.0, Ur Specific [place] 1.015, Urine Protein 100 H, Urine Glucose (UA) Normal, Urine Ketones Negative, Urine Occult Blood 150 H, Urine Nitrite Negative, Urine Bilirubin Negative, Urine Urobilinogen Normal, Ur Leukocyte Esterase 500 H, Urine RBC 0 SEEN, Urine WBC >100 SEEN, Ur Squamous Epith Cells 0 SEEN, Urine Bacteria 1+, Urine Mucus 0 SEEN 01/10/19 04:56: WBC 14.0 H, RBC 3.59 L, Hgb 9.9 L, Hct 32.3 L, MCV 90.0, MCH 27.6, MCHC 30.7 L, RDW 13.9, RDW Differential 44.4 H, Plt Count 262, MPV 10.8, Immature Gran % (Auto) 0.200, Neut % (Auto) 79.1 H, Lymph % (Auto) 11.2 L, [place] % (Auto) 9.3, Eos % (Auto) 0.0, Baso % (Auto) 0.2, Absolute Neuts (auto) 11.0 H, Absolute Lymphs (auto) 1.57, Total Counted Not Reportable 01/10/19 04:56: Sodium 144, Potassium 3.7, Chloride 111 H, Carbon Dioxide 27.0, Anion Gap 6, BUN 21 H, Creatinine 0.92, Estim Creat Clear Calc 48.43, Est GFR (MDRD) Af Amer 77, Est GFR (MDRD) Non-Af 64, BUN/Creatinine Ratio 22.8 H, Glucose 116 H, Calcium 7.9 L Current Medications Acetaminophen (Tylenol) 650 mg PO Q6H PRN PRN Reason: FEVER Last Admin: 01/10/19 05:10 Dose: 650 mg Albuterol Sulfate (Ventolin Aerosols) 2.5 mg INHALATION Q4H PRN PRN PRN Reason: SOB &/OR WHEEZING Albuterol Sulfate (Ventolin Aerosols) 2.5 mg INHALATION Q6HWA.RT [facility] Last Admin: 01/10/19 06:43 Dose: 2.5 mg Alprazolam (Xanax) 0.25 mg PO 4X/DAY [facility] Last Admin: 01/09/19 22:55 Dose: 0.25 mg Atorvastatin Calcium (Lipitor) 40 mg PO QHS [facility] Last Admin: 01/09/19 22:49 Dose: 40 mg Budesonide (Pulmicort Aerosol) 0.5 mg INHALATION Q12H.RT [facility] Last Admin: 01/10/19 06:43 Dose: 0.5 mg Famotidine (Pepcid) 20 mg PO DAILY [facility] Ferrous Sulfate (Ferrous Sulfate) 325 mg PO BID@1200,1700 [facility] Gabapentin (Neurontin) 400 mg PO Q6H [facility] Last Admin: 01/10/19 05:12 Dose: 400 mg Guaifenesin (Mucinex) 600 mg PO BID PRN PRN Reason: COUGH Cefazolin Sodium 2 gm/ Sodium (Chloride) 110 mls @ 150 mls/hr IV Q8 [facility] Last Admin: 01/10/19 05:10 Dose: 150 mls/hr Lactated Ringer's () 1,000 mls @ 125 mls/hr IV .Q8H [facility] Last Admin: 01/09/19 22:55 Dose: 125 mls/hr Levothyroxine Sodium (Synthroid) 125 mcg PO DAILY@0600 [facility] Last Admin: 01/10/19 05:16 Dose: 125 mcg Magnesium Hydroxide (Milk Of Magnesia) 30 ml PO DAILY PRN PRN Reason: Constipation Melatonin (Melatonin) 3 mg PO QHS [facility] Last Admin: 01/09/19 22:50 Dose: 3 mg Metoprolol Tartrate (Lopressor (Beta Angel)) 12.5 mg PO BID [facility] Last Admin: 01/09/19 22:49 Dose: 12.5 mg Mirtazapine (Remeron) 15 mg PO QHS [facility] Last Admin: 01/09/19 22:51 Dose: 15 mg Quetiapine Fumarate (Seroquel) 25 mg PO BID [facility] Last Admin: 01/09/19 22:51 Dose: 25 mg Senna/Docusate Sodium (Senokot-S, Carey-Colace) 1 tablet PO BID [facility] Last Admin: 01/09/19 22:51 Dose: 1 tablet Sertraline HCl (Zoloft) 150 mg PO DAILY [facility] Sodium Chloride () 5 - 15 ml IV UD PRN PRN Reason: SALINE FLUSH Tizanidine HCl (Zanaflex) 4 mg PO TID [facility] Last Admin: 01/10/19 05:11 Dose: 4 mg Tramadol HCl (Ultram) 50 mg PO QHS [facility] Last Admin: 01/09/19 22:55 Dose: 50 mg Warfarin Sodium (Coumadin (Pbkc)) 4 mg PO DAILY@1700 [facility] Medical Necessity - Tobacco Use Smoking Status: Never smoker Assessment/Plan All Active Problems (Last Updated 01/12/18 @ 09:39 by Kyra Rutherford) Sepsis secondary to UTI (Acute) Infectious encephalopathy (Acute) Anticoagulated on Coumadin (Acute) History of hypothyroidism (Acute) DVT, lower extremity, distal (Acute) Dysphagia as late effect of cerebrovascular accident (CVA) (Acute) Suspected cerebrovascular accident (CVA) (Acute) Vasogenic cerebral edema (Acute) Stroke determined by clinical assessment (Ruled-out) 1. Sepsis secondary to UTI/metabolic encephalopathy -Received a dose of Rocephin in the ER, transitioned to Ancef -Tachypneic and leukocytosis where the 2+ Sirs criteria that were met -Continue with IVF at 125 cc/h -Blood and urine cultures are pending 2. History of CVA with left-sided deficits and dysphasia/HTN/HLD -Unchanged in her baseline deficits -Continue with her home Lipitor, metoprolol 3. Anxiety/depression/chronic pain -Possible bipolar diagnosis though unconfirmed -We will continue with her Xanax, Zoloft, Remeron, Seroquel -She is on home narcotic regimen, will call to continue with her gabapentin, tramadol, and tizanidine 4. Hypothyroidism -Stable -Continue with Synthroid 5. History of a DVT -We will continue with her Coumadin -INR on admission is 2.6 6. GERD -Stable -Continue with Pepcid DVT: Warfarin Code Visit Inpatient E&M: 00287 Subs Hosp L2
[2019-01-10] MEDS: Sertraline 100 MG Tablet 150 MG PO (09:37)
[2019-01-10] MEDS: Senna/Docusate Sodium 1 Tablet PO ×2 (09:38→20:54)
[2019-01-10] MEDS: Metoprolol Tartrate 25 MG Tablet 12.5 MG PO ×2 (09:38→21:04)
[2019-01-10] MEDS: Famotidine 20 MG Tablet PO (09:38)
[2019-01-10] MEDS: QUEtiapine 25 MG Tablet PO ×2 (09:39→20:54)
[2019-01-10] MEDS: ALPRAZolam 0.25 MG Tablet PO ×3 (09:46→21:11)
[2019-01-10] MEDS: Lactated Ringers 1,000 ML 125 ML IV ×2 (10:24→19:16)
[2019-01-10] MEDS: Ferrous Sulfate 325 MG Tablet PO ×2 (13:09→17:13)
--- NOTE | 2019-01-10 14:14 | CASEMGMT ---
RITIKA spoke with patient and her family. RITIKA confirmed the plan is for patient to return to [place] at d/c. RITIKA also faxed updates to [place]. Reyna MUÑOZ MSW
[2019-01-10] MEDS: MELATONIN 3 MG TABLET PO (20:54)
[2019-01-10] MEDS: Atorvastatin Calcium 40 MG Tablet PO (20:54)
[2019-01-10] MEDS: traMADol 50 MG Tablet PO (21:12)
[2019-01-10] MEDS: Mirtazapine 15 MG Tablet PO (21:13)
[2019-01-11] VITALS (13 sets, daily range): BP systolic 92–138; BP diastolic 50–60; PULSE 58–92; RESP 16–38; TEMP 36.6–38.3; O2SAT 93–97
--- NOTE | 2019-01-11 00:35 | RAD_ITS ---
HISTORY: tachypnea EXAM:XR Chest 1 View portable COMPARISON: 01/09/2019 FINDINGS: EKG leads in place. Normal heart size. Limited inspiration with left basilar subsegmental atelectasis. No vascular congestion or pulmonary consolidation. No definite pleural effusion. Atherosclerotic thoracic aorta. No pneumothorax. RAD/Chest 1 View (Portable) IMPRESSION: Left basilar mild subsegmental atelectasis. at 0341 Reported and signed by: Keyon Oconnor MD Electronically Signed: Keyon Oconnor, at 3:39 EDT Tel , Service support ,
[2019-01-11] MEDS: Gabapentin 400 MG Capsule PO ×5 (01:09→22:59)
[2019-01-11] MEDS: Lactated Ringers 1,000 ML 125 ML IV (04:14)
[2019-01-11] MEDS: tiZANidine HCl 2 MG Tablet 4 MG PO ×3 (05:42→22:58)
[2019-01-11] MEDS: Levothyroxine 125 MCG Tablet PO (05:42)
[2019-01-11] MEDS: Cefazolin 2 GM in 0.9% Normal Saline 100 ML IV ×3 (05:45→22:56)
[2019-01-11 06:43] LABS: Absolute Lymphocyte Count 1.76 X10^3/ul (0.83-4.51); Basophil# 0.03 X10^3/uL; Basophil% 0.3 % (0-1); Eosinophil# 0.08 X10^3/uL; Eosinophils% 0.9 % (0-5); Hematocrit 30.3 % (37-47); Hemoglobin 9.5 g/dl (12.0-15.0); Lymphocyte # 1.76 X10^3/ul (4.0); Lymphocyte % 19.7 % (19-41); Mean Corp Hgb Conc 31.4 g/gl (32-36); Mean Corpuscular Hgb 28.4 pg (27.0-32.0); Mean Corpuscular Volume 90.7 fL (81-99); Mean Platelet Vol. 10.7 fl (6.2-12.0); Monocyte# 1.06 X10^3/uL; Monocyte% 11.9 % (0-10); Neutrophil # 5.99 X10^3/uL (2.7-7.7); Neutrophil % 67.1 % (47-70); Platelet Count 232 K/mm3 (150-450); RBC Distribution Width CV 14.5 % (11.6-14.6); RBC Distribution Width SD 48.1 fl (35.1-43.9); Red Blood Count 3.34 M/mm3 (4.2-5.4); White Blood Count 8.9 K/mm3 (4.4-11.0)
[2019-01-11 06:46] LABS: POSITIVE COUNT NO; POSITIVE DIFFERENTIAL NO; POSITIVE MORPHOLOGY NO
[2019-01-11 06:47] LABS: International Normalized Ratio 3.1
[2019-01-11] MEDS: Budesonide Respules 0.5 MG/2 ML AMPUL.NEB. INHALATION ×2 (07:12→19:28)
[2019-01-11] MEDS: Metoprolol Tartrate 25 MG Tablet 12.5 MG PO ×2 (09:40→22:57)
[2019-01-11] MEDS: Famotidine 20 MG Tablet PO (09:43)
[2019-01-11] MEDS: Senna/Docusate Sodium 1 Tablet PO ×2 (09:44→22:58)
[2019-01-11] MEDS: QUEtiapine 25 MG Tablet PO ×2 (09:45→22:58)
[2019-01-11] MEDS: Sertraline 100 MG Tablet 150 MG PO (09:46)
[2019-01-11] MEDS: ALPRAZolam 0.25 MG Tablet PO ×4 (09:48→22:58)
--- NOTE | 2019-01-11 11:32 | PCM.PN.HOSP ---
Patient Problems: Active and Suspected Problems (Last Updated 01/12/18 @ 09:39 by Kyra Rutherford) Sepsis secondary to UTI (Acute) Infectious encephalopathy (Acute) Anticoagulated on Coumadin (Acute) History of hypothyroidism (Acute) DVT, lower extremity, distal (Acute) Subjective: No issues overnight, she is much more alert today and knew where she was and who she was, she her wedding though she did state that this year was 1916 Vitals/I&O's: Vital Signs Temp Pulse Resp BP Pulse Ox 98.5 F 63 16 112/60 94 01/11/19 08:30 01/11/19 09:40 01/11/19 08:30 01/11/19 08:30 01/11/19 08:30 Oxygen Flow Rate (L/min) 1 Oxygen Delivery Method Room Air Weight: 151 lb 14.376 oz Body Mass Index (BMI) 26.0 Finger Stick Blood Glucose 79 Intake and Output for Last 24 Hours 01/09/19 01/10/19 01/11/19 23:59 23:59 23:59 Intake Total 1295 / 1295 2826 / 2826 1047 / 1047 Output Total 450 / 450 625 / 625 100 / 100 Balance 845 / 845 2201 / 2201 947 / 947 General: No apparent distress, alert and oriented x2 HEENT: Atraumatic, PERRLA, Normocephalic Oral: Dry Mucosa Neck: Supple, No JVD, Trachea Midline Lungs: Clear to auscultation, Normal air movement, No rhonchi, No wheeze, No rales Cardiovascular: Regular rate, Regular Rhythm, Normal S1, Normal S2, No murmurs Abdomen: Soft, Non Tender, Non-Distended, No Hepato-splenomegaly Extremities: No edema, Capillary Refill Less than 3 Seconds Skin: No rashes, No breakdown Neurological: - - She has chronic left-sided deficits and is unable to move her left upper extremity or left lower extremity from her previous CVA Psych/Mental Status: Normal Affect, Appropriate Microbiology Past 72 Hours 01/09/19 14:54 Blood Culture (Wb) - Anticubital Right Blood Culture - Preliminary No growth in 48 hours. 01/09/19 14:56 Blood Culture (Wb) - Right Wrist Blood Culture - Preliminary No growth in 48 hours. 01/09/19 15:10 Urine Catheter - Rocha Urine Culture - Final Presumptive E. coli Laboratory Results 01/11/19 05:20: WBC 8.9, RBC 3.34 L, Hgb 9.5 L, Hct 30.3 L, MCV 90.7, MCH 28.4, MCHC 31.4 L, RDW 14.5, RDW Differential 48.1 H, Plt Count 232, MPV 10.7, Immature Gran % (Auto) 0.100, Neut % (Auto) 67.1, Lymph % (Auto) 19.7, [place] % (Auto) 11.9 H, Eos % (Auto) 0.9, Baso % (Auto) 0.3, Absolute Neuts (auto) 6.0, Absolute Lymphs (auto) 1.76, Total Counted Not Reportable 01/11/19 05:20: PT 32.0 H, INR 3.1 Current Medications Acetaminophen (Tylenol) 650 mg PO Q6H PRN PRN Reason: FEVER Last Admin: 01/10/19 21:12 Dose: 650 mg Albuterol Sulfate (Ventolin Aerosols) 2.5 mg INHALATION Q4H PRN PRN PRN Reason: SOB &/OR WHEEZING Alprazolam (Xanax) 0.25 mg PO 4X/DAY [facility] Last Admin: 01/11/19 09:48 Dose: 0.25 mg Atorvastatin Calcium (Lipitor) 40 mg PO QHS [facility] Last Admin: 01/10/19 20:54 Dose: 40 mg Budesonide (Pulmicort Aerosol) 0.5 mg INHALATION Q12H.RT [facility] Last Admin: 01/11/19 07:12 Dose: 0.5 mg Famotidine (Pepcid) 20 mg PO DAILY [facility] Last Admin: 01/11/19 09:43 Dose: 20 mg Ferrous Sulfate (Ferrous Sulfate) 325 mg PO BID@1200,1700 [facility] Last Admin: 01/10/19 17:13 Dose: 325 mg Gabapentin (Neurontin) 400 mg PO Q6H [facility] Last Admin: 01/11/19 05:42 Dose: 400 mg Guaifenesin (Mucinex) 600 mg PO BID PRN PRN Reason: COUGH Cefazolin Sodium 2 gm/ Sodium (Chloride) 110 mls @ 150 mls/hr IV Q8 [facility] Last Admin: 01/11/19 05:45 Dose: 150 mls/hr Lactated Ringer's () 1,000 mls @ 125 mls/hr IV .Q8H [facility] Last Admin: 01/11/19 04:14 Dose: 125 mls/hr Levothyroxine Sodium (Synthroid) 125 mcg PO DAILY@0600 [facility] Last Admin: 01/11/19 05:42 Dose: 125 mcg Magnesium Hydroxide (Milk Of Magnesia) 30 ml PO DAILY PRN PRN Reason: Constipation Melatonin (Melatonin) 3 mg PO QHS [facility] Last Admin: 01/10/19 20:54 Dose: 3 mg Metoprolol Tartrate (Lopressor (Beta Angel)) 12.5 mg PO BID [facility] Last Admin: 01/11/19 09:40 Dose: 12.5 mg Mirtazapine (Remeron) 15 mg PO QHS [facility] Last Admin: 01/10/19 21:13 Dose: 15 mg Quetiapine Fumarate (Seroquel) 25 mg PO BID [facility] Last Admin: 01/11/19 09:45 Dose: 25 mg Senna/Docusate Sodium (Senokot-S, Carey-Colace) 1 tablet PO BID [facility] Last Admin: 01/11/19 09:44 Dose: 1 tablet Sertraline HCl (Zoloft) 150 mg PO DAILY [facility] Last Admin: 01/11/19 09:46 Dose: 150 mg Sodium Chloride () 5 - 15 ml IV UD PRN PRN Reason: SALINE FLUSH Tizanidine HCl (Zanaflex) 4 mg PO TID [facility] Last Admin: 01/11/19 05:42 Dose: 4 mg Tramadol HCl (Ultram) 50 mg PO QHS [facility] Last Admin: 01/10/19 21:12 Dose: 50 mg Warfarin Sodium (Coumadin (Pbkc)) 4 mg PO DAILY@1700 [facility] Last Admin: 01/10/19 17:13 Dose: 4 mg Medical Necessity - Tobacco Use Smoking Status: Never smoker Assessment/Plan All Active Problems (Last Updated 01/12/18 @ 09:39 by Kyra Rutherford) Sepsis secondary to UTI (Acute) Infectious encephalopathy (Acute) Anticoagulated on Coumadin (Acute) History of hypothyroidism (Acute) DVT, lower extremity, distal (Acute) Dysphagia as late effect of cerebrovascular accident (CVA) (Acute) Suspected cerebrovascular accident (CVA) (Acute) Vasogenic cerebral edema (Acute) Stroke determined by clinical assessment (Ruled-out) 1. Sepsis secondary to UTI/metabolic encephalopathy -Received a dose of Rocephin in the ER, transitioned to Ancef -Tachypneic and leukocytosis where the 2+ Sirs criteria that were met -Continue with IVF at 75 cc/h -Blood cultures are negative, and urine cultures are growing and Ancef sensitive E. coli 2. History of CVA with left-sided deficits and dysphasia/HTN/HLD -Unchanged in her baseline deficits -Continue with her home Lipitor, metoprolol 3. Anxiety/depression/chronic pain -Possible bipolar diagnosis though unconfirmed -We will continue with her Xanax, Zoloft, Remeron, Seroquel -She is on home narcotic regimen, will call to continue with her gabapentin, tramadol, and tizanidine 4. Hypothyroidism -Stable -Continue with Synthroid 5. History of a DVT -We will continue with her Coumadin -INR is 3.1, will monitor with abx 6. GERD -Stable -Continue with Pepcid DVT: Warfarin Code Visit Inpatient E&M: [id number] [facility] Hosp L2
--- NOTE | 2019-01-11 11:36 | PN_ITS ---
Patient Problems: Active and Suspected Problems (Last Updated 01/12/18 @ 09:39 by Kyra Rutherford) Sepsis secondary to UTI (Acute) Infectious encephalopathy (Acute) Anticoagulated on Coumadin (Acute) History of hypothyroidism (Acute) DVT, lower extremity, distal (Acute) Subjective: No issues overnight, she is much more alert today and knew where she was and who she was, she her wedding though she did state that this year was 1916 Vitals/I&O's: Vital Signs Temp Pulse Resp BP Pulse Ox 98.5 F 63 16 112/60 94 01/11/19 08:30 01/11/19 09:40 01/11/19 08:30 01/11/19 08:30 01/11/19 08:30 Oxygen Flow Rate (L/min) 1 Oxygen Delivery Method Room Air Weight: 151 lb 14.376 oz Body Mass Index (BMI) 26.0 Finger Stick Blood Glucose 79 Intake and Output for Last 24 Hours 01/09/19 01/10/19 01/11/19 23:59 23:59 23:59 Intake Total 1295 / 1295 2826 / 2826 1047 / 1047 Output Total 450 / 450 625 / 625 100 / 100 Balance 845 / 845 2201 / 2201 947 / 947 General: No apparent distress, alert and oriented x2 HEENT: Atraumatic, PERRLA, Normocephalic Oral: Dry Mucosa Neck: Supple, No JVD, Trachea Midline Lungs: Clear to auscultation, Normal air movement, No rhonchi, No wheeze, No rales Cardiovascular: Regular rate, Regular Rhythm, Normal S1, Normal S2, No murmurs Abdomen: Soft, Non Tender, Non-Distended, No Hepato-splenomegaly Extremities: No edema, Capillary Refill Less than 3 Seconds Skin: No rashes, No breakdown Neurological: - - She has chronic left-sided deficits and is unable to move her left upper extremity or left lower extremity from her previous CVA Psych/Mental Status: Normal Affect, Appropriate Microbiology Past 72 Hours 01/09/19 14:54 Blood Culture (Wb) - Anticubital Right Blood Culture - Preliminary No growth in 48 hours. 01/09/19 14:56 Blood Culture (Wb) - Right Wrist Blood Culture - Preliminary No growth in 48 hours. 01/09/19 15:10 Urine Catheter - Rocha Urine Culture - Final Presumptive E. coli Laboratory Results 01/11/19 05:20: WBC 8.9, RBC 3.34 L, Hgb 9.5 L, Hct 30.3 L, MCV 90.7, MCH 28.4, MCHC 31.4 L, RDW 14.5, RDW Differential 48.1 H, Plt Count 232, MPV 10.7, Immature Gran % (Auto) 0.100, Neut % (Auto) 67.1, Lymph % (Auto) 19.7, [place] % (Auto) 11.9 H, Eos % (Auto) 0.9, Baso % (Auto) 0.3, Absolute Neuts (auto) 6.0, Absolute Lymphs (auto) 1.76, Total Counted Not Reportable 01/11/19 05:20: PT 32.0 H, INR 3.1 Current Medications Acetaminophen (Tylenol) 650 mg PO Q6H PRN PRN Reason: FEVER Last Admin: 01/10/19 21:12 Dose: 650 mg Albuterol Sulfate (Ventolin Aerosols) 2.5 mg INHALATION Q4H PRN PRN PRN Reason: SOB &/OR WHEEZING Alprazolam (Xanax) 0.25 mg PO 4X/DAY [facility] Last Admin: 01/11/19 09:48 Dose: 0.25 mg Atorvastatin Calcium (Lipitor) 40 mg PO QHS [facility] Last Admin: 01/10/19 20:54 Dose: 40 mg Budesonide (Pulmicort Aerosol) 0.5 mg INHALATION Q12H.RT [facility] Last Admin: 01/11/19 07:12 Dose: 0.5 mg Famotidine (Pepcid) 20 mg PO DAILY [facility] Last Admin: 01/11/19 09:43 Dose: 20 mg Ferrous Sulfate (Ferrous Sulfate) 325 mg PO BID@1200,1700 [facility] Last Admin: 01/10/19 17:13 Dose: 325 mg Gabapentin (Neurontin) 400 mg PO Q6H [facility] Last Admin: 01/11/19 05:42 Dose: 400 mg Guaifenesin (Mucinex) 600 mg PO BID PRN PRN Reason: COUGH Cefazolin Sodium 2 gm/ Sodium (Chloride) 110 mls @ 150 mls/hr IV Q8 [facility] Last Admin: 01/11/19 05:45 Dose: 150 mls/hr Lactated Ringer's () 1,000 mls @ 125 mls/hr IV .Q8H [facility] Last Admin: 01/11/19 04:14 Dose: 125 mls/hr Levothyroxine Sodium (Synthroid) 125 mcg PO DAILY@0600 [facility] Last Admin: 01/11/19 05:42 Dose: 125 mcg Magnesium Hydroxide (Milk Of Magnesia) 30 ml PO DAILY PRN PRN Reason: Constipation Melatonin (Melatonin) 3 mg PO QHS [facility] Last Admin: 01/10/19 20:54 Dose: 3 mg Metoprolol Tartrate (Lopressor (Beta Angel)) 12.5 mg PO BID [facility] Last Admin: 01/11/19 09:40 Dose: 12.5 mg Mirtazapine (Remeron) 15 mg PO QHS [facility] Last Admin: 01/10/19 21:13 Dose: 15 mg Quetiapine Fumarate (Seroquel) 25 mg PO BID [facility] Last Admin: 01/11/19 09:45 Dose: 25 mg Senna/Docusate Sodium (Senokot-S, Carey-Colace) 1 tablet PO BID [facility] Last Admin: 01/11/19 09:44 Dose: 1 tablet Sertraline HCl (Zoloft) 150 mg PO DAILY [facility] Last Admin: 01/11/19 09:46 Dose: 150 mg Sodium Chloride () 5 - 15 ml IV UD PRN PRN Reason: SALINE FLUSH Tizanidine HCl (Zanaflex) 4 mg PO TID [facility] Last Admin: 01/11/19 05:42 Dose: 4 mg Tramadol HCl (Ultram) 50 mg PO QHS [facility] Last Admin: 01/10/19 21:12 Dose: 50 mg Warfarin Sodium (Coumadin (Pbkc)) 4 mg PO DAILY@1700 [facility] Last Admin: 01/10/19 17:13 Dose: 4 mg Medical Necessity - Tobacco Use Smoking Status: Never smoker Assessment/Plan All Active Problems (Last Updated 01/12/18 @ 09:39 by Kyra Rutherford) Sepsis secondary to UTI (Acute) Infectious encephalopathy (Acute) Anticoagulated on Coumadin (Acute) History of hypothyroidism (Acute) DVT, lower extremity, distal (Acute) Dysphagia as late effect of cerebrovascular accident (CVA) (Acute) Suspected cerebrovascular accident (CVA) (Acute) Vasogenic cerebral edema (Acute) Stroke determined by clinical assessment (Ruled-out) 1. Sepsis secondary to UTI/metabolic encephalopathy -Received a dose of Rocephin in the ER, transitioned to Ancef -Tachypneic and leukocytosis where the 2+ Sirs criteria that were met -Continue with IVF at 75 cc/h -Blood cultures are negative, and urine cultures are growing and Ancef sensitive E. coli 2. History of CVA with left-sided deficits and dysphasia/HTN/HLD -Unchanged in her baseline deficits -Continue with her home Lipitor, metoprolol 3. Anxiety/depression/chronic pain -Possible bipolar diagnosis though unconfirmed -We will continue with her Xanax, Zoloft, Remeron, Seroquel -She is on home narcotic regimen, will call to continue with her gabapentin, tramadol, and tizanidine 4. Hypothyroidism -Stable -Continue with Synthroid 5. History of a DVT -We will continue with her Coumadin -INR is 3.1, will monitor with abx 6. GERD -Stable -Continue with Pepcid DVT: Warfarin Code Visit Inpatient E&M: [id number] [facility] Hosp L2
[2019-01-11] MEDS: Ferrous Sulfate 325 MG Tablet PO ×2 (11:48→17:07)
--- NOTE | 2019-01-11 13:00 | SP.MBSS_ITS ---
PRIMARY / SECONDARY DIAGNOSIS: Dysphagia REFERRING PHYSICIAN: Dr. Zavala CURRENT DIET: puree/thin; on mechanical soft/thin at SNF prior to admission DENTITION: natural upper/lower dentition in poor repair w/ multiple teeth broken at the root/missing MENTAL STATUS: sufficient for participation in MBS w/ known memory deficits RESPIRATORY STATUS: oxygenating on room air; respiratory standards met PREVIOUS MODIFIED BARIUM SWALLOW STUDY: 02/25/2017 MBS revealed moderate to severe oropharyngeal dysphagia w/ silent aspiration of thin liquids. 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 Dr. Mendoza was the radiologist present for this evaluation. This study was recorded in the lateral view and images were sent to PACs for storage. The following consistencies were presented to this patient for analysis of oropharyngeal swallow function: honey thickened liquids and pudding. Results of the MBS are as follows: PENETRATION / ASPIRATION SCALE (GALAN): 1 = does not enter airway 2 = enters airway/above vocal folds/ejected 3 = enters airway/above vocal folds/not ejected 4 = enters airway/contacts vocal folds/ejected 5 = enters airway/contacts vocal folds/not ejected 6 = enters airway/below vocal folds/ejected 7 = enters airway/below vocal folds/not ejected despite effort 8 = enters airway/below vocal folds/no effort PENETRATION / ASPIRATION SCALE (SCORE): 1. Thin liquid full teaspoon: 7 (initially silent w/ very delayed, weak and ineffective cough response) 2. Thin liquid 1/2 teaspoon: 1 3. Thin liquid single sip via cup: 8 4. Thin liquid single sip via cup: 8 5. [place] thickened liquid sip via cup: 3 * 6. [place] thickened liquid sip via cup: 3 * 7. Honey thickened liquid via cup: 5 * 8. Honey thickened liquid via spoon w/ chin tuck: 1 9. [place] thickened liquid via spoon w/ chin tuck: 5 * 10. Honey thickened liquid via spoon w/ chin tuck: 1 11. Puddin 12. Cookie: 1 (deglutition not captured d/t recording malfunction) * denotes high probability of eventual aspiration d/t inability to eject/dystussia IMPRESSION ORAL PHASE CHARACTERIZED BY: LABIAL SEAL: escape beyond interlabial space or lateral juncture; no extension beyond lay border TONGUE CONTROL DURING BOLUS MANIPULATION: posterior escape of greater than half of bolus BOLUS PREPARATION / MASTICATION: disorganized chewing/mashing with solid pieces of bolus unchewed BOLUS TRANSPORT / LINGUAL MOTION: slowed tongue motion ORAL RESIDUE: residue collection on oral structures PHARYNGEAL PHASE CHARACTERIZED BY: INITIATION OF PHARYNGEAL SWALLOW: bolus head in pyriforms at first hyoid excursion SOFT PALATE ELEVATION: no bolus between soft palate and pharyngeal wall LARYNGEAL ELEVATION: partial superior movement of thyroid cartilage/partial approximation of arytenoids cartilage to epiglottic petiole ANTERIOR HYOID EXCURSION: trace anterior movement EPIGLOTTIC MOVEMENT: complete epiglottic inversion LARYNGEAL VESTIBULE CLOSURE AT HEIGHT OF SWALLOW: incomplete laryngeal vestibule closure with narrow column of air/contrast in laryngeal vestibule PHARYNGEAL STRIPPING WAVE: pharyngeal stripping wave present / complete PHARYNGOESOPHAGEAL SEGMENT OPENING: complete distension and complete duration with no obstruction of flow TONGUE BASE RETRACTION: narrow column of contrast between tongue base and posterior pharyngeal wall PHARYNGEAL RESIDUE: collection of residue within or on pharyngeal structures ESOPHAGEAL PHASE CHARACTERIZED BY: ESOPHAGEAL BOLUS CLEARANCE IN THE UPRIGHT POSITION: could not view EFFECTS OF TREATMENT STRATEGIES ATTEMPTED: Chin tuck posture = effective Cough and reswallow = not effective Cued expectoration = not effective Reduced bolus size = somewhat effective Reduced rate of intake = somewhat effective INTERPRETATION OF RESULTS: Patient presents with moderate oropharyngeal dysphagia (R13.12) secondary to late effects of CVA. Oral phase primarily marked by: * disorganized oral preparation/mastication inefficiency w/ solids d/t poor dentition * poor lingual control of liquids w/ premature pharyngeal entry contributing to penetration prior to swallow onset Pharyngeal phase primarily marked by: * delayed pharyngeal swallow onset timing resulting in suboptimal bolus location upon swallow onset contributing to laryngeal vestibule penetration before and during the swallow * incomplete thyrohyoid approximation and minimal anterior hyoid movement resulting in incomplete laryngeal vestibule closure * pharyngeal residue accumulation in the valleculae d/t minimal anterior hyoid movement and slowed epiglottic inversion * pharyngeal reside accumulation also remained w/in the pyriform sinuses post deglutition, although this residue did not contribute to aspiration and did not compound w/ additional boluses * patient demonstrated a very weak and ineffective cough in response the very first episode of aspiration during this MBS; cough was not effective to expel contrast from the larynx/trachea; all subsequent penetration/aspiration was silent * cued cough/expectoration was not effective to remove penetration from the laryngeal vestibule or aspirate from the trachea, as the cough was extremely weak and as a result, all penetration entering the laryngeal vestibule is likely to be silently aspirated d/t gravity * use of a chin tuck posture was effective to narrow the laryngeal vestibule opening and eliminate penetration w/ honey thickened liquids * the patient struggled to comprehend and accurately execute compensatory postures/strategies patient had a propensity to initiate chin tuck, but then raise head before swallow completion, requiring maximal cues to ensure consistent and continued use of chin tuck through swallow completion * patient noted to SILENTLY aspirate, with clinical assessment at bedside relying on identification of classic overt signs and symptoms of aspiration deemed unreliable for determination of appropriateness for liquid consistency upgrade RECOMMENDATIONS: DIET: pureed textures/honey thickened liquids COMPENSATORY STRATEGIES RECOMMENDED: Direct 1:1 Supervision, total feed, all bites/sips via teaspoon, chin tuck (although only necessary for honey thickened liquids, would consider implementing chin tuck w/ purees and HTL to ensure consistent execution), seated upright at 90 degrees during PO intake, remain upright for 30-60 minutes post meal (GERD precaution) REPEAT MODIFIED BARIUM SWALLOW STUDY: Would strongly discourage advancement past honey thickened liquids without completion of a repeat modified barium swallow study due to the extent of aspirate identified that was SILENT in nature. [place] FREE WATER PROTOCOL: Consider implementation of the [place] Free Water Protocol (FFWP), as continued manipulation of thin liquids with above recommended aspiration precautions may promote improved hydration/quality of life and additionally provide improved intraoral bolus control during initiation and execution of the swallow to facilitate improved airway protection and upgrade to least restrictive means of PO intake (thin liquids). JUSTIFICATION FOR SKILLED DYSPAHGIA INTERVENTION: Patient requires intensive skilled speech-language intervention targeting training and implementation of recommended compensatory strategies; training and implementation of recommended oropharyngeal strengthening exercises to facilitate improved swallow onset timing and laryngeal vestibule closure/pressure, consideration for respiratory muscle strength training to improve respiratory function/cough for airway protection; training, implementation, and Patient education regarding implementation of the FFWP; Patient and caregiver education regarding dysphagia/silent aspiration. ADDITIONAL COMMENTS/RECOMMENDATIONS: Results and recommendations were discussed with the Patient and her immediately following MBS completion w/ review of images to improve comprehension of deficits identified and need for diet texture/liquid consistency modification to reduce aspiration risk, with the Patient?s verbalizing understanding and agreement with all recommendations and education provided. The patient indicated hesitancy to initiate diet modifications but verbalized agreement upon discussion w/ . Anticipate ongoing patient education to be necessary. IMAGE COUNT: [id number]
--- NOTE | 2019-01-11 13:00 | NURSING ---
PT TO X-RAY FOR COOKIE SWALLOW VIA BED.
--- NOTE | 2019-01-11 13:05 | RAD_ITS ---
STUDY: SWALLOWING STUDY REASON FOR EXAM: Female, 73 years old. Silent aspiration. TECHNIQUE: The examination was performed with Speech Pathology in attendance. Under fluoroscopic observation, the patient ingested thin barium, thick barium, barium pudding, and barium coated cracker. FLUOROSCOPY TIME: 3:42 minutes/seconds. 3162 fluoroscopic images were obtained. RADIOLOGIST INVOLVEMENT: Radiologist was present and providing direct supervision. COMPARISON: Comparison is made with prior examination dated February 18, 2017. FINDINGS: The following was observed during swallowing of the various mixtures of barium: Thin Barium: Silent aspiration with ingestion of thin liquids. Thick Barium: Silent aspiration with ingestion of nectar thickened liquids. Transient penetration with ingestion of honey thickened liquids. This improves with chin tuck maneuver. Barium Pudding: There was no evidence of aspiration or laryngeal penetration. Barium Coated Cracker: There was no evidence of aspiration or laryngeal penetration. RAD/Swallowing Function w/Video IMPRESSION: Silent aspiration with ingestion of thin liquids and nectar thickened liquids. Penetration with honey thickened liquids which improves with the chin tuck maneuver. The swallow study findings were discussed with the patient by the speech pathologist at the conclusion of the examination. Please see speech pathology report for more information and recommendations. Electronically Signed: Thomas Mendoza, at 14:08 EDT , Service support ,
[2019-01-11] MEDS: Lactated Ringers 1,000 ML 75 ML IV (17:04)
--- NOTE | 2019-01-11 18:04 | NURSING ---
Attempted to feed patient. Spit first bite out d/t not liking food choice. Second bite moved around on tongue for extensive period of time. Refused with third bite of food.
--- NOTE | 2019-01-11 19:00 | NURSING ---
pt care and biomedical engineering professor by [facility], done under the supervision of this RN.
[2019-01-11] MEDS: MELATONIN 3 MG TABLET PO (22:57)
[2019-01-11] MEDS: Atorvastatin Calcium 40 MG Tablet PO (22:57)
[2019-01-11] MEDS: Mirtazapine 15 MG Tablet PO (22:57)
[2019-01-11] MEDS: traMADol 50 MG Tablet PO (22:58)
[2019-01-12] VITALS (9 sets, daily range): BP systolic 98–126; BP diastolic 48–65; PULSE 57–75; RESP 16–30; TEMP 36.8–37.6; O2SAT 94–98
[2019-01-12 00:38] LABS: Lactic Acid 0.5 mmol/L (0.4-2.0)
[2019-01-12] MEDS: tiZANidine HCl 2 MG Tablet 4 MG PO (05:20)
[2019-01-12] MEDS: Gabapentin 400 MG Capsule PO (05:20)
[2019-01-12] MEDS: Levothyroxine 125 MCG Tablet PO (05:20)
[2019-01-12] MEDS: Cefazolin 2 GM in 0.9% Normal Saline 100 ML IV (05:27)
[2019-01-12 06:23] LABS: Prothrombin Time (Protime)PT. 41.9 SECONDS (11.7-14.9)
[2019-01-12 06:28] LABS: Anion Gap -1 (5-15); BUN 14 mg/dL (7-18); BUN/Creat Ratio 20.8 RATIO (10-20); Calcium,Total 7.8 mg/dL (8.5-10.1); Chloride 111 mmol/L (98-107); Creatinine, Serum 0.67 mg/dL (0.55-1.02); EST Glomerular Filtration Rate 92 mL/min (>60); Est Glom Filt Rate - Afr Amer 111 mL/min (>60); Estimated Creatinine Clearance 44.56 ml/min; Glucose 88 mg/dL (74-106); Potassium 3.9 mmol/L (3.5-5.1); Sodium Level 142 mmol/L (136-145)
[2019-01-12 06:32] LABS: International Normalized Ratio 4.3
[2019-01-12] MEDS: Budesonide Respules 0.5 MG/2 ML AMPUL.NEB. INHALATION (07:00)
[2019-01-12] MEDS: Metoprolol Tartrate 25 MG Tablet 12.5 MG PO (09:02)
[2019-01-12] MEDS: Lactated Ringers 1,000 ML 75 ML IV (09:02)
[2019-01-12] MEDS: Famotidine 20 MG Tablet PO (09:02)
[2019-01-12] MEDS: Senna/Docusate Sodium 1 Tablet PO (09:03)
[2019-01-12] MEDS: ALPRAZolam 0.25 MG Tablet PO (09:03)
[2019-01-12] MEDS: Sertraline 100 MG Tablet 150 MG PO (09:03)
[2019-01-12] MEDS: QUEtiapine 25 MG Tablet PO (09:03)
--- NOTE | 2019-01-12 10:22 | CASEMGMT ---
RITIKA sent updates to [facility]. RITIKA also called Kyra and let her know patient will be returning today. Plan: d/c back to [facility] today. Reyna LOGAN
--- NOTE | 2019-01-12 10:35 | PCM.TXEXTCAR ---
- Diet 01/09/19 16:44 Diet: Cardiac/Low Cholesterol Food consistency:: Mechanical Soft/Ground Liquid Consistency:: Honey Thick Dietary Modifications:: Mechanical Soft Diet Honey Thick Liquids Diet Comments: TOTAL FEED, liquids by STONEY peoples, seated 90 degrees - Routine Orders/Code Status Routine Lab Work: INR [facility] - Wound(s) abdomen Wound Type: old PEG tube site - Therapies Physical Therapy: Eval and Treat Occupational Therapy: Eval and Treat Speech Therapy: Eval and Treat - Problem/Diagnosis (1) Sepsis secondary to UTI Status: Acute Current Visit: Yes (2) Infectious encephalopathy Status: Acute Current Visit: Yes (3) Anticoagulated on Coumadin Status: Acute Current Visit: Yes (4) 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 Current Visit: No (5) Difficulty in walking Status: Chronic Current Visit: No (6) Patent foramen ovale Status: Chronic Current Visit: Yes (7) Dysphagia as late effect of cerebrovascular accident (CVA) Status: Acute Current Visit: No (8) Hypothyroid Status: Chronic Current Visit: No (9) COPD (chronic obstructive pulmonary disease) Status: Chronic Current Visit: No (10) HTN (hypertension) Status: Chronic Current Visit: No (11) GERD (gastroesophageal reflux disease) Status: Chronic Current Visit: No - Allergies/Procedures Done in Hospital Allergies/Adverse Reactions: Allergies Penicillins Allergy (Verified 10/05/18 22:33) Rash zolpidem tartrate [From Ambien] Adverse Reaction (Verified 10/05/18 22:33) CONFUSION - Type of Care/Length of Stay Estimated LOS: More Than 30 Days Type of Care Needed: Skilled Rehab Potential: Fair Prognosis: Fair - Additional Orders/Day of Discharge Day of Discharge: 01/12/19 - Dietary and Speech Recommendations Dietitian Recommendations/Changes: Continue cardiac diet with texture/consistency as per [employer]ON[employer] PLEATER. Consider PEG TF as needed if PO established inadequate at meals. - Follow Up Care Primary Care Physician: Kelvin Ibanez MD [Primary Care Provider] - Please follow up with your Primary Care Physician in: 3-5 days
--- NOTE | 2019-01-12 11:13 | CASEMGMT ---
Patient is ready for discharge back to [facility]. RITIKA faxed orders to [facility]. RITIKA called [facility] and arranged for patient to get picked up at via cot. RITIKA notified patient, her , and sdv pilot/navigator/dds operator who notified patient's RN. RITIKA also notified Kyra at [facility]. Plan: d/c back to [facility] at [place] under skilled level of care. [facility] transported her via cot. Reyna MUÑOZ MSW
--- NOTE | 2019-01-12 11:16 | NURSING ---
this RN called report to Shanda @ the [facility]. Transport to be here @ 1300 to pick pt up.
--- NOTE | 2019-01-12 12:17 | PCM.DC.SUM ---
Discharge Date and Diagnosis - Problem List Patient Problems: Active and Suspected Problems (Last Updated 01/12/18 @ 09:39 by Kyra Rutherford) Sepsis secondary to UTI (Acute) Infectious encephalopathy (Acute) Anticoagulated on Coumadin (Acute) History of hypothyroidism (Acute) DVT, lower extremity, distal (Acute) Date of Admission: 01/09/19 Date of Discharge: 01/12/19 - Primary Discharge Diagnosis Active and Suspected Problems (Last Updated 01/12/18 @ 09:39 by Kyra Rutherford) Sepsis secondary to UTI (Acute) Infectious encephalopathy (Acute) Anticoagulated on Coumadin (Acute) History of hypothyroidism (Acute) DVT, lower extremity, distal (Acute) - Secondary Discharge Diagnosis Chronic Problems (Last Updated 01/12/18 @ 09:39 by Kyra Rutherford) Chronic insomnia (Chronic) 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 Stroke (Chronic) Hospital Course and Treatment Imaging Results: Video Swallow Study: IMPRESSION: Silent aspiration with ingestion of thin liquids and nectar thickened liquids. Penetration with honey thickened liquids which improves with the chin tuck maneuver. Consults: None Operations: None Procedures: None Summary of Care Provided: HPI: The patient is a 73 year old F with PMH as below who presents from the senior care with a fever which began today. According to the she was at her baseline yesterday. Unfortunately during my exam no family was present so the history was obtained from chart review. She was brought in from the nursing facility for a temperature that there was 103.5, and was 102.[address] ambulance [address] the way to the ER. On exam she was found to be tachypneic and have a leukocytosis therefore meeting criteria for sepsis, and a UA was obtained demonstrating probable urinary tract infection. And she was admitted for IV antibiotics. Hospital Course: 1. Sepsis secondary to UTI/metabolic [id number]-lyte-old female with a history of a right CVA with left-sided deficits and dysphagia presented to the hospital for fever and confusion. She was found to have a UTI and was initiated on Rocephin and then transitioned to Ancef. Her urine culture finalized yesterday and was found to be pansensitive. Family initially was concerned that this could have been a second stroke just because she was not using her right arm which she normally could and her left side was stiff, however as her white count improved and she remained afebrile she started using her right arm again and family was okay with her transferring back to the [facility] facility today. She will be transitioned to Keflex 4 times daily for 4 more days. Initially she was confused as to where she was and would say that it was [place] and today she knew where she was and who she was but did not know what year it was. 2. History of DVT-she is on chronic Coumadin because of her history of a DVT, and on admission her INR was 2.6 and increased to 3.1 yesterday. However today she is 4.1 and given the fact that she is on an antibiotic for the next 4 days would recommend that her Coumadin be held and have a daily INR. 3. Her other medical diagnoses were evaluated and her home medications were continued where appropriate Patient Problems: Active and Suspected Problems (Last Updated 01/12/18 @ 09:39 by Kyra Rutherford) Sepsis secondary to UTI (Acute) Infectious encephalopathy (Acute) Anticoagulated on Coumadin (Acute) History of hypothyroidism (Acute) DVT, lower extremity, distal (Acute) Objective: General: No apparent distress, alert and oriented x2 HEENT: Atraumatic, PERRLA, Normocephalic Oral: Dry Mucosa Neck: Supple, No JVD, Trachea Midline Lungs: Clear to auscultation, Normal air movement, No rhonchi, No wheeze, No rales Cardiovascular: Regular rate, Regular Rhythm, Normal S1, Normal S2, No murmurs Abdomen: Soft, Non Tender, Non-Distended, No Hepato-splenomegaly Extremities: No edema, Capillary Refill Less than 3 Seconds Skin: No rashes, No breakdown Neurological: - - She has chronic left-sided deficits and is unable to move her left upper extremity or left lower extremity from her previous CVA Psych/Mental Status: Normal Affect, Appropriate - Physical Exam Vital Signs Temp Pulse Resp BP Pulse Ox 98.3 F 64 20 H 126/65 H 94 01/12/19 10:26 01/12/19 11:01 01/12/19 10:26 01/12/19 10:26 01/12/19 10:26 Oxygen Flow Rate (L/min) 2 Oxygen Delivery Method Room Air Weight: 151 lb 14.376 oz Body Mass Index (BMI) 26.0 Finger Stick Blood Glucose 79 Intake and Output for Last 24 Hours 01/10/19 01/11/19 01/12/19 23:59 23:59 23:59 Intake Total 2826 / 2826 2839 / 2839 802 / 802 Output Total 625 / 625 925 / 925 600 / 600 Balance 2201 / 2201 1914 / 1914 202 / 202 Microbiology Past 72 Hours 01/09/19 14:54 Blood Culture - Preliminary Blood Culture (Wb) - Anticubital Right No growth in 48 hours. 01/09/19 14:56 Blood Culture - Preliminary Blood Culture (Wb) - Right Wrist No growth in 48 hours. 01/09/19 15:10 Urine Culture - Final Urine Catheter - Rocha Presumptive E. coli Laboratory Tests Past 24 Hrs 01/12/19 01/12/19 01/12/19 00:09 05:24 05:50 PT 41.9 H INR 4.3 H* Sodium 142 Potassium 3.9 Chloride 111 H Carbon Dioxide 32.0 Anion Gap -1 L BUN 14 Creatinine 0.67 Estim Creat Clear Calc 44.56 Est GFR (MDRD) Af Amer 111 Est GFR (MDRD) Non-Af 92 BUN/Creatinine Ratio 20.8 H Glucose 88 Lactic Acid 0.5 Calcium 7.8 L Home Medications: Medications to take at Discharge Dextran 70/He-Cell [Tears Naturale, Artificial Tears] 1 drop LEFT EYE TID bottle 02/25/17 alprazolam 0.25 mg tablet 0.25 mg PO 4X/DAY tab 01/11/18 atorvastatin 40 mg tablet 40 mg PO QDAY 01/11/18 sennosides 8.6 mg-docusate sodium 50 mg tablet 1 tab PO BID 01/11/18 sertraline 100 mg tablet 1.5 tab PO QDAY 01/11/18 acetaminophen 325 mg tablet 650 mg PO Q6H PRN tab 01/12/18 famotidine 20 mg tablet 20 mg PO DAILY tab 01/12/18 ferrous sulfate 325 mg (65 mg iron) tablet 325 mg PO BID tab 01/12/18 gabapentin 400 mg capsule 400 mg PO Q6H cap 01/12/18 levothyroxine 125 mcg tablet 125 mcg PO DAILY@0600 tab 01/12/18 metoprolol tartrate 25 mg tablet 12.5 mg PO BID tab 01/12/18 tizanidine 4 mg capsule 4 mg PO TID 01/12/18 Cholecalciferol (Vitamin D3) [Vitamin D3] 2,000 unit PO DAILY 10/05/18 Quetiapine Fumarate [Seroquel] 12.5 mg PO DAILY 10/05/18 traMADol [Ultram] 50 mg PO QHS 10/05/18 Albuterol Sulfate 2.5 mg IH Q4H PRN PRN 01/09/19 Fluticasone/Vilanterol [Breo Ellipta 100-25 Mcg INH] 1 each IH DAILY 01/09/19 Guaifenesin [Guaifenesin ER] 600 mg PO BID PRN 01/09/19 Melatonin 3 mg PO QHS 01/09/19 Quetiapine Fumarate [Seroquel] 25 mg PO QHS 01/09/19 Cephalexin [Keflex] 500 mg PO Q6 #12 capsule 01/12/19 Warfarin Sodium [Coumadin] 4 mg PO QDAY #0 01/12/19 Following Prescrptions Were Given to Patient: Cephalexin [Keflex] 500 mg PO Q6 #12 capsule Primary Care Physician: Kelvin Ibanez MD [Primary Care Provider] - Please follow up with your Primary Care Physician in: 3-5 days Disposition: Retirement facility Minutes spent on discharge:: 35 Patient Condition:: Stable Medical Necessity - Tobacco Use Smoking Status: Never smoker Meaningful Use Info Meaningful Use Diagnoses (Choose all that apply): None applicable Code Visit Inpatient E&M: 76728 Disch Hosp
== END 2019-01-12 13:10 | disposition skilled nursing facility (03) | DRG 690 ==
LOC: ED 15:45 → PCU 16:02
PROVIDERS: Hospitalist; Admitting Provider Family Medicine; Emergency Provider Emergency Medicine; Family Provider Family Medicine; PCP Family Medicine; Visit Provider Family Medicine
DX: N39.0 Urinary tract infection, site not specified (principal); Q21.1 Atrial septal defect; E03.9 Hypothyroidism, unspecified; Z66 Do not resuscitate; K21.9 Gastro-esophageal reflux disease without esophagitis; I10 Essential (primary) hypertension; D64.9 Anemia, unspecified; R13.10 Dysphagia, unspecified; J44.9 Chronic obstructive pulmonary disease, unspecified; R26.2 Difficulty in walking, not elsewhere classified; F51.04 Psychophysiologic insomnia; Z87.440 Personal history of urinary (tract) infections; I69.398 Other sequelae of cerebral infarction; Z79.01 Long term (current) use of anticoagulants; I69.391 Dysphagia following cerebral infarction; Z86.718 Personal history of other venous thrombosis and embolism; Z95.828 Presence of other vascular implants and grafts
CPT/HCPCS: 36415; 51702; 71045; 74230; 80048; 80053; 81001; 83605; 85025; 85610; 85730; 87040; 87077; 87086; 87088; 87186; 87633; 92526; 92610; 92611; 93005; 94640; 97162; 97166; 97530; 97802; 99285; J7030; J7120; A4216

== ENCOUNTER → 2019-01-13 07:20 | Outpatient (REF) | payer MEDICARE, BC, SELFPAY ==
[2019-01-09 16:44] VITALS: BMI 26.0
[2019-01-13 08:23] LABS: International Normalized Ratio 3.3
== END ==
LOC: OLS.AVEB 07:20
PROVIDERS: Visit Provider Family Medicine
DX: Z79.01 Long term (current) use of anticoagulants (principal)
CPT/HCPCS: 36415; 85610

== ENCOUNTER → 2019-01-14 05:00 | Outpatient (REF) | payer MEDICARE, BC, SELFPAY ==
[2019-01-09 16:44] VITALS: BMI 26.0
[2019-01-14 08:11] LABS: Prothrombin Time Fingerstick 46.3 SEC (11.9-14.4)
[2019-01-14 08:32] LABS: Prothrombin Time (Protime)PT. 31.4 SECONDS (11.7-14.9)
== END ==
LOC: OLS.AVEB 05:00
PROVIDERS: Visit Provider Family Medicine
DX: Z79.01 Long term (current) use of anticoagulants (principal)
CPT/HCPCS: 36416; 85610

== ENCOUNTER → 2019-01-17 04:00 | Outpatient (REF) | payer MEDICARE, BC, SELFPAY ==
[2019-01-09 16:44] VITALS: BMI 26.0
[2019-01-17 06:25] LABS: Prothrombin Time Fingerstick 31.9 SEC (11.9-14.4)
== END ==
LOC: OLS.AVEB 04:00
PROVIDERS: Visit Provider Family Medicine
DX: I48.91 Unspecified atrial fibrillation (principal); Z79.01 Long term (current) use of anticoagulants
CPT/HCPCS: 36416; 85610

== ENCOUNTER → 2019-01-24 04:00 | Outpatient (REF) | payer MEDICARE, BC, SELFPAY ==
[2019-01-09 16:44] VITALS: BMI 26.0
[2019-01-24 10:15] LABS: Prothrombin Time Fingerstick 23.4 SEC (11.9-14.4)
[2019-01-29 14:11] VITALS: BMI 29.8
== END ==
LOC: OLS.AVEB 04:00
PROVIDERS: Visit Provider Family Medicine
DX: Z79.01 Long term (current) use of anticoagulants (principal)
CPT/HCPCS: 36416; 85610

== ENCOUNTER 2019-01-29 10:20 | Inpatient (IN) | payer MEDICARE, BC, SELFPAY ==
[2019-01-09 16:44] VITALS: BMI 26.0
[2019-01-29] VITALS (12 sets, daily range): BP systolic 86–119; BP diastolic 46–80; PULSE 77–86; RESP 18–30; TEMP 36.9–39.6; O2SAT 93–100; BMI 31.5; BMI 29.8
--- NOTE | 2019-01-29 10:37 | EKG12_ITS ---
Test Reason : SEPSIS Blood Pressure : / mmHG Vent. Rate : 087 BPM Atrial Rate : 087 BPM P-R Int : 174 ms QRS Dur : 066 ms QT Int : 344 ms P-R-T Axes : 061 009 042 degrees QTc Int : 413 ms Normal sinus rhythm Normal ECG Confirmed by SEAN COOK, CONNIE ([id number]), assistant production editor FARA HARRISON ([id number] on 02/01/2019 2:00:15 PM Referred By: DEBORAH Confirmed By:CONNIE ESTRADA MD
--- NOTE | 2019-01-29 10:37 | RAD_ITS ---
STUDY: X-RAY CHEST REASON FOR EXAM: Female, 73 years old. Cough TECHNIQUE: AP COMPARISON: 01/12/2019 FINDINGS: Improved aeration of the left lung base since the prior study. EKG leads project over the chest. No consolidating air space process. There is no demonstrated pleural abnormality. Normal size heart. Normal mediastinum and edmundo. Normal visualized pulmonary arteries. Normal visualized aortic arch and descending thoracic aorta. No acute bony process. Surgical clips and IVC filter identified in the upper abdomen. RAD/Chest 1 View (Portable) IMPRESSION: 1. No airspace consolidation or pleural effusion. Electronically Signed: Blaise Renee MD at 11:08 EDT , Service support ,
--- NOTE | 2019-01-29 10:46 | ED.DCSUM_ITS ---
- ER Visit Summary Date of Service: 01/29/19 Chief Complaint: Fever, confusion History of Present Illness: The patient is a 73 F who presents from a halfway with fever and confusion. Family noted that she was confused and her temperature was taken and it was elevated. She is usually alert and oriented but has left-sided deficits from a previous stroke. She had a similar presentation approximately 3 weeks ago and was diagnosed with sepsis from a urinary tract infection. At that time she was given Rocephin, Ancef and then transition to Keflex. Her urine culture was pansensitive at that time. Patient does not contribute much of the history due to her confusion. Physical Examination: Vital signs are reviewed. Patient's temperature is 103.2. Heart rate in the 80s. She is slightly tachypneic. HEENT exam reveals dry mucous membranes. Her heart is regular rate and rhythm. Lungs are clear. Abdomen soft with no tenderness. Her skin exam reveals no rashes. She is confused and mumbles incompressible words. She has diffuse left-sided weakness from her previous stroke. Test Results: White blood cell count 13.1, glucose 116. Alkaline phosphatase 159. She does have UTI with greater than 100 white blood cells. Lactate 1.4. Chest x-ray reveals nothing acute Emergency Department Course and Treatment: Patient was given 30 mils per kilogram bolus of IV fluids. Her repeat blood pressure is 95/66 with a map of 78. She does have UTI with sepsis criteria. Her culture showed that it was sensitive to cephalosporins. I will give her 1 dose of IV Rocephin. She will be admitted to the hospital. When I reevaluated her her speech was more clear and she is able to answer my questions. Treatment Plan: [] Disposition: Admit Impression: Sepsis, UTI This note was generated with [employer] dictation software. It may contain incorrect words, spelling, and punctuation that were not noted in review of the chart prior to signing ED Disposition - Plan for ED Patient: Referrals: Kelvin Ibanez MD [Primary Care Provider] -
[2019-01-29] MEDS: 0.9% Normal Saline 1,000 ML IV.SOLN. 2200 ML IV (10:56)
[2019-01-29 11:14] LABS: Absolute Lymphocyte Count 1.14 X10^3/ul (0.83-4.51); Absolute Neutrophil Count 10.9 X10^3/uL (2.0-7.7); Basophil# 0.04 X10^3/uL; Basophil% 0.3 % (0-1); Eosinophil# 0.02 X10^3/uL; Eosinophils% 0.2 % (0-5); Hematocrit 37.6 % (37-47); Hemoglobin 11.6 g/dl (12.0-15.0); Lymphocyte # 1.14 X10^3/ul (4.0); Lymphocyte % 8.7 % (19-41); Mean Corp Hgb Conc 30.9 g/gl (32-36); Mean Corpuscular Volume 90.6 fL (81-99); Monocyte# 1.04 X10^3/uL; Monocyte% 7.9 % (0-10); Neutrophil # 10.87 X10^3/uL (2.7-7.7); Neutrophil % 82.7 % (47-70); POSITIVE COUNT NO; POSITIVE DIFFERENTIAL NO; POSITIVE MORPHOLOGY NO; Platelet Count 428 K/mm3 (150-450); RBC Distribution Width CV 14.5 % (11.6-14.6); RBC Distribution Width SD 47.2 fl (35.1-43.9); Red Blood Count 4.15 M/mm3 (4.2-5.4); White Blood Count 13.1 K/mm3 (4.4-11.0)
[2019-01-29] MEDS: Acetaminophen 325 MG Tablet 650 MG PO ×2 (11:19→17:20)
[2019-01-29 11:21] LABS: International Normalized Ratio 2.2; Prothrombin Time (Protime)PT. 24.6 SECONDS (11.7-14.9)
[2019-01-29 11:22] LABS: Partial Thromboplast Time 47.3 Seconds (24.1-36.2)
[2019-01-29 11:41] LABS: Lactic Acid 1.4 mmol/L (0.4-2.0)
[2019-01-29 11:44] LABS: ALB/GLOB Ratio 0.9 RATIO (0.9-2.4); AST(SGOT) 17 U/L (15-37); Alanine Aminotransfer ALT/SGPT 19 U/L (13-56); Albumin, Serum 3.5 g/dL (3.2-5.0); Alkaline Phosphatase 159 U/L (45-117); Anion Gap 5 (5-15); BUN 21 mg/dL (7-18); BUN/Creat Ratio 21.8 RATIO (10-20); Calcium,Total 8.8 mg/dL (8.5-10.1); Chloride 106 mmol/L (98-107); Creatinine, Serum 0.96 mg/dL (0.55-1.02); EST Glomerular Filtration Rate 61 mL/min (>60); Est Glom Filt Rate - Afr Amer 73 mL/min (>60); Estimated Creatinine Clearance 38.61 ml/min; Globulin 3.8 g/dL (2.2-4.2); Glucose 116 mg/dL (74-106); Potassium 4.1 mmol/L (3.5-5.1); Protein, Total 7.3 g/dL (6.4-8.2); Sodium Level 142 mmol/L (136-145)
[2019-01-29 12:15] LABS: Mucous, Urine 0 SEEN /hpf (<or=2+); Squamous Epithelial Cells - UA 0 SEEN /hpf (5-10)
[2019-01-29 12:17] LABS: Color, Urine Yellow (Yellow); Glucose, Dipstick Normal (Normal); Ketone-Dipstick Negative (Negative); Leukocyte Esterase-Dipstick 500 /ul (Negative); Nitrite-Dipstick Positive (Negative); Occult Blood-Urine 250 /ul (Negative); Protein-Dipstick 100 mg/dl (Negative); Specific Gravity, Urine 1.005 (1.002-1.030); Urine Bilirubin Dipstick Negative (Negative); Urine Clarity Turbid (Clear); Urine Urobilinogen 1 mg/dl (Normal)
[2019-01-29 12:24] LABS: Bacteria 1+ /hpf (None Seen); Red Blood Cells-Urine 0-5 SEEN /hpf (0-5); White Blood Cells >100 SEEN /hpf (0-5)
--- NOTE | 2019-01-29 12:49 | ED.RN ---
CALLED AND TALKED TO WILLIAM AT THE THE [facility], EXPLAINED TO HER THAT PT WAS BEING ADMITTED TO THE HOSPITAL AND ASKED FOR A MAR.
[2019-01-29] MEDS: Ceftriaxone 1 GM/50 ML BAG IV (13:22)
--- NOTE | 2019-01-29 13:23 | NURSING ---
308 SEPSIS, UTI [place]
--- NOTE | 2019-01-29 13:40 | PCM.HP.STD ---
Problem List (1) UTI (urinary tract infection) Status: Acute (2) Metabolic encephalopathy Status: Acute (3) Sepsis Status: Chronic History of Present Illness Date of Admission: 01/29/19 Chief Complaint: fever. confusion The patient is a 73 year old F presents with fever and confusion. Symptoms began on the . Patient was at temperature 103 Fahrenheit. Presented to the emergency room temperatures were 39.6. Patient without a white count of 13.1. Urinalysis revealed a urinary tract infection. Rocha catheter was placed at the instruction of the emergency room physician. Patient normally is incontinent of urine. Patient was admitted at the end of December and had a E. coli UTI and was discharged. Patient is also been confused. Family, present at bedside, confirms that patient to does have some short-term memory deficits but is able to state where she is in state the date normally. 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 Stroke (Chronic) I63.9 Vasogenic cerebral edema (Acute) G93.6 Anemia D64.9 Chest wall pain R07.89 Chronic insomnia F51.04 Depression F32.9 Dysphagia R13.10 Malaise and fatigue R53.81, R53.83 Narcotic abuse F11.10 Obesity E66.9 History of hysterectomy Z90.710 Allergies Penicillins Allergy (Verified 01/29/19 10:21) Rash zolpidem tartrate [From Ambien] Adverse Reaction (Verified 01/29/19 10:21) CONFUSION Home Medications: Ambulatory Orders Medication Instructions Recorded Dextran 70/He-Cell [Tears 1 drop LEFT EYE TID bottle 02/25/17 Naturale, Artificial Tears] alprazolam 0.25 mg tablet 0.25 mg PO 4X/DAY tab 01/11/18 atorvastatin 40 mg tablet 40 mg PO QDAY 01/11/18 sennosides 8.6 mg-docusate sodium 1 tab PO BID 01/11/18 50 mg tablet sertraline 100 mg tablet 1.5 tab PO QDAY 01/11/18 acetaminophen 325 mg tablet 650 mg PO Q6H PRN tab 01/12/18 famotidine 20 mg tablet 20 mg PO DAILY tab 01/12/18 ferrous sulfate 325 mg (65 mg 325 mg PO BID tab 01/12/18 iron) tablet gabapentin 400 mg capsule 400 mg PO Q6H cap 01/12/18 levothyroxine 125 mcg tablet 125 mcg PO DAILY@0600 tab 01/12/18 metoprolol tartrate 25 mg tablet 12.5 mg PO BID tab 01/12/18 tizanidine 4 mg capsule 4 mg PO TID 01/12/18 Cholecalciferol (Vitamin D3) 2,000 unit PO DAILY 10/05/18 [Vitamin D3] Quetiapine Fumarate [Seroquel] 12.5 mg PO DAILY 10/05/18 traMADol [Ultram] 50 mg PO QHS 10/05/18 Albuterol Sulfate 2.5 mg IH Q4H PRN PRN 01/09/19 Fluticasone/Vilanterol [Breo 1 each IH DAILY 01/09/19 Ellipta 100-25 Mcg INH] Guaifenesin [Guaifenesin ER] 600 mg PO BID PRN 01/09/19 Melatonin 3 mg PO QHS 01/09/19 Quetiapine Fumarate [Seroquel] 25 mg PO QHS 01/09/19 Cephalexin [Keflex] 500 mg PO Q6 #12 capsule 01/12/19 Warfarin Sodium [Coumadin] 4 mg PO QDAY #0 01/12/19 Surgical History: Surgical History (Last Updated 01/29/19 @ 13:44 by Rios Duarte DO) 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) Z95.828 placement 01/2017 History of [place] fundoplication Z98.890 Surgical History: arthroscopy, knee, hysterectomy, - - kristina fundoplication Lives: Care Home Smoking Status: Never smoker Tobacco Use: Non-smoker - *Family History Maternal Family History: Family History (Last Reviewed 01/29/19 @ 13:44 by Rios Duarte DO) Mother CAD (coronary artery disease) CVA (cerebral vascular accident) Father Heart disease CVA (cerebral vascular accident) Sister Heart disease Brother Hypertension History Items: Stroke - age 69 Paternal Family History: Family History (Last Reviewed 01/29/19 @ 13:44 by Rios Duarte DO) Mother CAD (coronary artery disease) CVA (cerebral vascular accident) Father Heart disease CVA (cerebral vascular accident) Sister Heart disease Brother Hypertension History Items: Stroke - in 80's Review of Systems Comment: Unable to obtain over adequately review of systems as the patient is confused. VTE Information - Inpt Only VTE Present on Admission: No VTE Mechan Device Prophylaxis: None VTE Pharm Prophylaxis ordered?: No Reason prophylaxis not ordered:: Procedure Not Indicated Patient Problems: Active and Suspected Problems (Last Updated 01/12/18 @ 09:39 by Kyra Rutherford) UTI (urinary tract infection) (Acute) Metabolic encephalopathy (Acute) - Physical Exam General: - - Awake. Confused. Febrile. Nontoxic. HEENT: Atraumatic, Normocephalic Oral: Dry Mucosa Neck: No Nodes, Thyroid Normal Size and Texture Lungs: Clear to auscultation, Diminished Cardiovascular: Regular rate, Regular Rhythm, Normal S1, Normal S2, No murmurs Abdomen: Bowel Sounds Present, Soft, Non Tender, Non-Distended, No Hepato-splenomegaly Extremities: No edema, No Calf Tenderness Skin: No rashes Musculoskeletal: Cachexia, Muscle Wasting Neurological: Muscle tone normal, Coordination normal Psych/Mental Status: Agitated Vital Signs Temp Pulse Resp BP Pulse Ox 38.0 C H 77 24 H 86/54 L 99 01/29/19 13:28 01/29/19 13:28 01/29/19 13:28 01/29/19 13:28 01/29/19 13:28 Oxygen Flow Rate (L/min) 2 Oxygen Delivery Method Nasal Cannula Weight: 73.2 kg Body Mass Index (BMI) 31.5 Finger Stick Blood Glucose 79 Laboratory Tests Past 24 Hrs 01/29/19 01/29/19 01/29/19 11:00 11:00 11:00 WBC 13.1 H RBC 4.15 L Hgb 11.6 L Hct 37.6 MCV 90.6 MCH 28.0 MCHC 30.9 L RDW 14.5 RDW Differential 47.2 H Plt Count 428 MPV 11.0 Immature Gran % (Auto) 0.200 Neut % (Auto) 82.7 H Lymph % (Auto) 8.7 L [place] % (Auto) 7.9 Eos % (Auto) 0.2 Baso % (Auto) 0.3 Absolute Neuts (auto) 10.9 H Absolute Lymphs (auto) 1.14 Total Counted Not Reportable PT 24.6 H INR 2.2 APTT 47.3 H Sodium 142 Potassium 4.1 Chloride 106 Carbon Dioxide 31.0 Anion Gap 5 BUN 21 H Creatinine 0.96 Estim Creat Clear Calc 38.61 Est GFR (MDRD) Af Amer 73 Est GFR (MDRD) Non-Af 61 BUN/Creatinine Ratio 21.8 H Glucose 116 H Lactic Acid Calcium 8.8 Total Bilirubin 0.60 AST 17 ALT 19 Alkaline Phosphatase 159 H Total Protein 7.3 Albumin 3.5 Globulin 3.8 Albumin/Globulin Ratio 0.9 Urine Color Urine Clarity Urine pH Ur Specific [place] Urine Protein Urine Glucose (UA) Urine Ketones Urine Occult Blood Urine Nitrite Urine Bilirubin Urine Urobilinogen Ur Leukocyte Esterase Urine RBC Urine WBC Ur Squamous Epith Cells Urine Bacteria Urine Mucus 01/29/19 01/29/19 11:00 11:58 WBC RBC Hgb Hct MCV MCH MCHC RDW RDW Differential Plt Count MPV Immature Gran % (Auto) Neut % (Auto) Lymph % (Auto) [place] % (Auto) Eos % (Auto) Baso % (Auto) Absolute Neuts (auto) Absolute Lymphs (auto) Total Counted PT INR APTT Sodium Potassium Chloride Carbon Dioxide Anion Gap BUN Creatinine Estim Creat Clear Calc Est GFR (MDRD) Af Amer Est GFR (MDRD) Non-Af BUN/Creatinine Ratio Glucose Lactic Acid 1.4 Calcium Total Bilirubin AST ALT Alkaline Phosphatase Total Protein Albumin Globulin Albumin/Globulin Ratio Urine Color Yellow Urine Clarity Turbid Urine pH 7.0 Ur Specific [place] 1.005 Urine Protein 100 H Urine Glucose (UA) Normal Urine Ketones Negative Urine Occult Blood 250 H Urine Nitrite Positive H Urine Bilirubin Negative Urine Urobilinogen 1 H Ur Leukocyte Esterase 500 H Urine RBC 0-5 SEEN Urine WBC >100 SEEN Ur Squamous Epith Cells 0 SEEN Urine Bacteria 1+ Urine Mucus 0 SEEN Assessment/Plan All Active Problems (Last Updated 01/12/18 @ 09:39 by Kyra Rutherford) Sepsis secondary to UTI (Acute) Infectious encephalopathy (Acute) Anticoagulated on Coumadin (Acute) History of hypothyroidism (Acute) UTI (urinary tract infection) (Acute) Metabolic encephalopathy (Acute) DVT, lower extremity, distal (Acute) Dysphagia as late effect of cerebrovascular accident (CVA) (Acute) Suspected cerebrovascular accident (CVA) (Acute) Vasogenic cerebral edema (Acute) Stroke determined by clinical assessment (Ruled-out) 1. Sepsis Present on admission Secondary to recurrent UTI Supportive management Patient will receive 2 L of additional IV fluid as patient is clinically dry 2. UTI Patient does not have a catheter at baseline. Likely due to chronic urinary incontinence. Do not feel is related with an antibiotic failure from her most recent admission does appear to be sensitive to cephalexin Will continue with ceftriaxone 3. Metabolic encephalopathy Secondary to sepsis and UTI Reviewed her medications as well and is also on medication that could be potentiating this. I am going to discontinue the tramadol, gabapentin, tizanidine. I strongly recommend beginning a taper on the alprazolam. Patient is on 25 mg 4 times daily and that scheduled. I am recommending now it to be switched over to twice daily as needed and I would further recommend that be weaned off over the next several weeks. My recommendation for taper schedule would be 0.25 mg twice daily as needed for 1 week then daily for 1 week as needed, then every other day as needed for 3 dosings then to discontinue altogether. 4. Stroke, likely dementia, debility: Complicate overall care. 5. Dysphagia: Patient is on honey thickened liquids plus a mechanical soft diet. Patient's power of admitted attorneys was present during the encounter and I explained that she does not drink much because of that. I encouraged him to consider liberalizing her diet but also understand the risks of aspiration but given her thin liquids. Recommended he at least consider palliative measures in regards to quality of life. I recommended him that he can certainly think about it talk it over with additional family members and come back to consensus during this admission or another time. Speech therapy to evaluate and treat 6. VT E: Patient already anticoagulated on Coumadin. 7. VT E prophylaxis: Not indicated as patient is already on Coumadin and properly anticoagulated 8. Advanced care planning: Verified with the patient's power of admitted attorneys that she is DNR Comfort Care arrest. 9. Disposition: Suspect the patient will be admitted for approximately 48-72 hours based on the we have the results of the cultures and patient's overall clinical response to treatment. Code Visit Inpatient E&M: [id number] Init Hosp L3
--- NOTE | 2019-01-29 13:44 | HP.PCM_ITS ---
Problem List (1) UTI (urinary tract infection) Status: Acute (2) Metabolic encephalopathy Status: Acute (3) Sepsis Status: Chronic History of Present Illness Date of Admission: 01/29/19 Chief Complaint: fever. confusion The patient is a 73 year old F presents with fever and confusion. Symptoms began on the . Patient was at temperature 103 Fahrenheit. Presented to the emergency room temperatures were 39.6. Patient without a white count of 13.1. Urinalysis revealed a urinary tract infection. Rocha catheter was placed at the instruction of the emergency room physician. Patient normally is incontinent of urine. Patient was admitted at the end of December and had a E. coli UTI and was discharged. Patient is also been confused. Family, present at bedside, confirms that patient to does have some short-term memory deficits but is able to state where she is in state the date normally. 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 Stroke (Chronic) I63.9 Vasogenic cerebral edema (Acute) G93.6 Anemia D64.9 Chest wall pain R07.89 Chronic insomnia F51.04 Depression F32.9 Dysphagia R13.10 Malaise and fatigue R53.81, R53.83 Narcotic abuse F11.10 Obesity E66.9 History of hysterectomy Z90.710 Allergies Penicillins Allergy (Verified 01/29/19 10:21) Rash zolpidem tartrate [From Ambien] Adverse Reaction (Verified 01/29/19 10:21) CONFUSION Home Medications: Ambulatory Orders Medication Instructions Recorded Dextran 70/He-Cell [Tears 1 drop LEFT EYE TID bottle 02/25/17 Naturale, Artificial Tears] alprazolam 0.25 mg tablet 0.25 mg PO 4X/DAY tab 01/11/18 atorvastatin 40 mg tablet 40 mg PO QDAY 01/11/18 sennosides 8.6 mg-docusate sodium 1 tab PO BID 01/11/18 50 mg tablet sertraline 100 mg tablet 1.5 tab PO QDAY 01/11/18 acetaminophen 325 mg tablet 650 mg PO Q6H PRN tab 01/12/18 famotidine 20 mg tablet 20 mg PO DAILY tab 01/12/18 ferrous sulfate 325 mg (65 mg 325 mg PO BID tab 01/12/18 iron) tablet gabapentin 400 mg capsule 400 mg PO Q6H cap 01/12/18 levothyroxine 125 mcg tablet 125 mcg PO DAILY@0600 tab 01/12/18 metoprolol tartrate 25 mg tablet 12.5 mg PO BID tab 01/12/18 tizanidine 4 mg capsule 4 mg PO TID 01/12/18 Cholecalciferol (Vitamin D3) 2,000 unit PO DAILY 10/05/18 [Vitamin D3] Quetiapine Fumarate [Seroquel] 12.5 mg PO DAILY 10/05/18 traMADol [Ultram] 50 mg PO QHS 10/05/18 Albuterol Sulfate 2.5 mg IH Q4H PRN PRN 01/09/19 Fluticasone/Vilanterol [Breo 1 each IH DAILY 01/09/19 Ellipta 100-25 Mcg INH] Guaifenesin [Guaifenesin ER] 600 mg PO BID PRN 01/09/19 Melatonin 3 mg PO QHS 01/09/19 Quetiapine Fumarate [Seroquel] 25 mg PO QHS 01/09/19 Cephalexin [Keflex] 500 mg PO Q6 #12 capsule 01/12/19 Warfarin Sodium [Coumadin] 4 mg PO QDAY #0 01/12/19 Surgical History: Surgical History (Last Updated 01/29/19 @ 13:44 by Rios Duarte DO) 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) Z95.828 placement 01/2017 History of [place] fundoplication Z98.890 Surgical History: arthroscopy, knee, hysterectomy, - - kristina fundoplication Lives: [facility] Smoking Status: Never smoker Tobacco Use: Non-smoker - *Family History Maternal Family History: Family History (Last Reviewed 01/29/19 @ 13:44 by Rios Duarte DO) Mother CAD (coronary artery disease) CVA (cerebral vascular accident) Father Heart disease CVA (cerebral vascular accident) Sister Heart disease Brother Hypertension History Items: Stroke - age 69 Paternal Family History: Family History (Last Reviewed 01/29/19 @ 13:44 by Rios Duarte DO) Mother CAD (coronary artery disease) CVA (cerebral vascular accident) Father Heart disease CVA (cerebral vascular accident) Sister Heart disease Brother Hypertension History Items: Stroke - in 80's Review of Systems Comment: Unable to obtain over adequately review of systems as the patient is confused. VTE Information - Inpt Only VTE Present on Admission: No VTE Mechan Device Prophylaxis: None VTE Pharm Prophylaxis ordered?: No Reason prophylaxis not ordered:: Procedure Not Indicated Patient Problems: Active and Suspected Problems (Last Updated 01/12/18 @ 09:39 by Kyra Rutherford) UTI (urinary tract infection) (Acute) Metabolic encephalopathy (Acute) - Physical Exam General: - - Awake. Confused. Febrile. Nontoxic. HEENT: Atraumatic, Normocephalic Oral: Dry Mucosa Neck: No Nodes, Thyroid Normal Size and Texture Lungs: Clear to auscultation, Diminished Cardiovascular: Regular rate, Regular Rhythm, Normal S1, Normal S2, No murmurs Abdomen: Bowel Sounds Present, Soft, Non Tender, Non-Distended, No Hepato- splenomegaly Extremities: No edema, No Calf Tenderness Skin: No rashes Musculoskeletal: Cachexia, Muscle Wasting Neurological: Muscle tone normal, Coordination normal Psych/Mental Status: Agitated Vital Signs Temp Pulse Resp BP Pulse Ox 38.0 C H 77 24 H 86/54 L 99 01/29/19 13:28 01/29/19 13:28 01/29/19 13:28 01/29/19 13:28 01/29/19 13:28 Oxygen Flow Rate (L/min) 2 Oxygen Delivery Method Nasal Cannula Weight: 73.2 kg Body Mass Index (BMI) 31.5 Finger Stick Blood Glucose 79 Laboratory Tests Past 24 Hrs 01/29/19 01/29/19 01/29/19 11:00 11:00 11:00 WBC 13.1 H RBC 4.15 L Hgb 11.6 L Hct 37.6 MCV 90.6 MCH 28.0 MCHC 30.9 L RDW 14.5 RDW Differential 47.2 H Plt Count 428 MPV 11.0 Immature Gran % (Auto) 0.200 Neut % (Auto) 82.7 H Lymph % (Auto) 8.7 L [place] % (Auto) 7.9 Eos % (Auto) 0.2 Baso % (Auto) 0.3 Absolute Neuts (auto) 10.9 H Absolute Lymphs (auto) 1.14 Total Counted Not Reportable PT 24.6 H INR 2.2 APTT 47.3 H Sodium 142 Potassium 4.1 Chloride 106 Carbon Dioxide 31.0 Anion Gap 5 BUN 21 H Creatinine 0.96 Estim Creat Clear Calc 38.61 Est GFR (MDRD) Af Amer 73 Est GFR (MDRD) Non-Af 61 BUN/Creatinine Ratio 21.8 H Glucose 116 H Lactic Acid Calcium 8.8 Total Bilirubin 0.60 AST 17 ALT 19 Alkaline Phosphatase 159 H Total Protein 7.3 Albumin 3.5 Globulin 3.8 Albumin/Globulin Ratio 0.9 Urine Color Urine Clarity Urine pH Ur Specific [place] Urine Protein Urine Glucose (UA) Urine Ketones Urine Occult Blood Urine Nitrite Urine Bilirubin Urine Urobilinogen Ur Leukocyte Esterase Urine RBC Urine WBC Ur Squamous Epith Cells Urine Bacteria Urine Mucus 01/29/19 01/29/19 11:00 11:58 WBC RBC Hgb Hct MCV MCH MCHC RDW RDW Differential Plt Count MPV Immature Gran % (Auto) Neut % (Auto) Lymph % (Auto) [place] % (Auto) Eos % (Auto) Baso % (Auto) Absolute Neuts (auto) Absolute Lymphs (auto) Total Counted PT INR APTT Sodium Potassium Chloride Carbon Dioxide Anion Gap BUN Creatinine Estim Creat Clear Calc Est GFR (MDRD) Af Amer Est GFR (MDRD) Non-Af BUN/Creatinine Ratio Glucose Lactic Acid 1.4 Calcium Total Bilirubin AST ALT Alkaline Phosphatase Total Protein Albumin Globulin Albumin/Globulin Ratio Urine Color Yellow Urine Clarity Turbid Urine pH 7.0 Ur Specific [place] 1.005 Urine Protein 100 H Urine Glucose (UA) Normal Urine Ketones Negative Urine Occult Blood 250 H Urine Nitrite Positive H Urine Bilirubin Negative Urine Urobilinogen 1 H Ur Leukocyte Esterase 500 H Urine RBC 0-5 SEEN Urine WBC >100 SEEN Ur Squamous Epith Cells 0 SEEN Urine Bacteria 1+ Urine Mucus 0 SEEN Assessment/Plan All Active Problems (Last Updated 01/12/18 @ 09:39 by Kyra Rutherford) Sepsis secondary to UTI (Acute) Infectious encephalopathy (Acute) Anticoagulated on Coumadin (Acute) History of hypothyroidism (Acute) UTI (urinary tract infection) (Acute) Metabolic encephalopathy (Acute) DVT, lower extremity, distal (Acute) Dysphagia as late effect of cerebrovascular accident (CVA) (Acute) Suspected cerebrovascular accident (CVA) (Acute) Vasogenic cerebral edema (Acute) Stroke determined by clinical assessment (Ruled-out) 1. Sepsis * Present on admission * Secondary to recurrent UTI * Supportive management * Patient will receive 2 L of additional IV fluid as patient is clinically dry 2. UTI * Patient does not have a catheter at baseline. * Likely due to chronic urinary incontinence. Do not feel is related with an antibiotic failure from her most recent admission does appear to be sensitive to cephalexin * Will continue with ceftriaxone 3. Metabolic encephalopathy * Secondary to sepsis and UTI * Reviewed her medications as well and is also on medication that could be potentiating this. I am going to discontinue the tramadol, gabapentin, tizanidine. * I strongly recommend beginning a taper on the alprazolam. Patient is on 25 mg 4 times daily and that scheduled. I am recommending now it to be switched over to twice daily as needed and I would further recommend that be weaned off over the next several weeks. My recommendation for taper schedule would be 0.25 mg twice daily as needed for 1 week then daily for 1 week as needed, then every other day as needed for 3 dosings then to discontinue altogether. 4. Stroke, likely dementia, debility: Complicate overall care. 5. Dysphagia: * Patient is on honey thickened liquids plus a mechanical soft diet. * Patient's power of diesel engine erector was present during the encounter and I explained that she does not drink much because of that. I encouraged him to consider liberalizing her diet but also understand the risks of aspiration but given her thin liquids. Recommended he at least consider palliative measures in regards to quality of life. * I recommended him that he can certainly think about it talk it over with additional family members and come back to consensus during this admission or another time. * Speech therapy to evaluate and treat 6. VT E: Patient already anticoagulated on Coumadin. 7. VT E prophylaxis: Not indicated as patient is already on Coumadin and properly anticoagulated 8. Advanced care planning: Verified with the patient's power of diesel engine erector that she is DNR Comfort Care arrest. 9. Disposition: Suspect the patient will be admitted for approximately 48-72 hours based on the we have the results of the cultures and patient's overall clinical response to treatment. Code Visit Inpatient E&M: 91871 Init Hosp L3
[2019-01-29] MEDS: 0.9% Normal Saline 1,000 ML 125 ML IV ×2 (14:44→22:52)
[2019-01-29] MEDS: ALPRAZolam 0.25 MG Tablet PO (17:10)
[2019-01-29] MEDS: Ibuprofen 600 MG Tablet PO (19:02)
[2019-01-29] MEDS: Atorvastatin Calcium 40 MG Tablet PO (21:08)
[2019-01-29] MEDS: Senna/Docusate Sodium 1 Tablet PO (21:08)
[2019-01-29] MEDS: QUEtiapine 25 MG Tablet PO (21:08)
[2019-01-29] MEDS: MELATONIN 3 MG TABLET PO (21:08)
[2019-01-30] VITALS (12 sets, daily range): BP systolic 100–128; BP diastolic 48–88; PULSE 79–113; RESP 20–32; TEMP 37.2–37.6; O2SAT 88–99
[2019-01-30] MEDS: Albuterol 2.5 MG/3 ML VIAL.NEB. INHALATION ×4 (02:56→21:06)
[2019-01-30 05:51] LABS: Absolute Lymphocyte Count 0.93 X10^3/ul (0.83-4.51); Absolute Neutrophil Count 13.3 X10^3/uL (2.0-7.7); Basophil# 0.02 X10^3/uL; Basophil% 0.1 % (0-1); Hematocrit 31.1 % (37-47); Hemoglobin 9.5 g/dl (12.0-15.0); Lymphocyte # 0.93 X10^3/ul (4.0); Lymphocyte % 5.9 % (19-41); Mean Corp Hgb Conc 30.5 g/gl (32-36); Mean Corpuscular Hgb 28.4 pg (27.0-32.0); Mean Corpuscular Volume 93.1 fL (81-99); Mean Platelet Vol. 10.7 fl (6.2-12.0); Monocyte# 1.46 X10^3/uL; Monocyte% 9.3 % (0-10); Neutrophil # 13.28 X10^3/uL (2.7-7.7); Neutrophil % 84.5 % (47-70); Platelet Count 309 K/mm3 (150-450); RBC Distribution Width CV 14.4 % (11.6-14.6); RBC Distribution Width SD 47.2 fl (35.1-43.9); Red Blood Count 3.34 M/mm3 (4.2-5.4); White Blood Count 15.7 K/mm3 (4.4-11.0)
[2019-01-30 05:53] LABS: International Normalized Ratio 3.1
[2019-01-30 05:56] LABS: POSITIVE COUNT NO; POSITIVE DIFFERENTIAL NO; POSITIVE MORPHOLOGY NO
[2019-01-30] MEDS: Levothyroxine 125 MCG Tablet PO (06:03)
[2019-01-30 06:04] LABS: Anion Gap 6 (5-15); BUN 16 mg/dL (7-18); BUN/Creat Ratio 23.4 RATIO (10-20); Calcium,Total 7.7 mg/dL (8.5-10.1); Chloride 117 mmol/L (98-107); Creatinine, Serum 0.68 mg/dL (0.55-1.02); EST Glomerular Filtration Rate 90 mL/min (>60); Est Glom Filt Rate - Afr Amer 109 mL/min (>60); Estimated Creatinine Clearance 37.06 ml/min; Glucose 118 mg/dL (74-106); Potassium 3.5 mmol/L (3.5-5.1); Sodium Level 146 mmol/L (136-145)
[2019-01-30] MEDS: Budesonide Respules 0.5 MG/2 ML AMPUL.NEB. INHALATION ×2 (06:47→21:06)
[2019-01-30] MEDS: Acetaminophen 325 MG Tablet 650 MG PO ×2 (07:56→18:45)
[2019-01-30] MEDS: ALPRAZolam 0.25 MG Tablet PO ×2 (07:56→14:44)
--- NOTE | 2019-01-30 09:02 | PCM.PN.HOSP ---
Patient Problems: Active and Suspected Problems (Last Reviewed 01/29/19 @ 13:43 by Rios Duarte DO) UTI (urinary tract infection) (Acute) Metabolic encephalopathy (Acute) Subjective: Patient has dementia. She also has anxiety and agitation most probably undergoing benzodiazepine withdrawal reaction as she was on Xanax 0.5 mg every 6 hourly and had been cut down to twice daily. Vitals/I&O's: Vital Signs Temp Pulse Resp BP Pulse Ox 99.3 F H 98 26 H 128/81 H 99 01/30/19 04:39 01/30/19 06:47 01/30/19 06:47 01/30/19 04:39 01/30/19 06:47 Oxygen Flow Rate (L/min) 2 Oxygen Delivery Method Nasal Cannula Weight: 152 lb 12.485 oz Body Mass Index (BMI) 29.8 Finger Stick Blood Glucose 79 Intake and Output for Last 24 Hours 01/28/19 01/29/19 01/30/19 23:59 23:59 23:59 Intake Total 788 / 788 1426 / 1426 Output Total 450 / 450 550 / 550 Balance 338 / 338 876 / 876 General: Confused, Disoriented HEENT: Atraumatic, PERRLA, EOMI, Normocephalic Neck: Supple, No JVD, Negative Carotid Bruits Lungs: Clear to auscultation, No rhonchi, No wheeze, No rales, Diminished Cardiovascular: Regular rate, Regular Rhythm, Normal S1, Normal S2, No murmurs Abdomen: Bowel Sounds Present, Soft, Non Tender, Non-Distended Extremities: No edema, Capillary Refill Less than 3 Seconds Musculoskeletal: Arthritic Changes Lymphatic: No Cervical, Supraclavicular, or Inguinal Adenopathy Neurological: Cranial nerves II-XII grossly intact, Deep Tendon Reflexes 2+/4 and Symmetrical, Neuro grossly intact Psych/Mental Status: Normal Affect, Appropriate Laboratory Results 01/29/19 11:00: WBC 13.1 H, RBC 4.15 L, Hgb 11.6 L, Hct 37.6, MCV 90.6, MCH 28.0, MCHC 30.9 L, RDW 14.5, RDW Differential 47.2 H, Plt Count 428, MPV 11.0, Immature Gran % (Auto) 0.200, Neut % (Auto) 82.7 H, Lymph % (Auto) 8.7 L, [place] % (Auto) 7.9, Eos % (Auto) 0.2, Baso % (Auto) 0.3, Absolute Neuts (auto) 10.9 H, Absolute Lymphs (auto) 1.14, Total Counted Not Reportable 01/29/19 11:00: PT 24.6 H, INR 2.2, APTT 47.3 H 01/29/19 11:00: Sodium 142, Potassium 4.1, Chloride 106, Carbon Dioxide 31.0, Anion Gap 5, BUN 21 H, Creatinine 0.96, Estim Creat Clear Calc 38.61, Est GFR (MDRD) Af Amer 73, Est GFR (MDRD) Non-Af 61, BUN/Creatinine Ratio 21.8 H, Glucose 116 H, Calcium 8.8, Total Bilirubin 0.60, AST 17, ALT 19, Alkaline Phosphatase 159 H, Total Protein 7.3, Albumin 3.5, Globulin 3.8, Albumin/Globulin Ratio 0.9 01/29/19 11:00: Lactic Acid 1.4 01/29/19 11:58: Urine Color Yellow, Urine Clarity Turbid, Urine pH 7.0, Ur Specific [place] 1.005, Urine Protein 100 H, Urine Glucose (UA) Normal, Urine Ketones Negative, Urine Occult Blood 250 H, Urine Nitrite Positive H, Urine Bilirubin Negative, Urine Urobilinogen 1 H, Ur Leukocyte Esterase 500 H, Urine RBC 0-5 SEEN, Urine WBC >100 SEEN, Ur Squamous Epith Cells 0 SEEN, Urine Bacteria 1+, Urine Mucus 0 SEEN 01/30/19 05:05: WBC 15.7 H, RBC 3.34 L, Hgb 9.5 L, Hct 31.1 L, MCV 93.1, MCH 28.4, MCHC 30.5 L, RDW 14.4, RDW Differential 47.2 H, Plt Count 309, MPV 10.7, Immature Gran % (Auto) 0.200, Neut % (Auto) 84.5 H, Lymph % (Auto) 5.9 L, [place] % (Auto) 9.3, Eos % (Auto) 0.0, Baso % (Auto) 0.1, Absolute Neuts (auto) 13.3 H, Absolute Lymphs (auto) 0.93, Total Counted Not Reportable 01/30/19 05:05: PT 32.0 H, INR 3.1 01/30/19 05:05: Sodium 146 H, Potassium 3.5, Chloride 117 H, Carbon Dioxide 23.0, Anion Gap 6, BUN 16, Creatinine 0.68, Estim Creat Clear Calc 37.06, Est GFR (MDRD) Af Amer 109, Est GFR (MDRD) Non-Af 90, BUN/Creatinine Ratio 23.4 H, Glucose 118 H, Calcium 7.7 L Current Medications Acetaminophen (Tylenol) 650 mg PO Q6H PRN PRN PRN Reason: Mild Pain (1-3)/Temp > 100.7 F Last Admin: 01/30/19 07:56 Dose: 650 mg Albuterol Sulfate (Ventolin Aerosols) 2.5 mg INHALATION Q2H PRN PRN PRN Reason: Shortness of Breath/Wheezing Last Admin: 01/30/19 02:56 Dose: 2.5 mg Albuterol Sulfate (Ventolin Aerosols) 2.5 mg INHALATION Q6HWA.RT [facility] Last Admin: 01/30/19 06:47 Dose: 2.5 mg Alprazolam (Xanax) 0.25 mg PO BID PRN PRN Reason: ANXIETY Last Admin: 01/30/19 07:56 Dose: 0.25 mg Artificial Tears (Tears Naturale, Artificial Tears) 1 drop LEFT EYE TID [facility] Last Admin: 01/30/19 06:03 Dose: 1 drop Atorvastatin Calcium (Lipitor) 40 mg PO QHS [facility] Last Admin: 01/29/19 21:08 Dose: 40 mg Budesonide (Pulmicort Aerosol) 0.5 mg INHALATION Q12H.RT [facility] Last Admin: 01/30/19 06:47 Dose: 0.5 mg Cholecalciferol (Vitamin D) 2,000 unit PO DAILY [facility] Famotidine (Pepcid) 20 mg PO DAILY [facility] Ferrous Sulfate (Ferrous Sulfate) 325 mg PO BIDCM [facility] Last Admin: 01/30/19 08:07 Dose: Not Given Guaifenesin (Mucinex) 600 mg PO BID PRN PRN Reason: COUGH Ceftriaxone Sodium (Rocephin) 1 gm in 50 mls @ 100 mls/hr IV Q24 [facility] Ibuprofen (Motrin) 600 mg PO Q6H PRN PRN PRN Reason: MILD PAIN (1-3/10) Last Admin: 01/29/19 19:02 Dose: 600 mg Levothyroxine Sodium (Synthroid) 125 mcg PO DAILY@0600 [facility] Last Admin: 01/30/19 06:03 Dose: 125 mcg Melatonin (Melatonin) 3 mg PO QHS [facility] Last Admin: 01/29/19 21:08 Dose: 3 mg Metoprolol Tartrate (Lopressor (Beta Angel)) 12.5 mg PO BID [facility] Last Admin: 01/29/19 21:06 Dose: Not Given Nutritional Formula (Lactose Free) (Ensure Enlive) 120 ml PO 4X/DAY [facility] Last Admin: 01/30/19 07:57 Dose: 120 ml Ondansetron HCl (Zofran) 4 mg IV Q8H PRN PRN PRN Reason: NAUSEA/VOMITING Quetiapine Fumarate (Seroquel) 25 mg PO QHS [facility] Last Admin: 01/29/19 21:08 Dose: 25 mg Quetiapine Fumarate (Seroquel) 12.5 mg PO DAILY [facility] Senna/Docusate Sodium (Senokot-S, Carey-Colace) 1 tablet PO BID [facility] Last Admin: 01/29/19 21:08 Dose: 1 tablet Sertraline HCl (Zoloft) 150 mg PO DAILY [facility] Sodium Chloride () 5 - 15 ml IV UD PRN PRN Reason: SALINE FLUSH Warfarin Sodium (Coumadin (Pbkc)) 4 mg PO DAILY@1700 [facility] Last Admin: 01/29/19 17:20 Dose: 4 mg Medical Necessity - Tobacco Use Smoking Status: Never smoker Tobacco Use: Non-smoker Assessment/Plan All Active Problems (Last Reviewed 01/29/19 @ 13:43 by Rios Duarte DO) Sepsis secondary to UTI (Acute) Infectious encephalopathy (Acute) Anticoagulated on Coumadin (Acute) History of hypothyroidism (Acute) UTI (urinary tract infection) (Acute) Metabolic encephalopathy (Acute) DVT, lower extremity, distal (Acute) Dysphagia as late effect of cerebrovascular accident (CVA) (Acute) Suspected cerebrovascular accident (CVA) (Acute) Vasogenic cerebral edema (Acute) Stroke determined by clinical assessment (Ruled-out) This is a 73-year-old female with history of recurrent UTI, stroke with possible dementia was admitted with fever and confusion since January 28. Temperature was 103 Fahrenheit. Leukocytosis, 13.1 thousand. Patient is chronically urinary incontinent. UA suggestive of UTI. Patient was admitted in the last week cough December for E. coli UTI and was discharged on Keflex as per sensitivity report. Patient was Rocha catheterized in ED. 1. Sepsis Present on admission Secondary to recurrent UTI. Patient did not had abdominal imaging, therefore kidneys ultrasound and bladder ultrasound ordered. 2. UTI Patient does not have a catheter at baseline. Likely due to chronic urinary incontinence. Will continue with ceftriaxone 3. Metabolic encephalopathy; multifactorial, infectious/drug related to tramadol, gabapentin and tizanidine and alprazolam. The patient is currently on alprazolam tapering regimen. Patient was on on 0.25 mg 4 times daily scheduled at home. Currently, 0.25 mg twice daily as needed patient is having withdrawal symptoms like anxiety, agitation therefore we will put him 0.5 mg 3 times daily and then slowly tapered down 4. Stroke, likely dementia, debility: Complicate overall care. 5. Dysphagia: Patient is on honey thickened liquids plus a mechanical soft diet. Speech therapy to evaluate and treat 6. VTE: Patient already anticoagulated on Coumadin. 8. Advanced care planning: Verified with the patient's power of title attorney that she is DNR Comfort Care arrest. Laboratory Results 01/29/19 11:00: Lactic Acid 1.4 01/29/19 11:58: Urine Color Yellow, Urine Clarity Turbid, Urine pH 7.0, Ur Specific [place] 1.005, Urine Protein 100 H, Urine Glucose (UA) Normal, Urine Ketones Negative, Urine Occult Blood 250 H, Urine Nitrite Positive H, Urine Bilirubin Negative, Urine Urobilinogen 1 H, Ur Leukocyte Esterase 500 H, Urine RBC 0-5 SEEN, Urine WBC >100 SEEN, Ur Squamous Epith Cells 0 SEEN, Urine Bacteria 1+, Urine Mucus 0 SEEN 01/30/19 05:05: WBC 15.7 H, RBC 3.34 L, Hgb 9.5 L, Hct 31.1 L, MCV 93.1, MCH 28.4, MCHC 30.5 L, RDW 14.4, RDW Differential 47.2 H, Plt Count 309, MPV 10.7, Immature Gran % (Auto) 0.200, Neut % (Auto) 84.5 H, Lymph % (Auto) 5.9 L, [place] % (Auto) 9.3, Eos % (Auto) 0.0, Baso % (Auto) 0.1, Absolute Neuts (auto) 13.3 H, Absolute Lymphs (auto) 0.93, Total Counted Not Reportable 01/30/19 05:05: PT 32.0 H, INR 3.1 01/30/19 05:05: Sodium 146 H, Potassium 3.5, Chloride 117 H, Carbon Dioxide 23.0, Anion Gap 6, BUN 16, Creatinine 0.68, Estim Creat Clear Calc 37.06, Est GFR (MDRD) Af Amer 109, Est GFR (MDRD) Non-Af 90, BUN/Creatinine Ratio 23.4 H, Glucose 118 H, Calcium 7.7 L Code Visit Inpatient E&M: 08046 Subs Hosp L2
--- NOTE | 2019-01-30 09:11 | PN_ITS ---
Patient Problems: Active and Suspected Problems (Last Reviewed 01/29/19 @ 13:43 by Rios Duarte DO) UTI (urinary tract infection) (Acute) Metabolic encephalopathy (Acute) Subjective: Patient has dementia. She also has anxiety and agitation most probably undergoing benzodiazepine withdrawal reaction as she was on Xanax 0.5 mg every 6 hourly and had been cut down to twice daily. Vitals/I&O's: Vital Signs Temp Pulse Resp BP Pulse Ox 99.3 F H 98 26 H 128/81 H 99 01/30/19 04:39 01/30/19 06:47 01/30/19 06:47 01/30/19 04:39 01/30/19 06:47 Oxygen Flow Rate (L/min) 2 Oxygen Delivery Method Nasal Cannula Weight: 152 lb 12.485 oz Body Mass Index (BMI) 29.8 Finger Stick Blood Glucose 79 Intake and Output for Last 24 Hours 01/28/19 01/29/19 01/30/19 23:59 23:59 23:59 Intake Total 788 / 788 1426 / 1426 Output Total 450 / 450 550 / 550 Balance 338 / 338 876 / 876 General: Confused, Disoriented HEENT: Atraumatic, PERRLA, EOMI, Normocephalic Neck: Supple, No JVD, Negative Carotid Bruits Lungs: Clear to auscultation, No rhonchi, No wheeze, No rales, Diminished Cardiovascular: Regular rate, Regular Rhythm, Normal S1, Normal S2, No murmurs Abdomen: Bowel Sounds Present, Soft, Non Tender, Non-Distended Extremities: No edema, Capillary Refill Less than 3 Seconds Musculoskeletal: Arthritic Changes Lymphatic: No Cervical, Supraclavicular, or Inguinal Adenopathy Neurological: Cranial nerves II-XII grossly intact, Deep Tendon Reflexes 2+/4 and Symmetrical, Neuro grossly intact Psych/Mental Status: Normal Affect, Appropriate Laboratory Results 01/29/19 11:00: WBC 13.1 H, RBC 4.15 L, Hgb 11.6 L, Hct 37.6, MCV 90.6, MCH 28.0, MCHC 30.9 L, RDW 14.5, RDW Differential 47.2 H, Plt Count 428, MPV 11.0, Immature Gran % (Auto) 0.200, Neut % (Auto) 82.7 H, Lymph % (Auto) 8.7 L, [place] % (Auto) 7.9, Eos % (Auto) 0.2, Baso % (Auto) 0.3, Absolute Neuts (auto) 10.9 H, Absolute Lymphs (auto) 1.14, Total Counted Not Reportable 01/29/19 11:00: PT 24.6 H, INR 2.2, APTT 47.3 H 01/29/19 11:00: Sodium 142, Potassium 4.1, Chloride 106, Carbon Dioxide 31.0, Anion Gap 5, BUN 21 H, Creatinine 0.96, Estim Creat Clear Calc 38.61, Est GFR (MDRD) Af Amer 73, Est GFR (MDRD) Non-Af 61, BUN/Creatinine Ratio 21.8 H, Glucose 116 H, Calcium 8.8, Total Bilirubin 0.60, AST 17, ALT 19, Alkaline Phosphatase 159 H, Total Protein 7.3, Albumin 3.5, Globulin 3.8, Albumin/Globulin Ratio 0.9 01/29/19 11:00: Lactic Acid 1.4 01/29/19 11:58: Urine Color Yellow, Urine Clarity Turbid, Urine pH 7.0, Ur Specific [place] 1.005, Urine Protein 100 H, Urine Glucose (UA) Normal, Urine Ketones Negative, Urine Occult Blood 250 H, Urine Nitrite Positive H, Urine Bilirubin Negative, Urine Urobilinogen 1 H, Ur Leukocyte Esterase 500 H, Urine RBC 0-5 SEEN, Urine WBC >100 SEEN, Ur Squamous Epith Cells 0 SEEN, Urine Bacteria 1+, Urine Mucus 0 SEEN 01/30/19 05:05: WBC 15.7 H, RBC 3.34 L, Hgb 9.5 L, Hct 31.1 L, MCV 93.1, MCH 28.4, MCHC 30.5 L, RDW 14.4, RDW Differential 47.2 H, Plt Count 309, MPV 10.7, Immature Gran % (Auto) 0.200, Neut % (Auto) 84.5 H, Lymph % (Auto) 5.9 L, [place] % (Auto) 9.3, Eos % (Auto) 0.0, Baso % (Auto) 0.1, Absolute Neuts (auto) 13.3 H, Absolute Lymphs (auto) 0.93, Total Counted Not Reportable 01/30/19 05:05: PT 32.0 H, INR 3.1 01/30/19 05:05: Sodium 146 H, Potassium 3.5, Chloride 117 H, Carbon Dioxide 23.0, Anion Gap 6, BUN 16, Creatinine 0.68, Estim Creat Clear Calc 37.06, Est GFR (MDRD) Af Amer 109, Est GFR (MDRD) Non-Af 90, BUN/Creatinine Ratio 23.4 H, Glucose 118 H, Calcium 7.7 L Current Medications Acetaminophen (Tylenol) 650 mg PO Q6H PRN PRN PRN Reason: Mild Pain (1-3)/Temp > 100.7 F Last Admin: 01/30/19 07:56 Dose: 650 mg Albuterol Sulfate (Ventolin Aerosols) 2.5 mg INHALATION Q2H PRN PRN PRN Reason: Shortness of Breath/Wheezing Last Admin: 01/30/19 02:56 Dose: 2.5 mg Albuterol Sulfate (Ventolin Aerosols) 2.5 mg INHALATION Q6HWA.RT [facility] Last Admin: 01/30/19 06:47 Dose: 2.5 mg Alprazolam (Xanax) 0.25 mg PO BID PRN PRN Reason: ANXIETY Last Admin: 01/30/19 07:56 Dose: 0.25 mg Artificial Tears (Tears Naturale, Artificial Tears) 1 drop LEFT EYE TID [facility] Last Admin: 01/30/19 06:03 Dose: 1 drop Atorvastatin Calcium (Lipitor) 40 mg PO QHS [facility] Last Admin: 01/29/19 21:08 Dose: 40 mg Budesonide (Pulmicort Aerosol) 0.5 mg INHALATION Q12H.RT [facility] Last Admin: 01/30/19 06:47 Dose: 0.5 mg Cholecalciferol (Vitamin D) 2,000 unit PO DAILY [facility] Famotidine (Pepcid) 20 mg PO DAILY [facility] Ferrous Sulfate (Ferrous Sulfate) 325 mg PO BIDCM [facility] Last Admin: 01/30/19 08:07 Dose: Not Given Guaifenesin (Mucinex) 600 mg PO BID PRN PRN Reason: COUGH Ceftriaxone Sodium (Rocephin) 1 gm in 50 mls @ 100 mls/hr IV Q24 [facility] Ibuprofen (Motrin) 600 mg PO Q6H PRN PRN PRN Reason: MILD PAIN (1-3/10) Last Admin: 01/29/19 19:02 Dose: 600 mg Levothyroxine Sodium (Synthroid) 125 mcg PO DAILY@0600 [facility] Last Admin: 01/30/19 06:03 Dose: 125 mcg Melatonin (Melatonin) 3 mg PO QHS [facility] Last Admin: 01/29/19 21:08 Dose: 3 mg Metoprolol Tartrate (Lopressor (Beta Angel)) 12.5 mg PO BID [facility] Last Admin: 01/29/19 21:06 Dose: Not Given Nutritional Formula (Lactose Free) (Ensure Enlive) 120 ml PO 4X/DAY [facility] Last Admin: 01/30/19 07:57 Dose: 120 ml Ondansetron HCl (Zofran) 4 mg IV Q8H PRN PRN PRN Reason: NAUSEA/VOMITING Quetiapine Fumarate (Seroquel) 25 mg PO QHS [facility] Last Admin: 01/29/19 21:08 Dose: 25 mg Quetiapine Fumarate (Seroquel) 12.5 mg PO DAILY [facility] Senna/Docusate Sodium (Senokot-S, Carey-Colace) 1 tablet PO BID [facility] Last Admin: 01/29/19 21:08 Dose: 1 tablet Sertraline HCl (Zoloft) 150 mg PO DAILY [facility] Sodium Chloride () 5 - 15 ml IV UD PRN PRN Reason: SALINE FLUSH Warfarin Sodium (Coumadin (Pbkc)) 4 mg PO DAILY@1700 [facility] Last Admin: 01/29/19 17:20 Dose: 4 mg Medical Necessity - Tobacco Use Smoking Status: Never smoker Tobacco Use: Non-smoker Assessment/Plan All Active Problems (Last Reviewed 01/29/19 @ 13:43 by Rios Duarte DO) Sepsis secondary to UTI (Acute) Infectious encephalopathy (Acute) Anticoagulated on Coumadin (Acute) History of hypothyroidism (Acute) UTI (urinary tract infection) (Acute) Metabolic encephalopathy (Acute) DVT, lower extremity, distal (Acute) Dysphagia as late effect of cerebrovascular accident (CVA) (Acute) Suspected cerebrovascular accident (CVA) (Acute) Vasogenic cerebral edema (Acute) Stroke determined by clinical assessment (Ruled-out) This is a 73-year-old female with history of recurrent UTI, stroke with possible dementia was admitted with fever and confusion since January 28. Temperature was 103 Fahrenheit. Leukocytosis, 13.1 thousand. Patient is chronically urinary incontinent. UA suggestive of UTI. Patient was admitted in the last week cough December for E. coli UTI and was discharged on Keflex as per sensitivity report. Patient was Rocha catheterized in ED. 1. Sepsis * Present on admission * Secondary to recurrent UTI. Patient did not had abdominal imaging, therefore kidneys ultrasound and bladder ultrasound ordered. 2. UTI * Patient does not have a catheter at baseline. * Likely due to chronic urinary incontinence. * Will continue with ceftriaxone 3. Metabolic encephalopathy; multifactorial, infectious/drug related to tramadol, gabapentin and tizanidine and alprazolam. * The patient is currently on alprazolam tapering regimen. Patient was on on 0.25 mg 4 times daily scheduled at home. Currently, 0.25 mg twice daily as needed patient is having withdrawal symptoms like anxiety, agitation therefore we will put him 0.5 mg 3 times daily and then slowly tapered down * 4. Stroke, likely dementia, debility: Complicate overall care. 5. Dysphagia: * Patient is on honey thickened liquids plus a mechanical soft diet. * Speech therapy to evaluate and treat 6. VTE: Patient already anticoagulated on Coumadin. 8. Advanced care planning: Verified with the patient's power of trademark attorney that she is DNR Comfort Care arrest. Laboratory Results 01/29/19 11:00: Lactic Acid 1.4 01/29/19 11:58: Urine Color Yellow, Urine Clarity Turbid, Urine pH 7.0, Ur Specific [place] 1.005, Urine Protein 100 H, Urine Glucose (UA) Normal, Urine Ketones Negative, Urine Occult Blood 250 H, Urine Nitrite Positive H, Urine Bilirubin Negative, Urine Urobilinogen 1 H, Ur Leukocyte Esterase 500 H, Urine RBC 0-5 SEEN, Urine WBC >100 SEEN, Ur Squamous Epith Cells 0 SEEN, Urine Bacteria 1+, Urine Mucus 0 SEEN 01/30/19 05:05: WBC 15.7 H, RBC 3.34 L, Hgb 9.5 L, Hct 31.1 L, MCV 93.1, MCH 28.4, MCHC 30.5 L, RDW 14.4, RDW Differential 47.2 H, Plt Count 309, MPV 10.7, Immature Gran % (Auto) 0.200, Neut % (Auto) 84.5 H, Lymph % (Auto) 5.9 L, [place] % (Auto) 9.3, Eos % (Auto) 0.0, Baso % (Auto) 0.1, Absolute Neuts (auto) 13.3 H, Absolute Lymphs (auto) 0.93, Total Counted Not Reportable 01/30/19 05:05: PT 32.0 H, INR 3.1 01/30/19 05:05: Sodium 146 H, Potassium 3.5, Chloride 117 H, Carbon Dioxide 23.0, Anion Gap 6, BUN 16, Creatinine 0.68, Estim Creat Clear Calc 37.06, Est GFR (MDRD) Af Amer 109, Est GFR (MDRD) Non-Af 90, BUN/Creatinine Ratio 23.4 H, Glucose 118 H, Calcium 7.7 L Code Visit Inpatient E&M: 82861 Subs Hosp L2
[2019-01-30] MEDS: Sertraline 100 MG Tablet 150 MG PO (09:59)
[2019-01-30] MEDS: 0.9% NaCl Peripheral Flush Adult/Peds IV ×2 (10:00→19:52)
[2019-01-30] MEDS: Famotidine 20 MG Tablet PO (10:00)
[2019-01-30] MEDS: Ceftriaxone 1 GM/50 ML BAG IV (10:00)
[2019-01-30] MEDS: Metoprolol Tartrate 25 MG Tablet 12.5 MG PO ×2 (10:00→20:56)
[2019-01-30] MEDS: QUEtiapine 25 MG Tablet 12.5 MG PO (10:00)
[2019-01-30] MEDS: Senna/Docusate Sodium 1 Tablet PO (10:01)
[2019-01-30] MEDS: Ibuprofen 600 MG Tablet PO (14:44)
[2019-01-30] MEDS: Ondansetron 4 MG/2 ML Vial IV (19:52)
[2019-01-30] MEDS: QUEtiapine 25 MG Tablet PO (20:56)
[2019-01-30] MEDS: Atorvastatin Calcium 40 MG Tablet PO (20:56)
[2019-01-30] MEDS: MELATONIN 3 MG TABLET PO (20:56)
[2019-01-31] MEDS: [UNRECOGNIZED DRUG - OTHER] 999 ML IV (00:44)
[2019-01-31] MEDS: [UNRECOGNIZED DRUG - OTHER] 100 ML IV (01:23)
[2019-01-31] MEDS: ALPRAZolam 0.25 MG Tablet PO (03:25)
[2019-01-31] MEDS: 0.9% NaCl Peripheral Flush Adult/Peds IV (03:26)
[2019-01-31 03:33] VITALS: BP 113/63; PULSE 80; RESP 20; TEMP 37; O2SAT 94
[2019-01-31 05:26] LABS: Absolute Lymphocyte Count 1.42 X10^3/ul (0.83-4.51); Absolute Neutrophil Count 6.5 X10^3/uL (2.0-7.7); Basophil# 0.02 X10^3/uL; Basophil% 0.2 % (0-1); Eosinophil# 0.11 X10^3/uL; Eosinophils% 1.2 % (0-5); Hematocrit 27.7 % (37-47); Hemoglobin 8.4 g/dl (12.0-15.0); Lymphocyte # 1.42 X10^3/ul (4.0); Lymphocyte % 15.2 % (19-41); Mean Corp Hgb Conc 30.3 g/gl (32-36); Mean Corpuscular Hgb 27.8 pg (27.0-32.0); Mean Corpuscular Volume 91.7 fL (81-99); Mean Platelet Vol. 10.3 fl (6.2-12.0); Monocyte# 1.22 X10^3/uL; Monocyte% 13.1 % (0-10); Neutrophil # 6.53 X10^3/uL (2.7-7.7); Neutrophil % 70.1 % (47-70); Platelet Count 293 K/mm3 (150-450); RBC Distribution Width CV 14.8 % (11.6-14.6); RBC Distribution Width SD 49.8 fl (35.1-43.9); Red Blood Count 3.02 M/mm3 (4.2-5.4); White Blood Count 9.3 K/mm3 (4.4-11.0)
[2019-01-31 05:33] LABS: Anion Gap 4 (5-15); BUN 14 mg/dL (7-18); Chloride 116 mmol/L (98-107); Creatinine, Serum 0.61 mg/dL (0.55-1.02); EST Glomerular Filtration Rate 103 mL/min (>60); Est Glom Filt Rate - Afr Amer 124 mL/min (>60); Estimated Creatinine Clearance 37.06 ml/min; Glucose 100 mg/dL (74-106); Potassium 3.5 mmol/L (3.5-5.1); Sodium Level 146 mmol/L (136-145)
--- NOTE | 2019-01-31 05:51 | PCM.PN.BLA ---
Progress Note INR supratherapeutic; Coumadin dose adjusted. Continue daily INR checks.
--- NOTE | 2019-01-31 05:55 | US_ITS ---
STUDY: RENAL ULTRASOUND - COMPLETE REASON FOR EXAM: Female, 73 years old. Recurrent urinary tract infections. TECHNIQUE: Ultrasound evaluation of the kidneys was performed with real-time and static noguera-scale imaging. COMPARISON: None. FINDINGS: RIGHT KIDNEY: Normal location of the right kidney, which is normal in size. The right kidney measures 10.6 cm. There is a normal cortex of the right kidney. The renal cortex measures 1.2 cm. There is no right renal mass or cyst. There are no right renal calculi. There is no right hydronephrosis. DISTAL RIGHT URETER: There is non-visualization of the distal right ureter. There is no demonstrated right ureterovesical junction calculus. There is no demonstrated right ureteral jet. LEFT KIDNEY: Limited visualization due to bowel gas and patient condition. Normal location of the left kidney, which is normal in size. The left kidney measures 10.6 cm. There is a normal cortex of the left kidney. The renal cortex measures 1.4 cm. There is no left renal mass or cyst. There are no left renal calculi. There is no left hydronephrosis. DISTAL LEFT URETER: There is non-visualization of the distal left ureter. There is no demonstrated left ureterovesical junction calculus. There is no demonstrated left ureteral jet. AORTA: There is obscuration of the abdominal aorta by overlying bowel gas. I.V.C.: The IVC is obscured. BLADDER: The urinary bladder is obscured. US/Kidney and Bladder IMPRESSION: Normal ultrasound of the kidneys. No hydronephrosis. Electronically Signed: Ken Waters MD at 16:31 EDT , Service support ,
[2019-01-31] MEDS: Levothyroxine 125 MCG Tablet PO (06:04)
[2019-01-31 06:15] LABS: POSITIVE COUNT NO; POSITIVE DIFFERENTIAL NO; POSITIVE MORPHOLOGY NO
[2019-01-31 06:37] VITALS: PULSE 88; RESP 19; O2SAT 93
[2019-01-31] MEDS: Albuterol 2.5 MG/3 ML VIAL.NEB. INHALATION (06:37)
[2019-01-31] MEDS: Budesonide Respules 0.5 MG/2 ML AMPUL.NEB. INHALATION (06:37)
[2019-01-31 07:53] VITALS: BP 121/58; PULSE 99; RESP 16; TEMP 36.8; O2SAT 97
[2019-01-31 09:49] VITALS: PULSE 99
[2019-01-31] MEDS: Metoprolol Tartrate 25 MG Tablet 12.5 MG PO (09:49)
[2019-01-31] MEDS: Famotidine 20 MG Tablet PO (09:51)
[2019-01-31] MEDS: Sertraline 100 MG Tablet 150 MG PO (09:52)
[2019-01-31] MEDS: QUEtiapine 25 MG Tablet 12.5 MG PO (09:53)
[2019-01-31] MEDS: Ceftriaxone 1 GM/50 ML BAG IV (09:59)
--- NOTE | 2019-01-31 10:28 | CASEMGMT ---
Social Work Note Pt is from [facility]. Pt does have dementia and some confusion. RITIKA met with pt and pt's [place] present in room. [place] confirms that pt is from [facility] and the plan is for pt to return. RITIKA placed a call to Kyra at [facility]. Kyra states pt is residential aide resident and pt is able to return once medically cleared. RITIKA faxed updated clinicals to [facility]. Plan: Return to [facility] once medically cleared Patricia Scruggs GROUP CIO, SKEIN TIER
[2019-01-31 13:26] VITALS: BP 154/64; PULSE 86; RESP 16; TEMP 37.3; O2SAT 96
--- NOTE | 2019-01-31 15:27 | TREXTCAR_ITS ---
- Diet 01/30/19 10:54 Diet: Cardiac/Low Cholesterol Food consistency:: Mechanical Soft/Ground Liquid Consistency:: Honey Thick Dietary Modifications:: Mechanical Soft Diet Honey Thick Liquids Is pt able to select menu?: Yes - Routine Orders/Code Status Suppository Type: Dulcolax 10mg Suppository Frequency: Daily PRN Routine Lab Work: INR - on 02/01 and resume coumadin accordingly. Code Status: DNC-A - Wound(s) R hip Wound Type: Abrasion - Therapies Weight Bearing: Weight bearing as tolerated Extremity Affected:: Bilateral Lower Physical Therapy: Eval and Treat Occupational Therapy: Eval and Treat Speech Therapy: Eval and Treat - Allergies/Procedures Done in Hospital Allergies/Adverse Reactions: Allergies Penicillins Allergy (Verified 01/29/19 10:21) Rash zolpidem tartrate [From Ambien] Adverse Reaction (Verified 01/29/19 10:21) CONFUSION - Type of Care/Length of Stay Estimated LOS: Convalescent Care Less Than 30 days Type of Care Needed: Skilled Rehab Potential: Fair Prognosis: Fair - Additional Orders/Day of Discharge Additional Orders: Patient need bladder scan every 4 hours and straight catheterization. Day of Discharge: 01/31/19 - Dietary and Speech Recommendations Dietitian Recommendations/Changes: Continue w/ Cardiac/Low cholesterol diet w/ consistency rec by FLATLOCK SEWING MACHINE OPERATOR. D/c-ed Ensure Enlive w/medpass per pt preference and switched to Magic cup or Ensure pudding w/ meals. - Follow Up Care Primary Care Physician: Kelvin Ibanez MD [Primary Care Provider] - Please follow up with your Primary Care Physician in: in 2 week
--- NOTE | 2019-01-31 15:27 | PCM.DC.SUM ---
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 Stroke (Chronic) Hospital Course and Treatment Operations: None Summary of Care Provided: [] This is a 73-year-old female with history of recurrent UTI, stroke with possible dementia was admitted with fever and confusion since January 28. Temperature was 103 Fahrenheit. Leukocytosis, 13.1 thousand. Patient is chronically urinary incontinent. UA suggestive of UTI. Patient was admitted in the last week cough December for E. coli UTI and was discharged on Keflex as per sensitivity report. Patient was Rocha catheterized in ED. 1. Sepsis Present on admission Secondary to recurrent UTI. The patient had kidneys and bladder ultrasound done. It is reported as normal ultrasound of the kidneys. No hydronephrosis. Urinary bladder reported as obscured. 2. Acute on recurrent E. coli UTI Patient does not have a catheter at baseline. Rocha catheter was removed. Bladder scan every 4 hours and straight catheterization as needed for urine more than 200 mL Likely due to chronic urinary incontinence. Patient is being discharged on Keflex 500 mg 3 times daily for 5 more days. 3. Metabolic encephalopathy; multifactorial, infectious/drug related to tramadol, gabapentin and tizanidine and alprazolam. The patient is currently on alprazolam tapering regimen. Patient was on on 0.25 mg 4 times daily scheduled at home. Currently, 0.25 mg twice daily as needed patient is having withdrawal symptoms like anxiety, agitation therefore we will put him 0.5 mg 3 times daily and then slowly tapered down 4. Stroke, likely dementia, debility: Complicate overall care. 5. Dysphagia: Patient is on honey thickened liquids plus a mechanical soft diet. Speech therapy to evaluate and treat 6. VTE: Patient already anticoagulated on Coumadin. 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 Currently INR supratherapeutic. 8. Advanced care planning: Verified with the patient's power of spinning operator that she is DNR Comfort Care arrest. Discharge medication reconciliation done. Discharge follow-up instructions completed. Discharge process discussed with the patient and all questions were answered to patient's satisfaction. Coumadin is being held. Repeat INR tomorrow and titrate the dose of Coumadin accordingly. Patient is being discharged to SNF Total time spent, exact 35 minutes on discharge meds reconciliation, examination, review of imaging and blood test and discussion with the patient on follow-up instructions. Clinical Impression(s) from Imaging Studies Chest X-Ray 01/29/19 10:37 IMPRESSION: 1. No airspace consolidation or pleural effusion. Renal Ultrasound 01/31/19 05:55 IMPRESSION: Normal ultrasound of the kidneys. No hydronephrosis. Patient Problems: Active and Suspected Problems (Last Reviewed 01/29/19 @ 13:43 by Rios Duarte DO) UTI (urinary tract infection) (Acute) Metabolic encephalopathy (Acute) Subjective: Patient did not had fever or chills. Hemodynamically stable. Heart rate in 80s INR supratherapeutic. Coumadin is being held - Physical Exam General: Alert, Cooperative, - - Dementia. Patient sometime disoriented to time and place Cognitive deficit HEENT: Atraumatic, PERRLA, EOMI, Normocephalic Oral: Moist Mucosa Neck: Supple, No JVD, Negative Carotid Bruits Lungs: Clear to auscultation, No rhonchi, No wheeze, No rales, Diminished Cardiovascular: Regular rate, Regular Rhythm, Normal S1, Normal S2, No murmurs Abdomen: Bowel Sounds Present, Soft, Non Tender, - - Rocha catheter removed. Patient probably has chronic urinary retention and required straight catheterization care home Extremities: No edema, Capillary Refill Less than 3 Seconds Skin: No rashes, No breakdown Musculoskeletal: No Tenderness to Palpation of Joints or Extremities, Arthritic Changes, - Neurological: Cranial nerves II-XII grossly intact, Deep Tendon Reflexes 2+/4 and Symmetrical, Neuro grossly intact Psych/Mental Status: Normal Affect, Appropriate Vital Signs Temp Pulse Resp BP Pulse Ox 99.1 F 86 16 154/64 H 96 01/31/19 13:26 01/31/19 13:26 01/31/19 13:26 01/31/19 13:26 01/31/19 13:26 Oxygen Flow Rate (L/min) 2 Oxygen Delivery Method Room Air Weight: 152 lb 12.485 oz Body Mass Index (BMI) 29.8 Finger Stick Blood Glucose 79 Intake and Output for Last 24 Hours 01/29/19 01/30/19 01/31/19 23:59 23:59 23:59 Intake Total 788 / 788 1956 / 195 50 / 50 Output Total 450 / 450 1150 / 1150 350 / 350 Balance 338 / 338 806 / 806 -300 / -300 Microbiology Past 72 Hours 01/29/19 12:08 Blood Culture - Preliminary Blood Culture (Wb) - Anticubital Right No growth in 48 hours. 01/29/19 11:00 Blood Culture - Preliminary Blood Culture (Wb) - Right Wrist No growth in 48 hours. 01/29/19 11:58 Urine Culture - Final Urine Catheter - Catheter Presumptive E. coli Laboratory Tests Past 24 Hrs 01/31/19 01/31/19 01/31/19 04:58 04:58 04:58 WBC 9.3 RBC 3.02 L Hgb 8.4 L Hct 27.7 L MCV 91.7 MCH 27.8 MCHC 30.3 L RDW 14.8 H RDW Differential 49.8 H Plt Count 293 MPV 10.3 Immature Gran % (Auto) 0.200 Neut % (Auto) 70.1 H Lymph % (Auto) 15.2 L [place] % (Auto) 13.1 H Eos % (Auto) 1.2 Baso % (Auto) 0.2 Absolute Neuts (auto) 6.5 Absolute Lymphs (auto) 1.42 Total Counted Not Reportable PT 39.0 H INR 4.0 H* Sodium 146 H Potassium 3.5 Chloride 116 H Carbon Dioxide 26.0 Anion Gap 4 L BUN 14 Creatinine 0.61 Estim Creat Clear Calc 37.06 Est GFR (MDRD) Af Amer 124 Est GFR (MDRD) Non-Af 103 BUN/Creatinine Ratio 23.0 H Glucose 100 Calcium 8.0 L Home Medications: Medications to take at Discharge Dextran 70/He-Cell [Tears Naturale, Artificial Tears] 1 drop LEFT EYE TID bottle 02/25/17 atorvastatin 40 mg tablet 40 mg PO DAILY 01/11/18 sennosides 8.6 mg-docusate sodium 50 mg tablet 1 tab PO BID 01/11/18 sertraline 100 mg tablet 150 mg PO DAILY 01/11/18 acetaminophen 325 mg tablet 650 mg PO Q6H PRN tab 01/12/18 famotidine 20 mg tablet 20 mg PO BID tab 01/12/18 ferrous sulfate 325 mg (65 mg iron) tablet 325 mg PO BID tab 01/12/18 levothyroxine 125 mcg tablet 125 mcg PO DAILY@0600 tab 01/12/18 metoprolol tartrate 25 mg tablet 12.5 mg PO BID tab 01/12/18 Cholecalciferol (Vitamin D3) [Vitamin D3] 2,000 unit PO DAILY 10/05/18 Quetiapine Fumarate [Seroquel] 12.5 mg PO DAILY 10/05/18 traMADol [Ultram] 50 mg PO QHS 10/05/18 Albuterol Sulfate 2.5 mg IH Q4H PRN PRN 01/09/19 Fluticasone/Vilanterol [Breo Ellipta 100-25 Mcg INH] 1 each IH DAILY 01/09/19 Guaifenesin [Guaifenesin ER] 600 mg PO BID PRN 01/09/19 Melatonin 3 mg PO QHS 01/09/19 Quetiapine Fumarate [Seroquel] 25 mg PO QHS 01/09/19 Bisacodyl [Biscolax] 1 tab RECTAL DAILY PRN 01/29/19 ALPRAZolam [Xanax] 0.25 mg PO TID PRN #10 tab 01/31/19 Acetaminophen [Tylenol Tablet] 650 mg PO Q6H PRN PRN tablet 01/31/19 Albuterol Aerosols [Ventolin Aerosols] 2.5 mg INHALATION Q2H PRN PRN vial.neb. 01/31/19 Albuterol Aerosols [Ventolin Aerosols] 2.5 mg INHALATION Q6HWA.RT vial.neb. 01/31/19 Cephalexin [Keflex] 500 mg PO Q8H #15 cap 01/31/19 Tizanidine HCl [Zanaflex] 2 mg PO TID PRN PRN #0 01/31/19 Following Prescrptions Were Given to Patient: Cephalexin [Keflex] 500 mg PO Q8H #15 cap ALPRAZolam [Xanax] 0.25 mg PO TID PRN #10 tab PRN Reason: ANXIETY Primary Care Physician: Kelvin Ibanez MD [Primary Care Provider] - Please follow up with your Primary Care Physician in: in 2 week Medical Necessity - Tobacco Use Smoking Status: Never smoker Tobacco Use: Non-smoker Meaningful Use Info Meaningful Use Diagnoses (Choose all that apply): None applicable Code Visit Inpatient E&M: 58982 Disch Hosp
--- NOTE | 2019-01-31 15:32 | DS.PCM_ITS ---
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 Stroke (Chronic) Hospital Course and Treatment Operations: None Summary of Care Provided: [] This is a 73-year-old female with history of recurrent UTI, stroke with possible dementia was admitted with fever and confusion since January 28. Temperature was 103 Fahrenheit. Leukocytosis, 13.1 thousand. Patient is chronically urinary incontinent. UA suggestive of UTI. Patient was admitted in the last week cough December for E. coli UTI and was discharged on Keflex as per sensitivity report. Patient was Rocha catheterized in ED. 1. Sepsis * Present on admission * Secondary to recurrent UTI. The patient had kidneys and bladder ultrasound done. It is reported as normal ultrasound of the kidneys. No hydronephrosis. Urinary bladder reported as obscured. 2. Acute on recurrent E. coli UTI * Patient does not have a catheter at baseline. Rocha catheter was removed. Bladder scan every 4 hours and straight catheterization as needed for urine more than 200 mL * Likely due to chronic urinary incontinence. * Patient is being discharged on Keflex 500 mg 3 times daily for 5 more days. 3. Metabolic encephalopathy; multifactorial, infectious/drug related to tramadol, gabapentin and tizanidine and alprazolam. * The patient is currently on alprazolam tapering regimen. Patient was on on 0.25 mg 4 times daily scheduled at home. Currently, 0.25 mg twice daily as needed patient is having withdrawal symptoms like anxiety, agitation therefore we will put him 0.5 mg 3 times daily and then slowly tapered down * 4. Stroke, likely dementia, debility: Complicate overall care. 5. Dysphagia: * Patient is on honey thickened liquids plus a mechanical soft diet. * Speech therapy to evaluate and treat 6. VTE: Patient already anticoagulated on Coumadin. 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 Currently INR supratherapeutic. 8. Advanced care planning: Verified with the patient's power of contract attorney that she is DNR [facility] arrest. Discharge medication reconciliation done. Discharge follow-up instructions com pleted. Discharge process discussed with the patient and all questions were answered to patient's satisfaction. Coumadin is being held. Repeat INR tomorrow and titrate the dose of Coumadin accordingly. Patient is being discharged to SNF Total time spent, exact 35 minutes on discharge meds reconciliation, examination, review of imaging and blood test and discussion with the patient on follow-up instructions. Clinical Impression(s) from Imaging Studies Chest X-Ray 01/29/19 10:37 IMPRESSION: 1. No airspace consolidation or pleural effusion. Renal Ultrasound 01/31/19 05:55 IMPRESSION: Normal ultrasound of the kidneys. No hydronephrosis. Patient Problems: Active and Suspected Problems (Last Reviewed 01/29/19 @ 13:43 by Rios Duarte DO) UTI (urinary tract infection) (Acute) Metabolic encephalopathy (Acute) Subjective: Patient did not had fever or chills. Hemodynamically stable. Heart rate in 80s INR supratherapeutic. Coumadin is being held - Physical Exam General: Alert, Cooperative, - - Dementia. Patient sometime disoriented to time and place Cognitive deficit HEENT: Atraumatic, PERRLA, EOMI, Normocephalic Oral: Moist Mucosa Neck: Supple, No JVD, Negative Carotid Bruits Lungs: Clear to auscultation, No rhonchi, No wheeze, No rales, Diminished Cardiovascular: Regular rate, Regular Rhythm, Normal S1, Normal S2, No murmurs Abdomen: Bowel Sounds Present, Soft, Non Tender, - - Rocha catheter removed. Patient probably has chronic urinary retention and required straight catheterization skilled nursing Extremities: No edema, Capillary Refill Less than 3 Seconds Skin: No rashes, No breakdown Musculoskeletal: No Tenderness to Palpation of Joints or Extremities, Arthritic Changes, - Neurological: Cranial nerves II-XII grossly intact, Deep Tendon Reflexes 2+/4 and Symmetrical, Neuro grossly intact Psych/Mental Status: Normal Affect, Appropriate Vital Signs Temp Pulse Resp BP Pulse Ox 99.1 F 86 16 154/64 H 96 01/31/19 13:26 01/31/19 13:26 01/31/19 13:26 01/31/19 13:26 01/31/19 13:26 Oxygen Flow Rate (L/min) 2 Oxygen Delivery Method Room Air Weight: 152 lb 12.485 oz Body Mass Index (BMI) 29.8 Finger Stick Blood Glucose 79 Intake and Output for Last 24 Hours 01/29/19 01/30/19 01/31/19 23:59 23:59 23:59 Intake Total 788 / 788 1956 / 195 50 / 50 Output Total 450 / 450 1150 / 1150 350 / 350 Balance 338 / 338 806 / 806 -300 / -300 Microbiology Past 72 Hours 01/29/19 12:08 Blood Culture - Preliminary Blood Culture (Wb) - Anticubital Right No growth in 48 hours. 01/29/19 11:00 Blood Culture - Preliminary Blood Culture (Wb) - Right Wrist No growth in 48 hours. 01/29/19 11:58 Urine Culture - Final Urine Catheter - Catheter Presumptive E. coli Laboratory Tests Past 24 Hrs 01/31/19 01/31/19 01/31/19 04:58 04:58 04:58 WBC 9.3 RBC 3.02 L Hgb 8.4 L Hct 27.7 L MCV 91.7 MCH 27.8 MCHC 30.3 L RDW 14.8 H RDW Differential 49.8 H Plt Count 293 MPV 10.3 Immature Gran % (Auto) 0.200 Neut % (Auto) 70.1 H Lymph % (Auto) 15.2 L Bond % (Auto) 13.1 H Eos % (Auto) 1.2 Baso % (Auto) 0.2 Absolute Neuts (auto) 6.5 Absolute Lymphs (auto) 1.42 Total Counted Not Reportable PT 39.0 H INR 4.0 H* Sodium 146 H Potassium 3.5 Chloride 116 H Carbon Dioxide 26.0 Anion Gap 4 L BUN 14 Creatinine 0.61 Estim Creat Clear Calc 37.06 Est GFR (MDRD) Af Amer 124 Est GFR (MDRD) Non-Af 103 BUN/Creatinine Ratio 23.0 H Glucose 100 Calcium 8.0 L Home Medications: Medications to take at Discharge Dextran 70/He-Cell [Tears Naturale, Artificial Tears] 1 drop LEFT EYE TID bottle 02/25/17 atorvastatin 40 mg tablet 40 mg PO DAILY 01/11/18 sennosides 8.6 mg-docusate sodium 50 mg tablet 1 tab PO BID 01/11/18 sertraline 100 mg tablet 150 mg PO DAILY 01/11/18 acetaminophen 325 mg tablet 650 mg PO Q6H PRN tab 01/12/18 famotidine 20 mg tablet 20 mg PO BID tab 01/12/18 ferrous sulfate 325 mg (65 mg iron) tablet 325 mg PO BID tab 01/12/18 levothyroxine 125 mcg tablet 125 mcg PO DAILY@0600 tab 01/12/18 metoprolol tartrate 25 mg tablet 12.5 mg PO BID tab 01/12/18 Cholecalciferol (Vitamin D3) [Vitamin D3] 2,000 unit PO DAILY 10/05/18 Quetiapine Fumarate [Seroquel] 12.5 mg PO DAILY 10/05/18 traMADol [Ultram] 50 mg PO QHS 10/05/18 Albuterol Sulfate 2.5 mg IH Q4H PRN PRN 01/09/19 Fluticasone/Vilanterol [Breo Ellipta 100-25 Mcg INH] 1 each IH DAILY 01/09/19 Guaifenesin [Guaifenesin ER] 600 mg PO BID PRN 01/09/19 Melatonin 3 mg PO QHS 01/09/19 Quetiapine Fumarate [Seroquel] 25 mg PO QHS 01/09/19 Bisacodyl [Biscolax] 1 tab RECTAL DAILY PRN 01/29/19 ALPRAZolam [Xanax] 0.25 mg PO TID PRN #10 tab 01/31/19 Acetaminophen [Tylenol Tablet] 650 mg PO Q6H PRN PRN tablet 01/31/19 Albuterol Aerosols [Ventolin Aerosols] 2.5 mg INHALATION Q2H PRN PRN vial.neb. 01/31/19 Albuterol Aerosols [Ventolin Aerosols] 2.5 mg INHALATION Q6HWA.RT vial.neb. 01/31/19 Cephalexin [Keflex] 500 mg PO Q8H #15 cap 01/31/19 Tizanidine HCl [Zanaflex] 2 mg PO TID PRN PRN #0 01/31/19 Following Prescrptions Were Given to Patient: Cephalexin [Keflex] 500 mg PO Q8H #15 cap ALPRAZolam [Xanax] 0.25 mg PO TID PRN #10 tab PRN Reason: ANXIETY Primary Care Physician: Kelvin Ibanez MD [Primary Care Provider] - Please follow up with your Primary Care Physician in: in 2 week Medical Necessity - Tobacco Use Smoking Status: Never smoker Tobacco Use: Non-smoker Meaningful Use Info Meaningful Use Diagnoses (Choose all that apply): None applicable Code Visit Inpatient E&M: 10735 Disch Hosp
--- NOTE | 2019-01-31 16:31 | CASEMGMT ---
Social Work Note Pt is discharging back to [facility] today once kidney ultra sound results are completed. RITIKA faxed discharge paperwork to [facility] including transfer to extended care facility, signed medication list and any scripts. Charge nurse made copies and placed on pt's chart. Original in SNF folder and copy on pt's chart. SW completed green sheet and transportation form and placed on pt's chart as pt needs kidney ultra sound results before able to discharge. SW updated Internal Medicine Hospitalist that pt will need transportation arranged once results are completed. RN updated that pt is able to discharge today pending results. RN states he called pt's to inform him pt will discharge today. RITIKA placed a call to Kyra at [facility] and updated her that pt is discharging today once ultra sound results are completed. Kyra states understanding. Plan: Pt to return to [facility] medical terminologist today. Patricia Scruggs CASEY SAW OPERATOR, GLUE COOK
== END 2019-01-31 17:38 | disposition skilled nursing facility (03) | DRG 871 ==
LOC: ED 11:20 → MS3 13:25
PROVIDERS: Emergency Provider Emergency Medicine; Family Provider Family Medicine; PCP Family Medicine; Visit Provider Internal Medicine
DX: A41.9 Sepsis, unspecified organism (principal); G93.41 Metabolic encephalopathy; N39.0 Urinary tract infection, site not specified; I69.354 Hemiplegia and hemiparesis following cerebral infarction affecting left non-dominant side; Z66 Do not resuscitate; Z87.440 Personal history of urinary (tract) infections; R32 Unspecified urinary incontinence; B96.20 Unspecified Escherichia coli [E. coli] as the cause of diseases classified elsewhere; Z86.718 Personal history of other venous thrombosis and embolism; Z79.01 Long term (current) use of anticoagulants
CPT/HCPCS: 36415; 71045; 76770; 80048; 80053; 81001; 83605; 85025; 85610; 85730; 87040; 87086; 87088; 87186; 92526; 92610; 93005; 94640; 97162; 97167; 97530; 97802; 99285; J7030; J7050; A4216; J2405

== ENCOUNTER → 2019-02-01 05:00 | Outpatient (REF) | payer MEDICARE, BC, SELFPAY ==
[2019-01-29 14:11] VITALS: BMI 29.8
[2019-02-01 09:18] LABS: International Normalized Ratio 3.4; Prothrombin Time (Protime)PT. 34.6 SECONDS (11.7-14.9)
[2019-02-01 12:21] LABS: Prothrombin Time Fingerstick 45.3 SEC (11.9-14.4)
== END ==
LOC: OLS.AVEB 05:00
PROVIDERS: Visit Provider Family Medicine
DX: Z79.01 Long term (current) use of anticoagulants (principal)
CPT/HCPCS: 36416; 85610

== ENCOUNTER → 2019-02-03 05:00 | Outpatient (REF) | payer MEDICARE, BC, SELFPAY ==
[2019-01-29 14:11] VITALS: BMI 29.8
[2019-02-03 08:27] LABS: International Normalized Ratio 2.6; Prothrombin Time (Protime)PT. 27.6 SECONDS (11.7-14.9)
== END ==
LOC: OLS.AVEB 05:00
PROVIDERS: Visit Provider Family Medicine
DX: Z79.01 Long term (current) use of anticoagulants (principal)
CPT/HCPCS: 36415; 85610

== ENCOUNTER → 2019-02-07 06:36 | Outpatient (REF) | payer MEDICARE, BC, SELFPAY ==
[2019-01-29 14:11] VITALS: BMI 29.8
[2019-02-07 07:48] LABS: International Normalized Ratio 1.6; Prothrombin Time (Protime)PT. 19.2 SECONDS (11.7-14.9)
== END ==
LOC: OLS.AVEB 06:36
PROVIDERS: Visit Provider Family Medicine
DX: Z79.01 Long term (current) use of anticoagulants (principal)
CPT/HCPCS: 36415; 85610

== ENCOUNTER → 2019-02-08 02:00 | Outpatient (REF) | payer MEDICARE, BC, SELFPAY ==
[2019-01-29 14:11] VITALS: BMI 29.8
== END ==
LOC: OLS.AVEB 02:00
PROVIDERS: Visit Provider Family Medicine
DX: R19.5 Other fecal abnormalities (principal)
CPT/HCPCS: 87506

== ENCOUNTER → 2019-02-11 05:00 | Outpatient (REF) | payer MEDICARE, BC, SELFPAY ==
[2019-01-29 14:11] VITALS: BMI 29.8
[2019-02-11 07:30] LABS: Prothrombin Time Fingerstick 25.3 SEC (11.9-14.4)
== END ==
LOC: OLS.AVEB 05:00
PROVIDERS: Visit Provider Family Medicine
DX: Z79.01 Long term (current) use of anticoagulants (principal)
CPT/HCPCS: 36416; 85610

== ENCOUNTER → 2019-02-14 04:00 | Outpatient (REF) | payer MEDICARE, BC, SELFPAY ==
[2019-01-29 14:11] VITALS: BMI 29.8
[2019-02-14 09:41] LABS: Anion Gap 7 (5-15); BUN 17 mg/dL (7-18); BUN/Creat Ratio 24.3 RATIO (10-20); Calcium,Total 8.9 mg/dL (8.5-10.1); Chloride 107 mmol/L (98-107); EST Glomerular Filtration Rate 87 mL/min (>60); Est Glom Filt Rate - Afr Amer 106 mL/min (>60); Glucose 99 mg/dL (74-106); Sodium Level 141 mmol/L (136-145)
== END ==
LOC: OLS.AVEB 04:00
PROVIDERS: Visit Provider Family Medicine
DX: I48.91 Unspecified atrial fibrillation (principal); D64.9 Anemia, unspecified
CPT/HCPCS: 36415; 80048

== ENCOUNTER → 2019-02-23 16:10 | Outpatient (REF) | payer MEDICARE, BC, SELFPAY ==
[2019-01-29 14:11] VITALS: BMI 29.8
[2019-02-23 16:31] LABS: Hematocrit 38.7 % (37-47); Hemoglobin 12.1 g/dl (12.0-15.0); Mean Corp Hgb Conc 31.3 g/gl (32-36); Mean Corpuscular Hgb 28.1 pg (27.0-32.0); Mean Platelet Vol. 10.7 fl (6.2-12.0); Platelet Count 356 K/mm3 (150-450); RBC Distribution Width CV 14.7 % (11.6-14.6); RBC Distribution Width SD 48.2 fl (35.1-43.9); Scan Indicated on CBC? Y/N NO; White Blood Count 6.7 K/mm3 (4.4-11.0)
[2019-02-23 16:46] LABS: Prothrombin Time (Protime)PT. 39.3 SECONDS (11.7-14.9)
[2019-02-23 16:48] LABS: Anion Gap 7 (5-15); BUN 15 mg/dL (7-18); BUN/Creat Ratio 19.4 RATIO (10-20); Calcium,Total 8.6 mg/dL (8.5-10.1); Chloride 106 mmol/L (98-107); Creatinine, Serum 0.77 mg/dL (0.55-1.02); EST Glomerular Filtration Rate 78 mL/min (>60); Est Glom Filt Rate - Afr Amer 95 mL/min (>60); Glucose 87 mg/dL (74-106); Sodium Level 141 mmol/L (136-145)
== END ==
LOC: OLS.AVEB 16:10
PROVIDERS: Visit Provider Family Medicine
DX: R41.82 Altered mental status, unspecified (principal)
CPT/HCPCS: 36415; 80048; 85027; 85610

== ENCOUNTER → 2019-04-07 12:39 | Outpatient (CLI) | payer MEDICARE, BC, SELFPAY ==
[2019-01-29 14:11] VITALS: BMI 29.8
--- NOTE | 2019-04-07 13:22 | RAD_ITS ---
STUDY: SWALLOWING STUDY REASON FOR EXAM: Female, 73 years old. TECHNIQUE: The examination was performed with Speech Pathology in attendance. Under fluoroscopic observation, the patient ingested thin barium, thick barium, barium pudding, and barium coated cracker. FLUOROSCOPY TIME: 2:57 minutes/seconds RADIOLOGIST INVOLVEMENT: COMPARISON: None. FINDINGS: This examination was performed by the speech therapist and the x-ray technologist who took the images. The following note was written by the speech therapist, Penetration to vocal cords upon initial sip of thin liquid via teaspoon. No other penetration/aspiration noted across thin,, nectar thick or honey thick trials. Electronically Signed: Sujatha Herbert, at 7:25 EDT Tel , Service support , RAD/Swallowing Function w/Video
--- NOTE | 2019-04-07 14:28 | SP.MBSS_ITS ---
PRIMARY / SECONDARY DIAGNOSIS: Dysphagia REFERRING PHYSICIAN: Dr. Kelvin Ibanez CURRENT DIET: Puree textures/ Honey Thick Liquids DENTITION: Natural teeth with several missing, broken, and decayed. MENTAL STATUS: Within functional limits for participation for MBSS RESPIRATORY STATUS: O2 via room air PREVIOUS MODIFIED BARIUM SWALLOW STUDY: 01/11/2019 MBSS revealed moderate oropharyngeal dysphagia secondary to late effects of CVA. 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 STUDY FINDINGS: Patient participated in a Modified Barium Swallow (MBS) study on 04/07/2019. This study was recorded in the lateral view and images were sent to PACs for storage. The following consistencies were presented to this patient for analysis of oropharyngeal swallow function: thin liquid, pudding, and a regular textured, Danielle Doone cookie. Results of the MBS are as follows: PENETRATION / ASPIRATION SCALE (GALAN): 1 = does not enter airway 2 = enters airway/above vocal folds/ejected 3 = enters airway/above vocal folds/not ejected 4 = enters airway/contacts vocal folds/ejected 5 = enters airway/contacts vocal folds/not ejected 6 = enters airway/below vocal folds/ejected 7 = enters airway/below vocal folds/not ejected despite effort 8 = enters airway/below vocal folds/no effort PENETRATION / ASPIRATION SCALE (SCORE): 1) thin liquids via teaspoon = 5 2) thin liquids via teaspoon = 1 3) thin liquids via small single sip from cup= 1 4) thin liquids via large single sip from cup= 1 5) thin liquids via sequential sips from cup = 1 6) nectar thick liquids via small single sip from cup= 1 7) nectar thick liquids via small single sip from cup= 1 8) honey thick liquids via small single sip from cup= 1 9)honey thick liquids via large single sip from cup= 1 10) pudding = 1 11) cookie = 1 12) nectar thick liquids via small single sip from cup= 1 13) nectar thick liquids via small single sip from cup= 1 14) thin liquids via small single sip from cup= 1 15) thin liquids with chip tuck via small single sip from cup= 1 IMPRESSION: mild-moderate oropharyngeal dysphagia secondary to late effects of CVA. ORAL PHASE CHARACTERIZED BY: LABIAL SEAL: no labial escape TONGUE CONTROL DURING BOLUS MANIPULATION: posterior escape of less than half of bolus BOLUS PREPARATION / MASTICATION: minimal chewing/mashing with majority of bolus unchewed BOLUS TRANSPORT / LINGUAL MOTION: slowed tongue motion ORAL RESIDUE: residue collection on oral structures PHARYNGEAL PHASE CHARACTERIZED BY: INITIATION OF PHARYNGEAL SWALLOW: bolus head in pyriforms at first hyoid excursion SOFT PALATE ELEVATION: no bolus between soft palate and pharyngeal wall LARYNGEAL ELEVATION: partial superior movement of thyroid cartilage/partial approximation of arytenoids cartilage to epiglottic petiole ANTERIOR HYOID EXCURSION: trace anterior movement EPIGLOTTIC MOVEMENT: partial epiglottic inversion LARYNGEAL VESTIBULE CLOSURE AT HEIGHT OF SWALLOW: incomplete laryngeal vestibule closure with narrow column of air/contrast in laryngeal vestibule PHARYNGEAL STRIPPING WAVE: pharyngeal stripping wave present / complete PHARYNGOESOPHAGEAL SEGMENT OPENING: partial distension and partial duration; partial obstruction of flow TONGUE BASE RETRACTION: narrow column of contrast between tongue base and posterior pharyngeal wall PHARYNGEAL RESIDUE: collection of residue within or on pharyngeal structures ESOPHAGEAL PHASE CHARACTERIZED BY: ESOPHAGEAL BOLUS CLEARANCE IN THE UPRIGHT POSITION: could not view INTERPRETATION OF RESULTS: Patient presents with mild-moderate oropharyngeal dysphagia secondary to late effects of CVA. Oral phase primarily marked by little to no mastication effort with whole piece of Danielle Doone cookie left unchewed prior to deglutition. Also contributing to poor mastication of solids is patients poor dentition and decreased lingual control. Pharyngeal phase primarily marked by delayed swallow onset timing with spillage to the pyriforms prior to swallow initiation. Penetration to the vocal cords on initial sip of thin liquids via teaspoon, however no other penetration or aspiration noted throughout trials. Chin tuck with thin liquids demonstrated no change in swallow timing or tolerance. Pharyngeal residue noted throughout trials with cues required for hard swallow to clear. RECOMMENDATIONS: DIET TEXTURE RECOMMENDATIONS: Will recommend a puree textured, thin liquid diet. COMPENSATORY STRATEGIES RECOMMENDED: Will recommend 1:1 directly supervised meals, small bites/sips, seated upright 90 degrees during PO intake and remain upright 30-60 minutes post meal, meds crushed in purees if able. Patient requires intensive skilled speech-language intervention targeting continued diet texture management, training and implementation of recommended compensatory strategies, training and implementation of recommended oropharyngeal strengthening exercises to facilitate improved swallow function, and patient/caregiver education regarding dysphagia. Would consider trials of advanced textures during skilled ST treatments prior to any consideration for upgrade as patient was noted to leave whole piece of Danielle cookie cookie unchewed leaving patient subseptale to choking. Would recommend repeat modified barium swallow study with any medical or health changes that may effect swallowing function or on an annual basis. Results and recommendations to be discussed with the patient and/or in further skilled speech therapy treatment. IMAGE COUNT: [id number] Jennifer Chaparro M.A., [facility]SENIOR LOSS CONTROL SPECIALIST Speech Language Pathologist [address] [place] [address] [email or web address] [phone]
== END ==
PROVIDERS: Family Provider Family Medicine; PCP Family Medicine; Referring Provider Family Medicine; Visit Provider Family Medicine
DX: R13.10 Dysphagia, unspecified (principal)
CPT/HCPCS: 74230; 92611

== ENCOUNTER 2019-04-28 07:34 | Emergency (ER) | payer MEDICARE, BC, SELFPAY ==
[2019-01-29 14:11] VITALS: BMI 29.8
[2019-04-28 07:35] VITALS: BP 120/42; PULSE 70; RESP 16; TEMP 36.9; O2SAT 95; BMI 31.6
--- NOTE | 2019-04-28 07:48 | ED.VIS.GEN ---
History of Present Illness Chief Complaint: Dental Narrative: Patient presenting due to concern for a possible dental infection or facial cellulitis. Patient has a underlying history of a stroke with hemiplegia and lives in a long-term. Patient reports that she has been dealing with some issues with dental pain over the course of the last 3 weeks. She reports that it is basically generalized dental pain. Patient developed some facial swelling that started last night. She denies any presence of fevers. No real pain associated with this. Patient denies any visual changes or pain with extraocular motion. Review of systems otherwise negative Past Medical History - Allergies and Home Meds Allergies/Adverse Reactions: Allergies Penicillins Allergy (Verified 01/29/19 10:21) Rash zolpidem tartrate [From Ambien] Adverse Reaction (Verified 01/29/19 10:21) CONFUSION Primary Care Physician: Kelvin Ibanez MD [Primary Care Provider] - Surgical History: arthroscopy, knee, hysterectomy, - - kristina fundoplication Smoking Status: Never smoker - Family History Maternal Family History: Family History (Last Reviewed 01/29/19 @ 13:44 by Rios Duarte DO) Mother CAD (coronary artery disease) CVA (cerebral vascular accident) Father Heart disease CVA (cerebral vascular accident) Sister Heart disease Brother Hypertension Family History: Reports: Stroke - age 69 Paternal Family History: Family History (Last Reviewed 01/29/19 @ 13:44 by Rios Duarte DO) Mother CAD (coronary artery disease) CVA (cerebral vascular accident) Father Heart disease CVA (cerebral vascular accident) Sister Heart disease Brother Hypertension Family History: Reports: Stroke - in 80's Review of Systems All systems negative except as indicated General: Denies: Fever Eyes: Denies: Visual changes - bilaterally, Diplopia ENT: Reports: - - Dental pain and left facial swelling Respiratory: Denies: Dyspnea Physical Exam Vital Signs/Narrative: Vital Signs Temp Pulse Resp BP Pulse Ox 04/28/19 07:35 98.5 F 70 16 120/42 L 95 General: Well nourished, Well developed, No Acute Distress Head: Normocephalic, Atraumatic, - - Erythema noted of the patient's left cheek with swelling of that area Eyes: Perrl, EOMI, - - No pain with extraocular motion ENT: - - Patient has poor dentition throughout the mouth. Oropharynx is clear. No evidence of focal abscesses in the gums. Soft sublingual space no evidence of trismus. Patient grinds her teeth almost continuously. Neck: Supple, Nontender Cardiovascular: Regular rate, Regular rhythm, No murmurs Respiratory: No distress, CTA bilaterally, Chest nontender Abdomen: Soft, Nontender, Nondistended, Normal bowel sounds Back: Nontender, Normal Inspection Skin: - - Warm and dry Neurological: Alert, Oriented x3, - - Baseline left-sided hemiparesis Psychological: Normal affect Diagnostic/Tx/Re-eval - Medical Decision Making Patient presented secondary to a dental/facial infection. Physical exam seems consistent either with a dental infection with facial swelling or localized facial cellulitis. There is no evidence of septal cellulitis, patient does not have a fever and does not appear toxic and does not complain of any pain with extraocular motion I do not believe that she requires IV or work-up at this time. Patient has penicillin allergy, she will be started on a course of clindamycin first dose given in the emergency department she will be discharged with a course of this and instructed to follow-up with primary care at the long-term. ED Disposition - Plan for ED Patient: Disposition: Home or Assisted Living Diagnosis: Facial cellulitis Instructions: DENTAL ABSCESS w/ Facial Cellulitis Prescriptions: Clindamycin [Cleocin] 300 mg PO 4X/DAY #80 cap Prescription Printed Referrals: Kelvin Ibanez MD [Primary Care Provider] - 3-5 Days
[2019-04-28] MEDS: Clindamycin HCl 150 MG Capsule 300 MG PO (07:58)
--- NOTE | 2019-04-28 08:17 | NURSING ---
CALLED [facility] FOR TRANSPORT
== END 2019-04-28 08:50 | disposition home or self-care (01) ==
LOC: ED 08:05
PROVIDERS: Emergency Provider Emergency Medicine; Family Provider Family Medicine; PCP Family Medicine
DX: L03.211 Cellulitis of face (principal); Z88.0 Allergy status to penicillin; Z88.8 Allergy status to other drugs, medicaments and biological substances; Z82.3 Family history of stroke; Z90.710 Acquired absence of both cervix and uterus
CPT/HCPCS: 99284

== ENCOUNTER → 2019-12-02 | Outpatient (CLI) | payer MEDICARE, BC, SELFPAY | END | disposition home or self-care (01) | LOC: LABSPEC 10:21 | PROVIDERS: PCP Family Medicine; Referring Provider Family Medicine; Visit Provider Family Medicine | DX: R05 Cough (principal) | CPT/HCPCS: 87633 ==

== ENCOUNTER → 2019-12-07 12:43 | Outpatient (CLI) | payer MEDICARE, BC, MEDICAID, SELFPAY ==
--- NOTE | 2019-12-07 13:00 | SP.MBSS_ITS ---
PRIMARY / SECONDARY DIAGNOSIS: dysphagia (R13.10) REFERRING PHYSICIAN: Dr. Kelvin Ibanez MD CURRENT DIET: pureed textures, nectar thickened liquids DENTITION: natural; damaged with reported odontalgia MENTAL STATUS: sufficient for participation RESPIRATORY STATUS: O2 via room air REASON FOR REFERRAL: The Patient is a 74 year old female who resides at the [facility] referred for a modified barium swallow (MBS) study to objectively assess the Patients oropharyngeal swallow function under fluoroscopy secondary to reported persistent dysphagia status post cerebrovascular accident, with hopes to advance to a less restrictive diet; reports recent damage to her dentition with odontalgia complicating solid intake, with plans for taoist / extractions unclear. 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 01/11/2019 MBS revealed moderate oropharyngeal dysphagia with SILENT and overt aspiration of thin liquids in addition to deep penetration without consistent ejection with nectar and honey thickened liquids. 02/18/2017 MBS revealed moderate oropharyngeal dysphagia with SILENT aspiration of thin liquids in addition to deep penetration without consistent ejection with nectar and honey thickened liquids. ADDITIONAL OBJECTIVE ASSESSMENT RESULTS: 10/05/[address] revealed chronic involutional changes of the brain; evolution of right-sided infarct with right frontal and temporal volume loss and encephalomalacia; soft tissue swelling; no hemorrhage. 01/26/2017 MRI revealed large right MCA and right ROBERT acute infarcts involving the right temporoparietal region including the insula as well as the medial right frontal lobe ASSESSMENT PARAMETERS: The Patient participated in a Modified Barium Swallow (MBS) study on 12/05/2019. This study was recorded in the lateral view and images were sent to PACs for storage. Scoring was completed through each trial using the 8- point Penetration-Aspiration Scale (PAS) and the Videofluoroscopic Scale Score (VSS), and summarized via the Videofluoroscopic Dysphagia Scale (VDS) and the Bolus Residue Scale (BRS), with severity scoring through the Dysphagia Severity Rating Scale (DSRS) and the Swallowing Performance Scale (SPS), and recommended diet textures through the International Dysphagia Diet Standardisation Initiative (IDDSI) RESULTS OF THE EVALUATION: The Patient presents with moderate oropharyngeal dysphagia (DSRS: 4; SPS: 5) with grade II overt aspiration of thin liquids secondary to a prior cerebrovascular accident involving the right frontal and temporal lobe OBJECTIVE ASSESSMENT OF SWALLOW FUNCTION (QUANTITATIVE ? PER TRIAL): PENETRATION / ASPIRATION SCALE (GALAN): 1 = does not enter airway 2 = enters airway/above vocal folds/ejected 3 = enters airway/above vocal folds/not ejected 4 = enters airway/contacts vocal folds/ejected 5 = enters airway/contacts vocal folds/not ejected 6 = enters airway/below vocal folds/ejected 7 = enters airway/below vocal folds/not ejected despite effort 8 = enters airway/below vocal folds/no effort VIDEOFLOROSCOPIC SCALE SCORE (GALAN): Grade I = aspiration of material that has penetrated into the laryngeal vestibule, intact cough reflex Grade II = aspiration < 10 % of the bolus, intact cough reflex Grade III = aspiration of < 10 % of the bolus, reduced cough reflex or aspiration of > 10 % of the bolus, intact cough reflex Grade IV = aspiration of > 10 % of the bolus, reduced cough reflex PENETRATION / ASPIRATION SCALE (SCORE) WITH VIDEOFLOROSCOPIC SCALE SCORE: Thin liquid - 5 mL tsp.: 1 Thin liquids via straw (single sip): 1 Thin liquids via straw (single sip): 3 Thin liquids via straw (single sip): 7 ? Grade II Thin liquids via straw (chin tuck): 1 Thin liquids via straw (chin tuck): 1 Thin liquids via straw (chin tuck): 1 Pudding via spoon: 1 Regular textured cookie: 1 Thin liquids via straw (chin tuck): 1 [place] thickened liquids via straw: 1 [place] thickened liquids via straw: NA* [place] thickened liquids via straw: NA* [place] thickened liquids via straw: 1 * denotes poor volume with delayed onset, deglutition with fluoroscopy off OBJECTIVE ASSESSMENT OF SWALLOW FUNCTION (QUANTITATIVE ? AGGREGATE): VIDEOFLOROSCOPIC DYSPHAGIA SCALE (VDS): LIP CLOSURE: 0 (of 4) Intact BOLUS FORMATION: 3 (of 6) Inadequate MASTICATION: 4 (of 8) Inadequate APRAXIA: 3 (of 4.5) Moderate TONGUE TO PALATE CONTACT: 5 (of 10) Inadequate PREMATURE BOLUS LOSS: 3 (of 4.5) 10-50% ORAL TRANSIT TIME: 3 (of 3) >1.5s TRIGGERING OF PHARYNGEAL SWALLOW: 0 (of 4.5) Normal VALLECULAR RESIDUE: 4 (of 6) 10-50% LARYNGEAL ELEVATION: 9 (of 9) Impaired PYRIFORM SINUS RESIDUE: 9 (of 13.5) 10-50% COATING OF PHARYNGEAL WALL: 0 (of 9) No PHARYNGEAL TRANSIT TIME: 0 (of 6) <1.0s ASPIRATION: 12 (of 12) Subglottic aspiration BOLUS RESIDUE SCALE (BRS): 3 (of 6) residue on the posterior pharyngeal wall / piriform sinus OBJECTIVE ASSESSMENT OF SWALLOW FUNCTION (SEVERITY GRADING): DYSPHAGIA SEVERITY RATING SCALE (DSRS): 4 (moderate) SWALLOWING PERFORMANCE SCALE (SPS): 5 (moderate) OBJECTIVE ASSESSMENT OF SWALLOW FUNCTION (QUALITATIVE): ORAL PREPARATORY PHASE: mastication inefficiency with an inability to proceed with full mastication due to reported odontalgia (due to recently broken dentition with decayed roots in place), however she was able to initially break down the bolus sufficiently enough to suggest that a mechanicalized diet would be appropriate; sufficient anterior oral containment during oral manipulation; preserved management of breathing / bolus formation ORAL TRANSITIONAL PHASE: varied oral phase swallow onset delay (2-15 seconds in length) most prominently with thicker viscosities paired with intermittently discoordinated lingual movements (undulations); suboptimal oral clearance with suspected left sided consolidation; insufficient oral containment with premature posterior bolus loss (improved with execution of the chin tuck posture) PHARYNGEAL PHASE: no signs of pharyngeal dyssynchrony; reduced hyolaryngeal excursion and duration with inconsistent laryngeal vestibule pressure generated to expel penetrated material; no clinically significant signs of pharyngeal dysmotility; no clinically significant signs of velopharyngeal impairments; overt prandial aspiration of trace amounts of thin liquids; no further penetration / aspiration throughout trials. ESOPHAGEAL PHASE: no obvious esophageal phase abnormalities observed. RESPONSE TO STRATEGIES: all deficits managed successfully with reduction in bolus rate / volume adjustments, and execution of the chin tuck posture via straw DYSPHAGIA ASSOCIATED MEDICAL CONSIDERATIONS / INTERVENTION CONSIDERATIONS: The Patient was noted to overtly aspirate during trials of thin liquids, suggesting clinical assessment at bedside relying on identification of classic overt signs and symptoms of aspiration may be sufficient to determine appropriateness for PO texture upgrade to thin liquids. I would consider the Patient to be at a higher risk of aspiration related medical complications / aspiration pneumonia / aspiration related pulmonary syndrome secondary to her history of a cerebrovascular accident with persistent limitations in mobility, the presence of dysphagia, her suboptimal dentition and dependent for oral care, current [facility] resident, and lower physical / functional status. Prior to diet texture advancement, I would have considered this Patient to be a high risk for malnutrition and dehydration due to the extent of recommended liquid viscosities / diet texture restrictions, and the related negative impact on palatability / intake pleasure / quality of life and anticipated smaller PO intake quantities, and higher risk for early satiety with recommended thicker viscosities; current considerations include the prior cerebrovascular accident presence of neurogenic complications in addition to the the Patients advanced age and persistency of dysphagia. I would recommend limiting diet texture alterations (particularly solids and semisolids) in favor of more naturally varied texture selection (having typically prepared pureed sides to supplement mechanicalized textures in response to odontalgia). The Patient may require intervention to reduce the risk of malnutrition, with considerations for food enrichment and oral nutritional supplementation. I would strongly consider a referral to a registered clinical dietitian if available. I would consider the Patent to be at a higher risk of oropharyngeal colonization with respiratory pathogens secondary to the Patient?s advanced age and poor oral hygiene (broken / decayed dentition with a higher likelihood of periodontal disease and active dental carries). Aspiration of saliva contaminated with pathogens can lead to pulmonary infections, with creation, implementation, and adherence to an aggressive oral and dental care program is essential, particularly given the Patients inability to independently perform oral care. INTERVENTION RECOMMENDATIONS AND CONSIDERATIONS: The Patient requires intensive skilled speech-language intervention targeting diet texture management and training / implementation of recommended compensatory strategies; training and implementation of a home oral care protocol to reduce the effects of xerostomia and improve / maintain the integrity of the oral mucosa reducing the risk of aspiration related pulmonary complications; Patient / caregiver education regarding stroke associated dysphagia; and Patient / caregiver training targeting meal preparation as appropriate. I would consider training and implementation of oropharyngeal strengthening exercises more so as a maintenance program to facilitate improved oropharyngeal strength and coordination, as significant improvements are unlikely due to the duration post cerebrovascular accident and anticipated recovery patterns. POST ASSESSMENT EDUCATION: Results and recommendations were discussed with the Patient and Patients family immediately following MBS completion, with the Patient and Patients family verbalizing understanding and agreement with all recommendations and education provided. We discussed factors impacting effects of aspiration, to include: the quantity of aspiration, the depth of aspiration (trachea or distal airways), and the physical properties of the aspirate. We discussed consequences of oropharyngeal dysphagia, to include pulmonary complications from tracheobronchial aspiration; potential for airway obstruction / asphyxiation; inadequate oral intake because of dysphagia; reduced liquid intake resulting in dehydration; reduced caloric intake resulting in unintentional and potentially medically complicating loss of weight; impairment in mental and physical condition to include depression and deterioration in the quality of life, higher risk for social isolation / anxiety / depression, increased disability rates, and lengthening of healing; complications in overall course of care with overall worse rehabilitation outcomes. I provided brief overview of signs and symptoms of aspiration, with recommendations for the Patient to further discuss symptoms with the Patients primary care provider / medical staff. DIET TEXTURE RECOMMENDATIONS: Will recommend a mechanical soft textured (IDDSI: 5), thin liquid diet (IDDSI: 0) diet RECOMMENDED COMPENSATORY STRATEGIES: Supervision with TOTAL FEED as needed, execution of the chin tuck posture via straw, reduced bolus volume / rate of ingestion, provide non-altered / typically prepared pureed sides as an alternative selection, seated upright at 90 degrees during PO intake, remain upright for 30-60 minutes post meal (GERD precaution) IMAGE COUNT: Reid Segovia M.A., CCC-EDGE BLACKER, CBIS MBSImP Certified, LSVT Certified [facility] Speech-Language Pathology Department [email or web address]
== END ==
PROVIDERS: PCP Family Medicine; Referring Provider Family Medicine; Visit Provider Family Medicine
DX: R13.10 Dysphagia, unspecified (principal)
CPT/HCPCS: 76000; 92611

== ENCOUNTER 2019-12-20 22:27 | Emergency (ER) | payer MEDICARE, BC, MEDICAID, SELFPAY ==
[2019-12-20 22:29] VITALS: PULSE 66; RESP 14; TEMP 36.9; BMI 29.9
--- NOTE | 2019-12-20 22:36 | ED.RN ---
RN CALLED FOR EKG, PULLED OLD EKGS FOR
[2019-12-20 22:44] VITALS: O2SAT 96
--- NOTE | 2019-12-20 22:44 | EKG12_ITS ---
Test Reason : CP Blood Pressure : / mmHG Vent. Rate : 068 BPM Atrial Rate : 068 BPM P-R Int : 156 ms QRS Dur : 066 ms QT Int : 392 ms P-R-T Axes : 061 011 046 degrees QTc Int : 416 ms Normal sinus rhythm Normal ECG When compared with ECG of 29-JAN-2019 10:58, No significant change was found Confirmed by JAYCEE VASQUES ([id number]), film editor FARA HARRISON ([id number]) on 12/29/2019 9:53:47 AM Referred By: USHA Confirmed By:JAYCEE VASQUES
--- NOTE | 2019-12-20 22:45 | RAD_ITS ---
STUDY: X-RAY CHEST REASON FOR EXAM: Female, 74 years old. CHEST PAIN TECHNIQUE: Single AP portable view of the chest. COMPARISON: 01/29/2019. FINDINGS: The lungs are clear and expanded. There is no demonstrated pleural abnormality. Normal size heart. Normal mediastinum and edmundo. Normal visualized pulmonary arteries. Normal visualized aortic arch and descending thoracic aorta. Normal visualized thoracic spine. Normal visualized ribs, clavicles, and shoulders. There is no demonstrated abnormality of the visualized soft tissue structures of the upper abdomen. RAD/Chest 1 View (Portable) IMPRESSION: Normal x-ray examination of the chest. Electronically Signed: Howard Man MD at 23:10 EDT , Service support ,
--- NOTE | 2019-12-20 22:51 | ED.VISSUMM ---
- ER Visit Summary Date of Service: 12/20/19 Chief Complaint: Chest pain History of Present Illness: The patient is a 74 F who presents with chest pain. She states it started earlier this evening and it lasted about 30 minutes. It was heaviness in the middle part of her chest. She currently has no symptoms. Nothing made it better or worse. She did feel mildly short of breath with this. The pain radiated to her jaw. 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 She has no cardiac history but has had a stroke recently. She currently lives in a shelter. Physical Examination: Vital signs reviewed. HEENT exam unremarkable. Heart is regular rate and rhythm without murmurs. Lungs are clear to auscultation. Abdomen is soft and nontender. Extremities reveal no edema. Peripheral pulses are equal. Skin exam normal. Neurologic exam shows chronic left-sided weakness. Test Results: EKG was sinus rhythm with rate of 68. There are no ST changes. Unchanged from previous. Chest x-ray normal. Hemoglobin is 11.2. Platelet count is 527. Her BUN is 21. Her troponin is normal. INR 1.8. Emergency Department Course and Treatment: The patient was pain-free throughout her stay. She does have a ERIBERTO score of 2. However, her repeat troponin is still normal. I have no suspicion for PE as it does not sound as if she does have a thromboembolic issue. She has a INR 1.8. Her troponin is normal after 3 hours. I feel she can be discharged back to her facility. Treatment Plan: [] Disposition: Discharge Impression: Chest pain This note was generated with Convertigo dictation software. It may contain incorrect words, spelling, and punctuation that were not noted in review of the chart prior to signing ED Disposition - Plan for ED Patient: Disposition: Home or Assisted Living Instructions: CHEST PAIN, Uncertain Cause Referrals: Kelvin Ibanez MD [Primary Care Provider] -
[2019-12-20 23:30] LABS: Absolute Neutrophil Count 3.3 X10^3/uL (2.0-7.7); Basophil# 0.08 X10^3/uL; Eosinophils% 5.1 % (0-5); Hematocrit 37.1 % (37-47); Hemoglobin 11.2 g/dL (12.0-15.0); International Normalized Ratio 1.8; Mean Corp Hgb Conc 30.2 g/dL (32-36); Mean Corpuscular Hgb 29.3 pg (27.0-32.0); Mean Corpuscular Volume 97.1 fL (81-99); Mean Platelet Vol. 9.8 fl (6.2-12.0); Monocyte# 0.72 X10^3/uL; Monocyte% 9.1 % (0-10); NRBC Flagged by Analyzer 0 % (0-5); Neutrophil # 3.27 X10^3/uL (2.7-7.7); Neutrophil % 41.4 % (47-70); Platelet Count 527 K/mm3 (150-450); Prothrombin Time (Protime)PT. 20.3 SECONDS (11.7-14.9); RBC Distribution Width CV 12.7 % (11.6-14.6); RBC Distribution Width SD 45.2 fl (35.1-43.9); Red Blood Count 3.82 M/mm3 (4.2-5.4); White Blood Count 7.9 K/mm3 (4.4-11.0)
[2019-12-20 23:41] LABS: Anion Gap 4 (5-15); BUN 21 mg/dL (7-18); BUN/Creat Ratio 21.9 RATIO (10-20); Calcium,Total 8.6 mg/dL (8.5-10.1); Chloride 108 mmol/L (98-107); Creatinine, Serum 0.96 mg/dL (0.55-1.02); EST Glomerular Filtration Rate 61 mL/min (>60); Est Glom Filt Rate - Afr Amer 74 mL/min (>60); Estimated Creatinine Clearance 38.05 ml/min; Glucose 88 mg/dL (74-106); Potassium 5.1 mmol/L (3.5-5.1); Sodium Level 142 mmol/L (136-145)
[2019-12-21 00:06] VITALS: BP 114/64; PULSE 67; RESP 16; O2SAT 94
[2019-12-21 01:13] VITALS: BP 123/45; PULSE 68; RESP 16; O2SAT 96
[2019-12-21 01:54] VITALS: BP 107/80; PULSE 67; RESP 19; O2SAT 98
--- NOTE | 2019-12-21 02:36 | ED.RN ---
THIS RN NURSE TO NURSE REPORT BACK TO THE AVENUE. INFORMED OF PT CARE IN DEPT AND RETURN TO NURSING FACILITY. PT TO FOLLOW UP WITH PCP. PT FAMILY AT BEDSIDE INFORMED.
[2019-12-21 02:50] VITALS: BP 97/46
== END 2019-12-21 02:51 | disposition home or self-care (01) ==
PROVIDERS: Emergency Provider Emergency Medicine; PCP Family Medicine
DX: R07.9 Chest pain, unspecified (principal); F03.90 Unspecified dementia, unspecified severity, without behavioral disturbance, psychotic disturbance, mood disturbance, and anxiety; J44.9 Chronic obstructive pulmonary disease, unspecified; K21.9 Gastro-esophageal reflux disease without esophagitis; I10 Essential (primary) hypertension; E78.00 Pure hypercholesterolemia, unspecified; F41.9 Anxiety disorder, unspecified; F31.9 Bipolar disorder, unspecified; Z66 Do not resuscitate; Z86.73 Personal history of transient ischemic attack (TIA), and cerebral infarction without residual deficits; Z79.01 Long term (current) use of anticoagulants; Z79.51 Long term (current) use of inhaled steroids; Z79.899 Other long term (current) drug therapy
CPT/HCPCS: 71045; 80048; 84484; 85025; 85610; 93005; 99285; A4216

== ENCOUNTER → 2020-01-13 | Outpatient (REF) | payer MEDICARE, BC, MEDICAID, SELFPAY ==
[2019-12-20 22:29] VITALS: BMI 29.9
[2020-01-13 13:34] LABS: Color, Urine Yellow (Yellow); Glucose, Dipstick Normal (Normal); Ketone-Dipstick 5 mg/dl (Negative); Leukocyte Esterase-Dipstick 500 /ul (Negative); Nitrite-Dipstick Positive (Negative); Occult Blood-Urine 250 /ul (Negative); Protein-Dipstick 100 mg/dl (Negative); Specific Gravity, Urine 1.015 (1.002-1.030); Urine Bilirubin Dipstick Negative (Negative); Urine Clarity Cloudy (Clear); Urine Urobilinogen Normal (Normal)
== END | disposition home or self-care (01) ==
LOC: LABSPEC 08:30
PROVIDERS: PCP Family Medicine; Visit Provider Family Medicine
DX: N39.0 Urinary tract infection, site not specified (principal)
CPT/HCPCS: 81002; 87086; 87088; 87186; 87633; 87635; U0004

== ENCOUNTER 2020-05-22 20:08 | Emergency (ER) | payer MEDICARE, BC, MEDICAID, SELFPAY ==
[2020-05-22 20:10] VITALS: BP 102/72; PULSE 79; RESP 16; TEMP 36.4; O2SAT 95; BMI 31.1
--- NOTE | 2020-05-22 20:21 | CT_ITS ---
STUDY: CT CERVICAL SPINE WITHOUT CONTRAST REASON FOR EXAM: Female, 74 years old. FELL OUT OF BED AND HIT BACK OF HEAD AND LEFT SHOULDER,ON COUMADIN, HX STROKE, HTN, DEMENTIA,COPD RADIATION DOSAGE (If Supplied By Facility): CTDIvol = ( 13.42 ) mGy, DLP = ( 277.33 ) mGycm TECHNIQUE: High resolution transaxial imaging was performed without contrast material. Sagittal and coronal images were reconstructed. Individualized dose optimization techniques were used for this CT. COMPARISON: 07/30/2015 FINDINGS: Normal craniovertebral junction. Normal anterior atlantoaxial articulation. Normal odontoid process. Decreased cervical lordosis. Normal vertebral bodies and posterior osseous elements. C2-3: Normal endplates. Normal disc height and morphology. Normal central canal and intervertebral neuroforamina. C3-4: Normal endplates. Normal disc height and morphology. Normal central canal and intervertebral neuroforamina. C4-5: Minor endplate spurring.. Normal disc height and morphology. Normal central canal and intervertebral neuroforamina. C5-6: Probable Schmorl''s node of superior endplate of C6. Chronic wedging of both C5 and C6 vertebral bodies. Narrowed disc space and endplate spurring. Normal central canal. Mild left neuroforaminal stenosis secondary to bony hypertrophy.. C6-7: Normal endplates. Normal disc height and morphology. Normal central canal and intervertebral neuroforamina. C7-T1: Normal endplates. Normal disc height and morphology. Normal central canal and intervertebral neuroforamina. Normal visualized soft tissue structures. CT/Spine Cervical without Contras IMPRESSION: Mild chronic wedging of C5 and C6. No acute fracture or subluxation Mild spondylosis most severe at C5-6. Electronically Signed: Pritesh Will MD at 21:01 EDT , Service support ,
--- NOTE | 2020-05-22 20:21 | CT_ITS ---
STUDY: CT BRAIN WITHOUT CONTRAST REASON FOR EXAM: Female, 74 years old. FELL OUT OF BED AND HIT BACK OF HEAD AND LEFT SHOULDER,ON COUMADIN, HX STROKE, HTN, DEMENTIA,COPD RADIATION DOSAGE (If Supplied By Facility): CTDIvol = ( 44.99 ) mGy, DLP = ( 796.11 ) mGycm TECHNIQUE: Transaxial CT imaging of the brain was performed without administration of intravenous contrast material. Individualized dose optimization techniques were used for this CT. COMPARISON: No relevant priors. FINDINGS: Normal soft tissue structures. Normal calvarium. Calcification of cavernous carotids and vertebral arteries. Mild atrophy and periventricular white matter ischemic changes.. 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 Normal basal ganglia and thalami. Normal brainstem. Normal cerebellum. There is no intracranial hemorrhage. There are no findings of an acute ischemic infarction. Polypoid mucosal thickening in the right maxillary sinus and moderate mucosal thickening of the left.. Moderate mucosal thickening in the right ethmoid and frontal sinuses. Mild mucosal thickening of the sphenoid sinuses. CT/Brain/Head without Contrast IMPRESSION: Mild atrophy and periventricular white matter ischemic changes. Probable old right cerebral hemispheric infarct versus old posttraumatic changes.. No evidence for acute intracranial bleed Diffuse pansinusitis Electronically Signed: Pritesh Will MD at 20:57 EDT , Service support ,
--- NOTE | 2020-05-22 20:38 | RAD_ITS ---
STUDY: X-RAY - LEFT SHOULDER REASON FOR EXAM: Female, 74 years old. FALL, LEFT SHOULDER PAIN TECHNIQUE: 2 view(s) of the shoulder. COMPARISON: None. FINDINGS: Narrowed glenohumeral articulation. Mild spurring of the acromioclavicular joint. Normal acromion. Normal humeral head and visualized proximal humerus. The soft tissue structures are unremarkable. Normal visualized pulmonary apex. RAD/Shoulder min 2 Views IMPRESSION: Degenerative changes. No evidence for acute fracture or dislocation Electronically Signed: Pritesh Will MD at 21:06 EDT , Service support ,
--- NOTE | 2020-05-22 21:08 | RAD_ITS ---
STUDY: X-RAY - PELVIS AND LEFT HIP REASON FOR EXAM: Female, 74 years old. left hip pain after fall TECHNIQUE: 3 views of the pelvis and hip. COMPARISON: 10/05/2018 FINDINGS: There is a non-specific bowel gas pattern. Normal visualized soft tissue structures. Normal bilateral iliac wings, sacroiliac joints and visualized sacrum. Normal bilateral superior and inferior pubic rami. Normal pubic symphysis. Normal bilateral ischial tuberosities. Normal visualized femoral head. Normal acetabulum. Normal hip joint. No significant change since prior exam RAD/HIP, UNI W/ Pelvis 2-3 Views IMPRESSION: Normal x-ray examination of the pelvis and hip. Electronically Signed: Pritesh Will MD at 21:48 EDT , Service support ,
[2020-05-22 21:25] LABS: Absolute Lymphocyte Count 2.21 X10^3/uL (0.83-4.51); Absolute Neutrophil Count 5.3 X10^3/uL (2.0-7.7); Basophil# 0.06 X10^3/uL; Basophil% 0.7 % (0-1); Eosinophil# 0.37 X10^3/uL; Eosinophils% 4.2 % (0-5); Hematocrit 37.6 % (37-47); Hemoglobin 11.7 g/dL (12.0-15.0); Lymphocyte # 2.21 X10^3/ul (4.0); Lymphocyte % 25.2 % (19-41); Mean Corp Hgb Conc 31.1 g/dL (32-36); Mean Corpuscular Hgb 29.3 pg (27.0-32.0); Monocyte# 0.77 X10^3/uL; Monocyte% 8.8 % (0-10); NRBC Flagged by Analyzer 0 % (0-5); Neutrophil # 5.32 X10^3/uL (2.7-7.7); Neutrophil % 60.6 % (47-70); Platelet Count 383 K/mm3 (150-450); RBC Distribution Width CV 12.1 % (11.6-14.6); RBC Distribution Width SD 42.2 fl (35.1-43.9); White Blood Count 8.8 K/mm3 (4.4-11.0)
--- NOTE | 2020-05-22 21:25 | RAD_ITS ---
STUDY: X-RAY - LEFT ELBOW REASON FOR EXAM: Female, 74 years old. left elbow pain after fall. hx of stroke so patient is unable to move arm best images as possible TECHNIQUE: 3 view(s) of the elbow. COMPARISON: None. FINDINGS: Normal visualized humerus, radius and ulna. Normal radiocapitellar and ulnotrochlear articulations. The soft tissue structures are unremarkable. RAD/Elbow 2 Views IMPRESSION: Normal x-ray examination of the elbow. Electronically Signed: Pritesh Will MD at 21:46 EDT , Service support ,
[2020-05-22 21:34] LABS: International Normalized Ratio 2.3
[2020-05-22 21:38] LABS: Anion Gap 3 (5-15); BUN 28 mg/dL (7-18); BUN/Creat Ratio 30.9 RATIO (10-20); Calcium,Total 8.7 mg/dL (8.5-10.1); Chloride 112 mmol/L (98-107); EST Glomerular Filtration Rate 65 mL/min (>60); Est Glom Filt Rate - Afr Amer 79 mL/min (>60); Estimated Creatinine Clearance 40.58 ml/min; Glucose 114 mg/dL (74-106); Potassium 4.5 mmol/L (3.5-5.1); Sodium Level 143 mmol/L (136-145)
--- NOTE | 2020-05-22 21:56 | ED.DCSUM_ITS ---
- ER Visit Summary Date of Service: 05/22/20 Chief Complaint: Fall History of Present Illness: The patient is a 74 F who presents after a fall that occurred today. Patient fell out of bed today. Patient states she hit her head. Patient complains of pain over her left elbow and left hip. Patient hit the left side of her head. Patient states she is on Coumadin from her prior stroke. Patient was unable to get up and ambulate due to the prior stroke. Patient denies any loss of consciousness. Patient states her pain is worse with any movement. Patient denies any new neurologic symptoms. Patient states she did have a recent negative COVID test this week. Physical Examination: Vital signs are stable. Patient is afebrile. Patient is in no acute distress. There is some tenderness and a small hematoma over the left parietal area. There is no bony crepitance or step-off. Cranial nerves II through XII are intact. There are no new focal motor or sensory deficits noted. Heart was regular rate and rhythm. Lungs are clear and equal bilaterally. Abdomen is soft and nontender. Extremities are intact. There is some mild tenderness over the left shoulder, left elbow, and left hip. There are no deformities noted. Range of motion was limited in all motions of the left shoulder, elbow, and hip due to pain. There is no laxity noted. Test Results: CT scan of the brain was obtained. There is no acute intracranial abnormality. There is a prior old infarct. CT scan of the cervical spine was obtained. There is no acute fracture. X-rays of the left hip, left elbow, and left shoulder were obtained. There are no acute fractures. These were all interpreted by the radiologist and reviewed by myself. Emergency Department Course and Treatment: Patient was given ice packs. Patient was instructed to take Tylenol as needed for pain. Patient was instructed to follow-up with her primary care physician in 5 to 7 days. Patient and family understood and were agreeable with the plan. All questions were answered. Disposition: Discharge home Impression: 1. Closed head injury 2. Left hip contusion 3. Left elbow contusion This note was generated with IMshoppingation software. It may contain incorrect words, spelling, and punctuation that were not noted in review of the chart prior to signing ED Disposition - Plan for ED Patient: Disposition: Home or Assisted Living Diagnosis: Closed head injury, Left elbow contusion, Contusion of left hip Instructions: ED ELBOW CONTUSION, ED EXTREMITY CONTUSION Lower, ED Head Injury Adult Referrals: Kelvin Ibanez [Primary Care Provider] - 5-7 Days
[2020-05-22 23:01] VITALS: BP 101/71; PULSE 71; RESP 16; O2SAT 96
--- NOTE | 2020-05-22 23:58 | ED.RN ---
NURSE TO NURSE REPORT CALLED TO ELLEN AT THE [facility]
== END 2020-05-22 23:58 | disposition home or self-care (01) ==
PROVIDERS: Emergency Medicine; Emergency Provider Emergency Medicine; PCP Family Medicine
DX: S09.90XA Unspecified injury of head, initial encounter (principal); S70.02XA Contusion of left hip, initial encounter; S50.02XA Contusion of left elbow, initial encounter; W06.XXXA Fall from bed, initial encounter; Z79.01 Long term (current) use of anticoagulants; Z86.73 Personal history of transient ischemic attack (TIA), and cerebral infarction without residual deficits
CPT/HCPCS: 70450; 72125; 73030; 73070; 73080; 73502; 80048; 85025; 85610; 99285

== ENCOUNTER 2021-09-13 09:44 | Day surgery (SDC) | payer MEDICARE, BC, MEDICAID, SELFPAY ==
[2021-09-13] VITALS (7 sets, daily range): BP systolic 87–140; BP diastolic 38–76; PULSE 73–101; RESP 14–18; TEMP 36.1–36.4; O2SAT 96–98; BMI 30.8
--- NOTE | 2021-09-13 08:17 | PCM.OPRPT ---
Problems Associated Problem List Diagnoses (1) UTI (urinary tract infection): (2) Bladder pain: Report of Operation Date of Procedure: 09/13/21 Pre-Operative Diagnosis: urinary tract infections, bladder pain Post-Operative Diagnosis: same Surgery/Procedure Performed:: cystoscopy and pelvic exam under anesthesia Surgeon: Flores Wu Type of Anesthesia: MAC Description of Procedure: The patient is a 76-year-old female who is in a nursing facility. She is have been having continued painful bladder spasms at least 5-6 times a day despite management with medications. She also has a history of urinary tract infections including sepsis. She now presents for evaluation under anesthesia. Informed consent was obtained. The patient was taken to the operating room and placed on the operating room table. Anesthesia monitored the head, neck, airway, IV access and vital signs for the case. Once anesthesia was appropriate ministered the patient was placed into dorsal lithotomy position with the left leg remaining straight, and well supported. At this time the pelvic examination was performed revealing no evidence of significant prolapse, no mass, no bleeding and no abnormality. At this time the cystoscope was inserted through the urethra under direct visualization into the urinary bladder. The mucosa was visualized in its entirety without any mass, erythema, lesion or foreign body. The bladder is contracted, has been a very small capacity, and obvious patient discomfort when the bladder is filled to capacity. At this time the bladder was emptied and the cystoscope was removed. The procedure was terminated and the patient was awakened and taken to the recovery room in good condition. There were no complications during this procedure. Grafts/Implants Used: none Complications none Admit VTE Documentation VTE Present on Admission: Yes VTE Mechan Device Prophylaxis: SCD's VTE Pharm Prophylaxis ordered?: Yes
--- NOTE | 2021-09-13 08:19 | PCM.DC ---
Discharge Instructions Diet Discharge Diet: No restrictions Activity Discharge Activity: Return to Normal Activity Dressing / Incision Call your doctor if you observe: Fever of 101 or Higher, Inability to urinate, Inability to have a bowel movement and Uncontrolled pain Follow Up Care Please Follow Up With: Flores Wu MD When: 3-4 weeks, call office for appt please restart coumadin at previous dose Test Results: Test results from this visit will be discussed in further detail at your follow-up appointment, if applicable. Discharge Plan Admission Attending Provider: Flores Wu Primary Care Provider: Kelvin Ibanez Discharge Orders/Prescriptions Prescriptions: Continued sertraline 100 mg tablet 150 mg PO DAILY RF: 0 sennosides-docusate sodium 8.6-50 mg tablet 1 tab PO BID RF: 0 acetaminophen 325 mg tablet 650 mg PO TID RF: 0 ferrous sulfate 325 mg (65 mg iron) tablet 325 mg PO QODAY RF: 0 metoprolol tartrate 25 mg tablet 12.5 mg PO BID RF: 0 levothyroxine 125 mcg tablet 125 mcg PO DAILY@0600 RF: 0 melatonin 3 MG tablet 3 mg PO QHS RF: 0 quetiapine [Seroquel] 50 MG tablet 200 mg PO QHS RF: 0 Breo Ellipta 1 EACH blister with device 1 ea IH DAILY RF: 0 guaifenesin 600 MG tablet extended release 12hr 600 mg PO BID PRN (Reason: Cough) RF: 0 bisacodyl [Biscolax] 10 MG suppository 1 tab RECTAL QHS RF: 0 gabapentin 300 MG capsule 300 mg PO BID RF: 0 artificial tears solution Drops 1 drp ophthalmic (eye) TID RF: 0 ascorbic acid (vitamin C) [Vitamin C] 500 mg Tablet 500 mg PO DAILY RF: 0 quetiapine [Seroquel] 50 mg Tablet 50 mg PO DAILY RF: 0 cholecalciferol (vitamin D3) [Vitamin D3] 50 mcg (2,000 unit) Capsule 50 mcg PO DAILY RF: 0 methen-sod phos-meth blue-hyos [Urogesic-Blue] 81.6-40.8-0.12 mg Tablet 1 tab PO Q8 PRN (Reason: UTI) RF: 0 Myrbetriq 50 mg Tablet Extended Release 24 Hr 100 mg PO DAILY RF: 0 d-mannose 500 mg Capsule 2,000 mg PO DAILY RF: 0 Referrals / Follow Up: Flores Wu MD [STAFF PHYSICIAN] - (please restart coumadin at normal dose) Kelvin Ibanez [Primary Care Provider] - Disposition Disposition (needs filled in before D/C Order can be placed): Group Home Facility
[2021-09-13 11:01] LABS: INR Fingerstick 1.3; Prothrombin Time Fingerstick 15.7 SEC (11.9-14.4)
[2021-09-13] MEDS: Cefazolin 2 GM in 0.9% Normal Saline 100 ML IV (11:15)
--- NOTE | 2021-09-13 12:42 | SUR.PHASEII ---
ATTEMPTED TO CALL THE [facility] TO GIVE REPORT, GOT DISCONNECTED EACH TIME. WILL DC PATIENT WITH COPY OF DISCHARGE INSTRUCTION, DC INSTRUCTIONS WERE ALSO DISCUSSED WITH .
== END 2021-09-13 13:55 | disposition home or self-care (01) ==
LOC: SDC 09:49 → AC 09:50
PROVIDERS: PCP Family Medicine; Referring Provider Urology; Visit Provider Urology
PROC: 0TBB8ZX Excision of Bladder, Via Natural or Artificial Opening Endoscopic, Diagnostic (ICD-10-PCS; CPT 52000; principal; 2021-09-13 11:15)
DX: N39.0 Urinary tract infection, site not specified (principal); R39.89 Other symptoms and signs involving the genitourinary system; R32 Unspecified urinary incontinence; K21.9 Gastro-esophageal reflux disease without esophagitis; F41.9 Anxiety disorder, unspecified; F31.9 Bipolar disorder, unspecified; E78.5 Hyperlipidemia, unspecified; E03.9 Hypothyroidism, unspecified; Z99.3 Dependence on wheelchair; Z79.01 Long term (current) use of anticoagulants; Z79.899 Other long term (current) drug therapy
CPT/HCPCS: 00910; 52000; 36416; 85610; 94640; J7120; J2405

== ENCOUNTER → 2022-07-02 | Outpatient (CLI) | payer MEDICARE, BC, MEDICAID, SELFPAY ==
--- NOTE | 2022-07-02 14:46 | CT_ITS ---
INDICATION: GROSS HEMATURA EXAMINATION: CT Abdomen And Pelvis WO/W Contrast Injection TECHNIQUE: Helically acquired images were obtained of the abdomen and pelvis after IV contrast. A radiation dose optimization technique was used for this scan. IV Contrast dosage and agent: IV 100mL Isovue-300 Oral contrast: None. COMPARISON: None. FINDINGS: Visualized lung bases: Unremarkable Liver: Unremarkable Gallbladder: Surgically absent. Spleen: Unremarkable Pancreas: Unremarkable Adrenal Glands: Unremarkable Kidneys: Unremarkable Vasculature: Moderate aortoiliac atherosclerotic disease. IVC filter in place. GI Tract: Unremarkable Lymphadenopathy: None Peritoneum: No ascites. Bladder: Mild circumferential wall thickening of the bladder with surrounding mesenteric fat stranding Reproductive organs: Unremarkable Bones/Soft tissues: There are diffuse degenerative changes of the spine. CT/CT Abd/Pelvis W/WO Contrast IMPRESSION: Findings suspicious for cystitis. No evidence of hydronephrosis or renal stones. Electronically Signed: Chad Tejada MD at 23:59 EDT ,
[2022-07-02 17:16] LABS: EGFR FINGERSTICK > 60.0000 mL/min (>60)
== END | disposition home or self-care (01) ==
LOC: CT 14:45
PROVIDERS: PCP Family Medicine; Referring Provider Urology; Visit Provider Urology
DX: R31.0 Gross hematuria (principal)
CPT/HCPCS: 74178; Q9967